=== PATIENT | female | born 1950 | race Caucasian/White ===

== ENCOUNTER 2016-11-09 20:41 | Emergency (ER) | payer BC, OTHER ==
[~2016-11-09] VITALS: Ht 172.7 cm; Wt 131.5 kg
[~2016-11-09 20:41] MED LIST: ASCO500T16 PO; CALCTAB13 PO; CITA20TA9 PO; ENOX120I SQ; FLNIN NAE; HYDC25 PO; IND/25 PO; MISCCAP80 PO; MULTTAB PO; SALI0.6510 NAE; WARF5TAB90 PO; [UNRECOGNIZED DRUG - OTHER] PO
[2016-11-09 20:43] VITALS: TEMP 36.8; Ht 172.7 cm; Wt 131.5 kg
[2016-11-09] MEDS ORDERED: ALLO100T PO (20:55)
[2016-11-09] MEDS ORDERED: FOLI1TAB7 PO (20:56)
[2016-11-09] MEDS ORDERED: CHOL1000 PO (20:56)
[2016-11-09] MEDS ORDERED: VTMB12 PO (20:56)
[2016-11-09] MEDS ORDERED: HYDROCODONE/ACETAMOPHEN 5/325MG TAB PO ONE (21:15)
--- NOTE | 2016-11-09 22:03 | DIAGNOSTIC IMAGING REPORT ---
LEFT RIBS UNILATERAL WITH PA CHEST CLINICAL HISTORY: Left rib pain status post trauma COMPARISON STUDY: Chest x-ray dated 02/26/2013 FINDINGS: The cardiac and mediastinal contours remain stable. There are minor left basilar atelectatic changes. There is no pneumothorax. No acute fractures are visualized. IMPRESSION: No evidence of pneumothorax. No acute left-sided rib fractures are visualized Electronically signed by: Emmanuel Samayoa M.D. 11/09/2016 10:02 PM Dictated Date/Time: 11/09/2016 10:00 PM
[2016-11-09] MEDS ORDERED: HYDR-5688 PO (22:28)
[2016-11-09] MEDS ORDERED: NORCO 5/325MG HOME PACK PO ONE (22:30)
[2016-11-09 23:01] VITALS: BP 138/88; PULSE 84; O2SAT 98
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
[2016-12-08] MEDS ORDERED: ENOX1INJ13 SQ ×2 (13:05→16:52)
[2016-12-08] MEDS ORDERED: CMD5 PO (16:52)
== END 2016-11-09 23:02 | disposition home or self-care (01) ==
LOC: C.EDB 20:42 → C.EDD 23:02
DX: S29.9XXA Unspecified injury of thorax, initial encounter (principal); V19.9XXA Pedal cyclist (driver) (passenger) injured in unspecified traffic accident, initial encounter; I10 Essential (primary) hypertension; Z79.899 Other long term (current) drug therapy

== ENCOUNTER 2016-12-07 17:45 | Inpatient (IN) | payer OTHER ==
[~2016-12-07] VITALS: Ht 172.7 cm; Wt 131.4 kg
[~2016-12-07 17:45] MED LIST changes: +ALLO100T PO; -ASCO500T16 PO; -CALCTAB13 PO; +CHOL1000 PO; -ENOX120I SQ; -FLNIN NAE; +FOLI1TAB7 PO; +HYDR-5688 PO; -IND/25 PO; -SALI0.6510 NAE; +VTMB12 PO; -WARF5TAB90 PO; -[UNRECOGNIZED DRUG - OTHER] PO
[2016-12-07 18:24] LABS: BASO % 0.3 %; BASO ABS # 0.02 K/uL (0-0.2); COMPLETE YES; HEMATOCRIT 40.1 % (37-47); IG% 0.1 %; LYMPH % 20.8 %; LYMPH ABS # 1.41 K/uL (1.2-3.4); MEAN CELL VOLUME 91.1 fL (80-100); MEAN CORPUSCULAR HEMOGLOBIN 29.8 pg (25-34); MEAN CORPUSCULAR HGB CONC 32.7 g/dl (32-36); MEAN PLATELET VOLUME 10.9 fL (7.4-10.4); MONO % 9.3 %; NEUT % 66.5 %; PLATELET COUNT 340 K/uL (130-400); WHITE BLOOD COUNT 6.77 K/uL (4.8-10.8)
[2016-12-07 18:27] LABS: ISTAT CREATININE 1.3 mg/dl (0.6-1.3); ISTAT HEMOGLOBIN 13.3 g/dl (12.0-16.0); ISTAT IONIZED CALCIUM 1.21 mmol/l (1.12-1.32)
--- NOTE | 2016-12-07 18:32 | DIAGNOSTIC IMAGING REPORT ---
CHEST ONE VIEW PORTABLE CLINICAL HISTORY: 66 years-old Female presenting with EVALUATE RESPIRATORY DISTRESS.DYSPNEA. TECHNIQUE: Portable upright AP view of the chest was obtained. COMPARISON: 02/26/2013. FINDINGS: Cardiomediastinal silhouette normal. Lungs and pleural spaces clear. Osseous structures normal. Upper abdomen normal. IMPRESSION: 1. No acute cardiopulmonary disease. Electronically signed by: Brian Saravia M.D. 12/07/2016 6:30 PM Dictated Date/Time: 12/07/2016 6:30 PM
[2016-12-07 18:33] LABS: PROTHROMBIN TIME (PATIENT) 10.2 SECONDS (9.0-12.0)
[2016-12-07 18:49] LABS: ALT/SGPT 26 U/L (12-78); BLOOD UREA NITROGEN 25 mg/dl (7-18); BUN/CREATININE RATIO 20.9 (10-20); CALCIUM 9.3 mg/dl (8.5-10.1); CARBON DIOXIDE 26 mmol/L (21-32); CHLORIDE 107 mmol/L (98-107); GLUCOSE 100 mg/dl (70-99); POTASSIUM 3.5 mmol/L (3.5-5.1); SODIUM 140 mmol/L (136-145)
[2016-12-07 18:54] LABS: ALB/GLOB RATIO 0.8 (0.9-2); ALKALINE PHOSPHATASE 113 U/L (45-117); AST/SGOT 24 U/L (15-37)
--- NOTE | 2016-12-07 19:05 | DIAGNOSTIC IMAGING REPORT ---
(CHEST FOR PE) ANGIO WITH CT DOSE: 718.58 mGy.cm HISTORY: 66 years-old Female presents with acute shortness of breath. TECHNIQUE: Multiple CTA images of the chest were obtained after the intravenous administration of 90 ml Optiray 320. Coronal and sagittal MIPS were obtained from the axial data set and were submitted for review. A dose lowering technique was utilized adhering to the principles of ALARA. COMPARISON: CTA chest 11/13/2012 FINDINGS: CTA: Heart is normal in size without pericardial effusion. Mitral annular calcifications are noted. Thoracic aorta is normal in course and caliber without dissection or aneurysm. There is mild mixed plaquing of the aorta. Several filling defects are noted within the pulmonary arterial tree, notably within segmental and subsegmental branches of the right upper and right lower lobes. No main pulmonary arterial emboli identified. No evidence of right heart strain. CT CHEST: No dominant thyroid nodule. Nonspecific lower right paratracheal lymph node is seen, 1.8 x 1.1 cm which appears unchanged from comparison, likely reactive. There is mild bibasilar atelectasis. There is a small triangular groundglass pleural-based opacity of the right upper lobe, 1.6 x 0.8 cm suggesting a small pulmonary infarction with adjacent subsegmental atelectasis. Central airways are patent. No pneumothorax or pleural effusion. Imaged upper abdominal structures are within normal limits. Soft tissues are unremarkable. Bones appear intact. IMPRESSION: Filling defects within segmental and subsegmental branches of the right upper and lower lobes are compatible with pulmonary thromboembolic disease. No evidence of right heart strain. There is a probable small subsegmental pulmonary infarction of the posterior segment right upper lobe. The above report was generated using voice recognition software. It may contain grammatical, syntax or spelling errors. Electronically signed by: Morgan Doyle M.D. 12/07/2016 7:03 PM Dictated Date/Time: 12/07/2016 6:55 PM
[2016-12-07 20:22] LABS: PARTIAL THROMBOPLASTIN RATIO 0.9
[2016-12-07] MEDS ORDERED: HEPARIN SOD 5000 UNIT/0.5 ML CARP ONE (20:34)
[2016-12-07] MEDS ORDERED: HEPARIN 25000 UNIT/500 ML D5W ONE (20:34)
[2016-12-07] MEDS ORDERED: LORAZEPAM 2 MG/ML 1 ML VIAL IV PRN (22:15)
[2016-12-07] MEDS ORDERED: ACETAMINOPHEN 325 MG TAB PO PRN (22:15)
[2016-12-07] MEDS ORDERED: ONDANSETRON INJ 2 MG/ML 2 ML VIAL IV PRN (22:15)
[2016-12-07] MEDS ORDERED: MoRPHine SULFATE 4 MG/ML 1 ML CARP\\VIAL IV PRN (22:15)
[2016-12-07] MEDS ORDERED: LACTATED RINGER'S 1000ML 1,000 ML IV ONE (22:15)
[2016-12-07] MEDS ORDERED: HYDROCODONE/ACETAMOPHEN 5/325MG TAB PO PRN (22:15)
[2016-12-07 22:31] VITALS: Ht 172.7 cm; Wt 131.4 kg
[2016-12-07] MEDS ORDERED: HEPARIN 25,000 UNIT/500ML D5W 500 ML IV PRN (22:45)
--- NOTE | 2016-12-07 23:03 | History and Physical ---
History & Physical Date & Time of Service: Dec 07, 2016 ~ 21:30 Chief Complaint: Shortness of Breath Primary Care Physician: Reyna Moon D.O. History of Present Illness 66 year old female who was referred to the ER by her PCP for evaluation of shortness of breath and elevated D. Dimer. Patient reports about one month ago she was climbing a large flight of stairs and became very short of breath. She notes increased shortness of breath since that time. She denies chest pain. No cough or sputum production. No calf pain or leg swelling. She denies lightheadedness, dizziness, diaphoresis, or syncope. No abdominal pain, nausea, vomiting, or diarrhea. She denies fever and chills. No urinary symptoms. In the ED, CTA chest is positive for PE. She was started on IV Heparin. She is hemodynamically stable. Past Medical/Surgical History Medical Problems: (1) Depression Status: Chronic (2) DVT (deep venous thrombosis) Status: Chronic (3) Gout Status: Chronic (4) HTN (hypertension) Status: Chronic (5) IBS (irritable bowel syndrome) Status: Chronic (6) MTHFR mutation Status: Chronic Surgical Problems: (1) H/O repair of right rotator cuff Status: Chronic (2) History of appendectomy Status: Chronic Family History Blood clots BROTHER Social History Smoking Status: Former Smoker Alcohol Use: occasionally Immunizations History of Influenza Vaccine: Yes Influenza Vaccine Date: Jan 27, 2016 History of Pneumococcal: Yes Pneumococcal Date: Dec 11, 2015 Multi-Drug Resistant Organisms History of MDRO: No Allergies Coded Allergies: Adhesives (Verified Allergy, Intermediate, RASH, 12/07/16) Latex (Unverified Allergy, Unknown, RASH, 12/07/16) Home Medications Scheduled Allopurinol (Zyloprim), 100 MG PO QAM Cholecalciferol (Vitamin D3), 1,000 INTER.UNIT PO DAILY Citalopram Hydrobromide (Celexa), 20 MG PO DAILY Cyanocobalamin (Vitamin B-12), 500 MCG PO QAM Folic Acid (Folvite), 1 MG PO DAILY Hydrochlorothiazide (Hctz *), 25-50 MG PO DAILY Multivitamins/Minerals (Mvi With Minerals), 1 TAB PO DAILY Probiotic Product (Probiotic), 1 CAP PO DAILY Scheduled PRN Hydrocodone/Acetaminophen 5MG/325MG ([place] 5MG/325MG), 1-2 TABLET PO Q6 PRN for Pain Review of Systems ROS per HPI, all other systems reviewed and negative Physical Exam Vital Signs Date Time Temp Pulse Resp B/P (MAP) Pulse Ox O2 Delivery O2 Flow Rate FiO2 12/07/16 22:41 67 18 147/79 96 Room Air 12/07/16 22:31 Room Air 12/07/16 20:39 62 18 167/83 98 Room Air 12/07/16 18:10 97 Room Air 12/07/16 18:06 71 12/07/16 17:47 36.9 72 18 190/84 95 Room Air General Appearance: no apparent distress Head: normocephalic, atraumatic Eyes: normal inspection, sclerae normal ENT: hearing grossly normal Neck: supple, no JVD Respiratory/Chest: lungs clear, normal breath sounds, no respiratory distress Cardiovascular: regular rate, rhythm, no edema, normal peripheral pulses Abdomen/GI: normal bowel sounds, non tender, soft Extremities/Musculoskelatal: normal inspection, no calf tenderness Neurologic/Psych: no motor/sensory deficits, alert, normal mood/affect, oriented x 3 Skin: normal color, warm/dry Diagnostics Laboratory Results Results Past 24 Hours Test 12/07/16 18:10 12/07/16 18:14 12/07/16 22:30 Range/Units White Blood Count 6.77 4.8-10.8 K/uL Red Blood Count 4.40 4.2-5.4 M/uL Hemoglobin 13.1 12.0-16.0 g/dL Hematocrit 40.1 37-47 % Mean Corpuscular Volume 91.1 80-100 fL Mean Corpuscular Hemoglobin 29.8 25-34 pg Mean Corpuscular Hemoglobin Concent 32.7 32-36 g/dl Platelet Count 340 130-400 K/uL Mean Platelet Volume 10.9 7.4-10.4 fL Neutrophils (%) (Auto) 66.5 % Lymphocytes (%) (Auto) 20.8 % Monocytes (%) (Auto) 9.3 % Eosinophils (%) (Auto) 3.0 % Basophils (%) (Auto) 0.3 % Neutrophils # (Auto) 4.50 1.4-6.5 K/uL Lymphocytes # (Auto) 1.41 1.2-3.4 K/uL Monocytes # (Auto) 0.63 0.11-0.59 K/uL Eosinophils # (Auto) 0.20 0-0.5 K/uL Basophils # (Auto) 0.02 0-0.2 K/uL RDW Standard Deviation 45.1 36.4-46.3 fL RDW Coefficient of Variation 13.6 11.5-14.5 % Immature Granulocyte % (Auto) 0.1 % Immature Granulocyte # (Auto) 0.01 0.00-0.02 K/uL Prothrombin Time 10.2 9.0-12.0 SECONDS Prothromb Time International Ratio 1.0 0.9-1.1 Activated Partial Thromboplast Time 22.8 21.0-31.0 SECONDS Partial Thromboplastin Ratio 0.9 Sodium Level 140 136-145 mmol/L Potassium Level 3.5 3.5-5.1 mmol/L Chloride Level 107 98-107 mmol/L Carbon Dioxide Level 26 21-32 mmol/L Anion Gap 7.0 17.0 16-25 mmol/L Blood Urea Nitrogen 25 7-18 mg/dl Creatinine 1.20 0.60-1.20 mg/dl Est Creatinine Clear Calc Drug Dose 64.7 ml/min Estimated GFR () 54.2 Estimated GFR (Non- 46.7 BUN/Creatinine Ratio 20.9 10-20 Random Glucose 100 70-99 mg/dl Calcium Level 9.3 8.5-10.1 mg/dl Magnesium Level 2.0 1.8-2.4 mg/dl Total Bilirubin 0.3 0.2-1 mg/dl Aspartate Amino Transf (AST/SGOT) 24 15-37 U/L Alanine Aminotransferase (ALT/SGPT) 26 12-78 U/L Alkaline Phosphatase 113 45-117 U/L Troponin I < 0.015 0-0.045 ng/ml Pro-B-Type Natriuretic Peptide 165 0-900 pg/ml Total Protein 8.3 6.4-8.2 gm/dl Albumin 3.7 3.4-5.0 gm/dl Globulin 4.6 2.5-4.0 gm/dl Albumin/Globulin Ratio 0.8 0.9-2 Bedside Hemoglobin 13.3 12.0-16.0 g/dl Bedside Hematocrit 39 37-47 % Bedside Sodium 142 135-144 mEq/L Bedside Potassium 3.5 3.3-5.0 mEq/L Bedside Chloride 104 101-112 mEq/L Bedside Total CO2 25 24-31 mEq/l Bedside Blood Urea Nitrogen 26 7-18 mg/dl Bedside Creatinine 1.3 0.6-1.3 mg/dl Bedside Glucose (other) 105 70-99 mg/dl Bedside Ionized Calcium ([place]) 1.21 1.12-1.32 mmol/l Diagnostic Radiology CTA CHEST IMPRESSION: Filling defects within segmental and subsegmental branches of the right upper and lower lobes are compatible with pulmonary thromboembolic disease. No evidence of right heart strain. There is a probable small subsegmental pulmonary infarction of the posterior segment right upper lobe. CXR IMPRESSION: 1. No acute cardiopulmonary disease. Impression Assessment and Plan PULMONARY EMBOLISM - admit to tele - patient presenting with increasing shortness of breath x 1 month; CTA chest in the ED positive for PE - saturating well on room air - hx of MTHFR mutation at DVT in 2014 - completed 6 months of Coumadin therapy - started on Heparin in the ED - will continue with eventual transition to Coumadin vs. NOAC - check echo GOUT - continue allopurinol DEPRESSION - continue citalopram DVT PROPHYLAXIS - on Heparin gtt DISPO - In my clinical judgment this beneficiary meets acute admission criteria, established by [facility], that includes being hospitalized through two midnights. Advanced Directives Existing Living Will: Yes Existing Power of Project Developer: Yes VTE Prophylaxis VTE Risk Assessment Done? Y/N: Yes Risk Level: High Assessment/Plan IM ATTENDING : Patient seen and examined. History obtained from patient and records. Preceding documentation by Ms. Daily Monten[place]ro reviewed. FINAL ASSESSMENT AND PLAN as follows: 1. Recurrent pulmonary embolism. Possible hypercoagulable state Hx heterozygous MTHFR mutation. Rule out lower extremity DVT a source of clot. 2. Hypertension, slightly elevated. 3. Clinical heart murmur (prominent appreciated on the left sternal border, 2nd ICS) PCU IV heparin Lower extremity Dopplers to rule out DVT. Defer further discussion regarding choice for oral agent for long-term anticoagulation between patient and provider in a.m. Monitor blood pressure. May need augment home Rx. TTE RE murmur DVT prophylaxis, Heparin. Full code.
[2016-12-07 23:20] VITALS: BP 190/82; PULSE 66; TEMP 36.6; O2SAT 96
[2016-12-08] VITALS (8 sets, daily range): BP systolic 131–172; BP diastolic 73–89; PULSE 62–69; TEMP 36.3–36.9; O2SAT 94–97
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
--- NOTE | 2016-12-08 01:21 | HISTORY & PHYSICAL EXAMINATION ---
DATE OF ADMISSION: 12/07/2016 IM ATTENDING : Patient seen and examined. History obtained from patient and records. Preceding documentation by Ms. Daily Montenegro reviewed. FINAL ASSESSMENT AND PLAN as follows: 1. Recurrent pulmonary embolism. Possible hypercoagulable state Hx heterozygous MTHFR mutation. Rule out lower extremity DVT a source of clot. 2. Hypertension, slightly elevated. 3. Clinical heart murmur (prominent appreciated on the left sternal border, 2nd ICS) PCU IV heparin Lower extremity Dopplers to rule out DVT. Defer further discussion regarding choice for oral agent for long-term anticoagulation between patient and provider in a.m. Monitor blood pressure. May need augment home Rx. TTE RE murmur DVT prophylaxis, Heparin. Full code. MTDD
[2016-12-08 03:10] LABS: BASO % 0.3 %; BASO ABS # 0.02 K/uL (0-0.2); COMPLETE YES; EOS % 3.9 %; HEMATOCRIT 35.6 % (37-47); IG% 0.2 %; LYMPH % 24.9 %; LYMPH ABS # 1.59 K/uL (1.2-3.4); MEAN CELL VOLUME 90.1 fL (80-100); MEAN CORPUSCULAR HEMOGLOBIN 29.9 pg (25-34); MEAN CORPUSCULAR HGB CONC 33.1 g/dl (32-36); MEAN PLATELET VOLUME 10.9 fL (7.4-10.4); MONO % 9.7 %; PLATELET COUNT 281 K/uL (130-400); RED BLOOD COUNT 3.95 M/uL (4.2-5.4); WHITE BLOOD COUNT 6.38 K/uL (4.8-10.8)
[2016-12-08 03:25] LABS: PARTIAL THROMBOPLASTIN RATIO 2.1
--- NOTE | 2016-12-08 07:32 | DIAGNOSTIC IMAGING REPORT ---
VENOUS DOPPLER LWR EXT BILA CLINICAL HISTORY: 66 years-old Female presenting with known pulmonary embolus, lump in the left lateral knee status post fall. TECHNIQUE: Real-time grayscale and color and spectral Doppler ultrasound imaging of the veins of the bilateral lower extremities was performed. Compression and augmentation were also utilized. COMPARISON: 11/13/2012. FINDINGS: Right: Common femoral vein: Patent. Femoral vein: Patent. Greater saphenous vein: Patent. Popliteal vein: Patent. Calf veins: Nonocclusive filling defect consistent with thrombus in one of the duplicated mid posterior tibial veins. Left: Common femoral vein: Patent. Femoral vein: Patent. Greater saphenous vein: Patent. Popliteal vein: Patent. Calf veins: Occlusive filling defect consistent with thrombus in one of the duplicated proximal to mid peroneal veins. Other: Small complex hypoechoic focus in the left lateral knee without demonstrable color Doppler flow and suggestion of a central hyperechogenic focus. This may represent a small lymph node versus a popliteal cyst. IMPRESSION: 1. Nonocclusive deep venous thrombosis in one of the duplicated posterior tibial veins of the right lower extremity. 2. Occlusive deep venous thrombosis in one of the duplicated left peroneal veins. 3. Remainder of the veins of the lower extremities are patent. Electronically signed by: Brian Saravia M.D. 12/08/2016 7:30 AM Dictated Date/Time: 12/08/2016 7:26 AM
[2016-12-08] MEDS ORDERED: CEROVITE ADV FORMULA TAB PO SCH (09:00)
[2016-12-08] MEDS ORDERED: CITALOPRAM 20 MG TAB PO SCH (09:00)
[2016-12-08] MEDS ORDERED: LACTOBACILLUS ACIDOPHILUS (FLORANEX) TAB PO SCH (09:00)
[2016-12-08] MEDS ORDERED: ALLOPURINOL 100 MG TAB PO SCH (09:00)
[2016-12-08] MEDS ORDERED: ENOX1INJ13 SQ ×2 (13:05→16:52)
[2016-12-08] MEDS ORDERED: LOVENOX TEACHING KIT ONE (13:15)
[2016-12-08] MEDS ORDERED: WARFARIN SOD 5 MG TAB PO ONE (13:15)
[2016-12-08] MEDS ORDERED: ENOXAPARIN 150 MG/1ML SYR SQ SCH (14:00)
--- NOTE | 2016-12-08 14:56 | ECHOCARDIOGRAM REPORT ---
*NOTICE TO RECEIVING REPUBLICAN AGENCY This information is strictly Confidential and protected under [place] law. [place] law prohibits you from making any further disclosure of this information unless further disclosure is expressly permitted by the written consent of the person to whom it pertains or is authorized by law. A general authorization for the release of medical or other information is not sufficient for this purpose. Hospital accepts no responsibility if the information is made available to any other person, INCLUDING THE PATIENT. Interpretation Summary * Name: PHIL CONROY Study Date: 12/08/2016 10:28 AM BP: 164/89 mmHg * Patient Location: [facility]\S\N283\S\1 HR: 61 * : 1950 (M/d/yyyy) Gender: Female Height: 68 in * Age: 66 yrs Ethnicity: CA Weight: 285 lb * Ordering Physician: Johan Glynn * Referring Physician: August Jonas * Performed By: Marta Carvalho RCS * * Reason For Study: MURMUR * BSA: 2.4 m2 * -- Conclusions -- * Aortic valve sclerosis mild, without significant aortic valvular stenosis. * The left ventricle is normal in size. * There is mild concentric left ventricular hypertrophy. * The left ventricular wall motion is normal. * Left ventricular systolic function is normal. * Ejection Fraction = 60-65%. * There is moderate mitral annular calcification. * The mitral valve leafl;ets are mildly thickened * There is no mitral valve stenosis. * There is trace mitral regurgitation. * Grade I diastolic dysfunction, (abnormal relaxation pattern). * The study was technically difficult. Procedure Details * A complete two-dimensional transthoracic echocardiogram was performed (2D, M-mode, Doppler and color flow Doppler). * The study was technically difficult. * The study was technically difficult, but visualization was adequate with the administration of Definity ultrasound contrast. * There were technical limitations due to patient'sbody habitus * A contrast injection of Definity was performed to improve assessment of LV function. * Contrast was injected into an intravenous site in the left arm. * One vial of Definity ultrasound contrast was diluted in normal saline to a total volume of 10 ml. A total of '3' ml of solution was administered during imaging. * Lot # [id number] of Definity utilized for procedure. * Expiration date JAN 24. * The attending nurse who injected the contrast agent was SALVATORE SAEED RN. Left Ventricle * The left ventricle is normal in size. * There is mild concentric left ventricular hypertrophy. * Left ventricular systolic function is normal. * Ejection Fraction = 60-65%. * The left ventricular wall motion is normal. Right Ventricle * The right ventricle is normal in size and function. Atria * Borderline left atrial enlargement. * Right atrial size is normal. * No ASD detected; PFO is not assessed. Mitral Valve * There is moderate mitral annular calcification. * The mitral valve leafl;ets are mildly thickened * There is no mitral valve stenosis. * There is trace mitral regurgitation. Tricuspid Valve * The tricuspid valve anatomy is normal. * There is no tricuspid stenosis. * There is trace tricuspid regurgitation. * Doppler findings do not suggest pulmonary hypertension. Aortic Valve * The aortic valve is trileaflet. * Aortic valve sclerosis mild, without significant aortic valvular stenosis. * No hemodynamically significant valvular aortic stenosis. * No aortic regurgitation is present. Pulmonic Valve * The pulmonic valve is not well visualized. Great Vessels * The aortic root is normal size. Pericardium/Pleural * There is no pericardial effusion. Great Vessels * Normal inferior vena cava diameter and respiratory variation suggests normal central venous pressure. Left Ventricular Diastolic Function * Grade I diastolic dysfunction, (abnormal relaxation pattern). MMode 2D Measurements and Calculations IVSd 1.4 cm IVSs 1.8 cm LVIDd 4.3 cm LVIDs 2.8 cm LVPWd 1.4 cm LVPWs 1.2 cm IVS/LVPW 1.0 FS 34.0 % EDV(Teich) 83.9 ml ESV(Teich) 30.8 ml EF(Teich) 63.3 % EDV(cubed) 80.6 ml ESV(cubed) 23.1 ml EF(cubed) 71.3 % % IVS thick 24.7 % % LVPW thick -15.80 % LV mass(C)d 237.1 grams LV mass(C)dI 99.8 grams/m\S\2 LV mass(C)s 144.7 grams LV mass(C)sI 60.9 grams/m\S\2 SV(Teich) 53.1 ml SI(Teich) 22.3 ml/m\S\2 SV(cubed) 57.4 ml SI(cubed) 24.2 ml/m\S\2 Ao root diam 2.7 cm Ao root area 5.9 cm\S\2 LA dimension 3.2 cm LA/Ao 1.2 LVOT diam 2.0 cm LVOT area 3.2 cm\S\2 LVAd ap4 34.5 cm\S\2 LVLd ap4 8.2 cm EDV(MOD-sp4) 119.1 ml EDV(sp4-el) 123.4 ml LVAs ap4 22.0 cm\S\2 LVLs ap4 7.2 cm ESV(MOD-sp4) 54.1 ml ESV(sp4-el) 57.2 ml EF(MOD-sp4) 54.5 % EF(sp4-el) 53.6 % LVAd ap2 31.3 cm\S\2 LVLd ap2 7.8 cm EDV(MOD-sp2) 99.7 ml EDV(sp2-el) 105.9 ml LVAs ap2 18.3 cm\S\2 LVLs ap2 7.2 cm ESV(MOD-sp2) 37.7 ml ESV(sp2-el) 39.3 ml EF(MOD-sp2) 62.2 % EF(sp2-el) 62.9 % LVLd %diff -4.47 % EDV(MOD-bp) 108.1 ml LVLs %diff 0.84 % ESV(MOD-bp) 44.7 ml EF(MOD-bp) 58.7 % SV(MOD-sp4) 65.0 ml SI(MOD-sp4) 27.4 ml/m\S\2 SV(MOD-sp2) 62.0 ml SI(MOD-sp2) 26.1 ml/m\S\2 SV(MOD-bp) 63.4 ml SI(MOD-bp) 26.7 ml/m\S\2 SV(sp4-el) 66.2 ml SI(sp4-el) 27.9 ml/m\S\2 SV(sp2-el) 66.6 ml SI(sp2-el) 28.0 ml/m\S\2 Doppler Measurements and Calculations MV E max mohini 89.5 cm/sec MV A max mohini 115.4 cm/sec MV E/A 0.78 MV P1/2t max mohini 105.9 cm/sec MV P1/2t 101.2 msec MVA(P1/2t) 2.2 cm\S\2 MV dec slope 306.5 cm/sec\S\2 MV dec time 0.47 sec Ao V2 max 149.5 cm/sec Ao max PG 8.9 mmHg Ao max PG (full) 2.9 mmHg ANGEL(V,A) 2.6 cm\S\2 ANGEL(V,D) 2.6 cm\S\2 LV V1 max PG 6.0 mmHg LV V1 max 122.8 cm/sec PA V2 max 135.4 cm/sec PA max PG 7.3 mmHg TR max mohini 272.5 cm/sec
--- NOTE | 2016-12-08 16:50 | Progress Note ---
Subjective Date of Service: Dec 08, 2016. Subjective Pt evaluation today including: conversation w/ patient, physical exam, lab review, review of studies, review of inpatient medication list Saw/examined the patient in room 283 Patient is doing well, no chest pain, no shortness of breath while seated Denies any other symptoms currently and is very eager to go home Currently being taught about Lovenox injections Problem List Medical Problems: (1) Pulmonary embolism Status: Acute (2) Soft tissue injury of left chest wall Status: Acute Review of Systems Constitutional: No fever, No chills Respiratory: No cough, No shortness of breath (resolved) Cardiac: No chest pain, No edema, No palpitations Abdomen: No pain, No nausea, No vomiting, No diarrhea Medications Current Inpatient Medications Medications (Trade) Dose Ordered Sig/Shelli Route Start Time Stop Time Status Last Admin Dose Admin Acetaminophen (Tylenol Tab) 650 mg Q4H PRN PO 12/07/16 22:15 01/06/17 22:14 Allopurinol (Zyloprim Tab) 100 mg QAM PO 12/08/16 09:00 01/07/17 08:59 12/08/16 07:47 100 MG Citalopram Hydrobromide (celeXA TAB) 20 mg DAILY PO 12/08/16 09:00 01/07/17 08:59 12/08/16 07:48 20 MG Folic Acid (Folvite Tab) 1 mg DAILY PO 12/08/16 09:00 01/07/17 08:59 12/08/16 07:48 1 MG Acetaminophen/ Hydrocodone Bitart ([place] 5/325 Tab) 1 tab Q4H PRN PO 12/07/16 22:15 12/21/16 22:14 Multivitamins/ Minerals (Multivitamin W/ Minerals Tab) 1 tab DAILY PO 12/08/16 09:00 01/07/17 08:59 12/08/16 07:48 1 TAB Lactobacillus Acidophilus (Floranex Tab) 1 tab DAILY PO 12/08/16 09:00 01/07/17 08:59 12/08/16 07:48 1 TAB Morphine Sulfate (MoRPHine SULFATE INJ) 4 mg Q3H PRN IV 12/07/16 22:15 12/21/16 22:14 Ondansetron HCl (Zofran Inj) 4 mg Q6H PRN IV 12/07/16 22:15 01/06/17 22:14 Lorazepam (Ativan Inj) 0.5 mg Q4H PRN IV 12/07/16 22:15 01/06/17 22:14 Enoxaparin Sodium (Lovenox Inj) 129 mg Q12H SQ 12/08/16 14:00 01/07/17 13:59 12/08/16 15:34 129 MG Objective Vital Signs Date Time Temp Pulse Resp B/P (MAP) Pulse Ox O2 Delivery O2 Flow Rate FiO2 12/08/16 14:57 36.9 64 18 172/83 (112) 95 12/08/16 12:00 94 Room Air 12/08/16 11:55 36.7 69 18 164/89 (114) 94 12/08/16 08:00 94 Room Air 12/08/16 07:47 36.3 64 164/89 (114) 94 Room Air 12/08/16 04:41 36.5 62 16 131/73 (92) 97 Room Air 12/08/16 04:00 Room Air 12/08/16 00:35 132/74 (93) 12/08/16 00:00 Room Air 12/07/16 23:20 36.6 66 16 190/82 (118) 96 Room Air 12/07/16 22:41 67 18 147/79 96 Room Air 12/07/16 22:31 Room Air 12/07/16 20:39 62 18 167/83 98 Room Air 12/07/16 18:10 97 Room Air 12/07/16 18:06 71 12/07/16 17:47 36.9 72 18 190/84 95 Room Air Physical Exam General Appearance: no apparent distress Respiratory/Chest: lungs clear, normal breath sounds, no respiratory distress, no accessory muscle use Cardiovascular: regular rate, rhythm, no edema, no murmur Abdomen: normal bowel sounds, non tender, soft Laboratory Results Last 24 Hours Test 12/07/16 18:10 12/07/16 18:14 12/07/16 18:21 12/08/16 02:43 White Blood Count 6.77 K/uL 6.38 K/uL Red Blood Count 4.40 M/uL 3.95 M/uL Hemoglobin 13.1 g/dL 11.8 g/dL Hematocrit 40.1 % 35.6 % Mean Corpuscular Volume 91.1 fL 90.1 fL Mean Corpuscular Hemoglobin 29.8 pg 29.9 pg Mean Corpuscular Hemoglobin Concent 32.7 g/dl 33.1 g/dl Platelet Count 340 K/uL 281 K/uL Mean Platelet Volume 10.9 fL 10.9 fL Neutrophils (%) (Auto) 66.5 % 61.0 % Lymphocytes (%) (Auto) 20.8 % 24.9 % Monocytes (%) (Auto) 9.3 % 9.7 % Eosinophils (%) (Auto) 3.0 % 3.9 % Basophils (%) (Auto) 0.3 % 0.3 % Neutrophils # (Auto) 4.50 K/uL 3.89 K/uL Lymphocytes # (Auto) 1.41 K/uL 1.59 K/uL Monocytes # (Auto) 0.63 K/uL 0.62 K/uL Eosinophils # (Auto) 0.20 K/uL 0.25 K/uL Basophils # (Auto) 0.02 K/uL 0.02 K/uL RDW Standard Deviation 45.1 fL 44.5 fL RDW Coefficient of Variation 13.6 % 13.4 % Immature Granulocyte % (Auto) 0.1 % 0.2 % Immature Granulocyte # (Auto) 0.01 K/uL 0.01 K/uL Prothrombin Time 10.2 SECONDS Prothromb Time International Ratio 1.0 Activated Partial Thromboplast Time 22.8 SECONDS 54.2 SECONDS Partial Thromboplastin Ratio 0.9 2.1 Sodium Level 140 mmol/L Potassium Level 3.5 mmol/L Chloride Level 107 mmol/L Carbon Dioxide Level 26 mmol/L Anion Gap 7.0 mmol/L 17.0 mmol/L Blood Urea Nitrogen 25 mg/dl Creatinine 1.20 mg/dl Est Creatinine Clear Calc Drug Dose 64.7 ml/min Estimated GFR () 54.2 Estimated GFR (Non- 46.7 BUN/Creatinine Ratio 20.9 Random Glucose 100 mg/dl Calcium Level 9.3 mg/dl Magnesium Level 2.0 mg/dl Total Bilirubin 0.3 mg/dl Aspartate Amino Transf (AST/SGOT) 24 U/L Alanine Aminotransferase (ALT/SGPT) 26 U/L Alkaline Phosphatase 113 U/L Troponin I < 0.015 ng/ml Pro-B-Type Natriuretic Peptide 165 pg/ml Total Protein 8.3 gm/dl Albumin 3.7 gm/dl Globulin 4.6 gm/dl Albumin/Globulin Ratio 0.8 Bedside Hemoglobin 13.3 g/dl Bedside Hematocrit 39 % Bedside Sodium 142 mEq/L Bedside Potassium 3.5 mEq/L Bedside Chloride 104 mEq/L Bedside Total CO2 25 mEq/l Bedside Blood Urea Nitrogen 26 mg/dl Bedside Creatinine 1.3 mg/dl Bedside Glucose (other) 105 mg/dl Bedside Ionized Calcium ([place]) 1.21 mmol/l Hepatitis C Antibody Screen NEG Assessment and Plan This is a 66 year old female with a PMH of HTN, depression/anxiety, previous history of DVT, heterozygous MTHFR mutation presents with SOB and subsequently found to have an acute PE Acute Pulmonary Embolism Acute DVT Hx. of Heterozygosity to MTHFR Mutation CTA shows an acute segmental/subsegmental PE echo does not indicate any R heart strain she is in no distress, no oxygen necessary, breathing fine no chest pain, breathing back to baseline was started on IV heparin we will d/c this, start Lovenox Lovenox teaching as per nursing start Coumadin (she does not qualify for a NOAC due to her BMI) will d/c home today with Lovenox/Coumadin follow-up with PCP and Coumadin clinic HTN BP stable; continue home medications Depression/Anxiety continue home medications DVT ppx IV heparin, then Lovenox FULL CODE
[2016-12-08] MEDS ORDERED: CMD5 PO (16:52)
--- NOTE | 2016-12-08 16:54 | Discharge Instructions ---
Discharge Instructions Date of Service Dec 08, 2016. Admission Reason for Admission: Pulmonary Embolism Discharge Discharge Diagnosis / Problem: Acute Pulmonary Embolism, Acute DVT Discharge Goals Goal(s): Decrease discomfort, Improve function, Diagnostic testing, Therapeutic intervention Activity Recommendations Activity Limitations: resume your previous activity . Instructions / Follow-Up Instructions / Follow-Up Please follow-up with Dr. Moon on December 14 at 9:35AM You must follow with the Coumadin clinic - you will get a phone call with a date and time You will be discharged with Lovenox, inject this twice daily You should take Coumadin 5mg daily Current Hospital Diet Patient's current hospital diet: AHA Diet (Heart Healthy) Discharge Diet Recommended Diet: Regular Diet Pending Studies Studies pending at discharge: no Medical Emergencies . Who to Call and When: Medical Emergencies: If at any time you feel your situation is an emergency, please call 911 immediately. . Non-Emergent Contact Non-Emergency issues call your: Primary Care Provider . . "Provider Documentation" section prepared by Jamal Morris. . VTE Core Measure Inpt VTE Proph given/why not?: Enoxaparin (Lovenox)SQ, Other Anticoagulation ( IV heparin)
--- NOTE | 2016-12-08 16:58 | Discharge Summary ---
Discharge Summary Date of Service Dec 08, 2016. Discharge Summary Admission Date: Dec 07, 2016 at 21:47 Discharge Date: Dec 08, 2016 Discharge Disposition: Home Principal Diagnosis: Acute Pulmonary Embolism Medication Reconciliation New Medications: Enoxaparin Sodium (Lovenox) 120 Mg/0.8 Ml Inj 120 MG SQ Q12 for 7 Days, #14 SYR Warfarin Sod (Coumadin) 5 Mg Tab 5 MG PO DAILY for 15 Days, #15 TABS Continued Medications: Allopurinol (Zyloprim) 100 Mg Tab 100 MG PO QAM, TAB Cholecalciferol (Vitamin D3) 1,000 Unit Tab 1000 INTER.UNIT PO DAILY for 90 Days, TAB 3 Refills Citalopram Hydrobromide (Celexa) 20 Mg Tab 20 MG PO DAILY, TAB Cyanocobalamin (Vitamin B-12) 500 Mcg Tab 500 MCG PO QAM Folic Acid (Folvite) 1 Mg Tab 1 MG PO DAILY, TAB Hydrochlorothiazide (Hctz *) 25 Mg Tab 25-50 MG PO DAILY, 0 Refills Hydrocodone/Acetaminophen 5MG/325MG ([place] 5MG/325MG) Tab 1-2 TABLET PO Q6 PRN for Pain, #15 TAB For Initial Treatment Multivitamins/Minerals (Mvi With Minerals) Tab 1 TAB PO DAILY, TAB Probiotic Product (Probiotic) 1 Cap Cap 1 CAP PO DAILY Admission Information HPI (per Admitting provider): 66 year old female who was referred to the ER by her PCP for evaluation of shortness of breath and elevated D. Dimer. Patient reports about one month ago she was climbing a large flight of stairs and became very short of breath. She notes increased shortness of breath since that time. She denies chest pain. No cough or sputum production. No calf pain or leg swelling. She denies lightheadedness, dizziness, diaphoresis, or syncope. No abdominal pain, nausea, vomiting, or diarrhea. She denies fever and chills. No urinary symptoms. In the ED, CTA chest is positive for PE. She was started on IV Heparin. She is hemodynamically stable. Physical Exam (per Admitting): General Appearance: no apparent distress Head: normocephalic, atraumatic Eyes: normal inspection, sclerae normal ENT: hearing grossly normal Neck: supple, no JVD Respiratory/Chest: lungs clear, normal breath sounds, no respiratory distress Cardiovascular: regular rate, rhythm, no edema, normal peripheral pulses Abdomen/GI: normal bowel sounds, non tender, soft Extremities/Musculoskelatal: normal inspection, no calf tenderness Neurologic/Psych: no motor/sensory deficits, alert, normal mood/affect, oriented x 3 Skin: normal color, warm/dry Hospital Course This is a 66 year old female with a PMH of HTN, depression/anxiety, previous history of DVT, heterozygous MTHFR mutation presents with SOB and subsequently found to have an acute PE Acute Pulmonary Embolism Acute DVT Hx. of Heterozygosity to MTHFR Mutation CTA shows an acute segmental/subsegmental PE echo does not indicate any R heart strain she is in no distress, no oxygen necessary, breathing fine no chest pain, breathing back to baseline was started on IV heparin we will d/c this, start Lovenox Lovenox teaching as per nursing start Coumadin (she does not qualify for a NOAC due to her BMI) will d/c home today with Lovenox/Coumadin follow-up with PCP and Coumadin clinic HTN BP stable; continue home medications Depression/Anxiety continue home medications DVT ppx IV heparin, then Lovenox FULL CODE Total time spent on discharge = 50 minutes This includes examination of the patient, discharge planning, medication reconciliation, and communication with other providers. Discharge Instructions Please follow-up with Dr. Moon on December 14 at 9:35AM You must follow with the Coumadin clinic - you will get a phone call with a date and time You will be discharged with Lovenox, inject this twice daily You should take Coumadin 5mg daily
[2016-12-08] MEDS ORDERED: NURSING VERBAL MED ORDER ONE (17:30)
[2016-12-09] MEDS ORDERED: ENOXAPARIN 120 MG/0.8 ML SYR SQ SCH (04:00)
== END 2016-12-08 17:59 | disposition home or self-care (01) | DRG 176 ==
LOC: C.EDB 17:46 → C.MED 21:47 → ENRESERV 22:09
PROVIDERS: ADMIT Family Medicine; ATTEND Family Medicine
DX: I26.99 Other pulmonary embolism without acute cor pulmonale (principal); E72.12 Methylenetetrahydrofolate reductase deficiency; F41.8 Other specified anxiety disorders; Z86.718 Personal history of other venous thrombosis and embolism; I10 Essential (primary) hypertension; K58.9 Irritable bowel syndrome, unspecified; Z91.040 Latex allergy status

== ENCOUNTER 2018-04-27 12:28 | Observation (INO) ==
[2018-04-27] MEDS ORDERED: ASPIRIN CHEW 324 MG PO STA (12:59)
[2018-04-27 13:08] LABS: Basophils # (auto) 0.02 K/uL (0-0.2); Basophils % (auto) 0.2 %; Eosinophils % (auto) 2.3 %; Hematocrit (blood only) 41.6 % (37-47); Hemoglobin 13.6 g/dL (12.0-16.0); Immature Granulocytes # (auto) 0.03 K/uL (0.00-0.02); Immature Granulocytes % (auto) 0.3 %; Lymphocytes # (auto) 1.68 K/uL (1.2-3.4); Lymphocytes % (auto) 19.5 %; Mean Corpuscular Hgb Conc 32.7 g/dL (32-36); Mean Platelet Volume 10.7 fL (7.4-10.4); Monocytes # (auto) 0.58 K/uL (0.11-0.59); Monocytes % (auto) 6.7 %; Neutrophils # (auto) 6.11 K/uL (1.4-6.5); Platelet Count 287 K/uL (130-400); RDW Coefficient of Variation 14.1 % (11.5-14.5); RDW Standard Deviation 47.3 fL (36.4-46.3); Red Blood Count 4.52 M/uL (4.2-5.4); White Blood Count 8.62 K/uL (4.8-10.8)
--- NOTE | 2018-04-27 13:20 | XRay Report ---
SINGLE VIEW CHEST CLINICAL HISTORY: Atypical chest pain. FINDINGS: An AP, portable, upright chest radiograph is compared to chest x-ray and chest CT dated 11/09. The examination is degraded by portable technique and patient rotation. The heart is enlarge d and there is atherosclerotic calcification of the thoracic aorta. The pulmonary vasculature is nonc ongested. Chronic interstitial thickening is similar to previous. No airspace consolidation or large pleural effusion is identified. Mild bibasilar scarring/atelectasis is observed. No pneumothorax is s een. The skeletal structures are osteopenic. The bony thorax is grossly intact. IMPRESSION: Cardiomegaly with no acute cardiopulmonary abnormality. Electronically signed by: Ky Guevara M.D. 04/27/2018 1:19 PM
[2018-04-27 13:25] LABS: Albumin Level 3.7 gm/dl (3.4-5.0); BUN Creatinine Ratio 16.3 (10-20); Calcium 9.2 mg/dl (8.5-10.1); Est GFR (African American) 48.4; Est GFR (Non-African American) 41.7; Potassium 3.1 mmol/L (3.5-5.1)
[2018-04-27 13:28] LABS: Albumin Globulin Ratio 0.8 (0.9-2); Bilirubin,Total 0.7 mg/dl (0.2-1); Globulin 4.5 gm/dl (2.5-4.0); Total Protein 8.2 gm/dl (6.4-8.2)
--- NOTE | 2018-04-27 15:20 | Emergency Department Note ---
Entered by Renuka Machado acting as a scribe for Eric Bearden MD History of Present Illness General Chief complaint: Chest Pain Stated complaint: CHEST PAIN,NAUSEA Source: patient History of Present Illness Onset (ago): hour(s) 1 Location: chest (center) Radiation: non-radiation Pain Consistency: + other (suddenly, lasted 10 minutes) Quality: + other (throbbing, pressure) Associated symptoms: + other (Positive nausea, diaphoresis. 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 She reports her chest pain came on suddenly and her episode lasted about 10 minutes. She describes her pain as a throbbing and pressure in the center of her chest without radiation. Pt had nausea and diaphoresis but denies any lightheadedness, SOB, family or personal history of heart problems. She has a history of high blood pressure. Home Medications Home Medications Medication Instructions Recorded Confirmed Type cholecalciferol (vitamin D3) 1,000 unit PO QAM 04/27/18 04/27/18 History [Vitamin D3] citalopram [Celexa] 20 mg PO QAM 04/27/18 04/27/18 History cyanocobalamin (vitamin B-12) 1,000 mcg PO QAM 04/27/18 04/27/18 History folic acid 1 mg PO QAM 04/27/18 04/27/18 History hydrochlorothiazide 25 mg PO QAM 04/27/18 04/27/18 History warfarin 5 mg PO QAM 04/27/18 04/27/18 History Allergies Allergy/AdvReac Type Severity Reaction Status Date / Time adhesive Allergy Intermediate RASH Verified 04/27/18 13:43 latex Allergy Unknown RASH Unverified 04/27/18 13:43 lactose AdvReac Intermediate GI SYMPTOMS Verified 04/27/18 13:43 Past Med/Surg History Medical History High blood pressure (Chronic) Family History Other Diabetes Social History current occupational status: retired Feels Safe at Home: Yes Smoking Status: Former smoker Review of Systems See HPI for pertinent positives & negatives. and A total of 10 systems reviewed and were otherwise negative Physical Exam Vital Signs Vital Signs - 24 hr 04/27/18 12:31 04/27/18 12:51 04/27/18 12:56 Temperature 36.6 C Temperature Source Oral Sepsis Recent Fever Within 48 Hours No Sepsis New/Unexplained Change in Mental Status No Sepsis Action Taken by Nursing No Action Required Pulse Rate 70 64 61 Pulse Rate [Left Finger] Pulse Rhythm Regular Respiratory Rate 22 16 15 Blood Pressure 165/81 H Blood Pressure [Left Arm] Blood Pressure Mean 109 Blood Pressure Mean [Left Arm] Pulse Oximetry 96 96 98 Oxygen Delivery Method Room Air Room Air Room Air 04/27/18 13:00 04/27/18 13:30 04/27/18 14:00 Temperature Temperature Source Sepsis Recent Fever Within 48 Hours Sepsis New/Unexplained Change in Mental Status Sepsis Action Taken by Nursing Pulse Rate 65 59 L 59 L Pulse Rate [Left Finger] Pulse Rhythm Respiratory Rate 25 H 14 14 Blood Pressure Blood Pressure [Left Arm] Blood Pressure Mean Blood Pressure Mean [Left Arm] Pulse Oximetry 98 96 95 Oxygen Delivery Method Room Air Room Air Room Air 04/27/18 14:12 04/27/18 15:10 Temperature Temperature Source Sepsis Recent Fever Within 48 Hours Sepsis New/Unexplained Change in Mental Status Sepsis Action Taken by Nursing Pulse Rate 62 Pulse Rate [Left Finger] 63 Pulse Rhythm Respiratory Rate 17 18 Blood Pressure 151/78 H Blood Pressure [Left Arm] 155/76 H Blood Pressure Mean 102 Blood Pressure Mean [Left Arm] 102 Pulse Oximetry 96 97 Oxygen Delivery Method Room Air Room Air Constitutional: Vital signs reviewed. Eyes: Pupils are equal round reactive to light. Conjunctiva are noninjected. ENT: Pharynx is clear without erythema or exudate. Mucous membranes are moist. Neck supple without meningeal signs. Respiratory: Clear to auscultation bilaterally. Breath sounds are equal bilaterally. Cardiovascular: Regular rate and rhythm. No rubs or gallops. GI: Soft, nondistended and nontender. Bowel sounds are present. Musculoskeletal: No peripheral edema. No lower extremity tenderness. Integumentary: No cyanosis. Neurological: The patient is awake and alert. No focal deficits. Psychiatric: Normal affect. Course 1249: Past medical records reviewed. The patient was evaluated in room B10, and a complete history and physical examination were performed. 1400: I checked on the patient at this time and discussed their findings. Her chest pain is resolved. No reoccurrences. Recommended hospitalization. 1409: I reviewed the patient's case with Tasha Crump Hospitalist. He will evaluate the patient for further management. Consultations Consultation #1: I reviewed the patient's case with [facility]. He will evaluate the patient for further management. Time: 14:09 Administered Medications Discontinued Medications Aspirin (Aspirin) 324 mg PO NOW STA Stop: 04/27/18 13:00 Last Admin: 04/27/18 13:05 Dose: 324 mg Medical Decision Making Differential Diagnosis Differential diagnosis: Etiologies such as unstable angina, UT, GERD, pleurisy, pneumonia, as well as others were entertained. Medical Records Attestation: I reviewed the patient's medical records. Home Medications Current Medication List: was personally reviewed by me Laboratory Data Attestation: I reviewed the patient's lab results. Result diagrams: 04/27/18 12:55 04/27/18 12:55 Lab Results 04/27/18 04/27/18 04/27/18 Range/Units 12:55 12:55 13:12 WBC 8.62 (4.8-10.8) K/uL RBC 4.52 (4.2-5.4) M/uL Hgb 13.6 (12.0-16.0) g/dL Hct 41.6 (37-47) % MCV 92.0 (80-100) fL MCH 30.1 (25-34) pg MCHC 32.7 (32-36) g/dL RDW Std Deviation 47.3 H (36.4-46.3) fL RDW Coeff of Fabián 14.1 (11.5-14.5) % Plt Count 287 (130-400) K/uL MPV 10.7 H (7.4-10.4) fL Immature Gran % (Auto) 0.3 % Neut % (Auto) 71.0 % Lymph % (Auto) 19.5 % [place] % (Auto) 6.7 % Eos % (Auto) 2.3 % Baso % (Auto) 0.2 % Immature Gran # (Auto) 0.03 H (0.00-0.02) K/uL Neut # (Auto) 6.11 (1.4-6.5) K/uL Lymph # (Auto) 1.68 (1.2-3.4) K/uL [place] # (Auto) 0.58 (0.11-0.59) K/uL Eos # (Auto) 0.20 (0-0.5) K/uL Baso # (Auto) 0.02 (0-0.2) K/uL Sodium 138 (136-145) mmol/L Potassium 3.1 L (3.5-5.1) mmol/L Chloride 104 (98-107) mmol/L Carbon Dioxide 27 (21-32) mmol/L Anion Gap 7.0 (3-11) BUN 21 H (7-18) mg/dl Creatinine 1.31 H (0.6-1.2) mg/dl Est Cr Clr Drug Dosing 59.0 ml/min Est GFR ( Amer) 48.4 Est GFR (Non-Af Amer) 41.7 BUN/Creatinine Ratio 16.3 (10-20) Glucose 104 H (70-99) mg/dl Calcium 9.2 (8.5-10.1) mg/dl Total Bilirubin 0.7 (0.2-1) mg/dl AST 15 (15-37) U/L ALT 22 (12-78) U/L Alkaline Phosphatase 78 (45-117) U/L POC Troponin I < 0.03 (0-0.045) ng/ml Total Protein 8.2 (6.4-8.2) gm/dl Albumin 3.7 (3.4-5.0) gm/dl Globulin 4.5 H (2.5-4.0) gm/dl Albumin/Globulin Ratio 0.8 L (0.9-2) Imaging Data Radiologist's Impression: Radiology results as stated below per my review and the radiologist's interpretation: SINGLE VIEW CHEST CLINICAL HISTORY: Atypical chest pain. FINDINGS: An AP, portable, upright chest radiograph is compared to chest x-ray and chest CT dated 12/07/2016. The examination is degraded by portable technique and patient rotation. The heart is enlarged and there is atherosclerotic calcification of the thoracic aorta. The pulmonary vasculature is noncongested. Chronic interstitial thickening is similar to previous. No airspace consolidation or large pleural effusion is identified. Mild bibasilar scarring/ atelectasis is observed. No pneumothorax is seen. The skeletal structures are osteopenic. The bony thorax is grossly intact. IMPRESSION: Cardiomegaly with no acute cardiopulmonary abnormality. Electronically signed by: Ky Guevara M.D. 04/27/2018 1:19 PM ECG Data Attestation: I personally reviewed and interpreted this ECG as follows: Indication: chest pain Rate (beats per minute): 72 Rhythm: sinus rhythm Findings: + other (nonspecific ST changes in the lateral and high lateral) and + T-wave inversion (V1 and AVL); no ST elevation Comparison ECG Date: from (12/08/16) Change: no significant change Blood Pressure Blood Pressure Findings: Elevated blood pressure Blood Pressure Disposition: further management by hospitalist MDM Narrative I did perform a limited focused review of portions of the patient's old chart on the electronic medical record. The patient has had no recent pertinent visits to this hospital. I did evaluate the patient as noted above. IV access was established. The patient was placed on a continuous hospital monitor. I did treat patient with aspirin. She is not having any chest pain at this time. I did order and personally review the patient's 12-lead EKG and chest x-ray as described above. Twelve-lead EKG demonstrates nonspecific ST depressions and T wave inversions. These appear old and are present on her previous EKG from 2017. Her chest x-ray is unremarkable. I did order and review the patient's blood work as noted in the electronic medical record. Her troponin is negative but she has only had chest pain for about an hour. The patient is asymptomatic currently. I did discuss the test results with her. She has a heart score of 5 and so she is at moderate risk for MACE. I did recommend hospitalization for repeat cardiac enzymes. I did discuss the case with the hospitalist and director case management. Impression & Plan Acute chest pain Discharge Plan Visit Data Chief Complaint: Chest Pain Stated Complaint: CHEST PAIN,NAUSEA ED Provider: Eric Bearden Discharge Problem: Acute chest pain Patient Disposition: Being Evaluated by Hospitalist Forms Stand Alone Forms: Call Back Authorization, My [facility] Prescriptions Prescriptions: No Action cyanocobalamin (vitamin B-12) 1,000 mcg Tablet 1,000 mcg PO QAM RF: 0 citalopram [Celexa] 20 mg Tablet 20 mg PO QAM RF: 0 warfarin 5 mg Tablet 5 mg PO QAM RF: 0 folic acid 1 mg Tablet 1 mg PO QAM RF: 0 hydrochlorothiazide 25 mg Tablet 25 mg PO QAM RF: 0 cholecalciferol (vitamin D3) [Vitamin D3] 1,000 unit Capsule 1,000 unit PO QAM RF: 0 Referrals Referrals: Beverly Combs [Primary Care Provider] - The scribe's documentation has been prepared under my direction and personally reviewed by me in its entirety. I confirm that the note above accurately reflects all work, treatment, procedures, and medical decision making performed by me.
--- NOTE | 2018-04-27 15:44 | History & Physical Report ---
Date of Service April 27, 2018 Assessment & Plan (1) Acute chest pain: Chest Pain: R/O ACS Risk factors: H/O HTN, Obesity, Former Tobacco use Initial troponin:Negative EKG shows:NSR, Non speficific ST changes CXR: Unremarkable Trend serial cardiac enzymes, repeat EKG in AM Check fasting lipid panel Start Aspirin Oxygen PRN ECHO to check for wall motion abnormality NPO after midnight Prolong QTC QTC:490 Avoid QTC prolonging meds as able EKG in AM (2) Pulmonary embolism: H/O DVT, PE, MFTHFR mutation INR therapeutic Continue coumadin Monitor INR Hypokalemia: Replace potassium Check Magnesium levels monitor electrolytes (3) Irritable bowel syndrome (IBS): Stable Lactose free diet (4) CKD (chronic kidney disease), stage III: Cr at baseline Avoid nephro toxic agents as able Monitor renal function (5) HTN (hypertension): Mildly elevated Likely situational and also on Prednsione taper Continue HCTZ monitor Recent Bronchitis: To complete Prednisone course tomorrow Completed Z-KWAKU monitor Anxiety/Depression: Stable Continue Celexa DVT Px: On Coumadin Code Status: Full Code Disposition: Expect to discharge home when stable History of Present Illness Chief Complaint: Chest Pain Primary Care Provider: Beverly Combs Patient is a 67 yr female with PMH of PE, DVT on coumadin, HTN, CKD III, IBS, Gout, Anxiety disorder, MFTHFR mutation, Former Smoker and other problems presents with history of sudden onset of chest pain today afternoon. Patient states developing sharp, throbbing, 5/10 intensity, retrosternal chest pain which lasted for 10 minutes today. Chest pain is non radiating, no aggravating, relieving factors. Chest pain is associated with diaphoresis, nausea but no vomiting, dyspnea. Currently chest pain resolved while in ED. Received Aspirin in ED. She is recovering from bronchitis and completed a course of Z-KWAKU and is on tapering course of prednisone currently. Denies any history of palpitations, dizziness, fever, chills, fall, trauma, headache, change in vision , vomiting, abdominal pain, dysuria, recent change in medications. Allergies Allergy/AdvReac Type Severity Reaction Status Date / Time adhesive Allergy Intermediate RASH Verified 04/27/18 13:43 latex Allergy Unknown RASH Unverified 04/27/18 13:43 lactose AdvReac Intermediate GI SYMPTOMS Verified 04/27/18 13:43 Home Medications Home Medications Medication Instructions Recorded Confirmed Type cholecalciferol (vitamin D3) 1,000 unit PO QAM 04/27/18 04/27/18 History [Vitamin D3] citalopram [Celexa] 20 mg PO QAM 04/27/18 04/27/18 History cyanocobalamin (vitamin B-12) 1,000 mcg PO QAM 04/27/18 04/27/18 History folic acid 1 mg PO QAM 04/27/18 04/27/18 History hydrochlorothiazide 25 mg PO QAM 04/27/18 04/27/18 History warfarin 5 mg PO QAM 04/27/18 04/27/18 History Past Med/Surg History Medical History High blood pressure (Chronic) Surgical History H/O shoulder surgery Family History Other Diabetes Social History Current Living Situation: Alone current occupational status: retired Other Information That Helps Us Care for You: No Feels Safe at Home: Yes Safety Concerns: Feels Safe At This Time Smoking Status: Former smoker Do You Dip or Chew Tobacco: No Second Hand Exposure: No Tobacco Cessation Education Requested by Patient: No Hx Alcohol Use: No Hx Substance Use: No Beliefs That Will Affect Care: None Preferred Language: Setswana Communication Ability: Effective Special Technical Operations Officer Required: No Review of Systems All systems reviewed & are unremarkable except as noted in HPI & below Physical Exam 2 Vital Signs (Past 24 Hours): Last Vital Signs Temp 36.6 C 04/27/18 12:31 Pulse 63 04/27/18 15:10 Resp 18 04/27/18 15:10 BP 155/76 H 04/27/18 15:10 Pulse Ox 97 04/27/18 15:10 Physical Exam: Physical Exam: Vitals signs as noted above General Appearance:Obese, no apparent distress Head: normocephalic, Atraumatic Eyes: normal inspection, EOMI Neck: supple, Trachea midline Respiratory/Chest: Normal breath sounds, CTA Cardiovascular: S1, S2, No murmur Chest: Non tender to palpate Abdomen/GI:Soft, Non tender, Bowel sounds present Extremities/Musculoskelatal:normal inspection, 1+ B/L pitting pedal edema Neurologic/Psych:AAOX3, grossly no focal neurological deficits Skin: normal color, warm Results & Data Laboratory Results Short CBC 04/27/18 Range/Units 12:55 WBC 8.62 (4.8-10.8) K/uL Hgb 13.6 (12.0-16.0) g/dL Hct 41.6 (37-47) % Plt Count 287 (130-400) K/uL BMP 04/27/18 12:55 Sodium 138 Potassium 3.1 L Chloride 104 Carbon Dioxide 27 BUN 21 H Creatinine 1.31 H Glucose 104 H Calcium 9.2 Liver Function 04/27/18 Range/Units 12:55 Total Bilirubin 0.7 (0.2-1) mg/dl AST 15 (15-37) U/L ALT 22 (12-78) U/L Alkaline Phosphatase 78 (45-117) U/L Albumin 3.7 (3.4-5.0) gm/dl Diagnostic Findings CXR: Cardiomegaly with no acute cardiopulmonary abnormality. ECG Additional Comments: EKG: NSR,Non specific ST changes
[2018-04-27] MEDS ORDERED: ACETAMINOPHEN 325 MG TAB PO PRN (16:26)
[2018-04-27] MEDS ORDERED: ONDANSETRON INJ 2 MG/ML 2 ML VIAL IV PRN (16:26)
[2018-04-27] MEDS ORDERED: NITROGLYCERIN SL 0.4 MG/TAB TAB SL PRN (16:26)
[2018-04-27] MEDS ORDERED: POTASSIUM CHLORIDE 20 MEQ TABCR PO STA (16:26)
[2018-04-27] MEDS ORDERED: WARFARIN SOD 5 MG TAB PO SCH ×2 (16:26→19:00)
[2018-04-27] MEDS ORDERED: PROMETHAZINE HCL 12.5 MG in SODIUM CHLORIDE 0.9% 50 ML IV PRN (16:29)
[2018-04-27] MEDS ORDERED: NSS + 20MEQ KCL 20 MEQ/1,000 ML BAG IV ONE (18:00)
[2018-04-27 18:24] LABS: INR 2.5 (0.9-1.1); Prothrombin Time 24.3 Seconds (9.0-12.0)
[2018-04-27 21:57] LABS: Troponin I < 0.015 ng/ml (0-0.045)
[2018-04-28 03:28] LABS: Hematocrit (blood only) 38.6 % (37-47); Hemoglobin 12.4 g/dL (12.0-16.0); Mean Corpuscular Hgb Conc 32.1 g/dL (32-36); Mean Corpuscular Volume 90.4 fL (80-100); Mean Platelet Volume 10.5 fL (7.4-10.4); Platelet Count 275 K/uL (130-400); RDW Standard Deviation 45.9 fL (36.4-46.3); Red Blood Count 4.27 M/uL (4.2-5.4); White Blood Count 9.81 K/uL (4.8-10.8)
[2018-04-28 03:51] LABS: INR 2.5 (0.9-1.1); Prothrombin Time 23.6 Seconds (9.0-12.0)
[2018-04-28 03:55] LABS: Blood Urea Nitrogen 23 mg/dl (7-18); Calcium 8.6 mg/dl (8.5-10.1); Carbon Dioxide 27 mmol/L (21-32); Chloride 108 mmol/L (98-107); Chol HDL Ratio 3; Cholesterol 167 mg/dl (0-200); Creatinine Clr Calc Pharmacy 70.9 ml/min; Est GFR (African American) 60.4; Est GFR (Non-African American) 52.1; Glucose 86 mg/dl (70-99); HDL Cholesterol 68 mg/dl; LDL Cholesterol Calculated 77 mg/dl; Magnesium 2.1 mg/dl (1.8-2.4); Potassium 3.9 mmol/L (3.5-5.1); Sodium 138 mmol/L (136-145); Triglycerides 110 mg/dl (0-150); Troponin I < 0.015 ng/ml (0-0.045); VLDL Cholesterol 22 mg/dl
[2018-04-28] MEDS ORDERED: predniSONE 10 MG TABLET PO ONE (08:00)
[2018-04-28] MEDS ORDERED: CHOLECALCIFEROL 1,000 UNITS TAB PO SCH (09:00)
[2018-04-28] MEDS ORDERED: ASPIRIN 81 MG ECTAB PO SCH (09:00)
[2018-04-28] MEDS ORDERED: FOLIC ACID 1 MG TAB PO SCH (09:00)
[2018-04-28] MEDS ORDERED: CITALOPRAM 20 MG TAB PO SCH (09:00)
[2018-04-28] MEDS ORDERED: CYANOCOBALAMIN 500 MCG TABLET (VITAMIN B-12) PO SCH (09:00)
[2018-04-28] MEDS ORDERED: hydroCHLOROthiazide 25 MG TAB PO SCH (09:00)
--- NOTE | 2018-04-28 13:04 | Hospitalist Progress Note ---
Date of Service April 28, 2018 Assessment & Plan (1) Acute chest pain: Chest Pain: R/O ACS Risk factors: H/O HTN, Obesity, Former Tobacco use CXR: Unremarkable cardiac enzymes: negative Received Aspirin Oxygen PRN ECHO: No wall motion abnormality Appreciate Cardiology Recommendations Planned for Stress test as outpatient Prolong QTC QTC:490 Avoid QTC prolonging meds as able (2) Pulmonary embolism: H/O DVT, PE, MFTHFR mutation INR therapeutic Continue coumadin Monitor INR:2.5 Hypokalemia: Resolved Monitor electrolytes (3) Irritable bowel syndrome (IBS): Stable Lactose free diet (4) CKD (chronic kidney disease), stage III: Cr at baseline Avoid nephro toxic agents as able Monitor renal function (5) HTN (hypertension): Elevated on presentation: Likely situational and also on Prednsione taper Continue HCTZ monitor BP stable Recent Bronchitis: completed Prednisone and Z-KWAKU course monitor Anxiety/Depression: Stable Continue Celexa DVT Px: On Coumadin Code Status: Full Code Disposition: Expect to discharge home today Subjective Patient is seen and examined at bedside Doing well today Denies any recurrence of chest pain Offers no complaints Also denies dyspnea, dizziness, nausea, abd pain Physical Exam 2 Vital Signs (Past 24 Hours): Last Vital Signs Temp 36.8 C 04/28/18 07:10 Pulse 65 04/28/18 07:10 Resp 17 04/28/18 07:10 BP 129/74 04/28/18 07:10 Pulse Ox 99 04/28/18 07:10 Physical Exam: Physical Exam: Vitals signs as noted above General Appearance:Obese, no apparent distress Head: normocephalic, Atraumatic Eyes: normal inspection, EOMI Neck: supple, Trachea midline Respiratory/Chest: Normal breath sounds, CTA Cardiovascular: S1, S2, No murmur Chest: Non tender to palpate Abdomen/GI:Soft, Non tender, Bowel sounds present Extremities/Musculoskelatal:normal inspection, 1+ B/L pitting pedal edema Neurologic/Psych:AAOX3, grossly no focal neurological deficits Skin: normal color, warm Results & Data Laboratory Results Short CBC 04/27/18 04/28/18 Range/Units 12:55 03:19 WBC 8.62 9.81 (4.8-10.8) K/uL Hgb 13.6 12.4 (12.0-16.0) g/dL Hct 41.6 38.6 (37-47) % Plt Count 287 275 (130-400) K/uL BMP 04/27/18 04/28/18 12:55 03:19 Sodium 138 138 Potassium 3.1 L 3.9 D Chloride 104 108 H Carbon Dioxide 27 27 BUN 21 H 23 H Creatinine 1.31 H 1.09 Glucose 104 H 86 Calcium 9.2 8.6 Cardiac Enzymes 04/27/18 04/28/18 Range/Units 21:20 03:19 Troponin I < 0.015 < 0.015 (0-0.045) ng/ml Liver Function 04/27/18 Range/Units 12:55 Total Bilirubin 0.7 (0.2-1) mg/dl AST 15 (15-37) U/L ALT 22 (12-78) U/L Alkaline Phosphatase 78 (45-117) U/L Albumin 3.7 (3.4-5.0) gm/dl
--- NOTE | 2018-04-28 13:08 | Discharge Summary ---
Date of Service April 28, 2018 Admission HPI Per Admitting Provider Patient is a 67 yr female with PMH of PE, DVT on coumadin, HTN, CKD III, IBS, Gout, Anxiety disorder, MFTHFR mutation, Former Smoker and other problems presents with history of sudden onset of chest pain today afternoon. Patient states developing sharp, throbbing, 5/10 intensity, retrosternal chest pain which lasted for 10 minutes today. Chest pain is non radiating, no aggravating, relieving factors. Chest pain is associated with diaphoresis, nausea but no vomiting, dyspnea. Currently chest pain resolved while in ED. Received Aspirin in ED. She is recovering from bronchitis and completed a course of Z-KWAKU and is on tapering course of prednisone currently. Denies any history of palpitations, dizziness, fever, chills, fall, trauma, headache, change in vision , vomiting, abdominal pain, dysuria, recent change in medications. Admission Exam Per Admitting Provider Physical Exam: Vitals signs as noted above General Appearance:Obese, no apparent distress Head: normocephalic, Atraumatic Eyes: normal inspection, EOMI Neck: supple, Trachea midline Respiratory/Chest: Normal breath sounds, CTA Cardiovascular: S1, S2, No murmur Chest: Non tender to palpate Abdomen/GI:Soft, Non tender, Bowel sounds present Extremities/Musculoskelatal:normal inspection, 1+ B/L pitting pedal edema Neurologic/Psych:AAOX3, grossly no focal neurological deficits Skin: normal color, warm Principal Diagnosis Discharge Information Discharge Diagnosis Chest Pain Discharge Goals Decrease discomfort,Improve disease control, Improve function Discharge Activity Limitations Resume your previous activity Discharge Data Allergies Allergy/AdvReac Type Severity Reaction Status Date / Time adhesive Allergy Intermediate RASH Verified 04/27/18 13:43 latex Allergy Unknown RASH Unverified 04/27/18 13:43 lactose AdvReac Intermediate GI SYMPTOMS Verified 04/27/18 13:43 Consultations 04/27/18 14:09 ED Decision to Admit Stat 04/28/18 11:32 Consult Cardiology Routine Procedures Performed CXR: Cardiomegaly with no acute cardiopulmonary abnormality. ECHO: No regional wall motion abnormalities mild LVH EF:60-65% Grade I diastolic dysfunction Hospital Course (1) Acute chest pain: Chest Pain: R/O ACS Risk factors: H/O HTN, Obesity, Former Tobacco use CXR: Unremarkable cardiac enzymes: negative Received Aspirin Oxygen PRN ECHO: No wall motion abnormality Appreciate Cardiology Recommendations Planned for Stress test as outpatient Prolong QTC QTC:490 Avoid QTC prolonging meds as able (2) Pulmonary embolism: H/O DVT, PE, MFTHFR mutation INR therapeutic Continue coumadin Monitor INR:2.5 Hypokalemia: Resolved Monitor electrolytes (3) Irritable bowel syndrome (IBS): Stable Lactose free diet (4) CKD (chronic kidney disease), stage III: Cr at baseline Avoid nephro toxic agents as able Monitor renal function (5) HTN (hypertension): Elevated on presentation: Likely situational and also on Prednsione taper Continue HCTZ monitor BP stable Recent Bronchitis: completed Prednisone and Z-KWAKU course monitor Anxiety/Depression: Stable Continue Celexa DVT Px: On Coumadin Code Status: Full Code Disposition: Expect to discharge home today Total Time Total Time Spent Total Time Spent (In Minutes): 35 minutes Discharge Plan Discharge Items Patient Disposition: Home - Self-Care Reason For Visit: CHEST PAIN Discharge Diagnosis: Chest Pain Discharge Goals: Decrease discomfort, Improve disease control and Improve function Activity: Resume your previous activity Lifting: Gradually increase as tolerated Exercise/Sports: Gradually increase as tolerated Non-emergency contact: Primary Care Provider and Chief Wellness Officer Call non-emergency contact if: you have any medication questions, your symptoms worsen, your pain is not controlled, your pain is worsening, your pain is unusual for you, your pain is concerning for you and you have a fever Diet: Heart Healthy and Lactose Intolerant Addtl Provider Instructions: Follow up with your PCP in 1 week as recommended Follow up with your Chief Wellness Officer for outpatient stress test as scheduled Seek immediate medical attention if your symptoms reoccur or worsen Prescriptions: Continue cyanocobalamin (vitamin B-12) 1,000 mcg Tablet 1,000 mcg PO QAM RF: 0 citalopram [Celexa] 20 mg Tablet 20 mg PO QAM RF: 0 warfarin 5 mg Tablet 5 mg PO QAM RF: 0 folic acid 1 mg Tablet 1 mg PO QAM RF: 0 hydrochlorothiazide 25 mg Tablet 25 mg PO QAM RF: 0 cholecalciferol (vitamin D3) [Vitamin D3] 1,000 unit Capsule 1,000 unit PO QAM RF: 0 Stand-Alone Forms: [facility], [facility] Discharge Orders: Discharge Order (Routine); Ordered 04/28/18 Ordered By: Dany Dumont Admission Data Admit Date/Time: 04/27/18 15:26 Attending Provider: Dany Dumont Admit Provider: Dany Dumont Primary Care Provider: Beverly Combs Other Providers: Darrian Edwards James J Service: Telemetry Other Interventions: Discharge Summary Assessment (RN) Last Done: 04/28/18 13:12 Pending Studies at Discharge: No DC Date/Time DO NOT enter until pt leaves facility: 04/28/18 14:06
--- NOTE | 2018-04-28 15:02 | Cardiology Consultation ---
Date of Consultation April 28, 2018 Assessment & Plan (1) Acute chest pain: 67-year-old female presented with chest discomfort, atypical for angina. She has a history of remote DVT, PE occurring approximately 3 years ago and was found to have an inherited hypercoagulable state with heterozygous MTHFR mutation and therefore she is treated with chronic Coumadin, with therapeutic INR noted today 2.5. Serial cardiac enzymes and EKGs have been negative for evidence suggestive of of an acute coronary syndrome. The patient is a home school coordinator. She does have knee osteoarthritis and has a appointment as an outpatient for injection therapy tomorrow. Recommend further evaluation with a dobutamine stress echocardiogram which can be performed as an outpatient at [facility]. Complete resting echocardiogram has already been performed as of today 04/28/18, and therefore focused a stress test images can be obtained. I am selecting a pharmacologic stress test as given her history of past arthritis I do not think she would be able to ambulate sufficiently on the treadmill. Patient is to follow-up with her PCP. I will review the results of her stress test, and arrange cardiology follow-up on an as-needed basis. The patient was implored regarding the importance of following up and completing a stress test given her occupation as a home school coordinator. History of Present Illness Attending Physician: Dany Dumont MD History of Present Illness Autumn Alex is a 67-year-old female seen in cardiology consultation per the request of Dr. Dumont of the [facility] service for the evaluation of chest discomfort. The patient states that she was in her normal state of health yesterday. She was getting ready to go out for a meal. She reached down to adjust her shoes, and shortly after that she experienced severe chest discomfort that persisted for 10-15 minutes. She asked her daughter to take her to the emergency room. By the time she arrived her symptoms had resolved. EKG performed 04/27/18 at 1236 revealed normal sinus rhythm with nonspecific intraventricular conduction delay. No acute repolarization changes. Follow-up EKG this morning revealed ongoing sinus rhythm with nonspecific intraventricular conduction delay with very mild nonspecific T wave changes limited to lead II which appear to be due to baseline artifact. During my assessment of the patient on the second floor telemetry unit she was absolutely asymptomatic with no recurrent symptoms. An echocardiogram performed today revealed mild concentric left ventricular hypertrophy with normal left ventricular wall motion and LVEF in the range of 60-65%. The right ventricular chamber size and systolic function were normal. Troponin was negative x3 with a [id number] troponin performed on 04/27/18 at 1312 that was normal, and 2 subsequent readings at 2120 and again at 3:19 AM were both normal. Allergies Allergy/AdvReac Type Severity Reaction Status Date / Time adhesive Allergy Intermediate RASH Verified 04/27/18 13:43 latex Allergy Unknown RASH Unverified 04/27/18 13:43 lactose AdvReac Intermediate GI SYMPTOMS Verified 04/27/18 13:43 Home Medications Home Medications Medication Instructions Recorded Confirmed Type cholecalciferol (vitamin D3) 1,000 unit PO QAM 04/27/18 04/27/18 History [Vitamin D3] citalopram [Celexa] 20 mg PO QAM 04/27/18 04/27/18 History cyanocobalamin (vitamin B-12) 1,000 mcg PO QAM 04/27/18 04/27/18 History folic acid 1 mg PO QAM 04/27/18 04/27/18 History hydrochlorothiazide 25 mg PO QAM 04/27/18 04/27/18 History warfarin 5 mg PO QAM 04/27/18 04/27/18 History Patient History Medical History High blood pressure (Chronic) Surgical History H/O shoulder surgery Family History Other Diabetes Social History Current Living Situation: Alone current occupational status: retired Other Information That Helps Us Care for You: No Feels Safe at Home: Yes Safety Concerns: Feels Safe At This Time Smoking Status: Former smoker Do You Dip or Chew Tobacco: No Second Hand Exposure: No Tobacco Cessation Education Requested by Patient: No Hx Alcohol Use: No Hx Substance Use: No Beliefs That Will Affect Care: None Preferred Language: Maltese Review of Systems 10 point review of systems is reviewed and is negative with the exception of that above Physical Exam 2 Vital Signs (Past 24 Hours): Last Vital Signs Temp 36.8 C 04/28/18 13:12 Pulse 65 04/28/18 13:12 Resp 17 04/28/18 13:12 BP 126/67 04/28/18 13:12 Pulse Ox 99 04/28/18 13:12 Results & Data Laboratory Results Cardiac Enzymes 04/27/18 04/28/18 Range/Units 21:20 03:19 Troponin I < 0.015 < 0.015 (0-0.045) ng/ml Coagulation 04/27/18 04/28/18 Range/Units 12:55 03:19 PT 24.3 H 23.6 H (9.0-12.0) Seconds Lipids 04/28/18 Range/Units 03:19 Triglycerides 110 (0-150) mg/dl Cholesterol 167 (0-200) mg/dl HDL Cholesterol 68 mg/dl Cholesterol/HDL Ratio 3 calculated LDL cholesterol was 77 mg/dL CBC 04/28/18 Range/Units 03:19 WBC 9.81 (4.8-10.8) K/uL RBC 4.27 (4.2-5.4) M/uL Hgb 12.4 (12.0-16.0) g/dL Hct 38.6 (37-47) % Plt Count 275 (130-400) K/uL Comprehensive Metabolic Panel 04/28/18 Range/Units 03:19 Sodium 138 (136-145) mmol/L Potassium 3.9 D (3.5-5.1) mmol/L Chloride 108 H (98-107) mmol/L Carbon Dioxide 27 (21-32) mmol/L BUN 23 H (7-18) mg/dl Creatinine 1.09 (0.6-1.2) mg/dl Glucose 86 (70-99) mg/dl Calcium 8.6 (8.5-10.1) mg/dl Intake and Output 04/27/18 04/28/18 04/28/18 22:59 06:59 14:59 Intake Total 250 / 250 1000 / 1000 Output Total 500 / 500 Balance 250 / 250 -500 / -500 1000 / 1000 Intake: IV 1000 / 1000 NORMAL SALINE w/20 MEQ KCL 20 1000 / 1000 meq In 1,000 ml @ 50 mls/hr IV .Q20H ONE Rx#:[id number] Oral 250 / 250 Output: Urine 500 / 500 Other: Other Intake Source NPO # Unmeasured Voids 1 Weight 131.5 kg 123.7 kg 123.7 kg Patient Weight 04/29/18 06:59 Weight 123.7 kg
== END 2018-04-28 14:06 | disposition home or self-care (01) ==
LOC: ED 12:28 → 2S 12:28

== ENCOUNTER 2019-12-19 08:00 | Observation (INO) ==
--- NOTE | 2019-11-17 11:46 | PAT Medication Instructions ---
Medication Instructions Date of Service November 17, 2019 Home Medications cholecalciferol [Vitamin D3] 1,000 unit PO QAM citalopram [Celexa] 20 mg PO QAM cyanocobalamin (vitamin B-12) 1,000 mcg PO QAM folic acid 1 mg PO QAM warfarin 5 mg PO QAM furosemide 20 mg PO QAM metoprolol succinate 25 mg PO QAM ASK your prescriber and surgeon warfarin 5 mg PO QAM DO NOT take the morning of surgery cholecalciferol [Vitamin D3] 1,000 unit PO QAM cyanocobalamin (vitamin B-12) 1,000 mcg PO QAM folic acid 1 mg PO QAM furosemide 20 mg PO QAM Take morning of surgery With a small sip of water, OTHERWISE NOTHING TO EAT OR DRINK AFTER MIDNIGHT: citalopram [Celexa] 20 mg PO QAM metoprolol succinate 25 mg PO QAM Other Notes If you have any questions please call us at [phone] or [phone] or [phone] or [phone]
--- NOTE | 2019-11-18 10:35 | Anesthesiology Consultation ---
Date of Service November 18, 2019 Assessment & Plan (1) Encounter for pre-operative examination: COVID Status: As of 11/17 assessment, patient denies travel to endemic area, known exposure/sick contacts, or symptoms of COVID19. Patient instructed that they and their household members must follow strict social distancing guidelines, wear a mask in public and avoid travel for 14 days prior to surgery. Preoperative COVID19 testing to be completed prior to surgery per surgeon's arra ngements. Patient made aware to self-isolate as much as possible between COVID testing and surgery. PT/INR AM DOS Chart Review Chart Review: Acceptable Risk for Surgery and Patient seen in Pre Admission Testing Teaching & Discussion Instructed NPO after midnight before surgery, except medications with 15 cc of water. Medication instructions provided according to the PAT guidelines. History Surgery Operation Date: 12/19/19 12:05 Proposed Procedures p Left Total Knee Arthroplasty - Kayode Manzano, Height/Weight Height: 5 ft 6 in Weight: 138.8 kg Allergies Allergy/AdvReac Type Severity Reaction Status Date / Time adhesive Allergy Mild RASH Verified 11/11/19 13:23 latex Allergy Mild RASH Unverified 11/11/19 13:23 lactose AdvReac Intermediate GI SYMPTOMS Verified 11/11/19 13:23 Medications Home Medications Medication Instructions Recorded Confirmed Last Taken cholecalciferol (vitamin D3) 1,000 unit PO QAM 04/27/18 11/11/19 12/21/18 [Vitamin D3] citalopram [Celexa] 20 mg PO QAM 04/27/18 11/11/19 12/21/18 cyanocobalamin (vitamin B-12) 1,000 mcg PO QAM 04/27/18 11/11/19 12/21/18 folic acid 1 mg PO QAM 04/27/18 11/11/19 12/21/18 warfarin 5 mg PO QAM 04/27/18 11/11/19 12/21/18 furosemide 20 mg PO QAM 12/21/18 11/11/19 12/21/18 metoprolol succinate 25 mg PO QAM 12/21/18 11/11/19 12/21/18 Past Medical History Medical History CKD (chronic kidney disease), stage III GFR baseline in 40s DVT (deep venous thrombosis) 2013 Factor 5 Leiden mutation, heterozygous On chronic coumadin History of skin cancer HTN (hypertension) Hx of gout Irritable bowel syndrome (IBS) Lactose intolerance Osteoarthritis Paroxysmal A-fib Pulmonary embolism 2013 Exercise / Class Metabolic Activity III < 4 Walking/Shop/Light housework (SOB with ambulation (pt does appear mildly winded from going to restroom and back), but denies any chest pain) Past Family History Family History Father Family history of diabetes mellitus Other Diabetes Past Surgical History Surgical History History of appendectomy History of colonoscopy History of orthopedic surgery LEFT HEEL BONE SPUR SURGERY History of repair of rotator cuff RT History of tooth extraction Past Anesthesia History No Hx of Anesthesia Complications and No Family Hx of Anesthesia Complications History of PONV No Hx of Motion Sickness and History of PONV (single episode several hours post- op after shoulder scope) Social History Smoking Status: Former smoker tobacco type: cigarettes Do You Dip or Chew Tobacco: No Smoking End Date: 1990 Hx Alcohol Use: No Hx Substance Use: No Review of Systems Pt denies any recent chest pain, shortness of breath above baseline, palpitations, cough, fever, URI, or uncontrolled acid reflux. Physical Exam Vital Signs BP: 159/88 P: 66bpm SPO2: 96% RA T: 98.5 F R: 18 Constitutional + morbidly obese ENMT Mouth: + dentures (partial lower) and + chipped teeth (upper L incisor); no loose teeth Thyromental Distance: > or= 3.5 Finger Breadths (4) Mallampati Class: I Neck + short neck and + thick neck; neck extension not limited Respiratory normal respiratory effort Auscultation: lungs clear to auscultation bilaterally Cardiovascular Rate/Rhythm: regular rate and regular rhythm Heart Sounds: no murmur Extremities: + edema (trace RLE) Testing Laboratory Results 11/18/19 11:01 PT 27.1 Seconds (9.0-12.0) H 11/18/19 11: INR 2.7 (0.9-1.1) H 11/18/19 11: APTT 38.0 Seconds (21.0-31.0) H 11/18/19 11: Blood Type A Negative 11/18/19 11:01 Antibody Screen NEGATIVE 11/18/19 11:01 11/05/19 SODIUM: 141 POTASSIUM: 4.2 CHLORIDE: 108 CO2: 23 BUN: 27 CREATININE: 1.3 GLUCOSE: 107 est GFR: 43 Electrocardiogram Date: 11/18/19 Findings: + NSR @ (64bpm) NSIVC block. Compared with EKG from 04/28/18, minimal criteria for anterior infarct are no longer present. Chest X-Ray Date: 11/18/19 Findings: + NAD Mild cardiomegaly is unchanged. Echocardiogram Date: 04/28/18 EF: 60-65% There is mild concentric LVH. No regional wall motion abnormalities noted. LV systolic function is normal. The right ventricle is normal in size and function. Grade 1 diastolic dysfunction. Mild aortic valve sclerosis without significant stenosis. Stress Test Date: 05/13/18 Patient underwent complete resting echocardiogram during recent hospitalization; complete resting echo not performed per instruction of ordering provider. The stress echo is negative for inducible ischemia. Atrial fibrillation occurred during testing. Hypertensive BP response to dobutamine infusion.
--- NOTE | 2019-11-18 11:46 | XRay Report ---
XR chest Pre-admission PA/Lat CLINICAL HISTORY: Preoperative evaluation. COMPARISON STUDY: Chest CT December 07, 2016. Chest radiograph April 27, 2018. FINDINGS: Lung volumes are normal. Lungs are clear. There is no pneumothorax or pleural effusion. Mil d cardiomegaly is unchanged. Mediastinal contours are normal. There is no evidence for pulmonary jen a. IMPRESSION: No acute cardiopulmonary findings. ACT 112: Negative or not required by law. Electronically signed by: Lemuel Barker M.D. 11/18/2019 11:45 AM
[2019-11-18 12:33] LABS: Basophils # (auto) 0.03 K/uL (0-0.2); Basophils % (auto) 0.5 %; Eosinophils # (auto) 0.24 K/uL (0-0.5); Hematocrit (blood only) 39.7 % (37-47); Lymphocytes # (auto) 1.22 K/uL (1.2-3.4); Lymphocytes % (auto) 20.2 %; Mean Corpuscular Hemoglobin 29.7 pg (25-34); Mean Corpuscular Hgb Conc 32.7 g/dL (32-36); Mean Corpuscular Volume 90.6 fL (80-100); Mean Platelet Volume 11.6 fL (7.4-10.4); Monocytes # (auto) 0.46 K/uL (0.11-0.59); Monocytes % (auto) 7.6 %; Neutrophils # (auto) 4.09 K/uL (1.4-6.5); Neutrophils % (auto) 67.7 %; Platelet Count 284 K/uL (130-400); RDW Coefficient of Variation 13.6 % (11.5-14.5); RDW Standard Deviation 45.4 fL (36.4-46.3); Red Blood Count 4.38 M/uL (4.2-5.4); White Blood Count 6.04 K/uL (4.8-10.8)
[2019-11-18 12:54] LABS: INR 2.7 (0.9-1.1); Partial Thromboplastin Ratio 1.4; Prothrombin Time 27.1 Seconds (9.0-12.0)
--- NOTE | 2019-11-19 23:58 | Electrocardiogram Report ---
Test Reason : Blood Pressure : / mmHG Vent. Rate : 064 BPM Atrial Rate : 064 BPM P-R Int : 178 ms QRS Dur : 136 ms QT Int : 458 ms P-R-T Axes : 086 -03 073 degrees QTc Int : 472 ms Normal sinus rhythm Non-specific intra-ventricular conduction block Abnormal ECG When compared with ECG of 28-APR-2018 06:31, Minimal criteria for Anterior infarct are no longer Present Confirmed by Mj Mckenzie ([id number]) on 11/19/2019 11:58:44 PM Referred By: Kayode Manzano Confirmed By:Mj Mckenzie
--- NOTE | 2019-12-18 06:50 | History & Physical Report ---
Date of Service December 18, 2019 Assessment & Plan (1) Osteoarthritis of left knee: We will proceed with a left total knee arthroplasty. Postoperatively she will be placed back on her Coumadin for DVT prophylaxis. She will be kept overnight in the hospital for postoperative medical management. She was hoping to go to [facility] upon discharge. Autumn is an increased risk for joint placement surgery due to her BMI of 49.4 as well as her history of DVTs and pulmonary embolism. Present on Admission?: Yes History of Present Illness . Chief Complaint: Primary osteoarthritis of the left knee Primary Care Provider: Beverly Combs DO Autumn is a pleasant 69-year-old female who is been having a several year history of increasing bilateral knee pain. Her left knee pain is worse than the right. She has had multiple cortisone injections and she has had PRP injections without any relief. After failing extensive conservative treatment, she has elected to proceed with a left total knee arthroplasty. 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 Allergies Allergy/AdvReac Type Severity Reaction Status Date / Time adhesive Allergy Mild RASH Verified 11/30/19 21:06 latex Allergy Mild RASH Unverified 11/30/19 21:06 lactose AdvReac Intermediate GI SYMPTOMS Verified 11/30/19 21:06 Home Medications Home Medications Medication Instructions Recorded Confirmed Type cholecalciferol (vitamin D3) 1,000 unit PO QAM 04/27/18 12/03/19 History [Vitamin D3] citalopram [Celexa] 20 mg PO QAM 04/27/18 12/03/19 History cyanocobalamin (vitamin B-12) 1,000 mcg PO QAM 04/27/18 12/03/19 History folic acid 1 mg PO QAM 04/27/18 12/03/19 History warfarin 5 mg PO QAM 04/27/18 12/03/19 History furosemide 20 mg PO QAM 12/21/18 12/03/19 History metoprolol succinate 25 mg PO QAM 12/21/18 12/03/19 History Past Med/Surg History Medical History CKD (chronic kidney disease), stage III GFR baseline in 40s DVT (deep venous thrombosis) 2013 Factor 5 Leiden mutation, heterozygous On chronic coumadin History of skin cancer HTN (hypertension) Hx of gout Irritable bowel syndrome (IBS) Lactose intolerance Osteoarthritis Paroxysmal A-fib Pulmonary embolism 2013 Surgical History History of appendectomy History of colonoscopy History of orthopedic surgery LEFT HEEL BONE SPUR SURGERY History of repair of rotator cuff RT History of tooth extraction Family History Father Family history of diabetes mellitus Other Diabetes Social History Smoking Status: Former smoker Second Hand Exposure: No; Hx Alcohol Use: No Hx Substance Use: No Preferred Language: Samoan Communication Ability: Effective Enterprise Account Manager Required: No Beliefs That Will Affect Care: None Current Living Situation: Family Current Living Situation Comment: LIVES WITH DAUGHTER current occupational status: retired Feels Safe at Home: Yes Review of Systems Review of Systems: All systems reviewed & are unremarkable except as noted in HPI & below Physical Exam Constitutional: WD/WN, vitals as above Eyes: PERRL, conjunctivae normal, anicteric sclerae ENMT: external ear and nose normal, oropharynx normal Neck: trachea midline, no thyromegaly Respiratory: normal respiratory effort Cardiovascular: RRR, no murmur, no edema Gastrointestinal (Abdomen): normal bowel sounds, soft, nontender, no hepatosplenomegaly Musculoskeletal: On physical examination of the left knee there is a trace effusion. There is near full range of motion and no evidence of instability. There is significant tenderness palpation along the medial and lateral joint lines and over the distal femoral condyles. Psychiatric: A+Ox3, euthymic affect Results & Data Results & Data ([facility]) Diagnostic Findings Radiographs of the left knee demonstrate advanced osteoarthritis with joint space narrowing osteophyte formation and [id number]-hn-pcmp articulation. PG Care Time/CCT Total # of Minutes Spent Total Time Spent with Patient: Total time spent is greater than 50% in coordination of care (as documented) at patient's floor/unit and/or counseling patient: Coding Level of Care Code 46716 OBS Care - Level 2 Diagnoses Osteoarthritis of left knee M17.12
[~2019-12-19 08:00] MED LIST changes: +ACETAMINOPHEN 500 MG TAB PO SCH; -ALLO100T PO; +BUPIVACAINE 0.5 % 5 MG/1 ML PF 10ML VIAL ONE; -CHOL1000 PO; -CITA20TA9 PO; +FAMOTIDINE 20 MG TAB PO SCH; -FOLI1TAB7 PO; +GABAPENTIN 300 MG CAP PO SCH; -HYDC25 PO; -HYDR-5688 PO; +LR 500ML BOLUS, THEN 15ML/HR IV SCH; +LR 60ML/HR IV SCH; +MIDAZOLAM HCL 1 MG/ML 2ML VIAL ONE; -MISCCAP80 PO; -MULTTAB PO; +ROPIVACAINE 0.5% 5 MG/ML 30 ML VIAL ONE; +ROPIVACAINE 0.5% HCL/PF 150 MG, BUPIVACAINE 0.5% MPF 30 ML, EPINEPHrine 30MG/30ML (OR U... INSTIL SCH; +TRANEXAMIC ACID 1,000 MG **IV Intra-op IV SCH; +TRANEXAMIC ACID 1,000 MG **IV Pre-op IV SCH; -VTMB12 PO; +dexAMETHasone 4 MG TAB PO SCH; +fentaNYL citrate 100 MCG/2 ML VIAL ONE
--- NOTE | 2019-12-19 08:24 | History & Physical Bridge Note ---
Date of Service December 19, 2019 History & Physical Bridge Note I have examined the patient, reviewed the History & Physical and in the interval since the performance of the History & Physical I have noted the following changes of clinical significance: no changes noted
[2019-12-19] MEDS ORDERED: Nursing to Pharmacy Communication SCH ×2 (08:45→17:30)
[2019-12-19 08:49] LABS: INR 1.1 (0.9-1.1); Partial Thromboplastin Ratio 0.9; Partial Thromboplastin Time 25.6 Seconds (21.0-31.0); Prothrombin Time 11.4 Seconds (9.0-12.0)
[2019-12-19] MEDS ORDERED: ORTHO JOINT ANESTHETIC ONE (08:52)
[2019-12-19] MEDS ORDERED: HYDROmorphone INJ 2 MG/ML SYR/VIAL IV PRN (10:06)
[2019-12-19] MEDS ORDERED: ATROPINE SULFATE 0.1 MG/ML 10ML SYR IV PRN (10:06)
[2019-12-19] MEDS ORDERED: METOCLOPRAMIDE HCL INJ 5 MG/ML 2 ML VIAL IV PRN ×2 (10:06→13:24)
[2019-12-19] MEDS ORDERED: ONDANSETRON INJ 2 MG/ML 2 ML VIAL IV PRN (10:06)
[2019-12-19] MEDS ORDERED: ePHEDrine sulfate 50 MG/ML AMP IV PRN (10:06)
[2019-12-19] MEDS ORDERED: PROMETHAZINE HCL 12.5 MG in SODIUM CHLORIDE 0.9% 50 ML IV PRN (10:06)
[2019-12-19] MEDS ORDERED: fentaNYL citrate 100 MCG/2 ML VIAL IV PRN (10:06)
[2019-12-19] MEDS ORDERED: PROPOFOL IV EMULSION 10 MG/ML 20 ML VIAL IV ONE (10:38)
[2019-12-19] MEDS ORDERED: ONDANSETRON INJ 2 MG/ML 2 ML VIAL ONE (10:38)
[2019-12-19] MEDS ORDERED: LIDOCAINE HCL 2% 2 ML VIAL/AMP(20MG/ML) INFIL ONE (10:38)
--- NOTE | 2019-12-19 11:20 | Operative Report ---
PG Post Operative Report Pre & Post Diagnosis Operation Date: 12/19/19 10:00 Pre-Op Diagnosis: Left Knee Osteoarthritis Post-Op Diagnosis: Left Knee Osteoarthritis I identified the patient and participated in the time-out.: Yes Procedure Operation Date: 12/19/19 10:00 Actual Procedures p Left Total Knee Arthroplasty with increased difficulty of procedure secondary to morbid obesity and a BMI of 48.6 (modifier 22) (Left) - Kayode Manzano DO Surgeon Kayode Manzano DO Pairer Substandard Kayode Hdz PAC Estimated Blood Loss 20 Findings Consistent with Post-Op Diagnosis Specimens Left femoral and tibial bone Complications none Disposition Disposition: Recovery Room Indications Autumn is a pleasant 69-year-old female who is been dealing with chronic increasing left knee pain. X-rays and clinical examination have been diagnostic for advanced osteoarthritis of the left knee. After failing conservative treatment, she has elected to proceed with a left total knee arthroplasty. Description of Procedure Modifier 22: This case took 50% longer than a standard knee replacement surgery secondary to her morbid obesity. This required extra dissection and a larger incision. The exposure was more difficult. Implants used: I used a Mariana Persona total knee arthroplasty system with a size 11 narrow femur, G tibia, 32 patella, and a size 12 medial congruent polyethylene bearing. All components were cemented in place with Palacos G cement. Autumn arrived [facility] for the above procedure. She was seen in the preoperative holding area and the operative extremity was identified and signed. She was given a preoperative antibiotic, a spinal anesthetic and an adductor nerve block. She was taken back to the operating room and laid on the table in supine position. She was given basic sedation. The operative knee was then prepped and draped in sterile fashion. A timeout was done, and the patient and the operative extremity was properly identified. A midline incision was made directly over the patella. Dissection was taken down to the extensor mechanism. A subvastus arthrotomy was used. The medial retinaculum was released and the fat pad was mostly excised. The knee was flexed and the ACL, PCL, and meniscus were removed. A drill was sent down the center of the femoral canal followed by an intramedullary torrey. Off that torrey a distal femoral cutting block was placed. 9 mm was resected off the distal femur at 5 of valgus. A posterior referencing AP sizing guide was then placed on the distal femur. The femur measured to be a size 11 narrow. 2 drill holes were placed in 3 of external rotation. A 4-in-1 cutting block was then impacted into place. Anterior, posterior, and chamfer cuts were then made. The proximal tibia was then exposed. An external tibial alignment guide was placed. A tibial cut guide was then anchored in place and the proximal tibia was then resected. The posterior aspect of the knee was then opened up and any additional meniscus fragments and osteophytes were removed. The tibia measured to be a size G. The tibial plate was then placed in the appropriate rotation and the tibia was drilled and punched. Trial components were then placed. I used a size 12 medial congruent polyethylene insert. The knee was brought through a full range of motion and felt to be stable. The peg holes for the femoral component were then drilled. The patella was then everted and 9 mm was resected off the posterior aspect of the patella. The patella measured to be a size 32. 3 peg holes were then drilled. A trial patella was placed. The knee was once again brought through a full range of motion and felt to be stable. Trial components were then removed. The surrounding soft tissues were injected with 100 cc of an orthopedic pain control cocktail. All components were then cemented into place with Palacos G cement. The final polyethylene insert was then snapped into place. Once cement was dry the tourniquet was deflated. Hemostasis was obtained. A dilute betadyne lavage was then done for 3 minutes. The joint was then irrigated with normal saline solution. The subvastus arthr otomy was then closed with #1 Vicryl suture. The skin was closed with 2-0 Vicryl, 3-0V lock suture, and deangelo. A Silverlon and a soft compressive dressing were placed. She was then transferred to a hospital bed and taken to the postanesthesia care unit in stable condition. She tolerated the procedure well. Kayode Hdz PA-C, was present for the entire procedure. He was critical for patient positioning, prepping, draping, retraction exposure, wound closure and application of sterile dressing. I attest to the content of the Intraoperative Record and any orders documented therein. Any exceptions are noted below.
--- NOTE | 2019-12-19 12:04 | XRay Report ---
XR knee LT 1 or 2V routine HISTORY: 69 years-old Female Surgical Post Op left knee total joint arthroplasty COMPARISON: Knee radiographs 10/21/2019 TECHNIQUE: 2 views of left knee FINDINGS: Left knee total joint arthroplasty and patella resurfacing. Anterior midline skin deangelo are noted a long with expected postsurgical soft tissue swelling and deep tissue air with surgical drainage óscar ter. No unexpected radiopaque foreign body or acute fracture. IMPRESSION: Left knee total joint arthroplasty with expected postoperative changes. ACT 112: Negative or not required by law. The above report was generated using voice recognition software. It may contain grammatical, syntax o r spelling errors. Electronically signed by: Morgan Doyle M.D. 12/19/2019 12:03 PM
[2019-12-19] MEDS ORDERED: bisacodyL 10 MG SUPP PR PRN (13:24)
[2019-12-19] MEDS ORDERED: MAGNESIUM HYDROXIDE SUSP 30 ML UDC PO PRN (13:24)
[2019-12-19] MEDS ORDERED: NALOXONE HCL 0.4 MG/1 ML VIAL/CARP IV PRN (13:24)
[2019-12-19] MEDS ORDERED: HYDROmorphone INJ 0.5 MG/0.5 ML SYR IV PRN (13:24)
[2019-12-19] MEDS ORDERED: SODIUM CHLORIDE 0.9% 1000ML 1,000 ML IV SCH (13:30)
[2019-12-19] MEDS: KETOROLAC TROMETHAMINE 15 MG/ML VIAL IV SCH ×2 (14:05→21:09)
[2019-12-19] MEDS: ACETAMINOPHEN 500 MG TAB PO SCH (15:48)
[2019-12-19] MEDS ORDERED: WARFARIN SOD 5 MG TAB PO SCH (16:00)
[2019-12-19] MEDS: WARFARIN SOD 10 MG TAB PO SCH (18:20)
[2019-12-19] MEDS: ceFAZolin 2000MG 2,000 MG/15 ML SYR IV SCH (18:33)
[2019-12-19] MEDS: oxyCODONE HCL IR 5 MG TAB (IMMEDIATE RELEASE) PO PRN (21:14)
[2019-12-19] MEDS: SENNA 8.6 MG TAB PO SCH (21:14)
[2019-12-19] MEDS: DOCUSATE SODIUM 100 MG CAP PO SCH (21:14)
[2019-12-20] MEDS: KETOROLAC TROMETHAMINE 15 MG/ML VIAL IV SCH ×6 (02:12→22:02)
[2019-12-20] MEDS: ceFAZolin 2000MG 2,000 MG/15 ML SYR IV SCH (02:13)
[2019-12-20] MEDS: ACETAMINOPHEN 500 MG TAB PO SCH ×3 (05:52→21:15)
[2019-12-20] MEDS: oxyCODONE HCL IR 5 MG TAB (IMMEDIATE RELEASE) PO PRN (06:28)
[2019-12-20 07:38] LABS: Hematocrit (blood only) 34.2 % (37-47); Mean Corpuscular Hemoglobin 29.6 pg (25-34); Mean Corpuscular Hgb Conc 32.2 g/dL (32-36); Mean Corpuscular Volume 91.9 fL (80-100); Mean Platelet Volume 10.8 fL (7.4-10.4); Platelet Count 295 K/uL (130-400); RDW Coefficient of Variation 13.9 % (11.5-14.5); RDW Standard Deviation 46.6 fL (36.4-46.3); Red Blood Count 3.72 M/uL (4.2-5.4)
[2019-12-20] MEDS: MULTIVITAMIN TAB PO SCH (07:43)
[2019-12-20] MEDS: FUROSEMIDE 20 MG TAB PO SCH (07:44)
[2019-12-20] MEDS: CITALOPRAM 20 MG TAB PO SCH (07:45)
[2019-12-20] MEDS: FOLIC ACID 1 MG TAB PO SCH (07:46)
[2019-12-20] MEDS: DOCUSATE SODIUM 100 MG CAP PO SCH ×2 (07:46→21:15)
[2019-12-20 07:48] LABS: INR 1.1 (0.9-1.1); Prothrombin Time 11.9 Seconds (9.0-12.0)
[2019-12-20] MEDS: METOPROLOL SUCC 25MG EXT REL TAB PO SCH (07:50)
--- NOTE | 2019-12-20 07:50 | Orthopedic Progress Note ---
Date of Service December 20, 2019 Assessment & Plan (1) Status post left knee replacement: Overall she is doing about as well as expected. She is having extra bleeding from her incision site because we were unable to give her TXA due to her factor V Leiden mutation and she is on chronic Coumadin therapy. I do recommend continued dressing changes as needed. She is currently on Coumadin for DVT prophylaxis. She will be seen by physical therapy today for ambulation and range of motion exercises. She does live alone. I am concerned about her being discharged to home due to her recent falls. She has a cast on her right arm from a fracture from a recent fall. I would like her to get as much therapy as possible at a rehab facility to ensure optimal function of her left knee. I do recommend discharged to an acute rehab facility. I think this is best for her safety and overall outcome. She will be seen by physical therapy today for ambulation and range of motion exercises. We will plan to discharge her on Sunday. Present on Admission?: Yes Admission and Anticipated Discharge Date Admission Date: December 19, 2019 Dorothy Leyva was seen and examined at bedside this morning. Overall she is doing fairly well. She is not having too much pain in the left knee. There was some issues overnight regarding drainage from her incision site. The dressing had been changed twice. The nurses say the incision looks fine. She has not been up and ambulating much on the knee yet. She has no other complaints. Physical Exam Musculoskeletal: On physical examination of the left knee, the dressing has been changed and it is now clean and dry. She is wearing ice on her left knee. She has active dorsiflexion and plantarflexion of her left ankle. Sensation is intact throughout. Results & Data ([facility]) Vital Signs (Past 12 Hours) Vital Signs Temp Pulse Resp BP Pulse Ox 12/20/19 03:20 36.7 C 60 18 133/70 97 12/19/19 23:02 36.7 C 67 16 151/77 H 95 Laboratory Results H & H 11/18/19 12/20/19 Range/Units 11:01 07:17 Hgb 13.0 11.0 L (12.0-16.0) g/dL Hct 39.7 34.2 L (37-47) % Coagulation 11/18/19 12/19/19 Range/Units 11:01 08:19 INR 2.7 H 1.1 (0.9-1.1) Diagnostic Findings Postoperative x-rays of the left knee show the prosthesis to be in anatomic alignment without any evidence of fracture, dislocation, or loosening. PG Care Time/CCT Total # of Minutes Spent Total Time Spent with Patient: Total time spent is greater than 50% in c oordination of care (as documented) at patient's floor/unit and/or counseling patient: Coding Level of Care Code None Diagnoses Status post left knee replacement Z96.652
[2019-12-20] MEDS ORDERED: dexAMETHasone 4 MG TAB PO SCH (08:00)
[2019-12-20 08:04] LABS: BUN Creatinine Ratio 17.3 (10-20); Est GFR (African American) 41.8; Est GFR (Non-African American) 36.1; Potassium 4.5 mmol/L (3.5-5.1)
--- NOTE | 2019-12-20 08:17 | Anesthesiology Progress Note ---
Date of Service December 20, 2019 Anesthesia Post Procedure Vital Signs Vital Signs: Temp Pulse Pulse Pulse Resp BP Pulse Ox 12/20/19 07:49 36.7 C 61 16 122/74 95 12/20/19 03:20 36.7 C 60 18 133/70 97 12/19/19 23:02 36.7 C 67 16 151/77 H 95 12/19/19 19:18 37.0 C 64 18 131/70 95 12/19/19 16:11 36.5 C 65 17 123/64 95 12/19/19 14:59 36.7 C 68 17 121/73 95 12/19/19 14:00 36.5 C 70 16 126/71 96 12/19/19 13:30 65 18 120/78 96 12/19/19 13:00 36.7 C 62 16 116/63 12/19/19 12:50 36.4 C L 60 14 119/59 L 96 12/19/19 12:45 60 14 126/64 95 12/19/19 12:35 62 12 123/59 L 97 12/19/19 12:25 75 18 119/57 L 97 12/19/19 12:15 64 14 119/56 L 12/19/19 12:05 63 15 111/61 97 12/19/19 11:55 66 14 119/61 95 12/19/19 11:47 36.8 C 72 16 124/61 95 12/19/19 09:15 70 20 158/88 H 97 12/19/19 08:33 36.8 C 97 H 20 138/81 95 Pain Intensity Left Knee: Pain Intensity: 0 Notes Mental Status: alert / awake / arousable and participated in evaluation Nausea / Vomiting: adequately controlled Pain: adequately controlled Airway Patency, RR, SpO2: stable & adequate BP & HR: stable & adequate Hydration State: stable & adequate Neuraxial Anesthesia: was administered and sensory block resolved Anesthetic Complications: no major complications apparent and Pt Satisfied with anesthetic care
[2019-12-20] MEDS: WARFARIN SOD 10 MG TAB PO SCH (15:38)
[2019-12-20] MEDS: SENNA 8.6 MG TAB PO SCH (21:14)
[2019-12-21] MEDS: oxyCODONE HCL IR 5 MG TAB (IMMEDIATE RELEASE) PO PRN ×3 (00:26→21:02)
[2019-12-21] MEDS: ACETAMINOPHEN 500 MG TAB PO SCH ×3 (05:10→21:03)
[2019-12-21 06:23] LABS: INR 1.6 (0.9-1.1); Prothrombin Time 16.1 Seconds (9.0-12.0)
--- NOTE | 2019-12-21 08:08 | Orthopedic Progress Note ---
Date of Service December 21, 2019 Assessment & Plan (1) Status post left knee replacement: Overall she is doing about as well as expected. She has been slow to progress. She was able to walk in the hallways a little bit with physical therapy yesterday. I am concerned about discharging her to home because of a potential fall risk. She has a cast on her right hand from a recent fall. She is able to participate with physical therapy, therefore, I do recommend discharge to an acute rehab facility. We will hopefully plan discharge for tomorrow. She is currently on Coumadin for DVT prophylaxis. Present on Admission?: Yes Admission and Anticipated Discharge Date Admission Date: December 19, 2019 Dorothy Leyva was seen and examined at bedside this morning. Overall she is doing fairly well. She was able to participate well with physical therapy yesterday going up and down the hallways. She still little bit nervous about discharged home. She has no new complaints. Physical Exam Musculoskeletal: On physical examination of the left knee, the dressing is currently clean and dry. It has been changed several times but is no longer leaking. She has active dorsiflexion plantarflexion of her left ankle. Sensation is intact throughout. Results & Data ([facility]) Vital Signs (Past 12 Hours) Vital Signs Temp Pulse Resp BP Pulse Ox 12/21/19 07:00 36.5 C 54 L 18 167/76 H 98 12/20/19 23:09 36.8 C 57 L 16 147/75 H 97 PG Care Time/CCT Total # of Minutes Spent Total Time Spent with Patient: Total time spent is greater than 50% in coordination of care (as documented) at patient's floor/unit and/or counseling patient: Coding Level of Care Code None Diagnoses Status post left knee replacement Z96.652
[2019-12-21] MEDS: FOLIC ACID 1 MG TAB PO SCH (09:50)
[2019-12-21] MEDS: MULTIVITAMIN TAB PO SCH (09:50)
[2019-12-21] MEDS: DOCUSATE SODIUM 100 MG CAP PO SCH ×2 (09:50→21:04)
[2019-12-21] MEDS: FUROSEMIDE 20 MG TAB PO SCH (09:51)
[2019-12-21] MEDS: CITALOPRAM 20 MG TAB PO SCH (09:51)
[2019-12-21] MEDS: KETOROLAC TROMETHAMINE 15 MG/ML VIAL IV SCH (09:55)
[2019-12-21] MEDS: METOPROLOL SUCC 25MG EXT REL TAB PO SCH (10:00)
[2019-12-21] MEDS ORDERED: WARFARIN SOD 2.5 MG TAB PO SCH (16:00)
[2019-12-21] MEDS: SENNA 8.6 MG TAB PO SCH (21:04)
[2019-12-21] MEDS: ONDANSETRON INJ 2 MG/ML 2 ML VIAL IV PRN (23:47)
[2019-12-22] MEDS: ACETAMINOPHEN 500 MG TAB PO SCH ×3 (05:01→21:23)
[2019-12-22 05:59] LABS: INR 1.8 (0.9-1.1); Prothrombin Time 18.1 Seconds (9.0-12.0)
[2019-12-22] MEDS: FUROSEMIDE 20 MG TAB PO SCH (07:35)
[2019-12-22] MEDS: METOPROLOL SUCC 25MG EXT REL TAB PO SCH (07:35)
[2019-12-22] MEDS: DOCUSATE SODIUM 100 MG CAP PO SCH ×2 (07:35→21:23)
[2019-12-22] MEDS: MULTIVITAMIN TAB PO SCH (07:35)
[2019-12-22] MEDS: CITALOPRAM 20 MG TAB PO SCH (07:35)
[2019-12-22] MEDS: FOLIC ACID 1 MG TAB PO SCH (07:36)
[2019-12-22] MEDS: oxyCODONE HCL IR 5 MG TAB (IMMEDIATE RELEASE) PO PRN (07:41)
[2019-12-22] MEDS: ONDANSETRON INJ 2 MG/ML 2 ML VIAL IV PRN (07:42)
--- NOTE | 2019-12-22 13:21 | Orthopedic Progress Note ---
Date of Service December 22, 2019 Assessment & Plan (1) Status post left knee replacement: Overall she continues to do fairly well. She is participating well with physical therapy. She is on Coumadin for DVT prophylaxis. We hope to discharge her either to rehab or to home later today. She will follow-up with orthopedics in 2 weeks. Present on Admission?: Yes Admission and Anticipated Discharge Date Admission Date: December 19, 2019 Dorothy Leyva was seen and examined at bedside this morning. Overall she is doing better. She is not having too much pain in the left knee today. She has been participating well with physical therapy. She has no new complaints. Physical Exam Musculoskeletal: On physical examination of the left knee, a Silverlon dressing is in place. There is a little bit of bloody drainage but not too bad. Her legs out in full extension. She has active dorsiflexion and plantarflexion of her left ankle. Results & Data ([facility]) Vital Signs (Past 12 Hours) Vital Signs Temp Pulse Resp BP Pulse Ox 12/22/19 06:35 36.9 C 70 18 143/74 H 95 PG Care Time/CCT Total # of Minutes Spent Total Time Spent with Patient: Total time spent is greater than 50% in coordination of care (as documented) at patient's floor/unit and/or counseling patient: Coding Level of Care Code None Diagnoses Status post left knee replacement Z96.652
--- NOTE | 2019-12-22 13:24 | Discharge Summary ---
Date of Service December 22, 2019 Admission HPI Per Admitting Provider Autumn is a pleasant 69-year-old female who is been having a several year history of increasing bilateral knee pain. Her left knee pain is worse than the right. She has had multiple cortisone injections and she has had PRP injections without any relief. After failing extensive conservative treatment, she has elected to proceed with a left total knee arthroplasty. 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 Principal Diagnosis Left knee replacement Discharge Data Allergies Allergy/AdvReac Type Severity Reaction Status Date / Time adhesive Allergy Mild RASH Verified 12/19/19 08:15 latex Allergy Mild RASH Unverified 12/19/19 08:15 lactose AdvReac Intermediate GI SYMPTOMS Verified 12/19/19 08:15 Consultations 12/19/19 13:24 Consult Case Management - Discharge Planning Routine Procedures Performed Operation Date: 12/19/19 10:00 Actual Procedures p Left Total Knee Arthroplasty(Left) - Kayode Manzano DO Ordered Studies 12/19/19 05:00 US - OR guided needle placemen Routine Hospital Course (1) Status post left knee replacement: On December 19, 2019 Autumn arrived at [facility] and underwent a left knee replacement without complication. She had a spinal anesthetic. Postoperatively she was started back on Coumadin for DVT prophylaxis and transferred to the general orthopedic floors. Her hospital course was generally uneventful. On postop day #1 her H&H was stable. We were dealing with some bleeding from the dressing but her dressing was changed and she was doing well. She participated fairly well with physical therapy. On postop day #2 she continued to do fairly well. She participated with physical therapy and her pain was well controlled. On postop day #3 she continued to do well. She was a little bit nauseous earlier but it had resolved. She continue to work well with physical therapy. She was then discharged. She will follow- up with orthopedics in 2 weeks. Total Time Total Time Spent Total Time Spent (In Minutes): 20 Discharge Plan Discharge Items Patient Disposition: Transfer Acute Care Hospital Reason For Visit: DJD Left Knee Discharge Diagnosis: Left knee replacement Activity: As commented below Non-emergency contact: Surgeon Call non-emergency contact if: your wound has increased redness and your wound has increased drainage Follow-up/Referrals: Newhouser,Beverly M., DO [Primary Care Provider] - Diet: Regular Addtl Attending Provider Instructions: Activity and Therapy Recommendations: * If you are using [facility] then therapy will be provided at your home until they feel you have accomplished all of your goals. * If you are using [facility] then Physical Therapy will be provided until they feel you are ready to start Outpatient Physical Therapy. * If you are not using home therapy then Outpatient Physical Therapy should start about 3-5 days from your day of surgery. Therapy will last about 6-10 weeks * It is important not to put a pillow under your knee when you are relaxing or sleeping. It is just as important to make sure you are getting your knee perfectly straight as it is to regain your knee bend. * You were shown a series of exercises in the hospital. Do these exercises three times each day including the exercises you were shown in physical therapy. * Get up and walk several times each day. For the first four weeks, try not to stand or walk for more than one hour at a time. If you do stand or walk for more than one hour, you will not hurt anything, but your leg will likely swell. * As you feel comfortable, you may change from the walker or crutches to a cane and then to independent walking. Medications: * Narcotic You will likely be sent home from the hospital with a prescription for the narcotic pain medication that worked best throughout your stay. * Aspirin Most patients will be required to take Aspirin 81mg twice a day for 6 weeks after surgery. This is obtained [id number] and a prescription is not necessary. * Other medications may be prescribed for specific circumstances. If you have any questions, please call the office at . * Resume previous home medications unless otherwise instructed TEDs/Elastic Stockings: The white elastic stockings help limit swelling and prevent blood clots from forming in your legs.~ The more you wear them, the more they work. Wear them for six weeks. Dressing Care: Leave the Silverlon dressing in place for 7 days. After 7 days you may remove the dressing. If the incision is not draining then you may leave the deangelo open to air. If there is a little bit of drainage or if the deangelo are getting stuck on your clothing then cover the incision with a dry dressing. The deangelo will be removed at your 2 week follow-up appointment. Showering: You may shower with the Silverlon dressing in place. Do not let the shower spray hit the dressing directly. Pat the Silverlon dressing dry. If the dressing becomes wet underneath, then simply remove the dressing. Keep the incision dry until you are 7 days out from the day of surgery. After 7 days you may remove the Silverlon dressing and shower with the deangelo exposed. Let soapy water run over the deangelo and pat them dry. Do not scrub or soak the incision. Things To Watch For: * Drainage from the incision site that occurs more than one week after your surgery. * Increased redness at the incision site. * Fever above 102 degrees Fahrenheit. * Unusual chest pain or shortness of breath. * Call [facility] at with any of the above problems Follow-Up Visit: Follow-up with Dr. Manzano's PA (Kayode Hdz) 2-3 weeks after your day of surgery. He will remove your deangelo and answer any questions. If you have any additional questions or concerns, Dr Manzano is usually in the office at the same time and will be available An appointment was probably scheduled when you signed-up for surgery in the office. If you have any questions call Office Instructions: More detailed instructions as well as Frequently Asked Questions were provided in a folder by our office when you signed-up for surgery. Please review these instructions when you get home. If you have any further questions or concerns, please feel free to call the office at [phone] Pending Studies at Discharge: No Stand-Alone Forms: My [facility] Skilled Items Patient informed of condition?: Yes DNR: No Discharge Level of Care: Acute rehab Communicable Disease: No Discharge Prognosis: Improving Lines: None Urinary Catheter: No Medications and DC Order Prescriptions: New oxycodone 5 mg Tablet 5 mg PO Q4H PRN (Reason: pain) Qty: 30 RF: 0 Continued cyanocobalamin (vitamin B-12) 1,000 mcg Tablet 1,000 mcg PO QAM RF: 0 citalopram [Celexa] 20 mg Tablet 20 mg PO QAM RF: 0 warfarin 5 mg Tablet 5 mg PO QAM RF: 0 folic acid 1 mg Tablet 1 mg PO QAM RF: 0 cholecalciferol (vitamin D3) [Vitamin D3] 1,000 unit Capsule 1,000 unit PO QAM RF: 0 furosemide 20 mg tablet 20 mg PO QAM RF: 0 metoprolol succinate 25 mg tablet extended release 24 hr 25 mg PO QAM RF: 0 Discharge Orders: Discharge Order (Routine); Ordered 12/22/19 Ordered By: Kayode Manzano Admission Data Admit Date/Time: 12/19/19 11:49 Attending Provider: Kayode Manzano Admit Provider: Kayode Manzano Primary Care Provider: Beverly Combs Other Providers: [facility] ; Yola Cunningham [facility] Coding Level of Care Code D/C Day Management <30 mins Diagnoses Status post left knee replacement Z96.652
[2019-12-22] MEDS: WARFARIN SOD 5 MG TAB PO SCH (16:52)
[2019-12-22] MEDS: SENNA 8.6 MG TAB PO SCH (21:23)
[2019-12-23] MEDS: ACETAMINOPHEN 500 MG TAB PO SCH ×3 (05:54→21:31)
--- NOTE | 2019-12-23 07:14 | Orthopedic Progress Note ---
Date of Service December 23, 2019 Assessment & Plan (1) Status post left knee replacement: Overall she is doing fairly well. She has some pain and she has been slow to work with physical therapy but she has been progressing. Given her multiple falls, and the fact she has a factor V Leiden deficiency is not and is on Coumadin, I am recommending placement in a rehab facility. I think she can do enough physical therapy a day to warrant discharge to [facility]. I talked to their physicians yesterday and she was denied for medical reasons. The family is going through an appeal process. Hopefully she can be discharged to [facility] later today, if not, she can be discharged to a alf facility such as [facility]. She will follow-up with orthopedics in 2 weeks. Present on Admission?: Yes Admission and Anticipated Discharge Date Admission Date: December 19, 2019 Dorothy Leyva was seen and examined at bedside this morning. Overall she is doing fairly well. She still working out well with physical therapy. She is having some pain in her knee but is controlled. She has no new complaints. Physical Exam Musculoskeletal: On physical examination of the left knee, the dressing has some bloody drainage but is not leaking. She is wearing her JAYCOB hose stocking. She is neurovascular intact. Results & Data ([facility]) Vital Signs (Past 12 Hours) Vital Signs Temp Pulse Resp BP Pulse Ox 12/22/19 23:28 36.8 C 69 16 131/69 96 PG Care Time/CCT Total # of Minutes Spent Total Time Spent with Patient: Total time spent is greater than 50% in coordination of care (as documented) at patient's floor/unit and/or counseling patient: Coding Level of Care Code None Diagnoses Status post left knee replacement Z96.652
[2019-12-23] MEDS: FUROSEMIDE 20 MG TAB PO SCH (08:03)
[2019-12-23] MEDS: CITALOPRAM 20 MG TAB PO SCH (08:04)
[2019-12-23] MEDS: DOCUSATE SODIUM 100 MG CAP PO SCH ×2 (08:04→21:08)
[2019-12-23] MEDS: METOPROLOL SUCC 25MG EXT REL TAB PO SCH (08:04)
[2019-12-23] MEDS: MULTIVITAMIN TAB PO SCH (08:04)
[2019-12-23] MEDS: FOLIC ACID 1 MG TAB PO SCH (08:04)
[2019-12-23] MEDS: oxyCODONE HCL IR 5 MG TAB (IMMEDIATE RELEASE) PO PRN (09:36)
[2019-12-23] MEDS: WARFARIN SOD 5 MG TAB PO SCH (15:49)
[2019-12-23] MEDS: SENNA 8.6 MG TAB PO SCH (21:08)
[2019-12-24] MEDS: ACETAMINOPHEN 500 MG TAB PO SCH (05:37)
[2019-12-24 06:39] LABS: INR 1.5 (0.9-1.1); Prothrombin Time 15.6 Seconds (9.0-12.0)
--- NOTE | 2019-12-24 06:45 | Orthopedic Progress Note ---
Date of Service December 24, 2019 Assessment & Plan (1) Status post left knee replacement: Overall she has been doing fairly well. She has been participating with physical therapy but she has been a little bit slow to ambulate. She does have a cast on her right hand from her recent fall. I am concerned about discharge to home due to frequent falls and her elevated BMI. She is participating with physical therapy and I think she would do best at an acute rehab facility. She is going to appeal for approval to [facility]. [facility]. She will follow-up with orthopedics in 2 weeks. Present on Admission?: Yes Admission and Anticipated Discharge Date Admission Date: December 19, 2019 Dorothy Leyva was seen and examined at bedside this morning. Overall she is doing fairly well. She complains of soreness and tightness of her left knee. She has been ambulating with therapy. She has no new complaints. Physical Exam Musculoskeletal: On physical examination of the left knee, the dressing has some bloody drainage but is no longer leaking. Her knee is out in full extension. She has active dorsiflexion and plantarflexion of her left ankle. Results & Data ([facility]) Vital Signs (Past 12 Hours) Vital Signs Temp Pulse Resp BP Pulse Ox 12/23/19 23:21 36.8 C 69 18 147/78 H 97 PG Care Time/CCT Total # of Minutes Spent Total Time Spent with Patient: Total time spent is greater than 50% in coordination of care (as documented) at patient's floor/unit and/or counseling patient: Coding Level of Care Code None Diagnoses Status post left knee replacement Z96.652
[2019-12-24] MEDS: FOLIC ACID 1 MG TAB PO SCH (08:43)
[2019-12-24] MEDS: METOPROLOL SUCC 25MG EXT REL TAB PO SCH (08:43)
[2019-12-24] MEDS: FUROSEMIDE 20 MG TAB PO SCH (08:43)
[2019-12-24] MEDS: DOCUSATE SODIUM 100 MG CAP PO SCH (08:43)
[2019-12-24] MEDS: MULTIVITAMIN TAB PO SCH (08:43)
[2019-12-24] MEDS: CITALOPRAM 20 MG TAB PO SCH (08:43)
== END 2019-12-24 13:49 ==
LOC: ASU 08:00 → 3E 08:00

== ENCOUNTER 2020-08-27 07:35 | Observation (INO) ==
--- NOTE | 2020-07-29 12:24 | PAT Medication Instructions ---
Medication Instructions Date of Service July 29, 2020 Home Medications Medication Instructions Recorded oxycodone 5 mg tablet 5 mg PO Q6 PRN #40 tab 02/04/20 citalopram [Celexa] 20 mg PO QAM warfarin 5 mg PO QAM furosemide 20 mg PO QAM metoprolol succinate 25 mg PO QAM oxycodone 5 mg tablet 5 mg PO Q6 PRN Lactobacillus acidophilus [Probiotic] 10,000 mmu cells PO QAM cholecalciferol (vitamin D3) [Vitamin D3] 25 mcg PO QAM cyanocobalamin (vitamin B-12) 2,500 mcg PO QAM folic acid 0.8 mg PO QAM ASK your prescriber and surgeon warfarin 5 mg PO QAM DO NOT take the morning of surgery furosemide 20 mg PO QAM Lactobacillus acidophilus [Probiotic] 10,000 mmu cells PO QAM cholecalciferol (vitamin D3) [Vitamin D3] 25 mcg PO QAM cyanocobalamin (vitamin B-12) 2,500 mcg PO QAM folic acid 0.8 mg PO QAM Take morning of surgery With a small sip of water, OTHERWISE NOTHING TO EAT OR DRINK AFTER MIDNIGHT: citalopram [Celexa] 20 mg PO QAM metoprolol succinate 25 mg PO QAM oxycodone 5 mg tablet 5 mg PO Q6 PRN (okay to take up to 4 hours prior to surgery if needed) Take evening before surgery oxycodone 5 mg tablet 5 mg PO Q6 PRN (if needed) Other Notes If you have any questions please call us at [phone] or [phone] or [phone] or [phone]
--- NOTE | 2020-08-03 12:06 | Anesthesiology Consultation ---
Date of Service August 03, 2020 Assessment & Plan (1) Encounter for pre-operative examination: Chart Review Chart Review: Acceptable Risk for Surgery (pending preop Covid testing results ) and Patient seen in Pre Admission Testing - Check coags AM DOS Per PAT appt on 08/03/20, patient denies any recent travel or large group activities. No known Covid positive contacts or Covid related symptoms. No known Covid infections in the past 90 days. Preop Covid testing scheduled 08/23/20= will await results. Educated on importance of self quarantining, social distancing and wearing mask in public both for the patient and household contacts. Pt has had both Covid vaccines. Left TKA 12/19/2019 = done under [facility] at L3-4 with 3 attempts. Last seen by cardiology 09/09/2019 = seen for routine cardiology follow-up. History of lower extremity edema, hypertension, history of paroxysmal A. fib. BMP orderedif renal function electrolytes are stablewe will consider transitioning from furosemide to torsemide plus spironolactone to maintain potassium. Follow-up in 1 year. (BMP was stable) Teaching & Discussion Pre-Anesthesia Teaching/Discussion Notes: Instructed NPO after midnight before surgery,except medications with 15 cc of water. Medication instructions provided according to the PAT guidelines. History Surgery Operation Date: 08/27/20 08:30 Proposed Procedures p Right Total Knee Arthroplasty - Kayode Manzano DO Height/Weight Height: 5 ft 6 in Weight: 139.7 kg Allergies Allergy/AdvReac Type Severity Reaction Status Date / Time adhesive Allergy Mild RASH Verified 07/28/20 08:24 latex Allergy Mild RASH Verified 07/28/20 08:24 lactose AdvReac Intermediate GI SYMPTOMS Verified 07/28/20 08:24 Medications Home Medications Medication Instructions Recorded Confirmed Last Taken citalopram [Celexa] 20 mg PO QAM 04/27/18 07/28/20 07/03/20 warfarin 5 mg PO QAM 04/27/18 07/28/20 07/03/20 furosemide 20 mg PO QAM 12/21/18 07/28/20 07/03/20 metoprolol succinate 25 mg PO QAM 12/21/18 07/28/20 07/03/20 oxycodone 5 mg tablet 5 mg PO Q6 PRN #40 tab 1007/28/20 07/03/20 Lactobacillus acidophilus 10,000 mmu cells PO QAM 07/28/20 07/28/20 Unknown [Probiotic] cholecalciferol (vitamin D3) 25 mcg PO QAM 07/28/20 07/28/20 Unknown [Vitamin D3] cyanocobalamin (vitamin B-12) 2,500 mcg PO QAM 07/28/20 07/28/20 Unknown folic acid 0.8 mg PO QAM 07/28/20 07/28/20 Unknown Past Medical History Medical History (Updated 08/03/20 @ 12:43 by Louise Watts PA-C) CKD (chronic kidney disease), stage III GFR baseline in 40s DVT (deep venous thrombosis) 2013 Factor 5 Leiden mutation, heterozygous On chronic coumadin History of skin cancer s/p removal HTN (hypertension) Hx of gout Irritable bowel syndrome (IBS) Lactose intolerance Lower extremity edema Osteoarthritis Paroxysmal A-fib Occurred during stress test several years ago Pulmonary embolism 2013 Exercise / Class Metabolic Activity III < 4 Walking/Shop/Light housework (one flight of stairs - no chest pain, mild SOB) Past Family History Family History Father Family history of diabetes mellitus Other Diabetes No family history of adverse response to anesthesia Past Surgical History Surgical History History of appendectomy History of colonoscopy History of orthopedic surgery LEFT HEEL BONE SPUR SURGERY History of repair of rotator cuff RT History of tooth extraction Status post left knee replacement (~12/2019) Past Anesthesia History No Hx of Anesthesia Complications and No Family Hx of Anesthesia Complications History of PONV No Hx of PONV and No Hx of Motion Sickness Social History Smoking Status: Former smoker tobacco type: cigarettes Do You Dip or Chew Tobacco: No Smoking End Date: 1990 (WAS A SOCIAL 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 No hx of seizures, stroke, [place]. No hx of blood transfusions Physical Exam Vital Signs VITALS BP 148/75 P 56 TEMP 97.8 SP02 98% RESP 16 Constitutional no acute distress ENMT Mouth: no TMJ clicking Thyromental Distance: < 3.5 Finger Breadths (3.0) Mallampati Class: II (smaller airway ) Partial lower denture Missing right upper molar Neck + short neck, + thick neck and + limited neck extension (significant ) Respiratory normal respiratory effort; no respiratory distress Auscultation: lungs clear to auscultation bilaterally; no wheezes Cardiovascular Rate/Rhythm: regular rate and regular rhythm Heart Sounds: no murmur Vessels: no carotid bruit Musculoskeletal Spine: no pain with cervical ROM Extremities: extremities normal to inspection Psychiatric Orientation: alert Testing Laboratory Results 08/03/20 12:28 08/03/20 12: PT 19.0 Seconds (9.0-12.0) H 08/03/20 12: INR 2.0 (0.9-1.1) H 08/03/20 12: APTT 32.6 Seconds (21.0-31.0) H 08/03/20 12:28 Blood Type A Negative 08/03/20 12:28 Antibody Screen NEGATIVE 08/03/20 12:28 Electrocardiogram Date: 08/03/20 Normal sinus rhythm with sinus arrhythmia at 60 bpm. Nonspecific intraventricular conduction block. When compared to EKG from November 18, 2019no significant change was found per cardio. (DSE done 05/13/18 secondary to intraventricular conduction delay on EKG- DSE showed no ischemia) Chest X-Ray Date: 11/18/19 Findings: + NAD Mild cardiomegaly is unchanged. Echocardiogram Date: 04/28/18 EF: 60-65% There is mild concentric LVH. No regional wall motion abnormalities noted. LV systolic function is normal. The right ventricle is normal in size and function. Grade 1 diastolic dysfunction. Mild aortic valve sclerosis without significant stenosis. Stress Test Date: 05/13/18 Type: DSE Patient underwent complete resting echocardiogram during recent hospitalization; complete resting echo not performed per instruction of ordering provider. The stress echo is negative for inducible ischemia. Atrial fibrillation occurred during testing. Hypertensive BP response to dobutamine infusion. EKG response showed no evidence of ischemia.
[2020-08-03 12:48] LABS: Basophils # (auto) 0.02 K/uL (0-0.2); Basophils % (auto) 0.4 %; Eosinophils # (auto) 0.21 K/uL (0-0.5); Eosinophils % (auto) 3.8 %; Hematocrit (blood only) 39.9 % (37-47); Hemoglobin 13.1 g/dL (12.0-16.0); Lymphocytes # (auto) 1.13 K/uL (1.2-3.4); Lymphocytes % (auto) 20.4 %; Mean Corpuscular Hemoglobin 29.5 pg (25-34); Mean Corpuscular Hgb Conc 32.8 g/dL (32-36); Mean Corpuscular Volume 89.9 fL (80-100); Mean Platelet Volume 11.2 fL (7.4-10.4); Monocytes # (auto) 0.55 K/uL (0.11-0.59); Monocytes % (auto) 9.9 %; Neutrophils # (auto) 3.62 K/uL (1.4-6.5); Neutrophils % (auto) 65.5 %; Platelet Count 267 K/uL (130-400); RDW Coefficient of Variation 14.1 % (11.5-14.5); RDW Standard Deviation 46.7 fL (36.4-46.3); Red Blood Count 4.44 M/uL (4.2-5.4); White Blood Count 5.53 K/uL (4.8-10.8)
[2020-08-03 13:03] LABS: Partial Thromboplastin Ratio 1.2; Partial Thromboplastin Time 32.6 Seconds (21.0-31.0)
--- NOTE | 2020-08-03 13:05 | Electrocardiogram Report ---
Test Reason : Blood Pressure : / mmHG Vent. Rate : 060 BPM Atrial Rate : 060 BPM P-R Int : 198 ms QRS Dur : 134 ms QT Int : 490 ms P-R-T Axes : 084 044 033 degrees QTc Int : 490 ms Normal sinus rhythm with sinus arrhythmia Non-specific intra-ventricular conduction block Abnormal ECG When compared with ECG of 18-NOV-2019 10:56, No significant change was found Confirmed by Grabiel Valencia ([id number]) on 08/03/2020 1:04:38 PM Referred By: Kayode Manzano Confirmed By:Grabiel Valencia
[2020-08-03 13:19] LABS: BUN Creatinine Ratio 18.5 (10-20); Calcium 9.5 mg/dl (8.5-10.1); Creatinine Clr Calc Pharmacy 64.8 ml/min; Est GFR (African American) 55.4; Est GFR (Non-African American) 47.8; Potassium 4.3 mmol/L (3.5-5.1)
--- NOTE | 2020-08-26 12:53 | History & Physical Report ---
Date of Service August 26, 2020 Assessment & Plan (1) Osteoarthritis of right knee: We will proceed with a right total knee arthroplasty. Postoperatively she will be started back on Coumadin for DVT prophylaxis. She plans to use [employer] upon discharge. History of Present Illness Chief Complaint: Osteoarthritis of the right knee. Primary Care Provider: Beverly Combs DO Autumn is a pleasant 70-year-old female who is been dealing with chronic increasing right knee pain. X-rays and clinical examination been diagnostic for advanced osteoarthritis of the right knee. After failing conservative treatment, she has elected to proceed with a right total knee arthroplasty. I did a left knee replacement on her in December 2019 and she has done very well with that.. Allergies Allergy/AdvReac Type Severity Reaction Status Date / Time adhesive Allergy Mild RASH Verified 07/28/20 08:24 latex Allergy Mild RASH Verified 07/28/20 08:24 lactose AdvReac Intermediate GI SYMPTOMS Verified 07/28/20 08:24 Home Medications Medication Instructions Recorded Confirmed Type citalopram [Celexa] 20 mg PO QAM 04/27/18 07/28/20 History warfarin 5 mg PO QAM 04/27/18 07/28/20 History furosemide 20 mg PO QAM 12/21/18 07/28/20 History metoprolol succinate 25 mg PO QAM 12/21/18 07/28/20 History oxycodone 5 mg tablet 5 mg PO Q6 PRN #40 tab 02/04/20 07/28/20 Rx Lactobacillus acidophilus 10,000 mmu cells PO QAM 07/28/20 07/28/20 History [Probiotic] cholecalciferol (vitamin D3) 25 mcg PO QAM 07/28/20 07/28/20 History [Vitamin D3] cyanocobalamin (vitamin B-12) 2,500 mcg PO QAM 07/28/20 07/28/20 History folic acid 0.8 mg PO QAM 07/28/20 07/28/20 History Past Med/Surg History Medical History CKD (chronic kidney disease), stage III GFR baseline in 40s DVT (deep venous thrombosis) 2013 Factor 5 Leiden mutation, heterozygous On chronic coumadin History of skin cancer s/p removal HTN (hypertension) Hx of gout Irritable bowel syndrome (IBS) Lactose intolerance Lower extremity edema Osteoarthritis Paroxysmal A-fib Occurred during stress test several years ago Pulmonary embolism 2013 Surgical History History of appendectomy History of colonoscopy History of orthopedic surgery LEFT HEEL BONE SPUR SURGERY History of repair of rotator cuff RT History of tooth extraction Status post left knee replacement (~12/2019) Family History Father Family history of diabetes mellitus Other Diabetes No family history of adverse response to anesthesia Social History Smoking Status: Former smoker Second Hand Exposure: No; Hx Alcohol Use: No Hx Substance Use: No Preferred Language: Upper Sorbian Communication Ability: Effective Sweeper Cleaner Industrial Required: No Beliefs That Will Affect Care: None Current Living Situation: Family Current Living Situation Comment: WITH DAUGHTER current occupational status: retired Feels Safe at Home: Yes Assistive Devices: Cane and Glasses Review of Systems All systems reviewed & are unremarkable except as noted in HPI & below. Physical Exam On physical examination of the left knee, she ambulates with a slightly antalgic gait. She has good range of motion of 0 to 120 degrees. She has no instability. She has pain of the distal medial femoral condyle and over the medial joint line.. Constitutional WD/WN, vitals as above Eyes PERRL, conjunctivae normal, anicteric sclerae ENMT external ear and nose normal, oropharynx normal Neck trachea midline, no thyromegaly Respiratory normal respiratory effort Cardiovascular RRR, no murmur, no edema Gastrointestinal (Abdomen) normal bowel sounds, soft, nontender, no hepatosplenomegaly Psychiatric A+Ox3, euthymic affect Results & Data Results & Data Laboratory Results . Diagnostic Findings X-rays of the right knee do show advanced osteoarthritis with joint space narrowing, osteophyte formation, and [id number] articulation. PG Care Time/CCT Total # of Minutes Spent Total Time Spent with Patient: Total time spent is greater than 50% in coordination of care (as documented) at patient's floor/unit and/or counseling patient: Coding Level of Care Code None Diagnoses Osteoarthritis of right knee M17.11
[~2020-08-27 07:35] MED LIST changes: +BUPIVACAINE 0.25% PF 30 ML VIAL ONE; -MIDAZOLAM HCL 1 MG/ML 2ML VIAL ONE; -ROPIVACAINE 0.5% 5 MG/ML 30 ML VIAL ONE; -ROPIVACAINE 0.5% HCL/PF 150 MG, BUPIVACAINE 0.5% MPF 30 ML, EPINEPHrine 30MG/30ML (OR U... INSTIL SCH; +ROPIVACAINE 0.5% HCL/PF 150 MG, BUPIVACAINE 0.75% MPF 20 ML, EPINEPHrine 30MG/30ML (OR ... INFIL SCH; -fentaNYL citrate 100 MCG/2 ML VIAL ONE
--- NOTE | 2020-08-27 08:11 | History & Physical Bridge Note ---
Date of Service August 27, 2020 History & Physical Bridge Note I have examined the patient, reviewed the History & Physical and in the interval since the performance of the History & Physical I have noted the following changes of clinical significance: no changes noted
[2020-08-27] MEDS ORDERED: fentaNYL citrate PF 100 MCG/2 ML VIAL ONE (08:31)
[2020-08-27] MEDS ORDERED: MIDAZOLAM HCL 1 MG/ML 2ML VIAL ONE ×2 (08:31)
[2020-08-27] MEDS ORDERED: Nursing to Pharmacy Communication ONE (08:45)
[2020-08-27 08:56] LABS: Partial Thromboplastin Ratio 0.9; Partial Thromboplastin Time 23.8 Seconds (21.0-31.0); Prothrombin Time 10.4 Seconds (9.0-12.0)
[2020-08-27] MEDS ORDERED: ORTHO JOINT ANESTHETIC ONE (08:56)
[2020-08-27] MEDS ORDERED: fentaNYL citrate PF 100 MCG/2 ML VIAL IV PRN (09:46)
[2020-08-27] MEDS ORDERED: ATROPINE SULFATE 0.1 MG/ML 10ML SYR IV PRN (09:46)
[2020-08-27] MEDS ORDERED: ePHEDrine sulfate 50 MG/ML AMP IV PRN (09:46)
[2020-08-27] MEDS ORDERED: ONDANSETRON INJ 2 MG/ML 2 ML VIAL IV PRN ×2 (09:46→13:32)
[2020-08-27] MEDS ORDERED: LIDOCAINE 2% 2 ML VIAL/AMP(20MG/ML) INFIL ONE (11:00)
[2020-08-27] MEDS ORDERED: PROPOFOL IV EMULSION 10 MG/ML 20 ML VIAL IV ONE (11:00)
--- NOTE | 2020-08-27 11:30 | Operative Report ---
PG Post Operative Report Pre & Post Diagnosis Operation Date: 08/27/20 10:00 Pre-Op Diagnosis: Right Knee Degenerative Joint Disease Post-Op Diagnosis: Right Knee Degenerative Joint Disease I identified the patient and participated in the time-out.: Yes Procedure Operation Date: 08/27/20 10:00 Actual Procedures p Right Total Knee Arthroplasty, Cemented(Right) - Kayode Manzano DO Surgeon Kayode Manzano DO Flight Coordinator Raheel Campos PAC Estimated Blood Loss 20 Findings Consistent with Post-Op Diagnosis Specimens Right femoral and tibial bone Complications none Disposition Disposition: Recovery Room Indications Autumn is a pleasant 70-year-old female who is been dealing chronic increasing right knee pain. X-rays and clinical examination were diagnostic for advanced osteoarthritis of the right knee. After failing conservative treatment, she diogo cted proceed with a right total knee arthroplasty. I did a left knee replacement on her in December 2019 and she did well with that. Description of Procedure Implants used: I used a Mariana Person[employer] total knee arthroplasty system with a size 11 narrow femur, G tibia with a 30 mm stem extension, 32 patella, and a size 12 medial congruent polyethylene bearing. All components were cemented in place with Simplex HV cement. Autumn arrived [facility] for the above procedure. She was seen in the preoperative holding area and the operative extremity was identified and signed. She was given a preoperative antibiotic, TXA, a spinal anesthetic and an adductor nerve block. She was taken back to the operating room and laid on the table in supine position. She was given basic sedation. The operative knee was then prepped and draped in sterile fashion. A timeout was done, and the patient and the operative extremity was properly identified. A midline incision was made directly over the patella. Dissection was taken down to the extensor mechanism. A subvastus arthrotomy was used. The medial retinaculum was released and the fat pad was mostly excised. The knee was flexed and the ACL, PCL, and meniscus were removed. A drill was sent down the center of the femoral canal followed by an intramedullary torrey. Off that torrey a distal femoral cutting block was placed. 9 mm was resected off the distal femur at 5 of valgus. A posterior referencing AP sizing guide was then placed on the distal femur. The femur measured to be a size 11 narrow. 2 drill holes were placed in 3 of external rotation. A 4-in-1 cutting block was then impacted into place. Anterior, posterior, and chamfer cuts were then made. The proximal tibia was then exposed. An external tibial alignment guide was placed. A tibial cut guide was then anchored in place and the proximal tibia was then resected. The posterior aspect of the knee was then opened up and any additional meniscus fragments and osteophytes were removed. The tibia measured to be a size G. The tibial plate was then placed in the appropriate rotation and the tibia was drilled and punched. Trial components were then placed. I used a size 12 medial congruent polyethylene insert. The knee was brought through a full range of motion and felt to be stable. The peg holes for the femoral component were then drilled. The patella was then everted and 9 mm was resected off the posterior aspect of the patella. The patella measured to be a size 32. 3 peg holes were then drilled. A trial patella was placed. The knee was once again brought through a full range of motion and felt to be stable. Trial components were then removed. The surrounding soft tissues were injected with 100 cc of an orthopedic pain control cocktail. All components were then cemented into place with Simplex HV cement. The final polyethylene insert was then snapped into place. Once cement was dry the tourniquet was deflated. Hemostasis was obtained. A dilute betadyne lavage was then done for 3 minutes. The joint was then irrigated with normal saline solution. The subvastus arthrotomy was then closed with #1 Vicryl suture. The skin was closed with 2-0 Vicryl, 3-0V lock suture, and deangelo. A Silverlon and a soft compressive dressing were placed. She was then transferred to a hospital bed and taken to the postanesthesia care unit in stable condition. She tolerated the procedure well. Raheel Campos PA-C, was present for the entire procedure. He was critical for patient positioning, prepping, draping, retraction exposure, wound closure and application of sterile dressing. I attest to the content of the Intraoperative Record and any orders documented therein. Any exceptions are noted below.
--- NOTE | 2020-08-27 12:13 | XRay Report ---
XR knee RT 1 or 2V routine HISTORY: 70 years-old Female Surgical Post Op right knee total joint arthroplasty COMPARISON: None TECHNIQUE: 2 views the right knee FINDINGS: Right knee total joint arthroplasty and patella resurfacing. Anterior midline skin deangelo are noted along with expected postsurgical soft tissue swelling and deep tissue air. No acute fracture, malalig nment or unexpected opaque foreign body. IMPRESSION: Right knee total joint arthroplasty with expected postoperative changes. ACT 112: Negative or not required by law. The above report was generated using voice recognition software. It may contain grammatical, syntax o r spelling errors. Electronically signed by: Harlan Doyle M.D. 08/27/2020 12:12 PM
--- NOTE | 2020-08-27 13:02 | Anesthesiology Progress Note ---
Date of Service August 27, 2020 Anesthesia Post Procedure Vital Signs Vital Signs: Temp Pulse Pulse Resp BP Pulse Ox 08/27/20 13:00 63 16 162/78 H 94 08/27/20 12:45 36.2 C L 58 L 16 152/81 H 94 08/27/20 12:35 60 14 166/88 H 94 08/27/20 12:25 68 16 169/83 H 94 08/27/20 12:15 71 15 165/88 H 95 08/27/20 12:05 69 14 163/84 H 96 08/27/20 11:55 72 20 152/85 H 95 08/27/20 11:45 81 20 159/82 H 95 08/27/20 11:36 36.4 C L 85 16 161/75 H 95 08/27/20 09:05 67 18 148/89 H 93 08/27/20 08:46 37 C 70 20 171/81 H 94 Pain Intensity Right Knee: Pain Intensity: 1 Transfer of Care Handoff Completed per policy Notes Mental Status: alert / awake / arousable and participated in evaluation Nausea / Vomiting: adequately controlled Pain: adequately controlled Airway Patency, RR, SpO2: stable & adequate BP & HR: stable & adequate Hydration State: stable & adequate Neuraxial Anesthesia: was administered and sensory block is resolving Anesthetic Complications: no major complications apparent and Pt Satisfied with anesthetic care
[2020-08-27] MEDS ORDERED: NALOXONE HCL 0.4 MG/1 ML VIAL/CARP IV PRN (13:32)
[2020-08-27] MEDS ORDERED: bisacodyL 10 MG SUPP PR PRN (13:32)
[2020-08-27] MEDS ORDERED: METOCLOPRAMIDE HCL INJ 5 MG/ML 2 ML VIAL IV PRN (13:32)
[2020-08-27] MEDS ORDERED: MAGNESIUM HYDROXIDE SUSP 30 ML UDC PO PRN (13:32)
[2020-08-27] MEDS ORDERED: oxyCODONE HCL IR 5 MG TAB (IMMEDIATE RELEASE) PO PRN (13:32)
[2020-08-27] MEDS ORDERED: HYDROmorphone INJ 0.5 MG/0.5 ML SYR IV PRN (13:32)
[2020-08-27] MEDS: KETOROLAC TROMETHAMINE 15 MG/ML VIAL IV SCH ×2 (14:38→20:20)
[2020-08-27] MEDS: SODIUM CHLORIDE 0.9% 1,000 ML IV SCH (14:38)
[2020-08-27] MEDS ORDERED: WARFARIN SOD 7.5 MG TAB PO SCH (16:00)
[2020-08-27] MEDS: ceFAZolin 2000MG 2,000 MG/15 ML SYR IV SCH (18:00)
[2020-08-27] MEDS: DOCUSATE SODIUM 100 MG CAP PO SCH (20:21)
[2020-08-27] MEDS ORDERED: SENNA 8.6 MG TAB PO SCH (21:00)
[2020-08-28] MEDS: SODIUM CHLORIDE 0.9% 1,000 ML IV SCH (00:30)
[2020-08-28] MEDS: ceFAZolin 2000MG 2,000 MG/15 ML SYR IV SCH (02:46)
[2020-08-28] MEDS: KETOROLAC TROMETHAMINE 15 MG/ML VIAL IV SCH ×2 (02:46→09:21)
[2020-08-28 06:18] LABS: INR 1.1 (0.9-1.1); Prothrombin Time 10.9 Seconds (9.0-12.0)
--- NOTE | 2020-08-28 07:21 | Orthopedic Progress Note ---
Date of Service August 28, 2020 Assessment & Plan (1) Status post right knee replacement: Overall she is doing very well. She is not any much pain in the right knee. She will be seen by physical therapy today for ambulation and range of motion exercises. She is on Coumadin for DVT prophylaxis. She can be discharged home later today. She will follow-up with orthopedics in 2 weeks. Dorothy Leyva was seen and examined at bedside this morning. Overall she is doing very well. She is not having much pain in the right knee. She has been up and ambulating around the room. She has no complaints.. Review of Systems All systems reviewed & are unremarkable except as noted in HPI & below. Physical Exam On physical examination of the right knee, the dressing is clean and dry. Her leg is out in full extension. She has active dorsiflexion and plantarflexion of her right ankle.. Results & Data Results & Data Laboratory Results . Diagnostic Findings Postoperative x-rays of the right knee show the prosthesis to be in anatomic alignment without any evidence of fracture, dislocation, or loosening. PG Care Time/CCT Total # of Minutes Spent Total Time Spent with Patient: Total time spent is greater than 50% in coordination of care (as documented) at patient's floor/unit and/or counseling patient: Coding Level of Care Code 13537 Post Operative Follow-Up Diagnoses Status post right knee replacement Z96.651
--- NOTE | 2020-08-28 07:22 | Discharge Summary ---
Date of Service August 28, 2020 Admission HPI (Per Admitting) Autumn is a pleasant 70-year-old female who is been dealing with chronic increasing right knee pain. X-rays and clinical examination been diagnostic for advanced osteoarthritis of the right knee. After failing conservative treatment, she has elected to proceed with a right total knee arthroplasty. I did a left knee replacement on her in December 2019 and she has done very well with that.. Admission Exam (Per Admitting) On physical examination of the left knee, she ambulates with a slightly antalgic gait. She has good range of motion of 0 to 120 degrees. She has no instability. She has pain of the distal medial femoral condyle and over the medial joint line.. Principal Diagnosis Same as "Discharge Diagnosis" noted below under Discharge Instructions. Discharge Exam On physical examination of the right knee, the dressing is clean and dry. Her leg is out in full extension. She has active dorsiflexion and plantarflexion of her right ankle.. Discharge Data Procedures Performed Operation Date: 08/27/20 10:00 Actual Procedures p Right Total Knee Arthroplasty, Cemented(Right) - Kayode Manzano DO Ordered Studies 08/27/20 05:00 US - OR guided needle placemen Routine Hospital Course (1) Status post right knee replacement: On August 27, 2020 Autumn arrived at [facility] and underwent a right total knee arthroplasty without complication. She had a spinal anesthetic. Postoperatively she was started on Coumadin for DVT prophylaxis and transferred to the general orthopedic floors. Her hospital course was uneventful. On postop day #1 her vital signs were stable and her pain was well controlled. She was able to participate well with physical therapy doing ambulation and range of motion exercises. She was then discharged home. She will follow-up with orthopedics in 2 weeks. PG Care Time/CCT Total # of Minutes Spent Total Time Spent with Patient: Total time spent is greater than 50% in coordination of care (as documented) at patient's floor/unit and/or counseling patient: Discharge Plan Discharge Items Patient Disposition: Home - Home Health Services Reason For Visit: Right Knee Degenerative Joint Disease Discharge Diagnosis: Right knee replacement Activity: As commented below Non-emergency contact: Surgeon Call non-emergency contact if: your wound has increased redness and your wound has increased drainage Follow-up/Referrals: Newhouser,Beverly M., DO [Primary Care Provider] - Diet: Regular Addtl Attending Provider Instructions: Activity and Therapy Recommendations: * If you are using [facility] then therapy will be provided at your home until they feel you have accomplished all of your goals. * If you are using [facility] then Physical Therapy will be provided until they feel you are ready to start Outpatient Physical Therapy. * If you are not using home therapy then Outpatient Physical Therapy should start about 3-5 days from your day of surgery. Therapy will last about 6-10 weeks * It is important not to put a pillow under your knee when you are relaxing or sleeping. It is just as important to make sure you are getting your knee perfectly straight as it is to regain your knee bend. * You were shown a series of exercises in the hospital. Do these exercises three times each day including the exercises you were shown in physical therapy. * Get up and walk several times each day. For the first four weeks, try not to stand or walk for more than one hour at a time. If you do stand or walk for more than one hour, you will not hurt anything, but your leg will likely swell. * As you feel comfortable, you may change from the walker or crutches to a cane and then to independent walking. Medications: * Narcotic You will likely be sent home from the hospital with a prescription for the narcotic pain medication that worked best throughout your stay. * Aspirin Most patients will be required to take Aspirin 81mg twice a day for 6 weeks after surgery. This is obtained [id number] and a prescription is not necessary. * Other medications may be prescribed for specific circumstances. If you have any questions, please call the office at . * Resume previous home medications unless otherwise instructed TEDs/Elastic Stockings: The white elastic stockings help limit swelling and prevent blood clots from forming in your legs.~ The more you wear them, the more they work. Wear them for six weeks. Dressing Care: You may remove the dressing after physical therapy on postop day #1. You may then do daily dry dressing changes. If the incision is not draining then you may leave the deangelo open to air. If there is a little bit of drainage or if the deangelo are getting stuck on your clothing then cover the incision with a dry dressing. The deangelo will be removed at your 2 week follow-up appointment. Showering: You may now shower 5 days from the day of surgery. You may shower with the deangelo exposed. Let soapy water run over the deangelo and pat them dry. Do not scrub or soak the incision. Things To Watch For: * Drainage from the incision site that occurs more than one week after your surgery. * Increased redness at the incision site. * Fever above 102 degrees Fahrenheit. * Unusual chest pain or shortness of breath. * Call [facility] at with any of the above problems Follow-Up Visit: Follow-up with Dr. Manzano's PA (Kayode Hdz) 2-3 weeks after your day of surgery. He will remove your deangelo and answer any questions. If you have any additional questions or concerns, Dr Manzano is usually in the office at the same time and will be available An appointment was probably scheduled when you signed-up for surgery in the office. If you have any questions call Office Instructions: More detailed instructions as well as Frequently Asked Questions were provided in a folder by our office when you signed-up for surgery. Please review these instructions when you get home. If you have any further questions or concerns, please feel free to call the office at [phone] Pending Studies at Discharge: No Stand-Alone Forms: My [facility], Smoking Cessation Medications and DC Order Prescriptions: Continued citalopram [Celexa] 20 mg Tablet 20 mg PO QAM RF: 0 furosemide 20 mg tablet 20 mg PO QAM RF: 0 metoprolol succinate 25 mg tablet extended release 24 hr 25 mg PO QAM RF: 0 folic acid 0.8 mg Capsule 0.8 mg PO QAM RF: 0 cholecalciferol (vitamin D3) [Vitamin D3] 25 mcg (1,000 unit) Tablet 25 mcg PO QAM RF: 0 Probiotic 10 billion cell Capsule 10,000 mmu cells PO QAM RF: 0 cyanocobalamin (vitamin B-12) 2,500 mcg Tablet 2,500 mcg PO QAM RF: 0 oxycodone 5 mg tablet 5 mg PO Q6 PRN (Reason: pain) Qty: 40 RF: 0 warfarin 5 mg Tablet 5 mg PO QAM Qty: 0 RF: 0 Discharge Orders: Discharge Order (Routine); Ordered 08/28/20 Ordered By: Kayode Manzano Admission Data Admit Date/Time: 08/27/20 11:34 Attending Provider: Kayode Manzano Admit Provider: Kayode Manzano Primary Care Provider: Beverly Combs
[2020-08-28] MEDS ORDERED: dexAMETHasone 4 MG TAB PO SCH (08:00)
[2020-08-28] MEDS ORDERED: METOPROLOL SUCC 25MG EXT REL TAB PO SCH (09:00)
[2020-08-28] MEDS ORDERED: MULTIVITAMIN TAB PO SCH (09:00)
[2020-08-28] MEDS ORDERED: CHOLECALCIFEROL 1,000 UNITS 25 MCG TAB PO SCH (09:00)
[2020-08-28] MEDS ORDERED: FOLIC ACID 400 MCG TAB PO SCH (09:00)
[2020-08-28] MEDS ORDERED: CYANOCOBALAMIN (B-12) 500 MCG TABLET PO SCH (09:00)
[2020-08-28] MEDS ORDERED: ADVANCED PROBIOTIC 1250 MG CAPSULE PO SCH (09:00)
[2020-08-28] MEDS ORDERED: FUROSEMIDE 20 MG TAB PO SCH (09:00)
[2020-08-28] MEDS ORDERED: CITALOPRAM 20 MG TAB PO SCH (09:00)
[2020-08-28] MEDS: DOCUSATE SODIUM 100 MG CAP PO SCH (09:28)
== END 2020-08-28 13:56 | disposition home health service (06) ==
LOC: 3E 07:35 → ASU 07:35

== ENCOUNTER 2023-05-05 15:22 | Inpatient (IN) ==
--- OUTSIDE RECORDS SUMMARY | 2023-05-05 15:28 | External Medical Summary | Summary of Care ---
Author Name Unknown Organization [facility] Address [address] [place] [address] Phone [phone] Care Team Providers Care Top Stop Attacher Name Role Phone SoniaKacie amin Ashley ZACARIAS Primary Care Provider [phone] Reason for Visit * Reason Comments Dosage Adjustment In Person (Anticoag Cl inic) Encounter Details Date Type Department Care Team (Latest Contact Info) Description 05/02/2023 10:00 AM EST Anticoagulation Pharmacy, [facility] [address] [facility] [place] [address] Pharmacist1, [facility] [address] [facility] [place] [address] Paroxysmal atrial fibrillation (HCC)*; Anticoagulation management encounter; shelter current use of anticoagulant therapy Allergies Active Allergy Reactions Criticality Noted Date Comments Lactose Diarrhea 07/26/2010 Abdominal gas, bloating; GI lactose intolerance Latex Rash 12/06/2016 Localized contact rash only; no respiratory symptoms Other Allergy (See Comments) 12/24/2018 Rash with band aids documented as of this encounter (statuses as of 05/02/2023) Medications Medication Sig Dispensed Refills Start Date End Date Status PROBIOTIC DAILY PO CAPS one a day 30 Cap 0 11/13/2012 Active B-12 1000 MCG PO TBCRIndications:Com pound heterozygous MTHFR mutation [id number] 1 TABLET DAILY 100 Tab 3 12/03/2012 Active Cholecalciferol (VITAMIN D3) 1000 UNITS CAPS Take by mouth. 0 Active Tylenol 325 MG Oral Capsule (Acetaminophen) Take by mouth . Two tablets 0 Active Fluorouracil 5 % External Cream (Efudex) Apply topically to affected area 2 times a day. apply to affected area nose for 2 weeks 40 g 0 11/17/2020 Active PreserVision AREDS Oral Capsule Take 1 Capsule by mouth in the morning and 1 Capsule before bedtime. 0 Active Ventolin HFA 108 (90 Base) MCG/ACT Inhalation Aerosol SolutionIndications :Bronchitis, complicated Inhale 2 Puffs by mouth every 4 hours as needed for Wheezing. 18 g 0 04/28/2021 Active Metoprolol Succinate ER 50 MG Oral Tablet Extended Release 24 Hour (Toprol XL)Indications:HTN, goal below 140/90,BLANCO (dyspnea on exertion) Take 1 Tablet by mouth in the morning and 1 Tablet before bedtime. 180 Tablet 3 09/13/2022 Active Furosemide 40 MG Oral Tablet (Lasix)Indications: HTN, goal below 140/90 Take one tablet daily plus an extra pill 2-3 days per week 120 Tablet 3 09/13/2022 Active Sertraline HCl 50 MG Oral Tablet (Zoloft) Take 1 Tablet by mouth in the morning. 90 Tablet 2 03/13/2023 Active Folic Acid 1 MG Oral TabletIndications:C ompound heterozygous MTHFR mutation C677T/X2772G Take 1 Tablet by mouth in the morning. 90 Tablet 3 03/14/2023 Active Warfarin Sodium 5 MG Oral TabletIndications:O ther pulmonary embolism without acute cor pulmonale, unspecified chronicity (HCC) Take 1/2 tablet on Sundays and one tablet daily all other days or as adjusted by coagulation pharmacist. 90 Tablet 1 03/14/2023 Active documented as of this encounter (statuses as of 05/02/2023) Active Problems Problem Noted Date Diagnosed Date Body mass index (BMI) of 45.0 to 49.9 in adult 0 11/20/2022 Overview: Per Obesity protocol Paroxysmal atrial fibrillation 03/21/2022 Recurrent major depressive disorder 10/18/2021 Methylenetetrahydrofolate reductase deficiency 0 10/18/2021 Chronic kidney disease, stage 3b 09/21/2020 Overview: Per CKD protocol Hypertensive kidney disease with stage 3b chronic kidney disease 08/17/2020 Overview: Per CKD protocol Major depressive disorder, single episode, unspe cified 04/13/2020 Status post total left knee replacement 01/07/20 Persistent atrial fibrillation 05/14/2018 History of pulmonary embolism 05/14/2018 Osteoarthritis of right knee 10/31/2016 Gouty arthropathy 09/23/2015 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 0 to 59.9 in adult 02/20/2022 11/23/2022 Overview: Per Obesity protocol - bmi= 42.27 10/29/11 Activated protein C resistance 10/18/2021 10/30/2022 Hypertensive kidney disease with stage 3a chronic kidney disease 02/16/2020 08/19/2020 Overview: Per CKD protocol - HTN + CKD III = conditions have assumed relationship per current coding guidelines. Hypertensive kidney disease with chronic kidney disease stage III 01/01/2020 02/19/2020 Overview: HTN + CKD III = conditions have assumed relationship per current coding guidelines. Other acute pulmonary emboli sm, unspecified whether acute cor pulmonale present 06/17/2019 05/0 10/2019 Encounter for examination fo r normal comparison and control in clinical research program 10/08/2017 11/10/2019 Overview: DO NOT DELETE [facility] Study: Project # [id number], Button Puncher: Buzz Mayes, PhD. SUMMARY: Goal: Establish test characteristics (sensitivity, specificity, PPV, NPV) of a circulating tumor DNA (ctDNA)-based test for cancer. Hypothesis: Circulating tumor DNA (ctDNA) and elevated protein biomarkers (together, the marker panel) can be detected in asymptomatic individuals with early cancer. Specific Aim 1: Determine the prevalence of a positive marker panel test in a prospective clinical cohort of 10,000 asymptomatic women ages 65 to 75 years. Specific Aim 2: Determine the sensitivity, specificity, positive predictive value (PPV) and negative predictive value (NPV) of a marker panel test to identify histologically proven cancers that develop within 5-years of the marker panel evaluation. CONTACTS: During normal business hours, contact study staff at ; after hours Button Puncher via the [facility] straddle bug operator . Please contact study team before resolving/deleting from patients problem list. Study phone number: [phone]. Diagnosis changed due to Research Module. Go to Snapshot for study details. Encounter for examination fo r normal comparison and control in clinical research program 10/08/2017 12/08/2021 Overview: DO NOT DELETE - [facility] Study: Project # [id number], Button Puncher: Kervin Gutierrez, MS, MPH. SUMMARY: Goal: Establish test characteristics (sensitivity, specificity, PPV, NPV) of a circulating tumor DNA (ctDNA)-based test for cancer. - Hypothesis: Circulating tumor DNA (ctDNA) and elevated protein biomarkers (together, the marker panel) can be detected in asymptomatic individuals with early cancer. - Specific Aim 1: Determine the prevalence of a positive marker panel test in a prospective clinical cohort of 10,000 asymptomatic women ages 65 to 75 years. - Specific Aim 2: Determine the sensitivity, specificity, positive predictive value (PPV) and negative predictive value (NPV) of a marker panel test to identify histologically proven cancers that develop within 5-years of the marker panel evaluation. - CONTACTS: During normal business hours, contact study staff at ; after hours Button Puncher via the [facility] straddle bug operator . - Please contact study team before resolving/deleting from patients problem list. Study phone number: [phone]. Diagnosis changed due to Research Module. Go to Snapshot for study details. Kidney disease, chronic, sta ge III (GFR 30-59 ml/min) 07/17/2017 01/22/2020 Overview: Per CKD protocol #1 History of nonmelanoma skin cancer 05/22/2017 01/01/2020 Overview: Historical. Pulmonary embolus 12/12/2016 03/19/2018 Acute bronchitis, complicated 10/23/2015 02/03/2018 Acute left ankle pain 09/18/20152017 Stasis dermatitis, acute 09/18/201508/2018 History of phlebitis 09/18/2015 020 Overview: Historical. Sinus congestion 02/28/2015 02/03/2018 Phlebitis and thrombophlebit is of superficial vessels of lower extremities 10/02/2014 09/18/2015 Venous thrombosis 11/14/2012 09/18/2015 Anticoagulation management encounter 11/14/2012 09/18/2015 shelter current use of ant icoagulant therapy 11/14/2012 09/18/2015 Obesity, morbid (more than 1 00 lbs over ideal weight or BMI > 40) 10/29/2011 02/23/2022 Overview: bmi= 42.27 10/29/11 Cough 10/29/2011 09/18/2015 Obesity, morbid (more than 1 00 lbs over ideal weight or BMI > 40) 09/21/2009 06/07/2013 Overview: Per Obesity Protocol, #19 ICD-10 update of inactive term ADVANCE DIRECTIVE INFORMATION 07/11/2008 09/18/2015 Overview: No, Advance Directive brochure given to patient. Gout 05/06/2008 09/18/2015 ADJ DISORDER W/DEPRES MOOD 07/19/2005 0 09/18/2015 documented as of this encounter (statuses as of 05/02/2023) Immunizations Name Administration Dates Next Due COVID-19 mRNA, LNP-s, No Pre serve, 2-Dose Series ([employer]) 07/07/2020,06/16/2020 Covid-19, Mrna, Lnp-s, Pf, B ivalent, 30 Mcg, IM, 12 yrs and above ([employer]) 10/30/2021 PPD 05/02/2010 Pneumococcal Conjugate Vacc, 13 Valent (Prevnar) 12/11/2015 Pneumococcal Polysaccharide PPV23 (Pneumovax) 12/14/2016 Seasonal Influenza, PF, 6 M & above, IM , (FluLaval or Fluzone) 01/07/2020,01/11/2018,01/13/2017 Seasonal Influenza, Quadriva lent Hd (Fluzone Hd) 01/18/2023,01/26/2022,02/28/2021 Seasonal Influenza, Split, I IV3, With Preserve, Inj 01/27/2016,01/30/2013,05/15/2011,01/21,03/11/2008 Seasonal Influenza, Trivalen t, Adjuvanted, 65+ yrs 12/24/2018 TDAP (age 10 and older)(Boostrix) 01/26/2017 Varicella Zoster Vaccine (Adult) 01/12/2016 Zoster Vaccine Recombinant (Shingrix) 07/12/2018 ,04/06/2018 documented as of this encounter Social History Tobacco Use Types Packs/Day Years Used Date Smoking Tobacco: Former Cigarettes 0.1 1 Q uit: 04/09/1990 Smokeless Tobacco: Never Alcohol Use Standard Drinks/Week Comments No 0 (1 standard drink = 0.6 oz pur e alcohol) PHQ-2 Answer Date Recorded PHQ Adult Total Score 3 03/08/2023 Hunger Vital Sign Answer Date Recorded Within the past 12 months, y ou worried that your food would run out before you got the money to buy more. Never true 03/07/20 22 Within the past 12 months, t he food you bought just didn't last and you didn't have money to get more. Never true 03/07/2022 Sex and Gender Information Value Date Recorded Sex Assigned at Female 03/07/2022 9:19 AM EST Gender Identity Female 03/07/2022 9:19 AM EST Sexual Orientation Straight 08/14/2019 10 :17 AM EDT Job Start Date Occupation Industry Not on file Not on file Not on file documented as of this encounter Progress Notes * Betito Perrin, [facility] - 05/02/2023 10:07 AM EST Images from the original note were not included. Medication Therapy Disease Management - Anticoagulation Autumn Onofre 1950 Description Takes in AM Patient Findings Positives: Change in diet/appetite (ate less greens while on vacation) Negatives: Signs/symptoms of thrombosis, Signs/symptoms of bleeding, Change in health, Change in alcohol use, Change in activity, Upcoming invasive procedure, Missed doses, Extra doses, Change in medications, Bruising INR Result As of 05/02/2023 INR goal: 2.0-3.0 INR used for dosin.8 (05/02/2023) Warfarin Plan As of 05/02/2023 Full warfarin instructions: 05/02: 5 mg; Otherwise 2.5 mg every Mon, Wed, Fri; 5 mg all other days Next INR check: 06/13/2023 Repeat PT/INR in 6 week(s) Weekly dose: not changed Betito Dotson RPh, CACP, CDE Clinical Pharmacist Medication Therapy Management [facility] 05/02/2023 10:13 AM documented in this encounter Plan of Treatment Upcoming Encounters Date Type Department Care Team (Late st Contact Info) Description 06/13/2023 8:30 AM EST Anticoagulation Pharmacy, [facility] [address] [place] [address] Pharmacist1, [facility] [address] [place] [address] 11/01/2023 9:00 AM EDT Office Visit Family Practice [facility] [address] [place] [address] [address] Kacie Duenas PA-C [address] [place] [address] 11/22/2023 10:45 AM EDT Office Visit Dermatology [facility] [address] [place] [address] [id number] Rosa Horn MD [address] [place] [address] [address] 11/23/2023 10:15 AM EDT Imaging Radiology [address], [place] [address] [facility] [place] [address] 03/11/2024 9:00 AM EST Nurse Only Ancillary [place] [address] [facility] [place] [address] Im, Nurse Annual Wellness [facility] [address] [facility] [place] [address] Health Maintenance Due Date Last Done Comments Hepatitis C Screening 1968 Fecal Occult Blood Test 08/21/2002 08/21/2001 Sigmoidoscopy 08/05/2006 08/05/2001, 07/25/2001 Colonoscopy 04/20/2018 04/20/2008 COVID-19 Vaccine ( season) 2022 10/30/2021, 07/07/2020, 06/16/2020 GFR 04/06/2023 10/05/2022, 09/2022, 12/26/2021, Additional history exists Albumin/Creatinine Ratio 10/06/2023 023, 10/18/2021, 10/07/2021, Additional history exists CKD HGB USE SMARTSET 61217 10/06/202310/05, 12/26/2021, 10/07/2021, Additional history exists CKD PHOS USE SMARTSET 88767 10/06/202309/08, 03/02/2021, 01/11/2018 Mammogram 11/22/2023 11/21/2022, 11/07, 11/17/2020, Additional history exists DXA Scan 02/06/2024 02/05/2017, 0606/2007, 09/10/2007, Additional history exists Depression Screening 03/08/2024 03/08/2023 Cologuard 06/11/2024 06/11/2021, 05/11, 06/02/2021, Additional history exists Colorectal Cancer Screening 06/11/2024 DTaP,Tdap,and Td Vaccines (2 - Td or Tdap) 01/26/2027 01/26/2017 Lipid Panel 10/06/2027 10/05/2022, 11/07, 03/02/2021, Additional history exists Pneumococcal Vaccine: 65+ Years Completed 12/14/2016, 12/11/2015, 04/09/2015 Zoster Vaccines Completed 07/12/2018, 03/10, 01/12/2016 Influenza Vaccine (FLU shot) Completed 03/2023, 01/26/2022, 02/28/2021, Additional history exists GARDASIL-HPV IMMUNIZATION SERIES Aged Out No longer eligible based on patient's age to complete this topic Hepatitis B Aged Out No longer eligi ble based on patient's age to complete this topic MENINGOCOCCAL (MENACTRA/MENVEO) Aged Out No longer eligible based on patient's age to complete this topic documented as of this encounter Medical Devices Implanted Type Area Large Animal Veterinarian Device Identifier Shelf Expiration Date Model / Serial / Lot Implant System, Biocomposite Achilles Speedbridge With Jumpstart Implanted:Qty: 1 on 04/24/2017 by Yoni Delgado MD at [facility] Left: Ankle [employer] 09/06/2018 [id number] / / [id number] documented as of this encounter Procedures Procedure Name Priority Date/Time Associated Diagnosis Comments INR FINGERSTICK, POINT OF CARE STAT 05/02/2023 10:10 AM EST Paroxysmal atrial fibrillation (HCC) Anticoagulation management encounter transmission superintendent current use of anticoagulant therapy documented in this encounter Results * INR FINGERSTICK, POINT OF CARE (05/02/2023 10:10 AM EST) Fingerstick INR 1.8 INR 10:11 AM EST LABORATORY [facility] [place] 56-02 Blood 05/02/2023 10:1 0 AM EST 05/02/2023 10:11 AM EST Narrative LABORATORY [place] 56-02 - 05/02/2023 10:11 AM EST Therapeutic ranges for non-operative patients: Prophylaxsis/treatment of DVT: (Range:2.0-3.0) Treatment of pulmonary embolism:(Range:2.0-3.0) Prevention of systemic embolism from: -tissue heart valves -acute myocardial infarction -valvular heart disease -atrial fibrillation (Range: 2.0-3.0) Mechanical prosthetic valves: (Range: 2.5-3.5) Betito Dotson V [facility] LAB POINT OF CARE TE ST DOCKED DEVICE UNSOLICITED RESULTS [facility] 56-02 [address] [facility] [place] [address] documented in this encounter Visit Diagnoses Diagnosis Paroxysmal atrial fibrillation (HCC)- Primary Atrial fibrillation Anticoagulation management encounter Encounter for therapeutic drug monitoring transmission superintendent current use of anticoagulant therapy documented in this encounter Care Teams Top Stop Attacher Relationship Specialty Start Date End Date Henrique July RELL Ramirez [address] [facility] [place] [address] PCP - General Physician Academic Affairs Vice President 01/26/22 documented as of this encounter
--- OUTSIDE RECORDS SUMMARY | 2023-05-05 15:28 | External Medical Summary | Summary of Care ---
Author Name Unknown Organization [facility] Address [address] [place] [address] Phone [phone] Care Team Providers Care Liquid [facility] Assembler Name Role Phone Kacie Duenas Ashley ZACARIAS Primary Care Provider [phone] Reason for Visit * Reason Onset Date Comments Order Request 02/01/2023 Advice 02/01/2023 Encounter Details Date Type Department Care Team (Late st Contact Info) Description 02/01/2023 Telephone Access Center, [place] [facility] [address] [facility] *DO NOT REMOVE THIS DEPARTMENT* [place] [address] Services, Scheduling [address] [place] [address] Order Request; Advice Allergies Active Allergy Reactions Criticality Noted Date Comments Lactose Diarrhea 07/26/2010 Abdominal gas, bloating; GI lactose intolerance Latex Rash 12/06/2016 Localized contact rash only; no respiratory symptoms Other Allergy (See Comments) 12/24/2018 Rash with band aids documented as of this encounter (statuses as of 02/06/2023) Medications Medication Sig Dispensed Refills Start Date End Date Status PROBIOTIC DAILY PO CAPS one a day 30 Cap 0 11/13/2012 Active B-12 1000 MCG PO TBCRIndications:Com pound heterozygous MTHFR mutation C677T/[id number] 1 TABLET DAILY 100 Tab 3 12/03/2012 [...] for Wheezing. 18 g 0 04/28/2021 Active Folic Acid 1 MG Oral TabletIndications:C ompound heterozygous MTHFR mutation C677T/W8931C Take 1 Tablet by mouth in the morning. 90 Tablet 3 05/08/2022 Active Metoprolol Succinate ER 50 MG Oral [...] per week 120 Tablet 3 09/13/2022 Active Warfarin Sodium 5 MG Oral TabletIndications:O ther pulmonary embolism without acute cor pulmonale, unspecified chronicity (HCC) Take 1/2 tablet on Sundays and one tablet daily all other days or as adjusted by coagulation pharmacist. 90 Tablet 1 10/31/2022 Active Sertraline HCl 50 MG Oral Tablet (Zoloft) Take 1 Tablet by mouth in the morning. 30 Tablet 11 01/18/2023 Active documented as of this encounter (statuses as of 02/06/2023) Active Problems Problem Noted Date Diagnosed Date [...] Status post total left knee replacement 01/07/20 20 Persistent atrial fibrillation 05/14/2018 History of pulmonary embolism 05/14/2018 Osteoarthritis of right knee 10/31/2016 Gouty arthropathy 09/23/2015 Compound heterozygous MTHFR mutation C677T/A1298 C 12/03/2012 Chronic rhinitis 10/29/2011 HTN, goal below 140/90 07/19/2005 Irritable bowel syndrome 07/25/2001 documented as of this encounter (statuses as of 02/06/2023) Resolved Problems Problem Noted Date Diagnosed Date [...] program 10/08/2017 11/10/2019 Overview: DO NOT DELETE [facility] DETECT Study: Project # [id number], Medical Insurance Collector: Buzz Mayes, PhD. SUMMARY: Goal: Establish test [...] contact study staff at ; after hours Medical Insurance Collector via the [facility] log stacker operator . Please contact study team before resolving/deleting from patients problem list. Study phone number: [phone]. Diagnosis changed due to Research Module. Go to Snapshot for study details. Encounter for examination fo r normal comparison and control in clinical research program 10/08/2017 12/08/2021 Overview: DO NOT DELETE [facility] Study: Project # [id number], Medical Insurance Collector: Kervin Gutierrez, MS, MPH. SUMMARY: Goal: Establish [...] contact study staff at ; after hours Medical Insurance Collector via the [facility] log stacker operator . - Please contact study team before resolving/deleting from patients problem list. Study phone number: [phone]. Diagnosis changed due to Research Module. Go to Snapshot for study details. Kidney disease, chronic, sta ge III (GFR 30-59 ml/min) 07/17/2017 01/22/2020 Overview: Per CKD protocol #1 History of nonmelanoma skin cancer 05/22/2017 01/01/2020 Overview: Historical. Pulmonary embolus 12/12/2016 03/19/2018 Acute bronchitis, complicated 10/23/2015 02/03/2018 Acute left ankle pain 09/18/20152017 Stasis dermatitis, acute 09/18/201508/2018 History of phlebitis 09/18/201512/31/ 020 Overview: Historical. Sinus congestion 02/28/2015 02/03/2018 Phlebitis and thrombophlebit is of superficial vessels of lower extremities 10/02/2014 09/18/2015 Venous thrombosis 11/14/2012 09/18/2015 Anticoagulation management encounter 11/14/2012 09/18/2015 correction current use of ant icoagulant therapy 11/14/2012 [...] as of this encounter (statuses as of 02/06/2023) Immunizations Name Administration Dates Next Due COVID-19 mRNA, LNP-s, No Pre serve, 2-Dose Series ([employer] 07/07/2020,06/16/2020 Covid-19, Mrna, Lnp-s, Pf, B ivalent, 30 Mcg, IM, 12 yrs and above ([employer] 10/30/2021 PPD 05/02/2010 Pneumococcal Conjugate Vacc, 13 Valent (Prevnar) 12/11/2015 Pneumococcal Polysaccharide PPV23 (Pneumovax) 12/14/2016 SEASONAL INFLUENZA, PF, 6 M & Above, IM , (FLULAVAL or FLUZONE) 01/07/2020,01/11/2018,01/13/2017 Seasonal Influenza, Quadriva lent Hd (Fluzone [...] Answer Date Recorded PHQ Adult Total Score 0 03/07/2022 Hunger Vital Sign Answer Date Recorded Within [...] on file documented as of this encounter Miscellaneous Notes * Telephone Encounter - Melinda Galvez LPN - 02/06/2023 10:32 AM EDT My g message sent to the pt. * Telephone Encounter - Darrian Marcano PA-C - 02/04/2023 1:02 PM EDT Please let the patient know I have placed an order, but she may not be able to get another CPAP without repeating a sleep study. Please find out why she gave the other CPAP back (I know she was not in compliance at her last OV and was wanting to give up on it) and find out why she wants to get it back. Please explain compliance rules (70% compliance or insurance doesn't pay for it). Thanks. * Telephone Encounter - Mily Vasquez - 02/01/2023 12:08 PM EDT Patient call in requesting a new CPAP order she gave her old CPAP to her dme and she would like a new one. She ask what would be the consequences if she does not use her CPAP ? Please she would appreciate if somebody call her back Please advice Thank you scheduling service documented in this encounter Plan of Treatment Upcoming Encounters Date Type Department Care Team (Late st Contact Info) Description 03/08/2023 9:00 AM EST Nurse Only Ancillary [facility] [place] [address] [place] [id number] Im, Nurse Annual Wellness [facility] [address] [place] [address] [id number] 03/08/2023 10:20 AM EST Anticoagulation Pharmacy, [facility] [address] [place] [address] Pharmacist1, [facility] [address] [place] [address] [address] 11/01/2023 9:00 AM EDT Office Visit Family Practice [facility] [place] [address] [place] [address] Kacie Duenas PA-C [address] [place] [id number] 11/22/2023 10:45 AM EDT Office Visit Dermatology [facility] [address] [place], [place] [address] Rosa Horn MD [address] [facility] [place] [address] 11/23/2023 10:15 AM EDT Imaging Radiology [address] [place] [address] Health Maintenance Due Date Last Done Comments Hepatitis C Screening 1968 Fecal Occult Blood Test 08/21/2002 08/21/2001 Sigmoidoscopy 08/05/2006 08/05/2001, 07/25/2001 Colonoscopy 04/20/2018 04/20/2008 COVID-19 Vaccine ( season) 2022 10/30/2021, 07/07/2020, 06/16/2020 Depression Screening 03/07/2023 03/07/2022 GFR 04/06/2023 10/05/2022, 09/2022, 12/26/2021, Additional history exists Albumin/Creatinine Ratio 10/06/2023 023, 10/18/2021, 10/07/2021, Additional history exists CKD HGB USE SMARTSET 99033 10/06/202310/05, 12/26/2021, 10/07/2021, Additional history exists CKD PHOS USE SMARTSET 13243 10/06/202309/08, 03/02/2021, 01/11/2018 Mammogram 11/22/2023 11/21/2022, 11/07, 11/17/2020, Additional history exists DXA Scan 02/06/2024 02/05/2017, 06/2007, 09/10/2007, Additional history exists Cologuard 06/11/2024 06/11/2021, 05/11, 06/02/2021, Additional history exists Colorectal Cancer Screening 06/11/2024 DTaP,Tdap,and Td Vaccines (2 - Td or Tdap) 01/26/2027 01/26/2017 Lipid Panel 10/06/2027 10/05/2022, 11/07, 03/02/2021, Additional history exists Pneumococcal Vaccine: 65+ Years Completed 12/14/2016, 12/11/2015 Zoster Vaccines Completed 07/12/2018, 03/10, 01/12/2016 Influenza [...] this encounter Medical Devices Implanted Type Area Iron Pourer Device Identifier Shelf Expiration Date Model / Serial / Lot Implant System, Biocomposite Achilles Speedbridge With Jumpstart Implanted:Qty: 1 on 04/24/2017 by Yoni Delgado MD at OR [facility] Left: Ankle [employer] 09/06/2018 [id number] / / [id number] documented as of this encounter Visit Diagnoses Diagnosis CHATA (obstructive sleep apnea)- Primary Obstructive sleep apnea (adult) (pediatric) documented in this encounter Care Teams Liquid Center Assembler Relationship Specialty Start Date End Date Henrique Kacie RELL Ramirez [address] [place] [address] PCP - General Physician Assistant Foreman 01/26/22 documented as of this encounter
--- OUTSIDE RECORDS SUMMARY | 2023-05-05 15:28 | External Medical Summary | Summary of Care ---
Author Name Unknown Organization [facility] Address [address] [place] [address] Phone [phone] Care Team Providers Care Utilization Review Rn Name Role Phone SoniaKacie amin Ashley ZACARIAS Primary Care Provider [phone] Reason for Visit * Reason Comments Adult Annual Wellness Visit, Subsequent Visit Encounter Details Date Type Department Care Team (Late st Contact Info) Description 03/08/2023 9:00 AM EST Nurse Only [facility] [address] [place] [address] Im, Nurse Annual Wellness [facility] [address] [place] [address] Adult Annual Wellness Visit, Subsequent Visit Allergies Active Allergy Reactions Criticality Noted Date Comments Lactose Diarrhea 07/26/2010 Abdominal gas, bloating; GI lactose intolerance Latex Rash 12/06/2016 Localized contact rash only; no respiratory symptoms Other Allergy (See Comments) 12/24/2018 Rash with band aids documented as of this encounter (statuses as of 03/08/2023) Medications Medication Sig Dispensed Refills Start Date End Date Status PROBIOTIC DAILY PO CAPS one a day 30 Cap 0 11/13/2012 Active B-12 1000 MCG PO TBCRIndications:Com pound heterozygous MTHFR mutation [id number] 1 TABLET DAILY 100 Tab 3 12/03/2012 [...] MG Oral TabletIndications:C ompound heterozygous MTHFR mutation [id number] Take 1 Tablet by mouth in the [...] as of this encounter (statuses as of 03/08/2023) Active Problems Problem Noted Date Diagnosed Date [...] as of this encounter (statuses as of 03/08/2023) Resolved Problems Problem Noted Date Diagnosed Date [...] 10/08/2017 11/10/2019 Overview: DO NOT DELETE [facility] DETECT Study: Project # [id number], [employer]: Buzz Mayes, PhD. SUMMARY: Goal: Establish test [...] contact study staff at ; after hours [employer] via the [facility] hospital grapple skidder operator . Please contact study team before resolving/deleting from patients problem list. Study phone number: [phone]. Diagnosis changed due to Research Module. Go to Snapshot for study details. Encounter for examination fo r normal comparison and control in clinical research program 10/08/2017 12/08/2021 Overview: DO NOT DELETE - [facility] Study: Project # [id number], [employer] Molder: Kervin Gutierrez, MS, MPH. SUMMARY: Goal: Establish [...] contact study staff at ; after hours [employer] via the [facility] grapple skidder operator . - Please contact study team before resolving/deleting from patients problem list. Study phone number: [phone]. Diagnosis changed due to Research Module. Go [...] 11/14/2012 09/18/2015 Anticoagulation management encounter 11/14/2012 09/18/2015 senior care current use of ant icoagulant therapy 11/14/2012 [...] as of this encounter (statuses as of 03/08/2023) Immunizations Name Administration Dates Next Due COVID-19 mRNA, LNP-s, No Pre serve, 2-Dose Series (FL3XX) 07/07/2020,06/16/2020 Covid-19, Mrna, Lnp-s, Pf, B ivalent, 30 Mcg, IM, 12 yrs and above (FL3XX) 10/30/2021 PPD 05/02/2010 Pneumococcal Conjugate Vacc, 13 [...] 1 Q uit: 04/09/1990 Smokeless Tobacco: Never Tobacco Cessation:Counseling Given: Not Answered Alcohol Use Standard Drinks/Week Comments No 0 [...] on file documented as of this encounter Last Filed Vital Signs Vital Sign Reading Time Taken Comments Blood Pressure 134/74 03/08/2023 1:20 PM EST Pulse 53 03/08/2023 1:20 PM EST Temperature 35.6 C (96.1 F) 03/08/2023 1:20 PM ES T Respiratory Rate - - Oxygen Saturation 95% 03/08/2023 1:20 PM EST Inhaled Oxygen Concentration - - Weight 145.5 kg (320 lb 12.8 oz) 03/08/2023 1:20 PM EST Height 170.2 cm (5' 7") 03/08/2023 1:20 PM EST Body Mass Index 50.24 03/08/2023 1:20 PM EST documented in this encounter Patient Instructions * Patient Instructions* Ronda Thomas RN - 03/08/2023 9:19 AM EST Patient Instructions - Fall Prevention (This education is for all patients over 65 regardless of symptoms) Remember to take your current medications as prescribed. In order to prevent falls, you are encouraged to: Exercise Utilize assistive/adaptive devices Avoid multifocal lenses when walking Avoid hazards in home Maintain a regular toileting schedule Any questions please contact our office. Preventing Falls in the Home (This education is for all patients over 65 regardless of symptoms) As you get older, falls are more likely. Thats because your reaction time slows. Your muscles and joints may also get stiffer, making them less flexible. Illness, medications, and vision changes can also affect your balance. A fall could leave you unable to live on your own. To make your home safer, follow these tips: Floors Put nonskid pads under area rugs Remove throw rugs Replace worn floor coverings Tack carpets firmly to each step on carpeted stairs. Put nonskid strips on the edges of uncarpeted stairs Keep floors and stairs free of clutter and cords Arrange furniture so there are clear pathways Clean up any spills right away Bathrooms Install grab bars in the tub or shower Apply nonskid strips or put a nonskid rubber mat in the tub or shower Sit on a bath chair to bathe Use bathmats with nonskid backing Lighting Keep a flashlight in each room Put a nightlight along the pathway between the bedroom and the bathroom Rama Patient Education Copyright 2008 - 2010 Rama except where otherwise noted Preventing Falls: Exercises to Improve Balance, Flexibility, Strength, and Staying Power (This education is for all patients over 65 regardless of symptoms) Certain types of exercises may help make you less likely to fall. Try the ones below. Or do other exercises that your healthcare provider suggests. Depending on your health, you may need to start slowly. Dont let that stop you. Even small amounts of exercise can help you. Be sure to talk to yourhealthcare provider before starting any exercise program. Improve Balance Many types of exercise can help improve balance. Ronald chi and yoga are good examples. Heres another one to try. You can do it anytime and almost anywhere. Stand next to a counter or solid support. Push yourself up onto your tiptoes. Hold for 5 seconds. If you start to lose your balance, hold on to the counter. Rest and repeat 5 times. Work up to holding for 20 to 30 seconds, if you can. Increase Flexibility Being more flexible makes it easier for you to move around safely. Try exercises like the seated hamstring stretch. Sit in a chair and put one foot on a stool. Straighten your leg and reach with both hands down either side of your leg. Reach as far down your leg as you can. Hold for about 20 seconds. Go back to the starting position. Then repeat 5 times. Switch legs. Build Strength Resistance exercises help build strength. You can do them without equipment. Or you can use weights, elastic bands, or special machines. One such exercise is called the biceps curl. You can hold a 1 pound weight or even a can of soup. Do this exercise at least 3 times a week. Strive for everyday. Sit up straight in a chair. Keep your elbow close to your body and your wrist straight. Bend your arm, moving your hand up to your shoulder. Then slowly lower your arm. Repeat 5 times. Switch to the other arm. Build Your Staying Power Aerobic exercises make your heart and lungs stronger so you can keep moving longer. Walking and swimming are two of the best types of exercises you can do. Using a stationary bike is great, too. Find an aerobic exercise that you enjoy. Start slowly and build up. Even 5 minutes is helpful. Aimfor a goal of 30 minutes, at least 3 times a week. You dont have to do 30 minutes in one session. Break it up and walk a little throughout the day. More Helpful Tips Start easy. Slowly work up to doing more. Talk with your healthcare provider about the best exercises for you. Call senior centers or health clubs about exercise programs. If needed, have a family member watch you walk every so often to check your stability. Exercise with a friend. Choose an activity you both enjoy. Try exercises that you can do anytime, anywhere. Here are two examples. Have someone with you when you first try these: Practice walking by placing one foot right in front of the other. Stand up and sit down 10 times. Repeat this throughout the day. Shoobs Patient Education Copyright 2008 Shoobs except where otherwise noted. Preventing Falls: Moving Safely Using a Cane or Walker (This education is for all patients over 65 regardless of symptoms) Keep the cane away from your feet so you dont trip. A walking aid, such as a cane or walker, can help you stay more independent and avoid falls. Remember to keep your walking aid within easy reach when youre in a chair or in bed. And learn how to use it safely so you dont injure yourself. Using a Cane If you have a stronger side, hold the cane on that side. Get your balance. Move the cane and your weaker leg forward. Support your weight on both the cane and your weaker side. Step with your stronger leg. Start again from step 1. If youre using a folding walker, be sure you know how to lock it open. Check that its locked open before each use. Using a Walker Roll the walker (or lift it, if youre using one without wheels) forward about 12 inches. Step forward with your weaker leg first. Use the walker to help keep your balance. Bring your other foot forward to the center of the walker. Start again from step 1. Helpful Tips Check with your healthcare provider about the right walking aid to use. Ask about a walker with a seat attached. Check the tips of your cane or walker to make sure they have nonskid covers. Move slowly from room to room. Dont marti. Sit down to get dressed. Use a yasemin pack or backpack to keep your hands free. Get help for jobs that mean climbing, even on a stepstool. Shoobs Patient Education Copyright 2008 - 2010 Shoobs except where otherwise noted. Urinary Incontinence Plan of Care Documentation: (This education is for all patients over 65 regardless of symptoms) Current medications reconciled. Patient encouraged to: Practice kegal exercises Provide education materials Use the restroom every 2 hours throughout the day Limit caffeine, alcohol, spicy foods and acidic foods Keep a bladder diary Limit fluid intake 3-4 hours before bed Lose weight Prevent constipation Take fluid pills at a time when you can get to the bathroom quickly Control sugar better if diabetic Limit fluid intake to 60 oz. per day Wear support stockings (TEDs)if you have edema Ronda Garrett RN 03/08/2023 Kegel Exercises Kegel exercises dont require special clothing or equipment. Theyre easy to learn and simple to do. And if you do them right, no one can tell youre doing them, so they can be done almost anywhere. Your doctor, nurse, or physical therapist can answer any questions you have and help you get started. A Weak Pelvic Floor The pelvic floor muscles may weaken due to aging, and vaginal childbirth, injury, surgery, chronic cough, or lack of exercise. If the pelvic floor is weak, your bladder and other pelvic organs may sag out of place. The urethra may also open too easily and allow urine to leak out. Kegel exercises can help you strengthen your pelvic floor muscles so they can better support the pelvic organs and control urine flow. How Kegel Exercises Are Done Try each of the Kegel exercises described below. When youre doing them, try not to move your leg, buttock, or stomach muscles. While youre urinating, try to stop the flow of urine. Start and stop it as often as you can. Contract as if you were stopping your urine stream, but do it when youre not urinating. Tighten your rectum as if trying not to pass gas. Contract your anus, but dont move your buttocks. Helpful Hints Do your Kegels as often as you can. The more you do them, the faster youll feel the results. Pick an activity you do often as a reminder. For instance, do your Kegels every time you sit down. Tighten your pelvic floor before you sneeze, get up from a chair, cough, laugh, or lift. This protects your pelvic floor from injury and can help prevent urine leakage. Try to hold each Kegel for a slow count to five. You probably wont be able to hold them for thatlong at first, but keep practicing. It will get easier as your pelvic floor gets stronger. Eventually, special weights that you place in your vagina may be recommended to help make your Kegels even more effective. Rama Patient Education Copyright 2009 - 2010 Rama except where otherwise noted. Here are some helpful tips for your urinary incontinence: (This education is for all patients over 65 regardless of symptoms) Practice Kegel exercises Use the restroom every 2 hours throughout the day Limit caffeine, alcohol, spicy foods, and acidic foods Keep a bladder diary Limit fluid intake 3-4 hours before bed Lose weight Prevent constipation Take fluid pills at a time when can get to the bathroom quickly Control sugar better if diabetic Limit fluid intake to 60 oz. per day Any questions, please feel free to contact our office. Hi Vicente Kingston, As your primary care physician, I know that regular visits with my patients who have several chronic conditions can go a long way in helping you stay healthy. Many times, the clinic team and I are in touch with you and/or other care team members between office visits to adjust medications, discuss any changes in your health, and review our care plan to make sure it is still meeting your needs. I am dedicated to helping you take a more active role in your overall care. It is important that there are resources available to you, so I created a personalized plan of care with a Health Calendar for you, which is included on the next page of this letter. Below is a list that summarizes your electronic health record: Health Maintenance Due: Health Maintenance Due Topic Date Due Hepatitis C Screening Never done COVID-19 Vaccine ( season) 2022 Depression Screening 03/07/2023 Current Medication List: (as of Visit date not found (in office), Visit date not found (telemedicine) ) Current Outpatient Medications Medication Sig Dispense Refill B-12 1000 MCG PO TBCR 1 TABLET DAILY 100 Tab 3 Cholecalciferol (VITAMIN D3) 1000 UNITS CAPS Take by mouth. Tylenol 325 MG Oral Capsule (Acetaminophen) Take by mouth . Two tablets PreserVision AREDS Oral Capsule Take 1 Capsule by mouth in the morning and 1 Capsule before bedtime. Ventolin HFA 108 (90 Base) MCG/ACT Inhalation Aerosol Solution Inhale 2 Puffs by mouth every 4 hours as needed for Wheezing. 18 g 0 Folic Acid 1 MG Oral Tablet Take 1 Tablet by mouth in the morning. 90 Tablet 3 Metoprolol Succinate ER 50 MG Oral Tablet Extended Release 24 Hour (Toprol XL) Take 1 Tablet bymouth in the morning and 1 Tablet before bedtime. 180 Tablet 3 Furosemide 40 MG Oral Tablet (Lasix) Take one tablet daily plus an extra pill 2-3 days per [id number] Tablet 3 Warfarin Sodium 5 MG Oral Tablet Take 1/2 tablet on Sundays and one tablet daily all other daysor as adjusted by coagulation pharmacist. 90 Tablet 1 Sertraline HCl 50 MG Oral Tablet (Zoloft) Take 1 Tablet by mouth in the morning. 30 Tablet 11 PROBIOTIC DAILY PO CAPS one a day (Patient not taking: Reported on 01/18/2023) 30 Cap 0 Fluorouracil 5 % External Cream (Efudex) Apply topically to affected area 2 times a day. apply to affected area nose for 2 weeks 40 g 0 No current facility-administered medications for this visit. Current List of Allergies: (as of Visit date not found (in office), Visit date not found (telemedicine) ) Review of patient's allergies indicates: Allergen Reactions Lactose Diarrhea Abdominal gas, bloating; GI lactose intolerance Latex Rash Localized contact rash only; no respiratory symptoms Other Allergy (See Comments) Rash with band aids Most Recent Lab Results: Results for orders placed or performed in visit on 01/31/23 INR FINGERSTICK, POINT OF CARE Result Value Ref Range Fingerstick INR 4.8 INR *Note: Due to a large number of results and/or encounters for the requested time period, some results have not been displayed. A complete set of results can be found in Results Review. Sincerely, Kacie Duenas PA-C 03/08/2023 [facility] Calendar (as of Visit date not found (in office), Visit date not found (telemedicine) ) Care needs Care needs Last completed Due next Hepatitis C screening --- Never done COVID-19 Vaccine ( season) 2021 12/08/2022 Kidney Function Test 10/05/2022 04/06/2023 Urine albumin/creatinine test 10/05/2022 10/06/2023 Mammogram 11/21/2022 11/22/2023 Bone Density 02/05/2017 02/06/2024 Colorectal cancer screening (colonoscopy 10 years, sigmoidoscopy 5 years, Cologuard 3 years, stool sample 1 year) 06/11/2021 06/11/2024 Diphtheria, tetanus & pertussis vaccines (2 - Td or Tdap) 01/26/2017 01/26/2027 Lipid (cholesterol) disorder screening 10/05/2022 10/06/2027 As you look over the recommended services, be sure to check with your insurance company to determine what's covered. [employer] is a great tool that helps you review your medical record online, including test results, doctor notes and your health summary. You can also schedule appointments with me and other members of your care team, request prescription refills and ask for advice related to your medical conditions at [employer]. documented in this encounter Progress Notes * Ronda Thomas RN - 03/08/2023 9:19 AM EST Fall Risk Plan of Care Documentation: - Current medications reconciled Patient encouraged to: - Exercise - Provide education materials for Core strengthening - Utilize assistive/adaptive devices - Provide education materials - Avoid multifocal lenses when walking - Avoid hazards in home - Provide education materials - Maintain a regular toileting schedule Ronda Garrett RN 03/08/2023 Urinary Incontinence Plan of Care Documentation: (This education is for all patients over 65 regardless of symptoms) Current medications reconciled. Patient encouraged to: Practice kegal exercises Provide education materials Use the restroom every 2 hours throughout the day Limit caffeine, alcohol, spicy foods and acidic foods Keep a bladder diary Limit fluid intake 3-4 hours before bed Lose weight Prevent constipation Take fluid pills at a time when you can get to the bathroom quickly Control sugar better if diabetic Limit fluid intake to 60 oz. per day Wear support stockings (TEDs)if you have edema Ronda Garrett RN 03/08/2023 AD8 Dementia Screening Interview Person answering questions: patient Remember, "Yes, a change" indicates that there has been a change in the last several years caused by cognitive (thinking and memory) problems 1. Problems with judgement (eg: problems making decisions, bad financial decisions, problems with thinking). No (0) 2. Less interest in hobbies/activities. No (0) 3. Repeats the same things over and over (questions, stories, or statements). No (0) 4. Trouble learning how to use a tool, appliance, or gadget (eg: VCR, computer, microwave, remote control). No (0) 5. Forgets correct month or year. No (0) 6. Trouble handling complicated financial affairs (eg: balancing checkbook, income taxes, paying bills). No (0) 7. Trouble remembering appointments. No (0) 8. Daily problems with thinking and/or memory. No (0) TOTAL AD8: 0 - AD8 Dementia Screening Score The final score is a sum of the number items marked "Yes, A Change". 0 - 1: Normal cognition; 2 or greater: Cognitive impairments is likely to be present - further testing required Adult Annual Wellness Visit: Autumn Onofre is a 72 year old female who presents for an Adult Annual Wellness Visit. Depression Screening: Did the patient complete the screening questionnaire for Depression? Yes, score of 3 Is the patient's total score for Depression 15 or greater? No, no further intervention needed, unless requested by patient. Did the patient answer positively to the suicide question? No, no further intervention needed, unless requested by patient. In general, compared to other people your age, what would you say that your health is? Good Ht Readings from Last 1 Encounters: 10/30/22 1.686 m (5' 6.38") Wt Readings from Last 1 Encounters: 01/18/23 (!) 139.7 kg (308 lb) Body Mass Index: 50.1 There is no height or weight on file to calculate BMI. 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 12/03/2012 Deep vein thrombosis (DVT) ([facility]) 2012 Depressive disorder, not elsewhere classified Gouty arthropathy 09/23/2015 History of phlebitis 09/18/2015 Hypertension 1991 Irritable bowel syndrome Obesity, morbid (more than 100 lbs over ideal weight or BMI > 40) (HCC) 10/29/2011 bmi= 42.27 10/29/11 Osteoarthritis of right knee 10/31/2016 Other malignant neoplasm of skin, site unspecified Basal Cell CA - shoulder, chest, back Persistent atrial fibrillation (HCC) 05/14/2018 Pneumonia, organism unspecified(486) walking pneumonia Postmenopausal bleeding 11/08 endo bx neg, u/s stripe 3.4 mm Pulmonary embolus (HCC) 12/12/2016 Recurrent major depressive disorder (HCC) 10/18/2021 Stasis dermatitis, acute 09/18/2015 Varicose vein of leg Past Surgical History: Procedure Laterality Date ARTHROPLASTY KNEE TOTAL Left 12/19/2019 [facility] [address]. Manzano ARTHROPLASTY KNEE TOTAL Right 08/27/2020 COLONOSCOPY, DIAGNOSTIC (RECTUM) 04/20/2008 wnl- repeat 7-10 yrs COLORECTAL CANCER SCREEN;W/FLE 08/05/2001 wnl 60 cms DENTAL SURGERY PROCEDURE NEC Dental Surgery Procedure INCISION OF HEEL BONE Left 04/24/2017 OSTEOTOMY CALCANEUS performed by Yoni Delgado Jr., MD at OR [facility] INFORMATION 08/19/2013 08/19/2013 excision of mass right calf; dx sucutaneous tissue, right calft posterior superior, excision, fat necrosis with fibrosis with fibrosis and lymphohistiocytic inflammatory reaction - [place] - Dr. Vasu Mcghee INFORMATION Right 2014 rotator cuff surgery LOWER LEG/ANKLE SUBQ TUMOR REMOVE,3CMORMORE 08/19/2013 EXCISION LOWER LEG/ANKLE SUBQ TUMOR, 3CM OR MORE performed by Vasu Mcghee MD at OR [facility] MAMMOGRAM - BILATERAL 06/14/2005 Birad code 2/benign findings MAMMOGRAM DIAGNOSTIC UNILATERAL 06/04/2013 left calcification noted, biopsy could not localize, repeat 6 months MAMMOGRAM SCREENING-BILATERAL 12/23/2007 birad 2, benign, yearly reccm. REMOVAL OF APPENDIX 1971 Appendectomy REPAIR RUPTURED ACHILLES TENDON Left 04/24/2017 REPAIR ACHILLES TENDON performed by Yoni Delgado Jr., MD at OR [facility] Family History Problem Relation Age of Onset Breast Cancer Mother 50 Other (Other) Mother no hx of skin cancer Cancer Father prostate cancer at age 82/basal cell skin cancer Stroke Father mini strokes Diabetes Father bordeline diabetes Heart Disorder Father chf Other (cyst on spine) Brother Other (Other) Brother Cancer Brother basal cell skin cancer Blood Disorder Brother clots/PE Cancer Grandfather (Paternal) colon Obesity Daughter No Past Hx Daughter Has patient ever had cancer? History of cancer, type: basal cell carcinoma back and chest and shoulder 2016 Social History Tobacco Use Smoking status: Former Packs/day: 0.10 Years: 1.00 Additional pack years: 0.00 Total pack years: 0.10 Types: Cigarettes Quit date: 04/09/1990 Years since quittin.9 Smokeless tobacco: Never Substance Use Topics Alcohol use: No Vaping/E-Cigarette Use Vaping/E-Cigarette Use Never User Vaping/E-Cigarette Substances Nicotine No Other No Flavoring No THC No Cannabidiol (CBD) No Vaping/E-Cigarette Devices Disposable No Pre-filled or Refillable Cartridge No Refillable Tank No Pre-filled Pod No Tobacco/Alcohol screening completed today? Yes Hospital Care: Admissions (within the last year): Not Applicable ER within 30 days: No Does the patient have an Advance Directives/Living Will? Yes Last Physical Exam: Last physical exam: 10/30/2022 Does patient see primary provider regularly? Yes Does patient see other providers? Yes, Specialist Patient Care Team updated? No Review of patient's allergies indicates: Allergen Reactions Lactose Diarrhea Abdominal gas, bloating; GI lactose intolerance Latex Rash Localized contact rash only; no respiratory symptoms Other Allergy (See Comments) Rash with band aids Immunization History Administered Date(s) Administered COVID-19 mRNA, LNP-s, No Preserve, 2-Dose Series (FL3XX) 06/16/2020, 07/07/2020 Covid-19, Mrna, Lnp-s, Pf, Bivalent, 30 Mcg, IM, 12 yrs and above (Pfizer) 10/30/2021 PPD 05/02/2010 Pneumococcal Conjugate Vacc, 13 Valent (Prevnar) 12/11/2015 Pneumococcal Polysaccharide PPV23 (Pneumovax) 12/14/2016 SEASONAL INFLUENZA, PF, 6 M & Above, IM , (FLULAVAL or FLUZONE) 01/13/2017, 01/11/2018, 01/07/2020 Seasonal Influenza, Quadrivalent Hd (Fluzone Hd) 02/28/2021, 01/26/2022, 01/18/2023 Seasonal Influenza, Split, IIV3, With Preserve, Inj 03/11/2008, 01/21/2010, 05/15/2011, 01/30/2013,01/27/2016 Seasonal Influenza, Trivalent, Adjuvanted, 65+ yrs 12/24/2018 TDAP (age 10 and older)(Boostrix) 01/26/2017 Varicella Zoster Vaccine (Adult) 01/12/2016 Zoster Vaccine Recombinant (Shingrix) 04/06/2018, 07/12/2018 Current Outpatient Medications Medication Sig Dispense Refill B-12 1000 MCG PO TBCR 1 TABLET DAILY 100 Tab 3 Cholecalciferol (VITAMIN D3) 1000 UNITS CAPS Take by mouth. Tylenol 325 MG Oral Capsule (Acetaminophen) Take by mouth . Two tablets PreserVision AREDS Oral Capsule Take 1 Capsule by mouth in the morning and 1 Capsule before bedtime. Ventolin HFA 108 (90 Base) MCG/ACT Inhalation Aerosol Solution Inhale 2 Puffs by mouth every 4 hours as needed for Wheezing. 18 g 0 Folic Acid 1 MG Oral Tablet Take 1 Tablet by mouth in the morning. 90 Tablet 3 Metoprolol Succinate ER 50 MG Oral Tablet Extended Release 24 Hour (Toprol XL) Take 1 Tablet by mouth in the morning and 1 Tablet before bedtime. 180 Tablet 3 Furosemide 40 MG Oral Tablet (Lasix) Take one tablet daily plus an extra pill 2- 3 days per week 120Tablet 3 Warfarin Sodium 5 MG Oral Tablet Take 1/2 tablet on Sundays and one tablet daily all other days or as adjusted by coagulation pharmacist. 90 Tablet 1 Sertraline HCl 50 MG Oral Tablet (Zoloft) Take 1 Tablet by mouth in the morning. 30 Tablet 11 PROBIOTIC DAILY PO CAPS one a day (Patient not taking: Reported on 01/18/2023) 30 Cap 0 Fluorouracil 5 % External Cream (Efudex) Apply topically to affected area 2 times a day. apply to affected area nose for 2 weeks 40 g 0 No current facility-administered medications for this visit. Patient Active Problem List Diagnosis Code Irritable bowel syndrome K58.9 HTN, goal below 140/90 I10 Chronic rhinitis J31.0 Compound heterozygous MTHFR mutation [id number] Z15.89 Gouty arthropathy M10.9 Osteoarthritis of right knee M17.11 Persistent atrial fibrillation (HCC) I48.19 History of pulmonary embolism Z86.711 Status post total left knee replacement Z96.652 Major depressive disorder, single episode, unspecified F32.9 Hypertensive kidney disease with stage 3b chronic kidney disease (HCC) I12.9, N18.32 Chronic kidney disease, stage 3b (HCC) N18.32 Recurrent major depressive disorder (HCC) F33.9 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 Yes Patient takes medications as prescribed? Yes Patient manages own medications: Yes Patient uses a pill box? Yes, refill(s) completed by self Dental Exam: Yes: Every Year Eye Screening: Yes: Every year Are you having trouble with hearing? No Do you use an assistive device to help your hearing? No Exercise Screening: does not exercise regularly. Walks around the house. Plans to join a gym when she returns from [place] in May. Nutrition Assessment: Diet high in and/or sugar, fat, cholesterol, salt and Eats three meals a day.Has been trying to cut back. Drinks approximately 64 oz daily Pain Screening: Are you having any pain? No Sleep Screening Tool 'STOP': Diagnosed with sleep apnea no longer using C-PAP, turned equipment back in. She is interested in trying again and I will contact sleep medicine. Patient and Caregiver Support System: Patient lives with children Means of Transportation: Drives. Not a concern. Patient lives in [place] - with basement stairs: 13 steps down, with hand rail Community Resources: Not Applicable Functional Status and ADL Skills: Has patient ever had an amputation? No Functional Assessment: 79- Normal activity with effort: some symptoms of disease Ambulation: Patient ambulates without assistive device. Independent Dressing: Gets clothes and dresses without any assistance: Independent Able to move freely in chair or bed including turning over: Independent Repositioning (bed or chair): Not applicable Transfers: Independent Toileting: Goes to bathroom, uses toilet, arranges clothes and returns without any assistance: Independent Toileting: continent of bladder and continent of bowel Feeding: Self Bathing: Self; tub shower combo, has grab bar, floor has texture, has bath mat to step out onto Requires none assistance with ADLs. Instrumental ADL's: Shopping: Independent Housekeeping: Independent Handling Finances: Independent DME Vendor Name: Not Applicable Fall Risk Assessment: Can the patient demonstrate that she can stand from a sitting position? Yes Has the patient had a fall within the last 6 months? Yes Does the patient have a problem with her gait or balance? No Does the patient take 4 or more prescription medicines? Yes Does the patient use sedatives or narcotics? No Fall Risk Factors Present: History of falls within the past 6 months Yes Cause of fall: Patient fell down stairs. Uses more than 4 medications Older than age 70 Sfq-Ow-oso-Go Test: Time began at 0905. Patient stood from sitting position and walked approximately 10 feet, returned and sat down. Total time for iob-xx-pgf-go test was 10 seconds. Mmc-Sm-ldh-Go Test completed? Yes Gender Specific Preventative Plan: Health Maintenance Topic Date Due Hepatitis C Screening Never done COVID-19 Vaccine (2022-24 season) 2022 Depression Screening 03/07/2023 GFR 04/06/2023 Albumin/Creatinine Ratio 10/06/2023 CKD HGB USE SMARTSET 26351 10/06/2023 CKD PHOS USE SMARTSET 51641 10/06/2023 Mammogram 11/22/2023 DXA Scan 02/06/2024 Colorectal Cancer Screening 06/11/2024 DTaP,Tdap,and Td Vaccines (2 - Td or Tdap) 01/26/2027 Lipid Panel 10/06/2027 Influenza Vaccine (FLU shot) Completed Zoster Vaccines Completed Pneumococcal Vaccine: 65+ Years Completed Hepatitis B Aged Out MENINGOCOCCAL (MENACTRA/MENVEO) Aged Out GARDASIL-HPV IMMUNIZATION SERIES Aged Out Follow Up/ Referrals/Handouts: Depression screening - Completed. Score of 3. No concern Functional assessment - Completed. Pt has some difficulty rising from chair and is SOB with the exertion of walking down the león to the exam room Falls Risk screening - Completed. History of recent fall without injury. Fall Risks include; greater than age 70, takes more than 4 prescription mediations, recent history of fall Exercise screening - Completed. Patient has no exercise routine but walks about her home. Plans on joining gym when she returns from [place] in May. Provided handout, "Exercises to Prevent Falls."And "Exercises for a Healthy Heart" Nutrition assessment -. Completed. Education Provided. Diet high in and/or sugar, fat, cholesterol,salt and eats three meals a day. Has been trying to cut back. Drinks approximately 64 oz daily. Wants to loose weight and has begun to cut back. Offered nutrition and weight management referral patient declined as it was, "all the way in [employer]." Shared handout, "Understanding Carbohydrates, Fats, and Proteins" Pain screening - Completed. No concerns. Incontinence screening - Completed. Patient does describe some urge incontinence. Risk and functional assessment (Primary) Routine general medical examination at a health care facility Body mass index (BMI) of 45.0 to 49.9 in adult ([facility]) -offered dietary consult-patient declined -encouraged cutting back calories and increasing physical activity Chronic rhinitis - Med reconciliation completed and compliance discussed. - pt to continue present medications. -Continues to follow with PCP HTN, goal below 140/90 - Med reconciliation completed and compliance discussed. - pt to continue present medications. -Continues to follow with PCP BP Readings from Last 4 Encounters: 03/08/23 134/74 01/18/23 136/74 10/30/22 132/80 09/13/22 146/82 Major depressive disorder, single episode, unspecified - Med reconciliation completed and compliance discussed. - pt to continue present medications. -Continues to follow with PCP Paroxysmal atrial fibrillation ([facility]) - Med reconciliation completed and compliance discussed. - pt to continue present medications. -Continues to follow with PCP Patient has been verbally educated on the need or importance of Breast Cancer Screening, Cholesterol, Colon Cancer Screening, Creatinine, and Immunizations: Covid, Shingles, RSV, Flu, Tetanus. Pt has completed the covid vaccines: Yes, patient has had both vaccines and 1 booster. Had Flu vaccine, declined RSV vaccine. Interested in attempting C-PAP again. Will contact sleep medicine to see if this can be arranged. Would patient like to schedule next AWV visit? Yes Ronda Garrett RN documented in this encounter Miscellaneous Notes * Pt Handout (on AVS) - Ronda Thomas, JEFF - 03/08/2023 9:48 AM EST Images from the original note were not included. 85368 Exercise for a Healthier Heart You may wonder how you can improve the health of your heart. If you?re thinking about exercise, you?re on the right track. You don?t need to become an athlete. But you do need a certain amount of brisk exercise to help strengthen your heart. If you have been diagnosed with a heart condition, your healthcare provider may advise exercise to help your condition. To help make exercise a habit, choosesafe, fun activities. Exercise with a friend. When activity is fun, you're more likely to stick with it. Before you start Check with your healthcare provider before starting an exercise program. This is especially important if you haven't been active for a while. It's also important if you have a long-term (chronic) health problem such as heart disease, diabetes, or obesity. Also check with your provider if you're at high risk for having these problems. Why exercise? Exercising regularly offers many healthy rewards. It can help you do all of these: Improve your blood cholesterol level to help prevent further heart trouble. Lower your blood pressure to help prevent a stroke or heart attack. Control diabetes or reduce your risk of getting this disease. Improve your heart and lung function. Reach and stay at a healthy weight. Make your muscles stronger so you can stay active. Prevent falls and fractures by slowing the loss of bone mass (osteoporosis). Manage stress better. Improve your sense of self and your body image. Exercise tips Ease into your routine. Set small goals. Then build on them. Talk with your healthcare provider first before starting an exercise routine if you're not sure what your activity level should be. Exercise on most days. Aim for a total of at least 150 minutes (2 hours and 30 minutes) or more of moderate-intensity aerobic activity each week. You could also do 75 minutes (1 hour and 15 minutes) or more of vigorous-intensity aerobic activity each week. Or try for a combination of both. Moderate activity means that you breathe heavier and your heart rate increases, but you can still talk. Think about doing at least 30 minutes of moderate exercise, 5 times a week. It's OK to work up to [id number] period over time. Examples of moderate-intensity activity are brisk walking, gardening, and water aerobics. Step up your daily activity level. Along with your exercise program, try being more active the whole day. Walk instead of drive. Or park further away so that you take more steps each day. Do more household tasks or yard work. You may not be able to meet the advised amount of physical activity. But doing some moderate- or vigorous-intensity aerobic activity can help reduce your risk for heart disease. Your healthcare provider can help you figure out what is best for you. Choose 1 or more activities you enjoy. Walking is one of the easiest things you can do. You can also try swimming, riding a bike, dancing, or taking an exercise class. Call 911 Call 911 right away if any of these occur: Chest pain that doesn't go away quickly with rest New burning, tightness, pressure, or heaviness in your chest, neck, shoulders, back, or arms Abnormal or severe shortness of breath A very fast or irregular heartbeat (palpitations) Fainting When to call your healthcare provider Call your healthcare provider if you have any of these: Dizziness or lightheadedness Mild shortness of breath or chest pain Increased or new joint or muscle pain Last Reviewed Date: 10/07/202119991753-4848 [employer]. All rights reserved. This information is not intended as a substitute for professional medical care. Always follow your healthcare professional's instructions. * Pt Handout (on AVS) - Ronda Thomas RN - 03/08/2023 9:48 AM EST 68013 Diabetes: Understanding Carbohydrates, Fats, and Protein Food is a source of fuel and nourishment for your body. It?s also a source of pleasure. Having diabetes doesn?t mean you have to eat special foods or give up desserts. Instead, your dietitian can show you how to plan meals to suit your body. To start, learn how different foods affect blood sugar. Carbohydrates Carbohydrates (carbs) are the main source of fuel for the body. They raise blood sugar. Many peoplethink carbohydrates are only in pasta or bread. But carbohydrates are in many kinds of foods. Carbsinclude: Sugars. These are naturally found in foods such as fruit, milk, honey, and molasses. Sugars can also be added to many foods. They may be added to cereals, yogurt, candy, and desserts. Sugars raiseblood sugar. Starches. These are in bread, cereals, pasta, and dried beans. They?re also in corn, peas, potatoes, yam, acorn squash, and butternut squash. Starches raise blood sugar, but more slowly than simple sugars. Fiber. This is in foods such as vegetables, fruits, beans, and whole grains. Unlike other carbs,fiber isn?t digested or absorbed. So it doesn?t raise blood sugar. In fact, fiber can help keep blood sugar from rising too fast. It helps keep blood cholesterol at a healthy level. Did you know? Even though carbohydrates raise blood sugar, it?s best to have some in every meal. They're an important part of a healthy diet. Fat Fat is an energy source that can be stored until needed. Fat doesn't raise blood sugar. But it can raise blood cholesterol. This increases the risk of heart disease. Fat is high in calories. Eating too many calories can cause weight gain. Not all types of fat are the same. More healthy: Monounsaturated fats. These are mostly found in vegetable oils such as olive, canola, and peanutoils. They're found in avocados and some nuts. Monounsaturated fats are healthy for your heart. That?s because they lower LDL ("bad") cholesterol. Polyunsaturated fats. These are mostly found in vegetable oils such as corn, safflower, and soybean oils. They're found in some seeds, nuts, and fish. Polyunsaturated fats lower LDL ("bad") cholesterol. So, choosing them instead of saturated fats is healthy for your heart. Some unsaturated fats can help lower triglycerides. Less healthy: Saturated fats. These are found in animal products, such as meat, poultry, whole milk, lard, andbutter. Saturated fats raise LDL ("bad") cholesterol. They are not healthy for your heart. Trans fats. These are formed when vegetable oils are processed into solid fats. They are found in many processed foods. Trans fats raise LDL ("bad") cholesterol and lower HDL ("good") cholesterol.They are not healthy for your heart. Protein Protein helps the body build and repair muscle and other tissue. Protein has little or no effect onblood sugar. But many foods that have protein also have saturated fat. By choosing low-fat protein sources, you can get the benefits of protein without the extra fat: Plant protein. This is found in dry beans and peas, nuts, and soy products such as tofu and soymilk. These foods tend to have no cholesterol. Most are low in saturated fat. Animal protein. This is found in fish, poultry, meat, cheese, milk, and eggs. These foods have cholesterol. They can be high in saturated fat. Aim for lean, lower-fat choices. Don't eat fried foods. Last Reviewed Date: 03/09/202119990743-0678 [employer]. All rights reserved. This information is not intended as a substitute for professional medical care. Always follow your healthcare professional's instructions. * Pt Handout (on AVS) - Ronda Thomas RN - 03/08/2023 9:47 AM EST Images from the original note were not included. 60482 Exercises to Prevent Falls Certain types of exercises may help make you less likely to fall. Try the ones below or do other exercises that your healthcare provider suggests. Depending on your health, you may need to start slowly. Don't let that stop you. Even small amountsof exercise can help you. Talk with your healthcare provider before starting any exercise program. Improve balance Many types of exercise can help improve balance. Ronald chi and yoga are good examples. Here's anotherone to try. You can do it anytime and almost anywhere. Stand next to a counter or solid support. Push yourself up onto your tiptoes. Hold for 5 seconds. If you start to lose your balance, hold on to the counter. Rest and repeat 5 times. Work up to holding for 20 to 30 seconds, if you can. Increase flexibility Being more flexible makes it easier for you to move around safely. Try exercises like the seatedhamstring stretch. o Sit in a chair and put one foot on a stool. o Straighten your leg and reach with both hands down either side of your leg. Reach as far down your leg as you can. o Hold for about 20 seconds. o Go back to the starting position. Then repeat 5 times. Switch legs. o o Build strength o Resistance exercises help build strength. You can do them without equipment. Or you can use weights, elastic bands, or special machines. One such exercise is called the biceps curl. You can hold a 1-pound weight or even a can of soup. Do this exercise at least 3 times a week. Strive for every day. Sit up straight in a chair. Keep your elbow close to your body and your wrist straight. Bend your arm, moving your hand up to your shoulder. Then slowly lower your arm. Repeat 5 times. Switch to the other arm. Build your staying power Aerobic exercises make your heart and lungs stronger so you can keep moving longer. Walking and swimming are 2 of the best types of exercises you can do. Using a stationary bike is great, too. Find an aerobic exercise that you enjoy. Start slowly and build up. Even 5 minutes is helpful. Aim for a goal of 30 minutes, at least 3 times a week. You don't have to do 30 minutes in 1 session. Break it up and walk a little throughout the day. Starting out safely and slowly Start easy. Slowly work up to doing more. Talk with your healthcare provider about the best exercises for you. Call senior centers or health clubs about exercise programs. If needed, have a family member watch you walk every so often to check your stability. Exercise with a friend. Choose an activity you both enjoy. Be sure to gently warm up and cool down. Drink fluids, such as water, to stay hydrated. If your provider recommended that you limit fluids, ask them how much is OK to drink while exercising. Consider ronald chi or yoga to strengthen your balance. Try exercises that you can do anytime, anywhere. Here are 2 examples. Have someone with you whenyou first try these: o Practice walking by placing one foot right in front of the other. o Stand up and sit down 10 times. Repeat this throughout the day. Last Reviewed Date: 02/07/202219995734-8673 [employer]. All rights reserved. This information is not intended as a substitute for professional medical care. Always follow your healthcare professional's instructions. documented in this encounter Plan of Treatment Upcoming Encounters Date Type Department Care Team (Late st Contact Info) Description 05/02/2023 10:00 AM EST Anticoagulation Pharmacy, State Zoe Rodriguez [address] [place] [address] Pharmacist1, [facility] [address] [place] [address] 11/01/2023 9:00 AM EDT Office Visit Family Practice [facility] [place] [address] [place] [address] Kacie Cordova PA-C [address] [facility] [place] [address] 11/22/2023 10:45 AM EDT Office Visit Dermatology [facility] [address] [place] [address] Rosa Horn MD [address] [place] [address] 11/23/2023 10:15 AM EDT Imaging Radiology [address] [facility] [place] [address] 03/11/2024 9:00 AM EST Nurse Only Ancillary [facility] [address] [place] [address] Im, Nurse Annual Wellness [facility] [address] [facility] [place] [address] Health Maintenance Due Date Last Done Comments Hepatitis C Screening 1968 Fecal Occult Blood Test 08/21/2002 08/21/2001 Sigmoidoscopy 08/05/2006 08/05/2001, 07/25/2001 Colonoscopy 04/20/2018 04/20/2008 COVID-19 Vaccine ( season) 2022 10/30/2021, 07/07/2020, 06/16/2020 Depression Screening 03/07/2023 03/08/2023 GFR 04/06/2023 10/05/2022, 02/0 09/2022, 12/26/2021, Additional history exists Albumin/Creatinine Ratio 10/06/2023 023, 10/18/2021, 10/07/2021, Additional history exists CKD HGB USE SMARTSET 91239 10/06/202310/05, 12/26/2021, 10/07/2021, Additional history exists CKD PHOS USE SMARTSET 38719 10/06/202309/08, 03/02/2021, 01/11/2018 Mammogram 11/22/2023 11/21/2022, 11/07, [...] this encounter Medical Devices Implanted Type Area Corrective Therapy Aide Device Identifier Shelf Expiration Date Model / Serial / Lot Implant System, Biocomposite Achilles Speedbridge With Jumpstart Implanted:Qty: 1 on 04/24/2017 by Yoni Delgado MD at OR [facility] Left: Ankle [employer] 09/06/2018 [id number] / / [id number] documented as of this encounter Visit Diagnoses Diagnosis Risk and functional assessment- Primary Screening for unspecified condition Routine general medical examination at a health care facility Body mass index (BMI) of 45.0 to 49.9 in adult (HCC) Chronic kidney disease, stage 3b (HCC) Chronic rhinitis HTN, goal below 140/90 Unspecified essential hypertension Major depressive disorder, single episode, unspecified Paroxysmal atrial fibrillation (HCC) Atrial fibrillation documented in this encounter Care Teams Utilization Review Rn Relationship Specialty Start Date End Date Kacie Duenas PA-C [address] [place] [address] PCP - General Physician Health Promotion Manager 01/26/22 documented as of this encounter
--- OUTSIDE RECORDS SUMMARY | 2023-05-05 15:28 | External Medical Summary | Summary of Care ---
Author Name Unknown Organization [facility] Address [address] [place] [address] Phone [phone] Care Team Providers Care Clip Coater Name Role Phone Soniaeloisa Kacie Ramirez PA-C Primary Care Provider [phone] Reason for Visit * Reason Comments Dosage Adjustment In Person (Anticoag Cl inic) Encounter Details Date Type Department Care Team (Latest Contact Info) Description 03/08/2023 10:20 AM EST Anticoagulation Pharmacy, [facility] [address] [place] [address] Pharmacist1, [facility] [address] [facility] [address] Paroxysmal atrial fibrillation (HCC)*; Anticoagulation management encounter; [facility] current use of anticoagulant therapy Allergies Active [...] MCG PO TBCRIndications:Com 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 SUMMARY: Goal: Establish test [...] contact study staff at ; after hours Striker Out via the [facility] hospital knitting machine operator automatic . Please contact study team before resolving/deleting from patients problem list. Study phone number: [phone]. Diagnosis changed due to Research Module. Go to Snapshot for study details. Encounter for examination fo r normal comparison and control in clinical research program 10/08/2017 12/08/2021 Overview: DO NOT DELETE - [facility] Study: Project # [id number], Striker Out: Kervin Gutierrez, MS, MPH. SUMMARY: Goal: Establish [...] contact study staff at ; after hours Striker Out via the [facility] knitting machine operator automatic . - Please contact study team before resolving/deleting from patients problem list. Study phone number: [phone]. Diagnosis changed due to Research Module. Go [...] 11/14/2012 09/18/2015 Anticoagulation management encounter 11/14/2012 09/18/2015 [facility] current use of ant icoagulant therapy 11/14/2012 [...] mRNA, LNP-s, No Pre serve, 2-Dose Series ([employer]) 07/07/2020,06/16/2020 Covid-19, Mrna, Lnp-s, Pf, B ivalent, 30 Mcg, IM, 12 yrs and above ([employer]) 10/30/2021 PPD 05/02/2010 Pneumococcal Conjugate Vacc, 13 [...] of this encounter Progress Notes * Betito Perrin RPh - 03/08/2023 10:18 AM EST Images from the original note were not included. Medication Therapy Disease Management - Anticoagulation Autumn Onofre 1950 Description Takes in AM Patient Findings Positives: Missed doses (SHe missed her dose 1 week ago.) Negatives: Signs/symptoms of thrombosis, Signs/symptoms of bleeding, Change in health, Change in alcohol use, Change in activity, Upcoming invasive procedure, Extra doses, Change in medications, Change in diet/appetite, Bruising INR Result As of 03/08/2023 INR goal: 2.0-3.0 INR used for dosin.1 (03/08/2023) Warfarin Plan As of 03/08/2023 Full warfarin instructions: 2.5 mg every Mon, Wed, Fri; 5 mg all other days Next INR check: 05/02/2023 Repeat PT/INR in 6 week(s) Weekly dose: not changed Betito Dotson RPh, CACP, CDE Clinical Pharmacist Medication Therapy Management [facility] 03/08/2023 10:25 AM documented in this encounter Plan of Treatment Upcoming Encounters Date Type Department Care Team (Late st Contact Info) Description 05/02/2023 10:00 AM EST Anticoagulation Pharmacy, [facility] [address] [place] [place] [address] Pharmacist1, [facility] [address] [place] [address] 11/01/2023 9:00 AM EDT Office Visit Family Practice [facility] [place] [address] [place] [address] Kacie Duenas PAJefry [address] [place] [address] 11/22/2023 10:45 AM EDT Office Visit Dermatology [facility] [address] [place] [address] Rosa Horn MD [address] [place] [address] [address] 11/23/2023 10:15 AM EDT Imaging Radiology [address], [place] [address] [facility] [place] [address] 03/11/2024 9:00 AM EST Nurse Only Ancillary [facility] [address] [facility] [place] [address] Im, Nurse Annual Wellness [facility] [address] [place] [address] Health Maintenance Due Date Last Done Comments Hepatitis C Screening 1968 Fecal Occult Blood Test 08/21/2002 08/21/2001 Sigmoidoscopy 08/05/2006 08/05/2001, 07/25/2001 Colonoscopy 04/20/2018 04/20/2008 COVID-19 Vaccine ( season) 2022 10/30/2021, 07/07/2020, 06/16/2020 Depression Screening 03/07/2023 03/08/2023 GFR 04/06/2023 10/05/2022, 09/2022, 12/26/2021, Additional history exists Albumin/Creatinine Ratio 10/06/2023 023, 10/18/2021, 10/07/2021, Additional history exists CKD HGB USE SMARTSET 50518 10/06/202310/05, 12/26/2021, 10/07/2021, Additional history exists CKD PHOS USE SMARTSET 19924 10/06/202309/08, 03/02/2021, 01/11/2018 Mammogram 11/22/2023 11/21/2022, 11/07, [...] this encounter Medical Devices Implanted Type Area Hospice Clinical Supervisor Device Identifier Shelf Expiration Date Model / Serial / Lot Implant System, Biocomposite Achilles Speedbridge With Jumpstart Implanted:Qty: 1 on 04/24/2017 by Yoni Delgado MD at OR [facility] Left: Ankle [employer] 09/06/2018 [id number] / / [id number] documented as of this encounter Procedures Procedure Name Priority Date/Time Associated Diagnosis Comments INR FINGERSTICK, POINT OF CARE STAT 03/08/2023 10:22 AM EST Paroxysmal atrial fibrillation (HCC) Anticoagulation management encounter [facility] current use of anticoagulant therapy documented in this encounter Results * INR FINGERSTICK, POINT OF CARE (03/08/2023 10:22 AM EST) Fingerstick INR 3.1 INR 10:23 AM EST [employer] [facility] [employer] 56-02 Blood 03/08/2023 10:2 2 AM EST 03/08/2023 10:23 AM EST Narrative [employer] [facility] 56-02 - 03/08/2023 10:23 AM EST Therapeutic ranges for non-operative patients: Prophylaxsis/treatment of DVT: (Range:2.0-3.0) Treatment of pulmonary embolism:(Range:2.0-3.0) Prevention of systemic embolism from: -tissue heart valves -acute myocardial infarction -valvular heart disease -atrial fibrillation (Range: 2.0-3.0) Mechanical prosthetic valves: (Range: 2.5-3.5) Betito Dotson V [facility]ly [facility] LAB POINT OF CARE TE ST DOCKED DEVICE UNSOLICITED RESULTS [facility] 56-02 200 [facility] [place] [address] documented in this encounter Visit Diagnoses Diagnosis Paroxysmal atrial fibrillation (HCC)- Primary Atrial fibrillation Anticoagulation management encounter Encounter for therapeutic drug monitoring exterminator termite current use of anticoagulant therapy documented in this encounter Care Teams Clip Coater Relationship Specialty Start Date End Date HenriqueJuly RELL Ramirez 200 [facility] [place] [address] PCP - General Physician Associate Professor Of Music 01/26/22 documented as of this encounter
--- OUTSIDE RECORDS SUMMARY | 2023-05-05 15:28 | External Medical Summary ---
Author Name Unknown Address Unknown Organization K09:[facility] [address] Laboratory Report Ordering Provider Test Date Status SOHAILTANI V 01/31/2023 10:16:37 Final Therapeutic ranges for non-o perative patients:
Prophylaxsis/treatment of DVT: (Range:2.0-3.0)
Treatment of pulmonary embolism:(Range:2.0-3.0)
Prevention of systemic embolism from:
-tissue heart valves
-acute myocardial infarction
-valvular heart disease
-atrial fibrillation
(Range: 2.0-3.0)
Mechanical prosthetic valves: (Range: 2.5-3.5) Observation Date Value Abnormality Reference (Units ) Status INR in Capillary blood by Coagulation assay 01/31/2023 10:16:37 4.8 (INR) Final Performing Location [facility] [address]
--- OUTSIDE RECORDS SUMMARY | 2023-05-05 15:28 | External Medical Summary ---
Author Name Unknown Address Unknown Organization K09:[facility] [address] Laboratory Report Ordering Provider Test Date Status SOHAILTANI V 03/08/2023 10:22:33 Final Therapeutic ranges for non-o perative patients:
Prophylaxsis/treatment of DVT: (Range:2.0-3.0)
Treatment of pulmonary embolism:(Range:2.0-3.0)
Prevention of systemic embolism from:
-tissue heart valves
-acute myocardial infarction
-valvular heart disease
-atrial fibrillation
(Range: 2.0-3.0)
Mechanical prosthetic valves: (Range: 2.5-3.5) Observation Date Value Abnormality Reference (Units ) Status INR in Capillary blood by Coagulation assay 03/08/2023 10:22:33 3.1 (INR) Final Performing Location [facility] [address]
--- OUTSIDE RECORDS SUMMARY | 2023-05-05 15:28 | External Medical Summary | Summary of Care ---
Author Name Unknown Organization [facility] Address [address] [place] [address] Phone [phone] Care Team Providers Care Retail Commission Sales Associate Name Role Phone SoniaKacie amin Ashley ZACARIAS Primary Care Provider [phone] Reason for Visit * Reason Onset Date Comments Follow Up 03/12/2023 Encounter Details Date Type Department Care Team (Late st Contact Info) Description 03/12/[address] [facility] [address] [place] [address] Ronda Thomas, JEFF Follow Up Allergies Active Allergy Reactions Criticality Noted Date Comments Lactose Diarrhea 07/26/2010 Abdominal gas, bloating; GI lactose intolerance Latex Rash 12/06/2016 Localized contact rash only; no respiratory symptoms Other Allergy (See Comments) 12/24/2018 Rash with band aids documented as of this encounter (statuses as of 03/12/2023) Medications Medication Sig Dispensed Refills Start Date End Date Status PROBIOTIC DAILY PO CAPS one a day 30 Cap 0 11/13/2012 Active B-12 1000 MCG PO TBCRIndications:Com pound heterozygous MTHFR mutation C677T/V8142H 1 TABLET DAILY 100 Tab 3 12/03/2012 [...] MG Oral TabletIndications:C ompound heterozygous MTHFR mutation C677T/Y4537I Take 1 Tablet by mouth in the [...] as of this encounter (statuses as of 03/12/2023) Active Problems Problem Noted Date Diagnosed Date [...] as of this encounter (statuses as of 03/12/2023) Resolved Problems Problem Noted Date Diagnosed Date [...] unspecified whether acute cor pulmonale present 06/17/2019 0510/2019 Encounter for examination fo r normal comparison and control in clinical research program 10/08/2017 11/10/2019 Overview: DO NOT DELETE [facility] DETECT Study: Project # [id number], [employer] Cartoonist: Buzz Mayes, PhD. SUMMARY: Goal: Establish test [...] contact study staff at ; after hours [employer] Cartoonist via the [facility] hardening machine operator . Please contact study team before resolving/deleting from patients problem list. Study phone number: [phone]. Diagnosis changed due to Research Module. Go to Snapshot for study details. Encounter for examination fo r normal comparison and control in clinical research program 10/08/2017 12/08/2021 Overview: DO NOT DELETE - [facility] SILVINA Study: Project # [id number], [employer] Cartoonist: Kervin Gutierrez, MS, MPH. SUMMARY: Goal: Establish [...] contact study staff at ; after hours [employer] Cartoonist via the [facility] hardening machine operator . - Please contact study team before resolving/deleting from patients problem list. Study phone number: [phone]. Diagnosis changed due to Research Module. Go to [employer] for study details. Kidney disease, chronic, sta [...] 11/14/2012 09/18/2015 Anticoagulation management encounter 11/14/2012 09/18/2015 retirement current use of ant icoagulant therapy 11/14/2012 [...] as of this encounter (statuses as of 03/12/2023) Immunizations Name Administration Dates Next Due COVID-19 mRNA, LNP-s, No Pre serve, 2-Dose Series (edupristine) 07/07/2020,06/16/2020 Covid-19, Mrna, Lnp-s, Pf, B ivalent, [...] encounter Miscellaneous Notes * Telephone Encounter - Ronda Thomas RN - 03/12/2023 3:44 PM EST Provider to address: nothing Reason for Call: Follow Up Contact: My Tasha Contact Type: Follow-up Outcome: Sent follow up information to patient from [facility] Face to face time spent with Patient (minutes): 0 Total Time including non face to face (minutes): 10 documented in this encounter Plan of Treatment Upcoming Encounters Date Type Department Care Team (Late st Contact Info) Description 05/02/2023 10:00 AM EST Anticoagulation Pharmacy, [facility] [address] [place] [address] Pharmacist1, [facility] [address] [place] [address] [address] 11/01/2023 9:00 AM EDT Office Visit Family Practice [facility] [address] [place] [address] Kacie Duenas PA-C [address] [facility] [place] [address] 11/22/2023 10:45 AM EDT Office Visit Dermatology [facility] [address] [place] [address] [address] Rosa Horn MD 200 [facility] [place] [address] 11/23/2023 10:15 AM EDT Imaging Radiology [facility] [address] [facility] [address] [facility] [place] [address] 03/11/2024 9:00 AM EST Nurse Only Ancillary [facility] [address] [place] [address] Im, Nurse Annual Wellness [facility] [address] [place] [address] [address] Health Maintenance Due Date Last Done Comments Hepatitis C Screening 1968 Fecal Occult Blood Test 08/21/2002 08/21/2001 Sigmoidoscopy 08/05/2006 08/05/2001, 07/25/2001 Colonoscopy 04/20/2018 04/20/2008 COVID-19 Vaccine ( season) 2022 10/30/2021, 07/07/2020, 06/16/2020 GFR 04/06/2023 10/05/2022, 02/0 09/2022, 12/26/2021, Additional history exists Albumin/Creatinine Ratio 10/06/2023 023, 10/18/2021, 10/07/2021, Additional history exists CKD HGB USE SMARTSET 29806 10/06/202310/05, 12/26/2021, 10/07/2021, Additional history exists CKD PHOS USE SMARTSET 56604 10/06/202309/08, 03/02/2021, 01/11/2018 Mammogram 11/22/2023 11/21/2022, 11/07, 11/17/2020, Additional history exists DXA Scan 02/06/2024 02/05/2017, 06/2007, 09/10/2007, Additional history exists Depression Screening 03/08/2024 [...] this encounter Medical Devices Implanted Type Area Director [employer] Marketing Device Identifier Shelf Expiration Date Model / Serial / Lot Implant System, Biocomposite Achilles Speedbridge With Jumpstart Implanted:Qty: 1 on 04/24/2017 by Yoni Delgado MD at OR [facility] Left: Ankle [employer] 09/06/2018 [id number] -[id number] / / [id number] documented as of this encounter Care Teams Retail Commission Sales Associate Relationship Specialty Start Date End Date Henrique July Ashley, PAMeghanC 200 [facility] [place] [address] PCP - General Physician Retail Loan Originator 01/26/22 documented as of this encounter
--- OUTSIDE RECORDS SUMMARY | 2023-05-05 15:28 | External Medical Summary | Summary of Care ---
Author Name Unknown Organization [facility] Address [address] [place] [address] Phone [phone] Care Team Providers Care Search Director Name Role Phone Henrique Kacie Ramirez PA-C Primary Care Provider [phone] Encounter Details Date Type Department Care Team (Late st Contact Info) Description 03/08/2023 Telephone Ancillary [facility] [place] [address] [place] [address] Ronda Thomas, RN Allergies Active Allergy Reactions Criticality Noted Date [...] MCG PO TBCRIndications:Com pound heterozygous MTHFR mutation C677T/S3833L 1 TABLET DAILY 100 Tab 3 12/03/2012 [...] MG Oral TabletIndications:C ompound heterozygous MTHFR mutation C677T/R6513H Take 1 Tablet by mouth in the [...] The Chronically Ill DETECT Study: Project # [id number], Rubber Tile Floor Layer: Buzz Mayes, PhD. SUMMARY: Goal: Establish test [...] contact study staff at ; after hours Rubber Tile Floor Layer via the [facility] signal tower operator . Please contact study team before resolving/deleting from patients problem list. Study phone number: [phone]. Diagnosis changed due to Research Module. Go to Snapshot for study details. Encounter for examination fo r normal comparison and control in clinical research program 10/08/2017 12/08/2021 Overview: DO NOT DELETE - [facility] Study: Project # [id number], Rubber Tile Floor Layer: Kervin Gutierrez, MS, MPH. SUMMARY: Goal: Establish [...] contact study staff at ; after hours Rubber Tile Floor Layer via the [facility] signal tower operator . - Please contact study team before resolving/deleting from patients problem list. Study phone number: [phone]. Diagnosis changed due to Research Module. Go to [address] for study details. Kidney disease, chronic, sta [...] 11/14/2012 09/18/2015 Anticoagulation management encounter 11/14/2012 09/18/2015 prison current use of ant icoagulant therapy 11/14/2012 [...] mRNA, LNP-s, No Pre serve, 2-Dose Series ([employer]) 07/07/2020,06/16/2020 Covid-19, Mrna, Lnp-s, Pf, B ivalent, 30 Mcg, IM, 12 yrs and above ([employer]) 10/30/2021 PPD 05/02/2010 Pneumococcal Conjugate Vacc, 13 [...] encounter Miscellaneous Notes * Telephone Encounter - Darrian Marcano PA-C - 03/08/2023 5:28 PM EST Please have her call the sleep clinic at [phone] to schedule an appointment. Thank you! * Telephone Encounter - Ronda Thomas RN - 03/08/2023 1:40 PM EST Kassy came to see me for an AWV today and after discussing her sleep apnea, she wants to attempt to try the C-PAP again. States she returned all equipment. Whom shall I direct her to contact? Thank you. documented in this encounter Plan of Treatment Upcoming Encounters Date Type Department Care Team (Late st Contact Info) Description 05/02/2023 10:00 AM EST Anticoagulation Pharmacy, [facility] [place] [address] [place] [address] [address] Pharmacist1, [facility] [address] [place] [address] 11/01/2023 9:00 AM EDT Office Visit Family Practice [facility] [place] [address] [place] [address] Kacie Duenas PA-C [address] [place] [address] 11/22/2023 10:45 AM EDT Office Visit Dermatology [facility] [place] [address] [place] [address] [address] Rosa Horn MD [address] [place] [address] 11/23/2023 10:15 AM EDT Imaging Radiology [address], [place] 132 [facility] [place] [address] 03/11/2024 9:00 AM EST Nurse Only Ancillary [facility] [place] [address] [place] [address] Im, Nurse Annual Wellness [facility] [address] [place] [address] [address] Health Maintenance Due Date Last Done Comments Hepatitis C Screening 1968 Fecal Occult Blood Test 08/21/2002 08/21/2001 Sigmoidoscopy 08/05/2006 08/05/2001, 07/25/2001 Colonoscopy 04/20/2018 04/20/2008 COVID-19 Vaccine ( season) 2022 10/30/2021, 07/07/2020, 06/16/2020 Depression Screening 03/07/2023 03/08/2023 GFR 04/06/2023 10/05/2022, 0209/2022, 12/26/2021, Additional history exists Albumin/Creatinine Ratio 10/06/2023 023, 10/18/2021, 10/07/2021, Additional history exists CKD HGB USE SMARTSET 87395 10/06/202310/05, 12/26/2021, 10/07/2021, Additional history exists CKD PHOS USE SMARTSET 30309 10/06/202309/08, 03/02/2021, 01/11/2018 Mammogram 11/22/2023 11/21/2022, 11/07, [...] this encounter Medical Devices Implanted Type Area Customer Development Representative Device Identifier Shelf Expiration Date Model / Serial / Lot Implant System, Biocomposite Achilles Speedbridge With Jumpstart Implanted:Qty: 1 on 04/24/2017 by Yoni Delgado MD at OR [facility] Left: Ankle [employer] 09/06/2018 [id number] -[id number] / / [id number] documented as of this encounter Care Teams Search Director Relationship Specialty Start Date End Date Henrique July Ashley, PA-C 200 [facility] [place] [address] PCP - General Physician Taffy Puller 01/26/22 documented as of this encounter
--- OUTSIDE RECORDS SUMMARY | 2023-05-05 15:28 | External Medical Summary | Summary of Care ---
Author Name Unknown Organization [facility] Address [address] [place] [address] Phone [phone] Care Team Providers Care Operating Room Aide Name Role Phone Kacie Duenas Ashley ZACARIAS Primary Care Provider [phone] Reason for Visit * Reason Onset Date Comments Order Request 02/01/2023 Advice 02/01/2023 Encounter Details Date Type Department Care Team (Late st Contact Info) Description 02/01/2023 Telephone Access Center, [place] [facility] [address] [facility] *DO NOT REMOVE THIS DEPARTMENT* [place] [address] Services, Scheduling [address] [place] [address] Order Request; Advice Allergies Active Allergy Reactions Criticality Noted Date Comments Lactose Diarrhea 07/26/2010 Abdominal gas, bloating; GI lactose intolerance Latex Rash 12/06/2016 Localized contact rash only; no respiratory symptoms Other Allergy (See Comments) 12/24/2018 Rash with band aids documented as of this encounter (statuses as of 02/04/2023) Medications Medication Sig Dispensed Refills Start Date End Date Status PROBIOTIC DAILY PO CAPS one a day 30 Cap 0 11/13/2012 Active B-12 1000 MCG PO TBCRIndications:Com pound heterozygous MTHFR mutation C677T/T4731B 1 TABLET DAILY 100 Tab 3 12/03/2012 [...] MG Oral TabletIndications:C ompound heterozygous MTHFR mutation C677T/D3103W Take 1 Tablet by mouth in the [...] as of this encounter (statuses as of 02/04/2023) Active Problems Problem Noted Date Diagnosed Date [...] as of this encounter (statuses as of 02/04/2023) Resolved Problems Problem Noted Date Diagnosed Date [...] program 10/08/2017 11/10/2019 Overview: DO NOT DELETE [facility] DETECT Study: Project # [id number], Survey Research Teacher: Buzz Mayes, PhD. SUMMARY: Goal: Establish test [...] contact study staff at ; after hours Survey Research Teacher via the [facility] float operator . Please contact study team before resolving/deleting from patients problem list. Study phone number: [phone]. Diagnosis changed due to Research Module. Go to Snapshot for study details. Encounter for examination fo r normal comparison and control in clinical research program 10/08/2017 12/08/2021 Overview: DO NOT DELETE [facility] Study: Project # [id number], Survey Research Teacher: Kervin Gutierrez, MS, MPH. SUMMARY: Goal: Establish [...] contact study staff at ; after hours Survey Research Teacher via the [facility] float operator . - Please contact study team before resolving/deleting from patients problem list. Study phone number: [phone]. Diagnosis changed due to Research Module. Go [...] as of this encounter (statuses as of 02/04/2023) Immunizations Name Administration Dates Next Due COVID-19 mRNA, LNP-s, No Pre serve, 2-Dose Series ([employer]) 07/07/2020,06/16/2020 Covid-19, Mrna, Lnp-s, Pf, B ivalent, 30 Mcg, IM, 12 yrs and above ([employer]) 10/30/2021 PPD 05/02/2010 Pneumococcal Conjugate Vacc, 13 [...] 03/08/2023 9:00 AM EST Nurse Only Ancillary [facility] [place] [address] [place] [address] [address] Im, Nurse Annual Wellness [facility] [address] [place] [address] [address] 03/08/2023 10:20 AM EST Anticoagulation Pharmacy, [facility] [place] [address] [place] [address] Pharmacist1, [facility] [address] [place] [address] [address] 11/01/2023 9:00 AM EDT Office Visit Family Practice [facility] [place] [address] [place] [address] Kacie Duenas PA-C [address] [place] [address] 11/22/2023 10:45 AM EDT [facility] [address] [place] [address] [address] Rosa Horn MD [address] [place] [address] [address] 11/23/2023 10:15 AM EDT Imaging Radiology [address], [address] [place] [address] Health Maintenance Due Date Last Done Comments Hepatitis C Screening 1968 Fecal Occult Blood Test 08/21/2002 08/21/2001 Sigmoidoscopy 08/05/2006 08/05/2001, 07/25/2001 Colonoscopy 04/20/2018 04/20/2008 COVID-19 Vaccine ( season) 2022 10/30/2021, 07/07/2020, 06/16/2020 Depression Screening 03/07/2023 03/07/2022 GFR 04/06/2023 10/05/2022, 09/2022, 12/26/2021, Additional history exists Albumin/Creatinine Ratio 10/06/2023 023, 10/18/2021, 10/07/2021, Additional history exists CKD HGB USE SMARTSET 35608 10/06/202310/05, 12/26/2021, 10/07/2021, Additional history exists CKD PHOS USE SMARTSET 48453 10/06/202309/08, 03/02/2021, 01/11/2018 Mammogram 11/22/2023 11/21/2022, 11/07, [...] this encounter Medical Devices Implanted Type Area Service Station Attendant Device Identifier Shelf Expiration Date Model / Serial / Lot Implant System, Biocomposite Achilles Speedbridge With Jumpstart Implanted:Qty: 1 on 04/24/2017 by Yoni Delgado MD at OR [facility] Left: Ankle [employer] 09/06/2018 [id number] / / [id number] documented as of this encounter Visit Diagnoses Diagnosis CHATA (obstructive sleep apnea)- Primary Obstructive sleep apnea (adult) (pediatric) documented in this encounter Care Teams Operating Room Aide Relationship Specialty Start Date End Date Kacie Duenas, RELL [address] [place] [address] PCP - General Physician Scientist/Engineer 01/26/22 documented as of this encounter
--- OUTSIDE RECORDS SUMMARY | 2023-05-05 15:28 | External Medical Summary | Summary of Care ---
Author Name Unknown Organization [facility] Address [address] [place] [address] Phone [phone] Care Team Providers Care Organizational Psychologist Name Role Phone SoniaKacie amin Ashley ZACARIAS Primary Care Provider [phone] Reason for Visit * Reason Comments Dosage Adjustment In Person (Anticoag Cl inic) Encounter Details Date Type Department Care Team (Latest Contact Info) Description 01/31/2023 9:50 AM EDT Anticoagulation Pharmacy, [facility] [address] [facility] [place] [address] Pharmacist1, [facility] 200 [facility] [place] [address] Paroxysmal atrial fibrillation (HCC)*; Anticoagulation management encounter; oysterman current use of anticoagulant therapy Allergies Active Allergy Reactions Criticality Noted Date Comments Lactose Diarrhea 07/26/2010 Abdominal gas, bloating; GI lactose intolerance Latex Rash 12/06/2016 Localized contact rash only; no respiratory symptoms Other Allergy (See Comments) 12/24/2018 Rash with band aids documented as of this encounter (statuses as of 01/31/2023) Medications Medication Sig Dispensed Refills Start Date End Date Status PROBIOTIC DAILY PO CAPS one a day 30 Cap 0 11/13/2012 Active B-12 1000 MCG PO TBCRIndications:Com pound heterozygous MTHFR mutation C677T/L1893S 1 TABLET DAILY 100 Tab 3 12/03/2012 [...] MG Oral TabletIndications:C ompound heterozygous MTHFR mutation C677T/U2106K Take 1 Tablet by mouth in the [...] the morning. 30 Tablet 11 01/18/2023 Active predniSONE 20 MG Oral Tablet (Deltasone) Take 2 Tablets by mouth in the morning for 5 days. 10 Tablet 0 01/26/2023 01/31/2023 Active documented as of this encounter (statuses as of 01/31/2023) Active Problems Problem Noted Date Diagnosed Date [...] as of this encounter (statuses as of 01/31/2023) Resolved Problems Problem Noted Date Diagnosed Date [...] program 10/08/2017 11/10/2019 Overview: DO NOT DELETE [facility] DETECT Study: Project # [id number], Product Developer: Buzz Mayes, PhD. SUMMARY: Goal: Establish test [...] contact study staff at ; after hours Product Developer via the [facility] hospital flatbed owner operator . Please contact study team before resolving/deleting from patients problem list. Study phone number: [phone]. Diagnosis changed due to Research Module. Go to [email or web address] for study details. Encounter for examination fo r normal comparison and control in clinical research program 10/08/2017 12/08/2021 Overview: DO NOT DELETE - [facility] Study: Project # [id number], Product Developer: Kervin Gutierrez, MS, MPH. SUMMARY: Goal: Establish [...] contact study staff at ; after hours Product Developer via the [facility] hospital flatbed owner operator . - Please contact study team before resolving/deleting from patients problem list. Study phone number: [phone]. Diagnosis changed due to Research Module. Go to [email or web address] for study details. Kidney disease, chronic, sta [...] 11/14/2012 09/18/2015 Anticoagulation management encounter 11/14/2012 09/18/2015 custodial current use of ant icoagulant therapy 11/14/2012 [...] as of this encounter (statuses as of 01/31/2023) Immunizations Name Administration Dates Next Due COVID-19 mRNA, LNP-s, No Pre serve, 2-Dose Series ([employer]) 07/07/2020,06/16/2020 Covid-19, Mrna, Lnp-s, Pf, B ivalent, [...] of this encounter Progress Notes * Betito Dotson V, [facility] - 01/31/2023 10:13 AM EDT Images from the original note were not included. Medication Therapy Disease Management - Anticoagulation Autumn Onofre 1950 Description Takes in AM Patient Findings Positives: Change in medications (Prednisone started and finshed) Negatives: Signs/symptoms of thrombosis, Signs/symptoms of bleeding, Change in health, Change in alcohol use, Change in activity, Upcoming invasive procedure, Missed doses, Extra doses, Change in diet/appetite, Bruising INR Result As of 01/31/2023 INR goal: 2.0-3.0 INR used for dosin.8 (01/31/2023) Warfarin Plan As of 01/31/2023 Full warfarin instructions: 02/01: Hold; 02/02: Hold; Otherwise 2.5 mg every Mon, Fri; 5 mg all other days Next INR check: 03/08/2023 Repeat PT/INR in 4 week(s) Weekly dose: decreased Betito Dotson RPh, CACP, CDE Clinical Pharmacist Medication Therapy Management [facility] 01/31/2023 10:21 AM documented in this encounter Plan of Treatment Upcoming Encounters Date Type Department Care Team (Late st Contact Info) Description 03/08/2023 9:00 AM EST Nurse Only Ancillary [facility] [place] [address] [facility] [place] [address] Im, Nurse Annual Wellness [facility] [address] [place] [address] 03/08/2023 10:20 AM EST Anticoagulation Pharmacy, [facility] [place]te [place] [address] [place] [address] Pharmacist1, [facility] [address] [place] [address] 11/01/2023 9:00 AM EDT Office Visit Family Practice [facility] [place] [address] [place] [address] Kacie Duenas PA-C [address] [place] [address] 11/22/2023 10:45 AM EDT Office Visit Dermatology [facility] [address] [place] [address] Rosa Horn MD [address] [place] [address] 11/23/2023 10:15 AM EDT Imaging Radiology [address] [place] [address] Health Maintenance Due Date Last Done Comments Hepatitis C Screening 1968 Fecal Occult Blood Test 08/21/2002 08/21/2001 Sigmoidoscopy 08/05/2006 08/05/2001, 07/25/2001 Colonoscopy 04/20/2018 04/20/2008 COVID-19 Vaccine ( season) 2022 10/30/2021, 07/07/2020, 06/16/2020 Depression Screening 03/07/2023 03/07/2022 GFR 04/06/2023 10/05/2022, 09/2022, 12/26/2021, Additional history exists Albumin/Creatinine Ratio 10/06/2023 023, 10/18/2021, 10/07/2021, Additional history exists CKD HGB USE SMARTSET 42697 10/06/202310/05, 12/26/2021, 10/07/2021, Additional history exists CKD PHOS USE SMARTSET 76364 10/06/202309/08, 03/02/2021, 01/11/2018 Mammogram 11/22/2023 11/21/2022, 11/07, [...] this encounter Medical Devices Implanted Type Area Echocardiograph Technician Device Identifier Shelf Expiration Date Model / Serial / Lot Implant System, Biocomposite Achilles Speedbridge With Jumpstart Implanted:Qty: 1 on 04/24/2017 by Yoni Delagdo MD at OR [facility] Left: Ankle [employer] 09/06/2018 [id number] -[id number] / / [id number] documented as of this encounter Procedures Procedure Name Priority Date/Time Associated Diagnosis Comments INR FINGERSTICK, POINT OF CARE STAT 01/31/2023 10:16 AM EDT Paroxysmal atrial fibrillation (HCC) Anticoagulation management encounter oysterman current use of anticoagulant therapy documented in this encounter Results * INR FINGERSTICK, POINT OF CARE (01/31/2023 10:16 AM EDT) Fingerstick INR 4.8 INR 11:35 AM EDT [facility] Blood 01/31/2023 10:1 6 AM EDT 01/31/2023 11:35 AM EDT Narrative [facility] - 01/31/2023 11:35 AM EDT Therapeutic ranges for non-operative patients: Prophylaxsis/treatment of DVT: (Range:2.0-3.0) Treatment of pulmonary embolism:(Range:2.0-3.0) Prevention of systemic embolism from: -tissue heart valves -acute myocardial infarction -valvular heart disease -atrial fibrillation (Range: 2.0-3.0) Mechanical prosthetic valves: (Range: 2.5-3.5) Betito Dotson V, RP LAB POINT OF CARE TE ST DOCKED DEVICE UNSOLICITED RESULTS [facility] [address] [facility] [place] [address] documented in this encounter Visit Diagnoses Diagnosis Paroxysmal atrial fibrillation (HCC)- Primary Atrial fibrillation Anticoagulation management encounter Encounter for therapeutic drug monitoring custodial current use of anticoagulant therapy documented in this encounter Care Teams Organizational Psychologist Relationship Specialty Start Date End Date Henrique July RELL Ramirez 200 [facility] [place] [address] PCP - General Physician Light Technician 01/26/22 documented as of this encounter
--- OUTSIDE RECORDS SUMMARY | 2023-05-05 15:28 | External Medical Summary | Summary of Care ---
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; Other pulmonary embolism without acute cor pulmonale, unspecified chronicity (HCC) Allergies Active Allergy Reactions Criticality Noted Date Comments Lactose Diarrhea 07/26/2010 Abdominal gas, bloating; GI lactose intolerance Latex Rash 12/06/2016 Localized contact rash only; no respiratory symptoms Other Allergy (See Comments) 12/24/2018 Rash with band aids documented as of this encounter (statuses as of 03/14/2023) Medications Medication Sig Dispensed Refills Start Date End Date Status PROBIOTIC DAILY PO CAPS one a day 30 Cap 0 11/13/2012 Active B-12 1000 MCG PO TBCRIndications:Co mpound heterozygous MTHFR mutation C677T/N5251V 1 TABLET DAILY 100 Tab 3 12/03/2012 [...] HFA 108 (90 Base) MCG/ACT Inhalation Aerosol SolutionIndication s:Bronchitis, complicated Inhale 2 Puffs by mouth every 4 hours as needed for Wheezing. 18 g 0 04/28/2021 Active Metoprolol Succinate ER 50 MG Oral Tablet Extended Release 24 Hour (Toprol XL)Indications:HTN , goal below 140/90,BLANCO (dyspnea on exertion) Take 1 Tablet by mouth in the morning and 1 Tablet before bedtime. 180 Tablet 3 09/13/2022 Active Furosemide 40 MG Oral Tablet (Lasix)Indications :HTN, goal below 140/90 Take one tablet daily plus an extra pill 2-3 days per week 120 Tablet 3 09/13/2022 Active Folic Acid 1 MG Oral TabletIndications: Compound heterozygous MTHFR mutation C677T/U4915D Take 1 Tablet by mouth in the morning. 90 Tablet 3 03/14/2023 Active Warfarin Sodium 5 MG Oral TabletIndications: Other pulmonary embolism without acute cor pulmonale, unspecified chronicity (HCC) Take 1/2 tablet on Sundays and one tablet daily all other days or as adjusted by coagulation pharmacist. 90 Tablet 1 03/14/2023 Active Folic Acid 1 MG Oral TabletIndications: Compound heterozygous MTHFR mutation C677T/J0527A Take 1 Tablet by mouth in the morning. 90 Tablet 3 05/08/2022 3 Discontinue d(Refill) Warfarin Sodium 5 MG Oral TabletIndications: Other pulmonary embolism without acute cor pulmonale, unspecified chronicity (HCC) Take 1/2 tablet on Sundays and one tablet daily all other days or as adjusted by coagulation pharmacist. 90 Tablet 1 10/31/2022 3 Discontinue d(Refill) documented as of this encounter (statuses as of 03/14/2023) Active Problems Problem Noted Date Diagnosed Date [...] as of this encounter (statuses as of 03/14/2023) Resolved Problems Problem Noted Date Diagnosed Date [...] program 10/08/2017 11/10/2019 Overview: DO NOT DELETE [facility] DETECT Study: Project # [id number], Milk Treater: Buzz Mayes, PhD. SUMMARY: Goal: Establish test [...] contact study staff at ; after hours Milk Treater via the [facility] hospital drilling field operator . Please contact study team before resolving/deleting from patients problem list. Study phone number: [phone]. Diagnosis changed due to Research Module. Go to Snapshot for study details. Encounter for examination fo r normal comparison and control in clinical research program 10/08/2017 12/08/2021 Overview: DO NOT DELETE - [facility] DETECT Study: Project # [id number], Milk Treater: Kervin Gutierrez, MS, MPH. SUMMARY: Goal: Establish [...] contact study staff at ; after hours Milk Treater via the [facility] hospital drilling field operator . - Please contact study team before resolving/deleting from patients problem list. Study phone number: [phone]. Diagnosis changed due to Research Module. Go [...] 11/14/2012 09/18/2015 Anticoagulation management encounter 11/14/2012 09/18/2015 care home current use of ant icoagulant therapy 11/14/2012 [...] as of this encounter (statuses as of 03/14/2023) Immunizations Name Administration Dates Next Due COVID-19 mRNA, LNP-s, No Pre serve, 2-Dose Series (Pfizer) 07/07/2020,06/16/2020 Covid-19, Mrna, Lnp-s, Pf, B ivalent, [...] encounter Miscellaneous Notes * Telephone Encounter - Saurav Hoang [facility] - 03/14/2023 10:18 AM EST Signed Prescriptions: Disp Refills Folic Acid 1 MG Oral Tablet 90 Tab*3 Sig: Take 1 Tablet by mouth in the morning. Authorizing Provider: KACIE CAO Ordering User: SAURAV HOANG Warfarin Sodium 5 MG Oral Tablet 90 Tab*1 Sig: Take 1/2 tablet on Sundays and one tablet daily all other days or as adjusted by coagulation phalauren schafer. Authorizing Provider: KACIE CAO Ordering User: SAURAV HOANG * Telephone Encounter - Hannah Prasad [facility] - 03/13/2023 1:02 PM EST Did you pend patient's preferred pharmacy and medication before forwarding?yes [facility] Pending Prescriptions: Disp Refills Folic Acid 1 MG Oral Tablet 90 Tab*3 Sig: Take 1 Tablet by mouth in the morning. Warfarin Sodium 5 MG Oral Tablet 90 Tab*1 Sig: Take 1/2 tablet on Sundays and one tablet daily all other days or as adjusted by coagulation pharmacist. Last Visit: 10/30/2022 (in office), Visit date not found (telemedicine) Next Visit: 11/01/2023 If no future appointments scheduled, and last appointment is greater than a year ago, please schedule patient for a follow-up appointment Last date the medication was ordered: 05/08/22 Is this request for a controlled substance?No Urine Drug Screen:No results found. However, due to the size of the patient record, not all encounters were searched. Please check Results Review for a complete set of results. Patient Phone Numbers Labs: Lab Results Component Value Date/Time CREAT 1.3 (H) 10/05/2022 02:37 PM CREAT 1.2 (H) 12/26/2019 05:45 AM POTASSIUM 4.4 10/05/2022 02:37 PM POTASSIUM 4.8 12/26/2019 05:45 AM TSH 2.74 12/26/2021 10:41 AM TSH 2.18 12/07/2016 09:34 AM LDLCALC 80 11/16/2021 12:00 AM LDLCALC 91 08/03/2018 09:14 AM LDLDIRECT 106 10/05/2022 02:37 PM LDLDIRECT NOT APPLICABLE 08/03/2018 09:14 AM ALT 26 10/05/2022 02:37 PM ALT 18 08/03/2018 09:14 AM documented in this encounter Plan of Treatment Upcoming Encounters Date Type Department Care Team (Late st Contact Info) Description 05/02/2023 10:00 AM EST Anticoagulation Pharmacy, [facility] [address] [place] [address] [address] Pharmacist1, [facility] [address] [place] [address] 11/01/2023 9:00 AM EDT Office Visit Family Practice [facility] [address] [place] [address] Kacie Cao PA-C [address] [address] 11/22/2023 10:45 AM EDT Office Visit Dermatology [facility] [place] [address] [place] [address] Rosa Horn MD [address] [place] [address] [address] 11/23/2023 10:15 AM EDT Imaging Radiology [address], [place] [address] [facility] [place] [address] 03/11/2024 9:00 AM EST Nurse Only Ancillary [facility] [place] [address] [facility] [place] [address] Im, Nurse Annual Wellness [facility] [address] [place] [address] Health Maintenance Due Date Last Done Comments Hepatitis C Screening 1968 Fecal Occult Blood Test 08/21/2002 08/21/2001 Sigmoidoscopy 08/05/2006 08/05/2001, 07/25/2001 Colonoscopy 04/20/2018 04/20/2008 COVID-19 Vaccine ( season) 2022 10/30/2021, 07/07/2020, 06/16/2020 GFR 04/06/2023 10/05/2022, 09/2022, 12/26/2021, Additional history exists Albumin/Creatinine Ratio 10/06/2023 023, 10/18/2021, 10/07/2021, Additional history exists CKD HGB USE SMARTSET 58645 10/06/202310/05, 12/26/2021, 10/07/2021, Additional history exists CKD PHOS USE SMARTSET 99613 10/06/202309/08, 03/02/2021, 01/11/2018 Mammogram 11/22/2023 11/21/2022, 11/07, [...] this encounter Medical Devices Implanted Type Area Electro Plater Device Identifier Shelf Expiration Date Model / Serial / Lot Implant System, Biocomposite Achilles Speedbridge With Jumpstart Implanted:Qty: 1 on 04/24/2017 by Yoni Delgado MD at OR [facility] Left: Ankle [employer] 09/06/2018 [id number] -[id number] / / [id number] documented as of this encounter Visit Diagnoses Diagnosis Compound heterozygous MTHFR mutation C677T/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
--- OUTSIDE RECORDS SUMMARY | 2023-05-05 15:28 | External Medical Summary | Summary of Care ---
Author Name Unknown Organization [facility] Address [address] [place] [address] Phone [phone] Care Team Providers Care Homemaking Rehabilitation Consultant Name Role Phone Kacie Duenas PA-C Primary Care Provider [phone] Reason for Visit * Reason Onset Date Comments Medication Refill 03/13/2023 Encounter Details Date Type Department Care Team (Late st Contact Info) Description 03/13/2023 Refill Family Practice [facility] [address] [facility] [place] [address] Kacie Duenas PA-C [address] [facility] [place] [address] Allergies Active Allergy Reactions Criticality Noted Date Comments Lactose Diarrhea 07/26/2010 Abdominal gas, bloating; GI lactose intolerance Latex Rash 12/06/2016 Localized contact rash only; no respiratory symptoms Other Allergy (See Comments) 12/24/2018 Rash with band aids documented as of this encounter (statuses as of 03/13/2023) Medications Medication Sig Dispensed Refills Start Date End Date Status PROBIOTIC DAILY PO CAPS one a day 30 Cap 0 11/13/2012 Active B-12 1000 MCG PO TBCRIndications:Co mpound heterozygous MTHFR mutation [id number] 1 TABLET DAILY 100 Tab 3 12/03/2012 [...] 04/28/2021 Active Folic Acid 1 MG Oral TabletIndications: Compound heterozygous MTHFR mutation C677T/[id number] Take 1 Tablet by mouth in the [...] 09/13/2022 Active Warfarin Sodium 5 MG Oral TabletIndications: Other pulmonary embolism without acute cor pulmonale, unspecified chronicity (HCC) Take 1/2 tablet on Sundays and one tablet daily all other days or as adjusted by coagulation pharmacist. 90 Tablet 1 10/31/2022 Active Sertraline HCl 50 MG Oral Tablet (Zoloft) Take 1 Tablet by mouth in the morning. 90 Tablet 2 03/13/2023 Active Sertraline HCl 50 MG Oral Tablet (Zoloft) Take 1 Tablet by mouth in the morning. 30 Tablet 11 01/18/2023 3 Discontinue d(Refill) documented as of this encounter (statuses as of 03/13/2023) Active Problems Problem Noted Date Diagnosed Date [...] as of this encounter (statuses as of 03/13/2023) Resolved Problems Problem Noted Date Diagnosed Date [...] [facility] DETECT Study: Project # [id number], Betting Agency Manager: Buzz Mayes, PhD. SUMMARY: Goal: Establish test [...] contact study staff at ; after hours Betting Agency Manager via the [facility] oliving machine operator . Please contact study team before resolving/deleting from patients problem list. Study phone number: [phone]. Diagnosis changed due to Research Module. Go to [employer] for study details. Encounter for examination fo r normal comparison and control in clinical research program 10/08/2017 12/08/2021 Overview: DO NOT DELETE - [facility] Study: Project # [id number], Betting Agency Manager: Kervin Gutierrez, MS, MPH. SUMMARY: Goal: Establish [...] contact study staff at ; after hours Betting Agency Manager via the [facility] oliving machine operator . - Please contact study team before resolving/deleting from patients problem list. Study phone number: [phone]. Diagnosis changed due to Research Module. Go to [employer] for study details. Kidney disease, chronic, sta [...] 11/14/2012 09/18/2015 Anticoagulation management encounter 11/14/2012 09/18/2015 assisted current use of ant icoagulant therapy 11/14/2012 [...] as of this encounter (statuses as of 03/13/2023) Immunizations Name Administration Dates Next Due COVID-19 mRNA, LNP-s, No Pre serve, 2-Dose Series ([employer]) 07/07/2020,06/16/2020 Covid-19, Mrna, Lnp-s, Pf, B ivalent, [...] encounter Miscellaneous Notes * Telephone Encounter - Harlan Alcantara [facility] - 03/13/2023 9:29 PM ESTSigned Prescriptions: Disp Refills Sertraline HCl 50 MG Oral Tablet (Zoloft) 90 Tab*2 Sig: Take 1 Tablet by mouth in the morning. Authorizing Provider: KACIE DUENAS Ordering User: HARLAN ALCANTARA * Telephone Encounter - Hannah Prasad CPhT - 03/13/2023 1:01 PM EST Patient is requesting a 90-day supply, pre-edited RXs as such. Please review and approve if appropriate. Pending Prescriptions: Disp Refills Sertraline HCl 50 MG Oral Tablet (Zoloft) 90 Tab*1 Sig: Take 1 Tablet by mouth in the morning. Last Visit: 10/30/2022 (in office), Visit date not found (telemedicine) 11/01/2023 If no future appointments scheduled, and last appointment is greater than a year ago, please schedule patient for an appointment Last date the medication was ordered: 01/18/23 Patient Phone Numbers Labs: Lab Results Component [...] Description 05/02/2023 10:00 AM EST Anticoagulation Pharmacy, [facility] [place] [address] [place] [address] Pharmacist1, [facility] [address] [place] [address] 11/01/2023 9:00 AM EDT Office Visit Family Practice [facility] [place] [address] [place] [address] Kacie Duenas PA-C [address] [place] [address] 11/22/2023 10:45 AM EDT Office Visit Dermatology [facility] [place] [address] [facility] [place] [address] Rosa Horn MD [address] [facility] [place] [address] 11/23/2023 10:15 AM EDT Imaging Radiology [facility], [place] [address] [facility] [place] [address] 03/11/2024 9:00 AM EST Nurse Only Ancillary [facility] [place] [address] [place] [address] Im, Nurse Annual Wellness [facility] [address] [place] [address] Health Maintenance Due Date Last Done Comments Hepatitis C Screening 1968 Fecal Occult Blood Test 08/21/2002 08/21/2001 Sigmoidoscopy 08/05/2006 08/05/2001, 07/25/2001 Colonoscopy 04/20/2018 04/20/2008 COVID-19 Vaccine ( season) 2022 10/30/2021, 07/07/2020, 06/16/2020 GFR 04/06/2023 10/05/2022, 02/0 09/2022, 12/26/2021, Additional history exists Albumin/Creatinine Ratio 10/06/2023 023, 10/18/2021, 10/07/2021, Additional history exists CKD HGB USE SMARTSET 48002 10/06/202310/05, 12/26/2021, 10/07/2021, Additional history exists CKD PHOS USE SMARTSET 47737 10/06/202309/08, 03/02/2021, 01/11/2018 Mammogram 11/22/2023 11/21/2022, 11/07, 11/17/2020, Additional history exists DXA Scan 02/06/2024 02/05/2017, 06/0 06/2007, 09/10/2007, Additional history exists Depression Screening [...] this encounter Medical Devices Implanted Type Area Chemical Radiation Technician Device Identifier Shelf Expiration Date Model / Serial / Lot Implant System, Biocomposite Achilles Speedbridge With Jumpstart Implanted:Qty: 1 on 04/24/2017 by Yoni Delgado MD at OR [facility] Left: Ankle [employer] 09/06/2018 [id number] - / / [id number] documented as of this encounter Care Teams Homemaking Rehabilitation Consultant Relationship Specialty Start Date End Date Henrique July Ashley, RELL [facility] [place] [address] PCP - General Physician Senior Security Engineer 01/26/22 documented as of this encounter
--- OUTSIDE RECORDS SUMMARY | 2023-05-05 15:28 | External Medical Summary ---
Author Name Unknown Address Unknown Organization K09:[facility] [place] [id number] Laboratory Report Ordering Provider Test Date Status SOHAILTANI V 05/02/2023 10:10:16 Final Therapeutic ranges for non-o perative patients:
Prophylaxsis/treatment of DVT: (Range:2.0-3.0)
Treatment of pulmonary embolism:(Range:2.0-3.0)
Prevention of systemic embolism from:
-tissue heart valves
-acute myocardial infarction
-valvular heart disease
-atrial fibrillation
(Range: 2.0-3.0)
Mechanical prosthetic valves: (Range: 2.5-3.5) Observation Date Value Abnormality Reference (Units ) Status INR in Capillary blood by Coagulation assay 05/02/2023 10:10:16 1.8 (INR) Final Performing Location [facility] [place] [id number]
--- OUTSIDE RECORDS SUMMARY | 2023-05-05 15:29 | External Medical Summary | Summary of Care ---
Author Name Unknown Organization [facility] Address [address] [place] [address] Phone [phone] Care Team Providers Care Forgeman Helper Name Role Phone Kacie Duenas PA-C Primary Care Provider [phone] Reason for Visit * Reason Onset Date Comments Advice 01/05/2023 Encounter Details Date Type Department Care Team Description 01/05/2023 Telephone Family Practice [place] [address] [facility] [place] [address] Kacie Duenas PA-C [address] [facility] [place] [address] Advice Allergies Active Allergy Reactions Severity Noted Date Comments Lactose Diarrhea 07/26/2010 Abdominal gas, bloating; GI lactose intolerance Latex Rash 12/06/2016 Localized contact rash only; no respiratory symptoms Other Allergy (See Comments) 12/24/2018 Rash with band aids documented as of this encounter (statuses as of 01/05/2023) Medications Medication Sig Dispensed Refills Start Date End Date Status PROBIOTIC DAILY PO CAPS one a day 30 Cap 0 11/13/2012 Active B-12 1000 MCG PO TBCRIndications:Com pound heterozygous MTHFR mutation C677T/Z1330B 1 TABLET DAILY 100 Tab 3 12/03/2012 [...] for Wheezing. 18 g 0 04/28/2021 Active Citalopram Hydrobromide 20 MG Oral Tablet (CeleXA) TAKE ONE TABLET BY MOUTH EVERY DAY 90 Tablet 3 06/03/2021 Active Folic Acid 1 MG Oral TabletIndications:C ompound heterozygous MTHFR mutation C677T/Z1996J Take 1 Tablet by mouth in the [...] coagulation pharmacist. 90 Tablet 1 10/31/2022 Active predniSONE 10 MG Oral Tablet (Deltasone) Take 4 Tablets by mouth daily for 3 days, THEN 3 Tablets daily for 3 days, THEN 2 Tablets daily for 3 days, THEN 1 Tablet daily for 3 days. As directed. 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 Chronic kidney disease, stage 3b 021 Overview: Per CKD protocol Hypertensive kidney disease with stage 3 b chronic kidney disease 08/17/2020 Overview: Per CKD protocol Major depressive disorder, single episod e, unspecified 04/13/2020 Status post total left knee replacement 01/07/2020 Persistent atrial fibrillation 9 History of pulmonary embolism 05/14/2018 Osteoarthritis of right knee 10/31/2016 Gouty arthropathy 09/23/2015 Compound heterozygous MTHFR mutation C67 7T/G5592S 12/03/2012 Chronic rhinitis 10/29/2011 HTN, goal below 140/90 07/19/2005 Irritable bowel syndrome 07/25/2001 documented as of this encounter (statuses as of 01/05/2023) Resolved Problems Problem Noted Date Resolved Date Morbid obesity with BMI of 50.0-59.9, adult 10/0811/23/2022 Overview: Per Obesity protocol Body mass index (BMI) of 50.0 to 59.9 in adult 1 04/22/2021 11/23/2022 Overview: Per Obesity protocol - bmi= 42.27 10/29/11 Activated protein C resistance 10/18/2021 0 10/30/2022 Hypertensive kidney disease with stage 3a [...] unspecified whether acute cor pulmonale present 06/17/2019 08/14/2019 Encounter for examination fo r normal comparison and control in clinical research program 10/08/2017 11/10/2019 Overview: DO NOT DELETE [facility] DETECT Study: Project # [id number], Pre Sales Technical Engineer: Buzz Mayes, PhD. SUMMARY: Goal: Establish test [...] contact study staff at ; after hours Pre Sales Technical Engineer via the [facility] classifying machine operator . Please contact study team before resolving/deleting from patients problem list. Study phone number: [phone]. Diagnosis changed due to Research Module. Go to [employer] for study details. Encounter for examination fo r normal comparison and control in clinical research program 10/08/2017 12/08/2021 Overview: DO NOT DELETE - [facility] Study: Project # [id number], Pre Sales Technical Engineer: Kervin Gutierrez, MS, MPH. SUMMARY: Goal: Establish [...] contact study staff at ; after hours Pre Sales Technical Engineer via the [facility] classifying machine operator . - Please contact study team before resolving/deleting from patients problem list. Study phone number: [phone]. Diagnosis changed due to Research Module. Go to Snapshot for study details. Kidney disease, chronic, stage III (GFR 30-59 ml /min) 07/17/2017 01/22/2020 Overview: Per CKD protocol #1 History of nonmelanoma skin cancer 05/22/2017 01/01/2020 Overview: Historical. Pulmonary embolus 12/12/2016 03/19/2018 Acute bronchitis, complicated 10/23/2015 Acute left ankle pain 09/18/2015 02/03/2018 Stasis dermatitis, acute 09/18/2015 019 History of phlebitis 09/18/2015 01/01/2020 Overview: Historical. Sinus congestion 02/28/2015 02/03/2018 Phlebitis and thrombophlebit is of superficial vessels of lower extremities 10/02/2014 09/18/2015 Venous thrombosis 11/14/2012 09/18/2015 Anticoagulation management encounter 11/14/2012 09/18/2015 intermediate current use of anticoagulant therapy 0 11/14/2012 09/18/2015 Obesity, morbid (more than 1 00 lbs over ideal weight or BMI > 40) 10/29/2011 02/23/2022 Overview: bmi= 42.27 10/29/11 Cough 10/29/2011 09/18/2015 Obesity, morbid (more than 1 00 lbs over ideal weight or BMI > 40) 09/21/2009 06/07/2013 Overview: Per Obesity Protocol, #19 ICD-10 update of inactive term ADVANCE DIRECTIVE INFORMATION 07/11/2008 Overview: No, Advance Directive brochure given to patient. Gout 05/06/2008 09/18/2015 ADJ DISORDER W/DEPRES MOOD 07/19/200509/17 documented as of this encounter (statuses as of 01/05/2023) Immunizations Name Administration Dates Next Due COVID-19 mRNA, LNP-s, No Pre serve, 2-Dose Series ([employer]) 07/07/2020,06/16/2020 Covid-19, Mrna, Lnp-s, Pf, B ivalent, 30 Mcg, IM, 12 yrs and above (Pfizer) 10/30/2021 PPD 05/02/2010 Pneumococcal Conjugate Vacc, 13 Valent (Prevnar) 12/11/2015 Pneumococcal Polysaccharide PPV23 (Pneumovax) 12/14/2016 SEASONAL INFLUENZA, PF, 6 M & Above, IM , (FLULAVAL or FLUZONE) 01/07/2020,01/11/2018,01/13/2017 Seasonal Influenza, Quadriva lent Hd (Fluzone Hd) 01/26/2022,02/28/2021 Seasonal Influenza, Split, I IV3, With Preserve, [...] drink = 0.6 oz pur e alcohol) Food Insecurity Answer Date Recorded Within the past 12 months, y ou worried that your food would run out before you got money to buy more. Never true 03/07/2022 Within the past 12 months, t he food you bought just didn't last and you didn't have money to get more. Never true 03/07/2022 Sex Assigned at Date Recorded Female 03/07/2022 9:[address] Job Start Date Occupation Industry Not on file Not on file Not on file documented as of this encounter Miscellaneous Notes * Telephone Encounter - Ibis Ojeda PA-C - 01/05/2023 11:11 AM EDT We can try prednisone taper. If she is concerned for any infection I would recommend she go to urgent care. I'll send pred in- should help if it is a gout attack. Sent to [facility]. * Telephone Encounter - Hannah Vazquez LPN - 01/05/2023 10:23 AM EDT Provider to address: Patient calling in with complaints of painful, swollen right foot. She stated that the symptoms started a few days ago but is worse today. She stated that she has a history of gout but it feels different than the gout episodes and is on the outside of her foot. No redness or increased warmth to the foot. She takes Furoseminde 40mg daily She has tried OTC Tylenol with no relief, she stated that she is on coumadin so she cannot take Ibuprofen or motrin. No appointments today at [facility]. Offered [facility] appointment, she wanted message sent to provider. Please advise Reason for Call: Advice Contact: Telephone Call Contact Type: Information Total Time including non face to face (minutes): 5 documented in this encounter Plan of Treatment Upcoming Encounters Date Type Specialty Care Team Description 01/18/2023 Office Visit Cardiology Vasu Machado PA-C [address] [place] [address] 01/31/2023 Anticoagulation Pharmacy Pharmacist1, [facility] [address] [facility] [place] [address] 03/08/2023 Nurse Only Ancillary Im, Nurse Annual Wellness [facility] [address] [place] [address] 11/01/2023 Office Visit Family Medicine Kacie Duenas PA-C [address] [facility] [place] [address] 11/22/2023 Office Visit Dermatology Rosa Horn MD [address] [facility] [place] [address] 11/23/2023 Imaging Radiology Health Maintenance Due Date Last Done Comments Hepatitis C Screening 1968 Fecal Occult Blood Test 08/21/2002 08/21/2001 Sigmoidoscopy 08/05/2006 08/05/2001, 07/25/2001 Colonoscopy 04/20/2018 04/20/2008 Influenza Vaccine (FLU shot) (#1) 2022 01/26/2022, 02/28/2021, 01/07/2020, Additional history exists Depression Screening 03/07/2023 03/07/2022 GFR 04/06/2023 10/05/2022, 020 09/2022, 12/26/2021, Additional history exists Albumin/Creatinine Ratio 10/06/2023 023, 10/18/2021, 10/07/2021, Additional history exists CKD HGB USE SMARTSET 37866 10/06/202310/05, 12/26/2021, 10/07/2021, Additional history exists CKD PHOS USE SMARTSET 39125 10/06/202309/08, 03/02/2021, 01/11/2018 Mammogram 11/22/2023 11/21/2022, 11/07, 11/17/2020, Additional history exists DXA Scan 02/06/2024 02/05/2017, 0606/2007, 09/10/2007, Additional history exists Cologuard 06/11/2024 06/11/2021, 05/11, 06/02/2021, Additional history exists Colorectal Cancer Screening 06/11/2024 DTaP,Tdap,and Td Vaccines (2 - Td or Tdap) 01/26/2027 01/26/2017 Lipid Panel 10/06/2027 10/05/2022, 11/07, 03/02/2021, Additional history exists Pneumococcal Vaccine: 65+ Years Completed 12/14/2016, 12/11/2015 Zoster Vaccines Completed 07/12/2018, 03/10, 01/12/2016 COVID-19 Vaccine Completed 10/30/2021, , 06/16/2020 GARDASIL-HPV IMMUNIZATION SERIES Aged Out No longer eligible based on patient's age to complete this topic Hepatitis B Aged Out No longer eligi ble based on patient's age to complete this topic MENINGOCOCCAL (MENACTRA/MENVEO) Aged Out No longer eligible based on patient's age to complete this topic documented as of this encounter Medical Devices Implanted Type Area Dance Professor Device Identifier Shelf Expiration Date Model / Serial / Lot Implant System, Biocomposite Achilles Speedbridge With Jumpstart Implanted:Qty: 1 on 04/24/2017 by Yoni Delgado MD at [facility] Left: Ankle [employer] 09/06/2018 [id number] / / [id number] documented as of this encounter Care Teams Forgeman Helper Relationship Specialty Start Date End Date Kacie Duenas PA-C [address] [facility] [place] [address] PCP - General Physician Quality Control Specialist 01/26/22 documented as of this encounter
--- OUTSIDE RECORDS SUMMARY | 2023-05-05 15:29 | External Medical Summary | Summary of Care ---
Author Name Unknown Organization [facility] Address [address] [place] [address] Phone [phone] Care Team Providers Care 2Nd Pressman Name Role Phone Kacie Duenas Ashley ZACARIAS Primary Care Provider Encounter Details Date Type Department Care Team Description 11/29/2022 Orders Only Outcomes Research Department [address] [place] [address] Nissa Kapoor CHRA O-RID Research Other*[id number] Allergies Active Allergy Reactions Severity Noted Date Comments Lactose Diarrhea 07/26/2010 Abdominal gas, bloating; GI lactose intolerance Latex Rash 12/06/2016 Localized contact rash only; no respiratory symptoms Other Allergy (See Comments) 12/24/2018 Rash with band aids documented as of this encounter (statuses as of 11/29/2022) Medications Medication Sig Dispensed Refills Start Date End Date Status PROBIOTIC DAILY PO CAPS one a day 30 Cap 0 11/13/2012 Active B-12 1000 MCG PO TBCRIndications:Com pound heterozygous MTHFR mutation C677T/W1283I 1 TABLET DAILY 100 Tab 3 12/03/2012 [...] MG Oral TabletIndications:C ompound heterozygous MTHFR mutation C677T/Q7754T Take 1 Tablet by mouth in the [...] coagulation pharmacist. 90 Tablet 1 10/31/2022 Active documented as of this encounter (statuses as of 11/29/2022) Active Problems Problem Noted Date Body mass [...] left knee replacement 01/07/2020 Persistent atrial fibrillation 02/05/201 9 History of pulmonary embolism 05/14/2018 Osteoarthritis of right knee 10/31/2016 Gouty arthropathy 09/23/2015 Compound heterozygous MTHFR mutation C67 7T/P7151Z 12/03/2012 Chronic rhinitis 10/29/2011 HTN, goal below 140/90 07/19/2005 Irritable bowel syndrome 07/25/2001 documented as of this encounter (statuses as of 11/29/2022) Resolved Problems Problem Noted Date Resolved Date [...] program 10/08/2017 11/10/2019 Overview: DO NOT DELETE [facility] DETECT Study: Project # [id number], Patent Agent: uBzz Mayes, PhD. SUMMARY: Goal: Establish test characteristics [...] contact study staff at ; after hours Patent Agent via the [facility] paver operator . Please contact study team before resolving/deleting from patients problem list. Study phone number: [phone]. Diagnosis changed due to Research Module. Go to Snapshot for study details. Encounter for examination fo r normal comparison and control in clinical research program 10/08/2017 12/08/2021 Overview: DO NOT DELETE - [facility] Study: Project # [id number], Patent Agent: Kervin Gutierrez, MS, MPH. SUMMARY: Goal: Establish [...] contact study staff at ; after hours Patent Agent via the [facility] paver operator . - Please contact study team before resolving/deleting from patients problem list. Study phone number: [phone]. Diagnosis changed due to Research Module. Go to Segetis for study details. Kidney disease, chronic, stage [...] encounter 11/14/2012 09/18/2015 [facility] current use of anticoagulant therapy 0 11/14/2012 [...] as of this encounter (statuses as of 11/29/2022) Immunizations Name Administration Dates Next Due COVID-19 mRNA, LNP-s, No Pre serve, 2-Dose Series (Excellence4u) 07/07/2020,06/16/2020 Covid-19, Mrna, Lnp-s, Pf, B ivalent, 30 Mcg, IM, 12 yrs and above (Excellence4u) 10/30/2021 PPD 05/02/2010 Pneumococcal Conjugate Vacc, 13 Valent (Prevnar) 12/11/2015 Pneumococcal Polysaccharide PPV23 (Pneumovax) 12/14/2016 Seasonal Influenza, PF, 6 mo ns & Above, IM , (Flulaval) 01/07/2020,01/11/2018,01/13/2017 Seasonal Influenza, Quadriva lent Hd (Fluzone [...] on file documented as of this encounter Plan of Treatment Upcoming Encounters Date Type Specialty Care Team Description 12/01/2022 Office Visit Dermatology Rosa Horn MD [address] [facility] [place] [address] 01/03/2023 Anticoagulation Pharmacy Pharmacist1, [facility] [address] [place] [address] 01/18/2023 Office Visit Cardiology Vasu Machado PA-C [address] [place] [address] 03/08/2023 Nurse Only Ancillary Im, Nurse [facility] [address] [place] [address] 11/01/2023 Office Visit Family Medicine Kacie Duenas, RELL [address] [facility] [place], [place] [address] 11/23/2023 Imaging Radiology Scheduled Orders Name Type Priority Associated Diagnoses Orde r Schedule MYCODE SUBSEQUENT ADULT Lab Routine MyCode Research Other*[id number] Every 6 Months for 2 Occurrences starting 11/29/2022 until 12/19/2023 Health Maintenance Due Date Last Done Comments Hepatitis C Screening 1968 Fecal Occult Blood Test 08/21/2002 08/21/2001 Sigmoidoscopy 08/05/2006 08/05/2001, 07/25/2001 Colonoscopy 04/20/2018 04/20/2008 Influenza Vaccine (FLU shot) (#1) 2022 01/26/2022, 02/28/2021, 01/07/2020, Additional history exists Depression Screening, Annual for Pts 12 and Over 03/07/2023 03/07/2022 GFR 04/06/2023 10/05/2022, 09/2022, 12/26/2021, Additional history exists Albumin/Creatinine Ratio 10/06/2023 023, 10/18/2021, 10/07/2021, Additional history exists CKD HGB USE SMARTSET 67983 10/06/202310/05, 12/26/2021, 10/07/2021, Additional history exists CKD PHOS USE SMARTSET 25694 10/06/202309/08, 03/02/2021, 01/11/2018 Mammogram 11/22/2023 11/21/2022, 11/07, [...] this encounter Medical Devices Implanted Type Area Conservation Of Resources Commissioner Device Identifier Shelf Expiration Date Model / Serial / Lot Implant System, Biocomposite Achilles Speedbridge With Jumpstart Implanted:Qty: 1 on 04/24/2017 by Sandy Gonzáles, Yoni Azul MD at OR [facility] Left: Ankle [employer] 09/06/2018 [id number] / / [id number] documented as of this encounter Visit Diagnoses Diagnosis MyCode Research Other*[id number] documented in this encounter Care Teams 2Nd Pressman Relationship Specialty Start Date End Date Kacie Duenas PA-C [address] [facility] [place] [address] PCP - General Physician Rosin Barrel Filler 01/26/22 documented as of this encounter
--- OUTSIDE RECORDS SUMMARY | 2023-05-05 15:29 | External Medical Summary | Summary of Care ---
Author Name Unknown Organization [facility] Address [address] [place] [address] Phone [phone] Care Team Providers Care Bartender Helper Name Role Phone SoniaKacie amin Ashley ZACARIAS Primary Care Provider [phone] Reason for Visit * Reason Onset Date Comments Appointment 12/04/2022 Encounter Details Date Type Department Care Team Description 12/04/2022 Telephone Dermatology [facility] Bridgette Pickrell [address] [place] [address] Rosa Horn MD [address] [facility] [place] [address] Appointment Allergies Active Allergy Reactions Severity Noted Date Comments Lactose Diarrhea 07/26/2010 Abdominal gas, bloating; GI lactose intolerance Latex Rash 12/06/2016 Localized contact rash only; no respiratory symptoms Other Allergy (See Comments) 12/24/2018 Rash with band aids documented as of this encounter (statuses as of 12/04/2022) Medications Medication Sig Dispensed Refills Start Date End Date Status PROBIOTIC DAILY PO CAPS one a day 30 Cap 0 11/13/2012 Active B-12 1000 MCG PO TBCRIndications:Com pound heterozygous MTHFR mutation C677T/O9650Z 1 TABLET DAILY 100 Tab 3 12/03/2012 [...] MG Oral TabletIndications:C ompound heterozygous MTHFR mutation C677T/Z4773N Take 1 Tablet by mouth in the [...] as of this encounter (statuses as of 12/04/2022) Active Problems Problem Noted Date Body mass [...] arthropathy 09/23/2015 Compound heterozygous MTHFR mutation C67 7T/G2078X 12/03/2012 Chronic rhinitis 10/29/2011 HTN, goal below 140/90 07/19/2005 Irritable bowel syndrome 07/25/2001 documented as of this encounter (statuses as of 12/04/2022) Resolved Problems Problem Noted Date Resolved Date [...] Overview: DO NOT DELETE [facility] DETECT Study: Project # [id number], Office Machines Wirer: Buzz Mayes, PhD. SUMMARY: Goal: Establish test [...] contact study staff at ; after hours Office Machines Wirer via the [facility] hospital suppository molding machine operator . Please contact study team before resolving/deleting from patients problem list. Study phone number: [phone]. Diagnosis changed due to Research Module. Go to Snapshot for study details. Encounter for examination fo r normal comparison and control in clinical research program 10/08/2017 12/08/2021 Overview: DO NOT DELETE - [facility] SILVINA Study: Project # [id number], Office Machines Wirer: Kervin Gutierrez, MS, MPH. SUMMARY: Goal: Establish [...] contact study staff at ; after hours Office Machines Wirer via the [facility] hospital suppository molding machine operator . - Please contact study team before resolving/deleting from patients problem list. Study phone number: [phone]. Diagnosis changed due to Research Module. Go [...] 11/14/2012 09/18/2015 Anticoagulation management encounter 11/14/2012 09/18/2015 manager terminal current use of anticoagulant therapy 0 11/14/2012 [...] as of this encounter (statuses as of 12/04/2022) Immunizations Name Administration Dates Next Due COVID-19 mRNA, LNP-s, No Pre serve, 2-Dose Series ([employer]o) 07/07/2020,06/16/2020 Covid-19, Mrna, Lnp-s, Pf, B ivalent, 30 Mcg, IM, 12 yrs and above ([employer]adeo) 10/30/2021 PPD 05/02/2010 Pneumococcal Conjugate Vacc, 13 [...] encounter Miscellaneous Notes * Telephone Encounter - CHATA Stallworth - 12/04/2022 11:13 AM EDT Transferred to Derm. * Telephone Encounter - CHATA Sierra - 12/04/2022 10:20 AM EDT Called patient, left message to return call. * Telephone Encounter - CHATA Sierra - 12/04/2022 10:20 AM EDT ----- Message from Rosa oHrn MD sent at 12/01/2022 7:17 PM EDT ----- Please schedule for 1 year follow up - October 2023. Thanks, Rosa documented in this encounter Plan of Treatment Upcoming Encounters Date Type Specialty Care Team Description 01/03/2023 Anticoagulation Pharmacy Pharmacist1, [facility] [address] [place] [address] 01/18/2023 Office Visit Cardiology Vasu Machado PA-C [address] [place] [address] 03/08/2023 Nurse Only Ancillary Im, Nurse [facility] [place] [address] [facility] [place] [address] 11/01/2023 Office Visit Family Medicine Kacie Duenas PA-C [address] [place] [address] 11/22/2023 Office Visit Dermatology Rosa Horn MD [address] [place] [address] 11/23/2023 Imaging Radiology Health Maintenance Due Date Last Done Comments Hepatitis C Screening 1968 Fecal Occult Blood Test 08/21/2002 08/21/2001 Sigmoidoscopy 08/05/2006 08/05/2001, 07/25/2001 Colonoscopy 04/20/2018 04/20/2008 Influenza Vaccine (FLU shot) (#1) 2022 01/26/2022, 02/28/2021, 01/07/2020, Additional history exists Depression Screening, Annual for Pts 12 and Over 03/07/2023 03/07/2022 GFR 04/06/2023 10/05/2022, 02/0 09/2022, 12/26/2021, Additional history exists Albumin/Creatinine Ratio 10/06/2023 023, 10/18/2021, 10/07/2021, Additional history exists CKD HGB USE SMARTSET 30216 10/06/202310/05, 12/26/2021, 10/07/2021, Additional history exists CKD PHOS USE SMARTSET 29058 10/06/202309/08, 03/02/2021, 01/11/2018 Mammogram 11/22/2023 11/21/2022, 11/07, [...] this encounter Medical Devices Implanted Type Area Coal Grader Device Identifier Shelf Expiration Date Model / Serial / Lot Implant System, Biocomposite Achilles Speedbridge With Jumpstart Implanted:Qty: 1 on 04/24/2017 by Sandy Gonzáles, Yoni Azul MD at [facility] Left: Ankle [employer] 09/06/2018 [id number] -[id number] / / [id number] documented as of this encounter Care Teams Bartender Helper Relationship Specialty Start Date End Date Kacie Duenas, JEFFREYC [address] [place] [address] PCP - General Physician Mannequin Coloring Artist 01/26/22 documented as of this encounter
--- OUTSIDE RECORDS SUMMARY | 2023-05-05 15:29 | External Medical Summary ---
Author Name Unknown Address Unknown Organization K09:[facility] [place] [address] Laboratory Report Ordering Provider Test Date Status TANI SAUCEDA V 01/03/2023 10:06:30 Final Therapeutic ranges for non-o perative patients:
Prophylaxsis/treatment of DVT: (Range:2.0-3.0)
Treatment of pulmonary embolism:(Range:2.0-3.0)
Prevention of systemic embolism from:
-tissue heart valves
-acute myocardial infarction
-valvular heart disease
-atrial fibrillation
(Range: 2.0-3.0)
Mechanical prosthetic valves: (Range: 2.5-3.5) Observation Date Value Abnormality Reference (Units ) Status INR in Capillary blood by Coagulation assay 01/03/2023 10:06:30 3.8 (INR) Final Performing Location [facility] [place] [id number]
--- OUTSIDE RECORDS SUMMARY | 2023-05-05 15:29 | External Medical Summary | Summary of Care ---
Author Name Unknown Organization [facility] Address [address] [place] [address] Phone [phone] Care Team Providers Care Carton Forming Machine Tender Name Role Phone SoniaKacie amin Ashley ZACARIAS Primary Care Provider [phone] Reason for Visit * Reason Comments Dosage Adjustment In Person (Anticoag Cl inic) Encounter Details Date Type Department Care Team Description 01/03/2023 Anticoagulation Pharmacy, Candace Bridgette [place] [address] [facility] [place] [address] Pharmacist1, [facility] [address] [facility] [place] [phone] Paroxysmal atrial fibrillation (HCC)*; Anticoagulation management encounter; 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 therapy Allergies Active Allergy Reactions Severity Noted Date Comments Lactose Diarrhea 07/26/2010 Abdominal gas, bloating; GI lactose intolerance Latex Rash 12/06/2016 Localized contact rash only; no respiratory symptoms Other Allergy (See Comments) 12/24/2018 Rash with band aids documented as of this encounter (statuses as of 01/03/2023) Medications Medication Sig Dispensed Refills Start Date End Date Status PROBIOTIC DAILY PO CAPS one a day 30 Cap 0 11/13/2012 Active B-12 1000 MCG PO TBCRIndications:Com pound heterozygous MTHFR mutation C677T/N1311A 1 TABLET DAILY 100 Tab 3 12/03/2012 [...] MG Oral TabletIndications:C ompound heterozygous MTHFR mutation C677T/L8369I Take 1 Tablet by mouth in the [...] as of this encounter (statuses as of 01/03/2023) Active Problems Problem Noted Date Body mass [...] arthropathy 09/23/2015 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 SUMMARY: Goal: Establish test [...] contact study staff at ; after hours Care Transitions Nurse via the [facility] hospital lock operator . Please contact study team before resolving/deleting from patients problem list. Study phone number: [phone]. Diagnosis changed due to Research Module. Go to Snapshot for study details. Encounter for examination fo r normal comparison and control in clinical research program 10/08/2017 12/08/2021 Overview: DO NOT DELETE - [facility] Study: Project # [id number], Care Transitions Nurse: Kervin Gutierrez MS, MPH. SUMMARY: Goal: Establish test characteristics [...] contact study staff at ; after hours Care Transitions Nurse via the [facility] lock operator . - Please contact study team before resolving/deleting from patients problem list. Study phone number: [phone]. Diagnosis changed due to Research Module. Go [...] 11/14/2012 09/18/2015 Anticoagulation management encounter 11/14/2012 09/18/2015 residential current use of anticoagulant therapy 0 11/14/2012 [...] as of this encounter (statuses as of 01/03/2023) Immunizations Name Administration Dates Next Due COVID-19 mRNA, LNP-s, No Pre serve, 2-Dose Series ([employer]) 07/07/2020,06/16/2020 Covid-19, Mrna, Lnp-s, Pf, B ivalent, 30 Mcg, IM, 12 yrs and above ([employer]) 10/30/2021 PPD 05/02/2010 Pneumococcal Conjugate Vacc, 13 [...] Date Recorded Female 03/07/2022 9:19 AM E Job Start Date Occupation Industry Not on file Not on file Not on file documented as of this encounter Progress Notes * Betito Dotson V, [facility] - 01/03/2023 10:03 AM EDT Images from the original note were not included. 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 It stopped quickly.) Negatives: Signs/symptoms of thrombosis, Change in health, Change in alcohol use, Change in activity, Upcoming invasive procedure, Missed doses, Extra doses, Change in medications, Change in diet/appetite, Bruising INR Result As of 01/03/2023 INR goal: 2.0-3.0 INR used for dosin.8 (01/03/2023) Warfarin Plan As of 01/03/2023 Full warfarin instructions: 01/03: Hold; Otherwise 5 mg every day Next INR check: 01/31/2023 Repeat PT/INR in 4 week(s) Weekly dose: not changed Betito Dotson RPh, CACP, CDE Clinical Pharmacist Medication Therapy Management [facility] 01/03/2023 10:11 AM documented in this encounter Plan of Treatment Upcoming Encounters Date Type Specialty Care Team Description 01/18/2023 Office Visit Cardiology Vasu Machado PA-C [address] [place] [address] 01/31/2023 Anticoagulation Pharmacy Pharmacist1, [facility] [address] [facility] [place] [address] 03/08/2023 Nurse Only Ancillary Im, Nurse Annual [facility] [address] [facility] [place] [address] 11/01/2023 Office Visit Family Medicine Kacie Duenas PA-C [address] [facility] [place] [address] 11/22/2023 Office Visit Dermatology Rosa Horn MD [address] [facility] [place] [address] 11/23/2023 Imaging Radiology Health Maintenance Due Date [...] Additional history exists CKD HGB USE SMARTSET 13441 10/06/202310/05, 12/26/2021, 10/07/2021, Additional history exists CKD PHOS USE SMARTSET 40020 10/06/202309/08, 03/02/2021, 01/11/2018 Mammogram 11/22/2023 11/21/2022, 11/07, [...] encounter Medical Devices Implanted Type Area Chemical Sales Representative Device Identifier Shelf Expiration Date Model / Serial / Lot Implant System, Biocomposite Achilles Speedbridge With Jumpstart Implanted:Qty: 1 on 04/24/2017 by Yoni Delgado MD at OR [facility] Left: Ankle [employer] 09/06/2018 [id number] / / [id number] documented as of this encounter Procedures Procedure Name Priority Date/Time Associated Diagnosis Comments INR FINGERSTICK, POINT OF CARE STAT 01/03/2023 10:06 AM EDT Paroxysmal atrial fibrillation (HCC) Anticoagulation management encounter 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 therapy documented in this encounter Results * INR FINGERSTICK, POINT OF CARE (01/03/2023 10:06 AM EDT) Fingerstick INR 3.8 INR 10:18 AM EDT [facility] 56-02 Blood 01/03/2023 10:0 6 AM EDT 01/03/2023 10:18 AM EDT Narrative [facility] 56-02 - 01/03/2023 10:18 AM EDT Therapeutic ranges for non-operative patients: Prophylaxsis/treatment of DVT: (Range:2.0-3.0) Treatment of pulmonary embolism:(Range:2.0-3.0) Prevention of systemic embolism from: -tissue heart valves -acute myocardial infarction -valvular heart disease -atrial fibrillation (Range: 2.0-3.0) Mechanical prosthetic valves: (Range: 2.5-3.5) Betito Nila V, [facility] LAB POINT OF CARE TE ST DOCKED DEVICE UNSOLICITED RESULTS [facility] 56- [address] [facility] [place] [address] documented in this encounter Visit Diagnoses Diagnosis Paroxysmal atrial fibrillation (HCC)- Primary Atrial fibrillation Anticoagulation management encounter Encounter for therapeutic drug monitoring residential current use of anticoagulant therapy documented in this encounter Care Teams Carton Forming Machine Tender Relationship Specialty Start Date End Date Henrique July RELL Ramirez [address] [facility] [place] [address] PCP - General Physician Tradeshow Worker 01/26/22 documented as of this encounter
--- OUTSIDE RECORDS SUMMARY | 2023-05-05 15:29 | External Medical Summary | Summary of Care ---
Author Name Unknown Organization [facility] Address [address] [place] [address] Phone [phone] Care Team Providers Care Crystal Finisher Name Role Phone SoniaKacie amin Ashley ZACARIAS Primary Care Provider [phone] Reason for Visit * Reason Comments Dosage Adjustment In Person (Anticoag Cl inic) Encounter Details Date Type Department Care Team Description 11/22/2022 Anticoagulation Pharmacy, [place] [address] [facility] [place] [address] Pharmacist1, [facility] [address] [facility] [place] [address] Paroxysmal atrial fibrillation (HCC)*; Anticoagulation management encounter; half-way current use of anticoagulant therapy Allergies Active Allergy Reactions Severity Noted Date Comments Lactose Diarrhea 07/26/2010 Abdominal gas, bloating; GI lactose intolerance Latex Rash 12/06/2016 Localized contact rash only; no respiratory symptoms Other Allergy (See Comments) 12/24/2018 Rash with band aids documented as of this encounter (statuses as of 11/22/2022) Medications Medication Sig Dispensed Refills Start Date End Date Status PROBIOTIC DAILY PO CAPS one a day 30 Cap 0 11/13/2012 Active B-12 1000 MCG PO TBCRIndications:Com pound heterozygous MTHFR mutation [id number] 1 TABLET DAILY 100 Tab 3 12/03/2012 [...] MG Oral TabletIndications:C ompound heterozygous MTHFR mutation C677T/[id number] Take 1 Tablet by mouth in the [...] as of this encounter (statuses as of 11/22/2022) Active Problems Problem Noted Date Morbid obesity with BMI of 50.0-59.9, ad ult 10/30/2022 Paroxysmal atrial fibrillation Body mass index (BMI) of 50.0 to 59.9 in adult 02/20/2022 Overview: Per Obesity protocol - bmi= 42.27 10/29/11 Recurrent major depressive disorder 10/07 Methylenetetrahydrofolate reductase [...] arthropathy 09/23/2015 Compound heterozygous MTHFR mutation C67 [id number]/[id number] 12/03/2012 Chronic rhinitis 10/29/2011 HTN, goal below 140/90 07/19/2005 Irritable bowel syndrome 07/25/2001 documented as of this encounter (statuses as of 11/22/2022) Resolved Problems Problem Noted Date Resolved Date Activated protein C resistance 10/18/2021 0 10/30/2022 [...] [facility] DETECT Study: Project # [id number], Clerk General Office: Buzz Mayes, PhD. SUMMARY: Goal: Establish test [...] contact study staff at ; after hours Clerk General Office via the [facility] ride operator . Please contact study team before resolving/deleting from patients problem list. Study phone number: [phone]. Diagnosis changed due to Research Module. Go to Snapshot for study details. Encounter for examination fo r normal comparison and control in clinical research program 10/08/2017 12/08/2021 Overview: DO NOT DELETE - [facility] Study: Project # [id number], Clerk General Office: Kervin Gutierrze, MS, MPH. SUMMARY: Goal: Establish test characteristics [...] contact study staff at ; after hours Clerk General Office via the [facility] ride operator . - Please contact study team before resolving/deleting from patients problem list. Study phone number: [phone]. Diagnosis changed due to Research Module. Go [...] 09/18/2015 Anticoagulation management encounter 11/14/2012 09/18/2015 intermediate school teacher current use of anticoagulant therapy 0 11/14/2012 [...] as of this encounter (statuses as of 11/22/2022) Immunizations Name Administration Dates Next Due COVID-19 mRNA, LNP-s, No Pre serve, 2-Dose Series (Rapidlea) 07/07/2020,06/16/2020 Covid-19, Mrna, Lnp-s, Pf, B ivalent, 30 Mcg, IM, 12 yrs and above (Pfizer) 10/30/2021 PPD 05/02/2010 Pneumococcal Conjugate Vacc, 13 Valent (Prevnar) 12/11/2015 Pneumococcal Polysaccharide PPV23 (Pneumovax) 12/14/2016 Seasonal Influenza, Quadriva lent Hd (Fluzone Hd) 01/26/2022,02/28/2021 Seasonal Influenza, Quadriva lent, No Preserve, 6 Mons & Above, IM 01/07/2020,01/11/2018,01/13/2017 Seasonal Influenza, Split, I IV3, With Preserve, [...] of this encounter Progress Notes * Betito Leger RPh - 11/22/2022 10:06 AM EDT Images from the original note were not included. Medication Therapy Disease Management - Anticoagulation Autumn Onofre 1950 Description Takes in AM Patient Findings Negatives: Signs/symptoms of thrombosis, Signs/symptoms of bleeding, Change in health, Change in alcohol use, Change in activity, Upcoming invasive procedure, Missed doses, Extra doses, Change in medications, Change in diet/appetite, Bruising INR Result As of 11/22/2022 INR goal: 2.0-3.0 INR used for dosin.2 (11/22/2022) Warfarin Plan As of 11/22/2022 Full warfarin instructions: 11/22: 2.5 mg; Otherwise 5 mg every day Next INR check: 01/03/2023 Repeat PT/INR in 6 week(s) Weekly dose: not changed Betito Dotson RPh, CACP, CDE Clinical Pharmacist Medication Therapy Management [facility] 11/22/2022 10:11 AM documented in this encounter Plan of Treatment Upcoming Encounters Date Type Specialty Care Team Description 12/01/2022 Office Visit Dermatology Rosa Horn MD [address] [place] [address] 01/03/2023 Anticoagulation Pharmacy Pharmacist1, [facility] [address] [place] [address] 01/18/2023 Office Visit Cardiology Vasu Machado PA-C [address] [place] [address] 03/08/2023 Nurse Only Ancillary Im, Nurse Annual Wellness [facility] [address] [facility] [place] [address] 11/01/2023 Office Visit Family Medicine Kacie Duenas PA-C [address] [facility] [place] [address] 11/23/2023 Imaging Radiology Health Maintenance Due Date [...] Additional history exists CKD HGB USE SMARTSET 48397 10/06/202310/05, 12/26/2021, 10/07/2021, Additional history exists CKD PHOS USE SMARTSET 86875 10/06/202309/08, 03/02/2021, 01/11/2018 Mammogram 11/22/2023 11/21/2022, 11/07, [...] this encounter Medical Devices Implanted Type Area Rail Layer Device Identifier Shelf Expiration Date Model / Serial / Lot Implant System, Biocomposite Achilles Speedbridge With Jumpstart Implanted:Qty: 1 on 04/24/2017 by Sandy Gonzáles, Yoni Azul MD at OR [facility] Left: Ankle [employer] 09/06/2018 [id number] / / [id number] documented as of this encounter Procedures Procedure Name Priority Date/Time Associated Diagnosis Comments INR FINGERSTICK, POINT OF CARE STAT 11/22/2022 10:08 AM EDT Paroxysmal atrial fibrillation (HCC) Anticoagulation management encounter intermediate school teacher current use of anticoagulant therapy documented in this encounter Results * INR FINGERSTICK, POINT OF CARE (11/22/2022 10:08 AM EDT) Fingerstick INR 3.2 INR 10:09 AM EDT [facility] 56- Blood 11/22/2022 10:0 8 AM EDT 11/22/2022 10:09 AM EDT Narrative [facility] 56- - 11/22/2022 10:09 AM EDT Therapeutic ranges for non-operative patients: Prophylaxsis/treatment of DVT: (Range:2.0-3.0) Treatment of pulmonary embolism:(Range:2.0-3.0) Prevention of systemic embolism from: -tissue heart valves -acute myocardial infarction -valvular heart disease -atrial fibrillation (Range: 2.0-3.0) Mechanical prosthetic valves: (Range: 2.5-3.5) Betito Nila V, RPh LAB POINT OF CARE TE ST DOCKED DEVICE UNSOLICITED RESULTS [facility] [address] [facility] [place] [address] documented in this encounter Visit Diagnoses Diagnosis Paroxysmal atrial fibrillation (HCC)- Primary Atrial fibrillation Anticoagulation management encounter Encounter for therapeutic drug monitoring half-way current use of anticoagulant therapy documented in this encounter Care Teams Crystal Finisher Relationship Specialty Start Date End Date HenriqueJuly Ashley, RELL [address] [facility] [place] [address] PCP - General Physician Farmworker [employer] 01/26/22 documented as of this encounter
--- OUTSIDE RECORDS SUMMARY | 2023-05-05 15:29 | External Medical Summary | Summary of Care ---
Author Name Unknown Organization [facility] Address [address] [place] [address] Phone [phone] Care Team Providers Care Technician Semiconductor Development Name Role Phone Henrique Kacie Ramirez PA-C Primary Care Provider [phone] Reason for Visit * Reason Onset Date Comments Follow Up Medication Administration 01/18/2023 Flu an d/or Pneumo Inj Encounter Details Date Type Department Care Team Description 01/18/2023 Office Visit Cardiology, [facility] [address] [place] [address] Vasu Machado PA-C [address] [facility] [place] [address] PAF (paroxysmal atrial fibrillation) ([facility])*; Need for prophylactic vaccination and inoculation against influenza; HTN, goal below 140/90; Pulmonary hypertension (HCC); Dyslipidemia, goal LDL below 100; Chronic kidney disease, stage 3b ([facility]); History of pulmonary embolism Allergies Active Allergy Reactions Severity Noted Date Comments Lactose Diarrhea 07/26/2010 Abdominal gas, bloating; GI lactose intolerance Latex Rash 12/06/2016 Localized contact rash only; no respiratory symptoms Other Allergy (See Comments) 12/24/2018 Rash with band aids documented as of this encounter (statuses as of 01/19/2023) Medications Medication Sig Dispensed Refills Start Date End Date Status PROBIOTIC DAILY PO CAPS one a day 30 Cap 0 11/13/2012 Active B-12 1000 MCG PO TBCRIndications:Co mpound heterozygous MTHFR mutation [id number] 1 TABLET DAILY 100 Tab 3 12/03/2012 [...] MG Oral TabletIndications: Compound heterozygous MTHFR mutation C677T/[id number] Take 1 Tablet by mouth in the [...] coagulation pharmacist. 90 Tablet 1 10/31/2022 Active Citalopram Hydrobromide 20 MG Oral Tablet (CeleXA) TAKE ONE TABLET BY MOUTH EVERY DAY 90 Tablet 3 06/03/2021 3 Discontinue d(Patient preference/ discontinua tion) documented as of this encounter (statuses as of 01/19/2023) Active Problems Problem Noted Date Body mass index (BMI) of 45.0 to 49.9 in adult 11/20/2022 Overview: Per Obesity protocol Paroxysmal atrial fibrillation 2 Recurrent major depressive disorder 10/07 Methylenetetrahydrofolate reductase [...] arthropathy 09/23/2015 Compound heterozygous MTHFR mutation [id number] 12/03/2012 Chronic rhinitis 10/29/2011 HTN, goal below 140/90 07/19/2005 Irritable bowel syndrome 07/25/2001 documented as of this encounter (statuses as of 01/19/2023) Resolved Problems Problem Noted Date Resolved Date [...] program 10/08/2017 11/10/2019 Overview: DO NOT DELETE [employer] DETECT Study: Project # [id number], Concrete Hopper Operator: Buzz Mayes, PhD. SUMMARY: Goal: Establish test [...] contact study staff at ; after hours Concrete Hopper Operator via the [facility] call center operator . Please contact study team before resolving/deleting from patients problem list. Study phone number: [phone]. Diagnosis changed due to Research Module. Go to Snapshot for study details. Encounter for examination fo r normal comparison and control in clinical research program 10/08/2017 12/08/2021 Overview: DO NOT DELETE - [employer] SILVINA Study: Project # [id number], Concrete Hopper Operator: Kervin Gutierrez, MS, MPH. SUMMARY: Goal: Establish [...] contact study staff at ; after hours Concrete Hopper Operator via the [facility] call center operator . - Please contact study team before resolving/deleting from patients problem list. Study phone number: [phone]. Diagnosis changed due to Research Module. Go [...] 11/14/2012 09/18/2015 Anticoagulation management encounter 11/14/2012 09/18/2015 equipment operator intermodal yard current use of anticoagulant therapy 0 11/14/2012 [...] as of this encounter (statuses as of 01/19/2023) Immunizations Name Administration Dates Next Due COVID-19 mRNA, LNP-s, No Pre serve, 2-Dose Series (Spotlime) 07/07/2020,06/16/2020 Covid-19, Mrna, Lnp-s, Pf, B ivalent, [...] Sign Reading Time Taken Comments Blood Pressure 136/74 01/18/2023 10:36 AM EDT Pulse 88 01/18/2023 10:36 AM EDT irre gular Temperature - - Respiratory Rate 18 01/18/2023 10:36 AM EDT Oxygen Saturation - - Inhaled Oxygen Concentration - - Weight 139.7 kg (308 lb) 01/18/2023 10:36 AM EDT Height - - Body Mass Index 49.15 10/30/2022 9:04 AM EDT documented in this encounter Progress Notes * Vasu Machado PA-C - 01/18/2023 10:52 AM EDT History of Present Illness: Autumn Onofre is a [address] Metz and Christen Lambert. Had to turn in the CPAP. Kept coming off in bed. Cancerous spot on the top Feeling good. No chest pain since last year or the year before, "an anxiety thing." Hasn't fallen "since I got this life alert." "I have a smart watch that ties in to my phone and it says I have a fib. I don't feel anything." No palpitations No unusual shortness of breath. Leg swelling and pain recently, aided by Prednisone. No lightheadedness, dizziness, near syncope, or syncope. Occasional self controlled left sided epistaxis. No hemoptysis. No melena, hematochezia, hematuria,or vaginal bleeding. Off Citalopram for about the last year. "I thought I could handle it. I can cry at the drop of a hat." Problem List: Paroxysmal atrial fibrillation, [id number] score of 3 (age, female, HTN), on coumadin Hypertension Hypertensive BP response on DSE 2018 Chronic bilateral lower extremity edema Moderate pulmonary HTN Moderate MR and TR Heterozygous MTHFR mutation with history of pulmonary embolism, aprox [id number] Severe obstructive sleep apnea Patient Active Problem List Diagnosis Code Irritable bowel syndrome K58.9 HTN, goal below 140/90 I10 Chronic rhinitis J31.0 Compound heterozygous MTHFR mutation C677T/M7513G Z15.89 Gouty arthropathy M10.9 Osteoarthritis of right [...] 45.0 to 49.9 in adult (HCC) Z68.42 Past Medical History: Diagnosis Date Chronic rhinitis 10/29/2011 Compound heterozygous MTHFR mutation C677T/Q7567H 12/03/2012 Deep vein thrombosis (DVT) (HCC) 2012 Depressive disorder, not elsewhere classified Gouty [...] Laterality Date ARTHROPLASTY KNEE TOTAL Left 12/19/[address] [facility] [address] Manzano ARTHROPLASTY KNEE TOTAL Right 08/27/2020 COLONOSCOPY, DIAGNOSTIC (RECTUM) 04/20/2008 wnl- repeat 7-10 yrs COLORECTAL CANCER SCREEN;W/FLE 08/05/2001 wnl 60 cms DENTAL SURGERY PROCEDURE NEC Dental Surgery Procedure INCISION OF HEEL BONE Left 04/24/2017 OSTEOTOMY CALCANEUS performed by Yoni Delgado Jr., MD at OR [facility] INFORMATION 08/19/2013 08/19/2013 excision of mass right calf; dx sucutaneous tissue, right calft posterior superior, excision, fat necrosis with fibrosis with fibrosis and lymphohistiocytic inflammatory reaction - [facility]ck[facility] OR - Dr. Vasu Mcghee INFORMATION Right 2014 rotator cuff surgery LOWER LEG/ANKLE SUBQ TUMOR REMOVE,3CMORMORE 08/19/2013 EXCISION LOWER LEG/ANKLE SUBQ TUMOR, 3CM OR MORE performed by Vasu Mcghee MD at OR [facility] MAMMOGRAM - BILATERAL 06/14/2005 Birad code 2/benign findings MAMMOGRAM DIAGNOSTIC UNILATERAL 06/04/2013 left calcification noted, biopsy could not localize, repeat 6 months MAMMOGRAM SCREENING-BILATERAL 12/23/2007 birad 2, benign, yearly reccm. REMOVAL OF APPENDIX 1971 Appendectomy REPAIR RUPTURED ACHILLES TENDON Left 04/24/2017 REPAIR ACHILLES TENDON performed by Yoni Delgado Jr., MD at OR [facility] Family History Problem Relation Age of Onset [...] colon Obesity Daughter No Past Hx Daughter Social History Socioeconomic History Marital status: Spouse name: Not on file Number of children: 2 Years of education: 13 Highest education level: Not on file Occupational History Comment: Social Reality Dealership Employer: [employer] Occupation: Research Chemical Engineer Employer: [employer] Tobacco Use Smoking status: Former Packs/day: 0.10 Years: 1.00 Pack years: 0.10 Types: Cigarettes Quit date: 04/09/1990 Years since quittin.8 Smokeless tobacco: Never Vaping Use Vaping Use: Never used Substance and Sexual Activity Alcohol use: No Drug use: No Sexual activity: Not Currently Other Topics Concern Service No Blood Transfusions No Caffeine Concern No Occupational Exposure Yes Comment: exhausst flumes Hobby Hazards No Sleep Concern No Stress Concern No Weight Concern No Special Diet Yes Comment: has ca supplement Back Care No Exercise No Bike Helmet Not Asked Seat Belt Yes Self-Exams Yes Comment: breast Social History Narrative Not on file Social Determinants of Health Financial Resource Strain: Not on file Food Insecurity: No Food Insecurity Worried About Running Out of Food in the Last Year: Never true Ran Out of Food in the Last Year: Never true Transportation Needs: Not on file Physical Activity: Not on file Stress: Not on file Social Connections: Not on file Intimate Partner Violence: Not on file Housing Stability: Not on file Complete Review of Systems is as stated above, negative, or noncontributory. Review of patient's allergies indicates: Allergen Reactions Lactose Diarrhea Abdominal gas, bloating; GI lactose intolerance Latex Rash Localized contact rash only; no respiratory symptoms Other Allergy (See Comments) Rash with band aids Current Outpatient Medications Medication Sig Dispense Refill B-12 1000 MCG PO TBCR 1 TABLET DAILY 100 Tab 3 Cholecalciferol (VITAMIN D3) 1000 UNITS CAPS Take by mouth. Tylenol 325 MG Oral Capsule (Acetaminophen) Take by mouth . Two tablets Fluorouracil 5 % External Cream (Efudex) Apply topically to affected area 2 times a day. apply to affected area nose for 2 weeks 40 g 0 PreserVision AREDS Oral Capsule Take 1 Capsule [...] adjusted by coagulation pharmacist. 90 Tablet 1 PROBIOTIC DAILY PO CAPS one a day (Patient not taking: Reported on 01/18/2023) 30 Cap 0 Citalopram Hydrobromide 20 MG Oral Tablet (CeleXA) TAKE ONE TABLET BY MOUTH EVERY DAY (Patient not taking: Reported on 01/18/2023) 90 Tablet 3 No current facility-administered medications for this visit. PHYSICAL EXAMINATION: BP 136/74 (BP Cuff Size: Large) | Pulse 88 Comment: irregular | Resp 18 | Wt (!) 139.7 kg (308 lb) | BMI 49.15 kg/m | BSA 2.56 m Examined in a chair General: alert, no distress, comfortable and cooperative Skin: Healing burn to the right quad Eyes: PER. Conjunctiva pink, sclera clear. HENT: Normocephalic. Atraumatic. Neck: No carotid bruits. No JVD. No HJR. Heart: Irregularly irregular at 90 bpm. No murmur. Lungs: Diminished. Decreased. No wheeze. Abdomen: +BS. Soft. Nontender. No masses. No organomegaly. Extremities: Mild edema. Stasis changes. No clubbing. No cyanosis Pulses: radial=2/4, posterior tibial=1/4. Limited neurological examination: No focal deficit. Data Reviewed: December 30, 2021 TTE Interpretation Summary (as per Dr. Almanza): The left ventricular cavity size is normal. The LV wall thickness is mildly increased (concentric). The left ventricular wall motion is normal. The qualitative LV ejection fraction is 60-64% (normal). The left ventricular diastolic function is abnormal by 2-D findings. The left atrium is moderately enlarged. Mild aortic valve sclerosis is present. Moderate mitral regurgitation is present. Moderate tricuspid regurgitation is present. Moderate pulmonary hypertension is present. The estimated pulmonary artery systolic pressure is 45-50 mm Hg May 2022 Zio Monitor (while on metoprolol 50 AM, 25 PM): Patient had a min HR of 33 bpm, max HR of 170 bpm, and avg HR of 78 bpm. Predominant underlying rhythm was Sinus Rhythm. First Degree AV Block was present. Bundle Branch Block/IVCD was present. QRS morphology changes were present throughout recording. 1 run of Ventricular Tachycardia occurred lasting 13 beats with a max rate of 162 bpm(avg 125 bpm). Episode of Ventricular Tachycardia may be Supraventricular Tachycardia with possibleaberrancy. 47 Supraventricular Tachycardia runs occurred, the run with the fastest interval lasting4 beats with a max rate of 150 bpm, the longest lasting 8 beats with an avg rate of 101 bpm. AtrialFibrillation occurred (46% burden), ranging from 45-170 bpm (avg of 94 bpm), the longest lasting 2 days 22 hours with an avg rate of 94 bpm. Atrial Fibrillation was present at activation and de-activation of device. Isolated SVEs were occasional (1.3%, 9696), SVE Couplets were rare (<1.0%, 1306), and SVE Triplets were rare (<1.0%, 71). Isolated VEs were rare (<1.0%), VE Couplets were rare (<1.0%), and no VE Triplets were present. Ventricular Bigeminy was present. No symptoms reported. June 13, 2022 Lexiscan Interpretation Summary (as per Dr. Maldonado): Myocardial perfusion imaging isnormal. Overall left ventricular systolic function was normal without regional wall motion abnormalities. The left ventricular ejection fraction was 72%. There are no prior studies available for comparison. ASSESSMENT AND RECOMMENDATIONS/PLAN: Paroxysmal atrial fibrillation. Asymptomatic. Continue metoprolol succinate 50 mg twice per day. Continue Coumadin anticoagulation. Diastolic congestive heart failure. Compensated. CHF tools discussed. Continue furosemide 40 mg/day. Hypertension. Controlled. Severe obstructive sleep apnea with associated nocturnal hypoxemia. Pulmonary hypertension. Intolerant to CPAP Moderate MR and TR. See above. Compound heterozygous MTHFR mutation History of pulmonary embolism Chronic kidney disease, stage 3b Gouty arthropathy Depression. Recommend follow-up with PCP. Off Citalopram for about the last year. Cardiology follow-up in 6 months or as needed. ER with emergencies. Vasu Machado PA-C Department of Cardiology * Thom Robb RN - 01/18/2023 10:45 AM EDT PRE - ADMINISTRATION DOCUMENTATION Are you experiencing any cold symptoms or fever? No Have you had Guillain-[place] Syndrome (an illness that causes paralysis) within the last 6 weeks? No Have you had the flu shot in the past? YES Have you ever had a reaction to the flu shot? No Thom Robb RN, 01/18/2023 10:45 AM Immunization Administration Documentation Time Out Procedure Performed: Yes Patient Identified (Ask Name/Date of ): Yes Does the patient have a fever greater than 101 degrees today? No Patient allergic to latex? No VFC Stock: No Immunization(s) verified: Yes, Immunization Name: Flu, VIS Sheet(s) given: No Verified Side and Site: Yes Verified Shot(s) with Parent(s)/Patient: Yes documented in this encounter Nursing Notes * Thom Robb RN - 01/18/2023 10:34 AM EDT Examination Room: room 2 Name: Autumn Onofre Date of : (1950). Reason for Visit: for follow up Interim Hospitalization(s): denies Problems/Concerns: denies Chest Pain/SOB: denies C.P. but gets BLANCO at times [facility] Discussed: Yes [facility] is a way you can talk to your provider online through e-mail. Would you like to sign up? I can activate it for you? ALREADY ACTIVE Patient was instructed to not get up on the exam table until directed and assisted by their provider; patient is to remain seated in the chair/ wheelchair/ exam table for fall prevention and safety reasons. Patient is aware to have assistance to step down off exam table with personnel. Patient voiced full comprehension of instructions. documented in this encounter Plan of Treatment Upcoming Encounters Date Type Specialty Care Team Description 01/31/2023 Anticoagulation Pharmacy Pharmacist1, [facility] [address] [facility] [place] [address] 03/08/2023 Nurse Only Ancillary Im, Nurse Annual Wellness [facility] [address] [facility] [place] [address] 11/01/2023 Office Visit Family Medicine Kacie Duenas PA-C [address] [facility] [place] [address] 11/22/2023 Office Visit Dermatology Rosa Horn MD [address] [place] [address] 11/23/2023 Imaging Radiology Health Maintenance Due Date Last Done Comments Hepatitis C Screening 1968 Fecal Occult Blood Test 08/21/2002 08/21/2001 Sigmoidoscopy 08/05/2006 08/05/2001, 07/25/2001 Colonoscopy 04/20/2018 04/20/2008 COVID-19 Vaccine ( season) 2022 10/30/2021, 07/07/2020, 06/16/2020 Depression Screening 03/07/2023 03/07/2022 GFR 04/06/2023 10/05/2022, 02/0 09/2022, 12/26/2021, Additional history exists Albumin/Creatinine Ratio 10/06/2023 023, 10/18/2021, 10/07/2021, Additional history exists CKD HGB USE SMARTSET 82185 10/06/202310/05, 12/26/2021, 10/07/2021, Additional history exists CKD PHOS USE SMARTSET 61443 10/06/202309/08, 03/02/2021, 01/11/2018 Mammogram 11/22/2023 11/21/2022, 11/07, [...] this encounter Medical Devices Implanted Type Area Digital Photographer Device Identifier Shelf Expiration Date Model / Serial / Lot Implant System, Biocomposite Achilles Speedbridge With Jumpstart Implanted:Qty: 1 on 04/24/2017 by Yoni Delgado MD at OR [facility] Left: Ankle [employer] 09/06/2018 [id number] / / [id number] documented as of this encounter Visit Diagnoses Diagnosis PAF (paroxysmal atrial fibrillation) (HCC)- Primary Atrial fibrillation Need for prophylactic vaccination and inoculation against influenza HTN, goal below 140/90 Unspecified essential hypertension Pulmonary hypertension (HCC) Other chronic pulmonary heart diseases Dyslipidemia, goal LDL below 100 Other and unspecified hyperlipidemia Chronic kidney disease, stage 3b (HCC) History of pulmonary embolism Personal history of pulmonary embolism documented in this encounter Care Teams Technician Semiconductor Development Relationship Specialty Start Date End Date Soniajuly RELL Ramirez [address] [place] [address] PCP - General Physician Roofing Applicator 01/26/22 documented as of this encounter
--- OUTSIDE RECORDS SUMMARY | 2023-05-05 15:29 | External Medical Summary | Summary of Care ---
Author Name Unknown Organization [facility] Address [address] [place] [address] Phone [phone] Care Team Providers Care Program Scheduler Name Role Phone Kacie Duenas PA-C Primary Care Provider [phone] Reason for Visit * Reason Onset Date Comments Appointment 01/26/2023 Encounter Details Date Type Department Care Team (Late st Contact Info) Description 01/26/2023 Telephone Family Practice [facility] [address] [facility] [place] [address] Kacie Duenas PA-C [address] [facility] [place] [address] Appointment Allergies Active Allergy Reactions Criticality Noted Date Comments Lactose Diarrhea 07/26/2010 Abdominal gas, bloating; GI lactose intolerance Latex Rash 12/06/2016 Localized contact rash only; no respiratory symptoms Other Allergy (See Comments) 12/24/2018 Rash with band aids documented as of this encounter (statuses as of 01/29/2023) Medications Medication Sig Dispensed Refills Start Date End Date Status PROBIOTIC DAILY PO CAPS one a day 30 Cap 0 11/13/2012 Active B-12 1000 MCG PO TBCRIndications:Com pound heterozygous MTHFR mutation C677T/K7661X 1 TABLET DAILY 100 Tab 3 12/03/2012 [...] MG Oral TabletIndications:C ompound heterozygous MTHFR mutation C677T/H4525T Take 1 Tablet by mouth in the [...] as of this encounter (statuses as of 01/29/2023) Active Problems Problem Noted Date Diagnosed Date [...] as of this encounter (statuses as of 01/29/2023) Resolved Problems Problem Noted Date Diagnosed Date [...] 11/10/2019 Overview: DO NOT DELETE [facility] DETECT Study: Project # [id number], Waistband Setter Lockstitch: Buzz Mayes, PhD. SUMMARY: Goal: Establish test [...] contact study staff at ; after hours Waistband Setter Lockstitch via the [facility] broke beater operator . Please contact study team before resolving/deleting from patients problem list. Study phone number: [phone]. Diagnosis changed due to Research Module. Go to Snapshot for study details. Encounter for examination fo r normal comparison and control in clinical research program 10/08/2017 12/08/2021 Overview: DO NOT DELETE - [facility] Study: Project # [id number], Waistband Setter Lockstitch: Kervin Gutierrez, MS, MPH. SUMMARY: Goal: Establish [...] contact study staff at ; after hours Waistband Setter Lockstitch via the [facility] broke beater operator . - Please contact study team before resolving/deleting from patients problem list. Study phone number: [phone]. Diagnosis changed due to Research Module. Go to [employer] for study details. 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 icoagulant therapy 11/14/2012 [...] as of this encounter (statuses as of 01/29/2023) Immunizations Name Administration Dates Next Due COVID-19 mRNA, LNP-s, No Pre serve, 2-Dose Series ([employer]) 07/07/2020,06/16/2020 Covid-19, Mrna, Lnp-s, Pf, B ivalent, 30 Mcg, IM, 12 yrs and above ([employer]) 10/30/2021 PPD 05/02/2010 Pneumococcal Conjugate Vacc, 13 [...] encounter Miscellaneous Notes * Telephone Encounter - Vangie Downing LPN - 01/29/2023 8:38 AM EDT Patient aware and verbalized understanding * Telephone Encounter - Sterling Combs DO - 01/26/2023 4:46 PM EDT I sent for another short course since she cannot get in today * Telephone Encounter - Vangie Downing LPN - 01/26/2023 1:42 PM EDT Called and spoke with pt. Pt states that she has pain on the outside of her right foot - unsure if it is out gout. States that it hurts when she walks and when she tries to curl her little toes. Denies injury to foot. Had same pain last month - see TE from 01/05/23. States she was given prednisone & it helped. * Telephone Encounter - CHATA Orozco - 01/26/2023 1:06 PM EDT No Appointments Available Patient declined appointments?: No What Visit Type is needed? Return If Acute Visit Type is needed, were surrounding clinics offered to patient (Yes/No)? Yes Was patient offered appointments with other available providers (Yes/No)? Yes See Call Details? (Yes or No): Yes, patient req an appt today with pcp, please schedl appt for her.She is also ok with pcp calling in a medication, she is out of the prednisone and foot is throbbingand swollen again. Please call her to advise what route will be taken. documented in this encounter Plan of Treatment Upcoming Encounters Date Type Department Care Team (Late st Contact Info) Description 01/31/2023 9:50 AM EDT Anticoagulation Pharmacy, State Zoe Rodriguez [address] [place] [address] Pharmacist1, [facility] [address] [facility] [place] [address] 03/08/2023 9:00 AM EST Nurse Only Ancillary [facility] [address] [facility] [place], [place] [address] Im, Nurse Annual Wellness [facility] [address] [place] [address] 11/01/2023 9:00 AM EDT Office Visit Family Practice [facility] [address] [place] [address] Kacie Duenas PA-C [address] [facility] [place] [address] 11/22/2023 10:45 AM EDT Office Visit Dermatology [facility] [address] [place] [address] Rosa Horn MD [address] [facility] [place] [address] 11/23/2023 10:15 AM EDT Imaging Radiology [address] [facility] [place] [address] Health Maintenance Due Date Last Done Comments Hepatitis C Screening 1968 Fecal Occult Blood Test 08/21/2002 08/21/2001 Sigmoidoscopy 08/05/2006 08/05/2001, 07/25/2001 Colonoscopy 04/20/2018 04/20/2008 COVID-19 Vaccine ( season) 2022 10/30/2021, 07/07/2020, 06/16/2020 Depression Screening 03/07/2023 03/07/2022 GFR 04/06/2023 10/05/2022, 02/0 09/2022, 12/26/2021, Additional history exists Albumin/Creatinine Ratio 10/06/2023 023, 10/18/2021, 10/07/2021, Additional history exists CKD HGB USE SMARTSET 28478 10/06/202310/05, 12/26/2021, 10/07/2021, Additional history exists CKD PHOS USE SMARTSET 41162 10/06/202309/08, 03/02/2021, 01/11/2018 Mammogram 11/22/2023 11/21/2022, 11/07, [...] this encounter Medical Devices Implanted Type Area Procurement Cost Coordinator Device Identifier Shelf Expiration Date Model / Serial / Lot Implant System, Biocomposite Achilles Speedbridge With Jumpstart Implanted:Qty: 1 on 04/24/2017 by Yoni Delgado MD at OR [facility] Left: Ankle [employer] 09/06/2018 [id number] / / [id number] documented as of this encounter Care Teams Program Scheduler Relationship Specialty Start Date End Date Henrique Kacie RELL Ramirez [address] [place] [address] PCP - General Physician Wood Dowel Machine Operator 01/26/22 documented as of this encounter
--- OUTSIDE RECORDS SUMMARY | 2023-05-05 15:29 | External Medical Summary | Summary of Care ---
Author Name Unknown Organization [facility] Address [address] [place] [address] Phone [phone] Care Team Providers Care Last Model Department Supervisor Name Role Phone SoniaKacie aimn Ashley ZACARIAS Primary Care Provider [phone] Reason for Visit * Reason Comments Mohs Surgery * Evaluate & Treat - Unlimited Visits (Within 30 days (routine)) - Authorized Specialty Diagnoses / Procedures Referred By Jose dempsey Referred To Contact Dermatology Diagnoses Squamous cell carcinoma in situ (SCCIS) of scalp Rosa Horn MD [address] [facility] [place] [address] Referral ID Status Reason Start Date Expiration Date Visits Requested Visits Authorized [id number] Authorized Specialty Services Required 10/18/[phone] Encounter Details Date Type Department Care Team Description 12/01/2022 Office Visit MOHS Surgery [facility] [place] [address] [place] [address] Rosa Horn MD [address] [facility] [place] [address] Squamous cell carcinoma in situ (SCCIS) of scalp* Allergies Active Allergy Reactions Severity Noted Date Comments Lactose Diarrhea 07/26/2010 Abdominal gas, bloating; GI lactose intolerance Latex Rash 12/06/2016 Localized contact rash only; no respiratory symptoms Other Allergy (See Comments) 12/24/2018 Rash with band aids documented as of this encounter (statuses as of 12/05/2022) Medications Medication Sig Dispensed Refills Start Date End Date Status PROBIOTIC DAILY PO CAPS one a day 30 Cap 0 11/13/2012 Active B-12 1000 MCG PO TBCRIndications:Com pound heterozygous MTHFR mutation C677T/P6944D 1 TABLET DAILY 100 Tab 3 12/03/2012 [...] MG Oral TabletIndications:C ompound heterozygous MTHFR mutation C677T/X2557Y Take 1 Tablet by mouth in the [...] as of this encounter (statuses as of 12/05/2022) Active Problems Problem Noted Date Body mass [...] arthropathy 09/23/2015 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 SUMMARY: Goal: Establish [...] contact study staff at ; after hours Lipstick Molder via the [facility] cut in station operator . Please contact study team before resolving/deleting from patients problem list. Study phone number: [phone]. Diagnosis changed due to Research Module. Go to Snapshot for study details. Encounter for examination fo r normal comparison and control in clinical research program 10/08/2017 12/08/2021 Overview: DO NOT DELETE - [facility] DETECT Study: Project # [id number], Lipstick Molder: Kervin Gutierrez, MS, MPH. SUMMARY: Goal: [...] contact study staff at ; after hours Lipstick Molder via the [facility] cut in station operator . - Please contact study team before resolving/deleting from patients problem list. Study phone number: [phone]. Diagnosis changed due to Research Module. 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/2015 termite exterminator current use of anticoagulant therapy 0 11/14/2012 [...] as of this encounter (statuses as of 12/05/2022) Immunizations Name Administration Dates Next Due COVID-19 mRNA, LNP-s, No Pre serve, 2-Dose Series ([employer]) 07/07/2020,06/16/2020 Covid-19, Mrna, Lnp-s, Pf, B ivalent, [...] Sign Reading Time Taken Comments Blood Pressure - - Pulse - - Temperature 36.2 C (97.2 F) 12/01/2022 10:22 AM E DT Respiratory Rate - - Oxygen Saturation - - Inhaled Oxygen Concentration - - Weight 138.3 kg (305 lb) 12/01/2022 10:22 AM EDT Height - - Body Mass Index 48.67 10/30/2022 9:04 AM EDT documented in this encounter Progress Notes * Rosa Horn MD - 12/02/2022 10:43 AM EDT History: Autumn Onofre is a 72 year old patient seen for evaluation and management of the following lesion: A. 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 Explained what Mohs surgery would entail. Patient ultimately opted for curettage today. Patient has a root canal scheduled for later today. Curettage of the lesion . The procedure, risks, benefits, alternatives and expected outcomes were discussed with the patient and consent was obtained. Patient identified, procedure verified, site identified and verified. Confirmed immediately prior to procedure. Area prepped with alcohol and anesthetized using 0.5% lidocaine with epinephrine at 1:200,000 concentration. Curettage performed for cure. 20% AlCl and bandaging applied. Patient instructed in routine post-op care. Size of lesion: 1 cm Size of wound after curettage: 1.5 cm Rosa Horn MD Associate, Mohs Micrographic Surgery & Dermatologic Surgery documented in this encounter Nursing Notes * Samia Marie LPN - 12/01/2022 10:25 AM EDT Chief Complaint Patient presents with Mohs Surgery Referral Doctor: Kory Hypertension History: Yes, refer to medication information for treatment. Diabetes History: No Thyroid History: No Bleeding Tendency: Yes, refer to medication information for treatment. Artificial Valve or Joint: Yes, No SBE Prophylaxis Required Pacemaker: no Defibrillator: no Hepatitis/HIV Exposure: No Smoking: no Consent signed yes * Samia Marie LPN - 12/01/2022 10:23 AM EDT Chief Complaint Patient presents with Mohs Surgery documented in this encounter Plan of Treatment Upcoming Encounters Date Type Specialty Care Team Description 01/03/2023 Anticoagulation Pharmacy Pharmacist1, [facility] [address] [facility] [place] [address] 01/18/2023 Office Visit Cardiology Vasu Machado PA-C [address] [place] [address] 03/08/2023 Nurse Only Ancillary Im, Nurse Annual Wellness [facility] [address] [facility] [place] [address] 11/01/2023 Office Visit Family Medicine Kacie Duenas PA-C [address] [place] [address] 11/22/2023 Office Visit Dermatology Rosa Horn MD [address] [facility] [place] [address] 11/23/2023 Imaging Radiology Health Maintenance Due Date [...] Additional history exists CKD HGB USE SMARTSET 18714 10/06/202310/05, 12/26/2021, 10/07/2021, Additional history exists CKD PHOS USE SMARTSET 52929 10/06/202309/08, 03/02/2021, 01/11/2018 Mammogram 11/22/2023 11/21/2022, 11/07, [...] this encounter Medical Devices Implanted Type Area Oncology Pharmacist Device Identifier Shelf Expiration Date Model / Serial / Lot Implant System, Biocomposite Achilles Speedbridge With Jumpstart Implanted:Qty: 1 on 04/24/2017 by Sandy Gonzáles, Yoni Azul MD at OR [facility] Left: Ankle [employer] 09/06/2018 [id number] / / [id number] documented as of this encounter Procedures Procedure Name Priority Date/Time Associated Diagnosis Comments DERM IMAGE (SITE) Routine 12/02/2022 Squamous cell carcinoma in situ (SCCIS) of scalp documented in this encounter Results * DERM IMAGE (SITE) (12/02/2022) 12/02/2022 Rosa Horn MD DIGITAL PHOTOGR APHY documented in this encounter Visit Diagnoses Diagnosis Squamous cell carcinoma in situ (SCCIS) of scalp- Primary documented in this encounter Care Teams Last Model Department Supervisor Relationship Specialty Start Date End Date Henrique July [place] Ramirez-C [address] [facility] [place] [address] PCP - General Physician Wax Coating Machine Tender 01/26/22 documented as of this encounter
--- OUTSIDE RECORDS SUMMARY | 2023-05-05 15:29 | External Medical Summary | Summary of Care ---
Author Name Unknown Organization [facility] Address [address] [place] [address] Phone [phone] Care Team Providers Care Housing Liaison Name Role Phone Kacie Duenas PA-C Primary Care Provider Reason for Visit * Reason Onset Date Comments Advice 01/18/2023 Encounter Details Date Type Department Care Team Description 01/18/2023 Telephone Family Practice [facility] [place] [address] [facility] [place] [address] Kacie Duenas PA-C [address] [place] [address] Advice Allergies Active Allergy Reactions Severity Noted [...] MCG PO TBCRIndications:Co mpound heterozygous MTHFR mutation C677T/T0061U 1 TABLET DAILY 100 Tab 3 12/03/2012 [...] MG Oral TabletIndications: Compound heterozygous MTHFR mutation C677T/V4575Z Take 1 Tablet by mouth in the [...] the morning. 30 Tablet 11 01/18/2023 Active Citalopram Hydrobromide 20 MG Oral Tablet [...] arthropathy 09/23/2015 Compound heterozygous MTHFR mutation C67 7T/Y9619Q 12/03/2012 Chronic rhinitis 10/29/2011 HTN, goal below [...] [facility] DETECT Study: Project # [id number], Vacuum Drier Tender: Buzz Mayes, PhD. SUMMARY: Goal: Establish test [...] contact study staff at ; after hours Vacuum Drier Tender via the [facility] grout machine operator . Please contact study team before resolving/deleting from patients problem list. Study phone number: [phone]. Diagnosis changed due to Research Module. Go to Snapshot for study details. Encounter for examination fo r normal comparison and control in clinical research program 10/08/2017 12/08/2021 Overview: DO NOT DELETE - [facility] Study: Project # [id number], Vacuum Drier Tender: Kervin Gutierrez, MS, MPH. SUMMARY: Goal: Establish [...] contact study staff at ; after hours Vacuum Drier Tender via the [facility] grout machine operator . - Please contact study team before resolving/deleting from patients problem list. Study phone number: [phone]. Diagnosis changed due to Research Module. Go to [employer] for study details. 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 * Telephone Encounter - Kacie Duenas PA-C - 01/18/2023 12:57 PM EDT Will start her on some Zoloft 50 mg. Please call patient inform. Have her break them in half for the 1st 6 days then go up to a full tablet. We should touch base after she is been on it 3 weeks or aguirre see if we need to increase the dose. * Telephone Encounter - Hannah Vazquez LPN - 01/18/2023 11:58 AM EDT Patient calling in with concerns of depression. She stated that she believes she is jose manuel state of depression as she seems to cry the drop of a hat. She stated that she was on Citalopram previously and did not feel like it worked for her so she hasbeen off of it for over a year. She is asking if Kacie Duenas PA-C would prescribe her something and to make sure that it does notconflict with her Coumadin. Please advise. Pharmacy selected. documented in this encounter Plan of Treatment Upcoming Encounters Date Type Specialty Care Team Description 01/31/2023 Anticoagulation Pharmacy Pharmacist1, [facility] [address] [facility] [place] [address] 03/08/2023 Nurse Only Ancillary Im, Nurse Annual Wellness [facility] [address] [facility] [place] [address] 11/01/2023 Office Visit Family Medicine Kacie Duenas PA-C [address] [facility] [place] [address] 11/22/2023 Office Visit Dermatology Rosa Horn MD [address] [facility] [place] [address] 11/23/2023 Imaging Radiology Health Maintenance Due Date Last Done Comments Hepatitis C Screening 1968 Fecal Occult Blood Test 08/21/2002 08/21/2001 Sigmoidoscopy 08/05/2006 08/05/2001, 07/25/2001 Colonoscopy 04/20/2018 04/20/2008 COVID-19 Vaccine ( season) 2022 10/30/2021, 07/07/2020, 06/16/2020 Depression Screening 03/07/2023 03/07/2022 GFR 04/06/2023 10/05/2022, 09/2022, 12/26/2021, Additional history exists Albumin/Creatinine Ratio 10/06/2023 023, 10/18/2021, 10/07/2021, Additional history exists CKD HGB USE SMARTSET 69846 10/06/202310/05, 12/26/2021, 10/07/2021, Additional history exists CKD PHOS USE SMARTSET 53035 10/06/202309/08, 03/02/2021, 01/11/2018 Mammogram 11/22/2023 11/21/2022, 11/07, [...] this encounter Medical Devices Implanted Type Area Parimutuel Ticket Checker Device Identifier Shelf Expiration Date Model / Serial / Lot Implant System, Biocomposite Achilles Speedbridge With Jumpstart Implanted:Qty: 1 on 04/24/2017 by Yoni Delgado MD at OR [facility] Left: Ankle [employer] 09/06/2018 [id number] / / [id number] documented as of this encounter Visit Diagnoses Diagnosis Current mild episode of major depressive disorder, unspecified whether recurrent (HCC)- Primary documented in this encounter Care Teams Housing Liaison Relationship Specialty Start Date End Date Henrique July [place] Ramirez-C [address] [facility] [place] [address] PCP - General Physician Internet Manager 01/26/22 documented as of this encounter
--- OUTSIDE RECORDS SUMMARY | 2023-05-05 15:29 | External Medical Summary | Summary of Care ---
Author Name Unknown Organization [facility] Address [address] [place] [address] Phone [phone] Care Team Providers Care Immunopathologist Name Role Phone SoniaKacie amin Ashley ZACARIAS Primary Care Provider [phone] Reason for Visit * Reason Onset Date Comments Appointment 12/04/2022 Encounter Details Date Type Department Care Team Description 12/04/2022 Telephone Dermatology [facility] [place] [address] [place] [address] Rosa Horn MD [address] [facility] [place] [address] Appointment Allergies Active Allergy Reactions Severity Noted [...] MCG PO TBCRIndications:Com pound heterozygous MTHFR mutation C677T/X4224H 1 TABLET DAILY 100 Tab 3 12/03/2012 [...] MG Oral TabletIndications:C ompound heterozygous MTHFR mutation C677T/W8721J Take 1 Tablet by mouth in the [...] arthropathy 09/23/2015 Compound heterozygous MTHFR mutation C67 7T/M3022P 12/03/2012 Chronic rhinitis 10/29/2011 HTN, goal below [...] program 10/08/2017 11/10/2019 Overview: DO NOT DELETE [facility] DETECT Study: Project # [id number], Water Service Supervisor: Buzz Mayes, PhD. SUMMARY: Goal: Establish test [...] contact study staff at ; after hours Water Service Supervisor via the [facility] earth boring machine operator . Please contact study team before resolving/deleting from patients problem list. Study phone number: [phone]. Diagnosis changed due to Research Module. Go to Snapshot for study details. Encounter for examination fo r normal comparison and control in clinical research program 10/08/2017 12/08/2021 Overview: DO NOT DELETE - [facility]IL[facility]INA Study: Project # [id number], Water Service Supervisor: Kervin Gutierrez, MS, MPH. SUMMARY: Goal: Establish [...] contact study staff at ; after hours Water Service Supervisor via the [facility] earth boring machine operator . - Please contact study team before resolving/deleting from patients problem list. Study phone number: [phone]. Diagnosis changed due to Research Module. 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 * Telephone Encounter - CHATA Stallworth - 12/04/2022 11:13 AM EDT Transferred to Derm. * Telephone Encounter - CHATA Sierra - 12/04/2022 10:20 AM EDT Called patient, left message to return call. * Telephone Encounter - CHATA Sierra - 12/04/2022 10:20 AM EDT ----- Message from Rosa Horn MD sent at 12/01/2022 7:17 PM EDT ----- Please schedule for 1 year follow up - October 2023. Thanks, Rosa documented in this encounter Plan of Treatment Upcoming Encounters Date Type Specialty Care Team Description 01/03/2023 Anticoagulation Pharmacy Pharmacist1, [facility] [address] [facility] [place] [address] 01/18/2023 Office Visit Cardiology Vasu Machado PA-C [address] [place] [address] 03/08/2023 Nurse Only Ancillary Im, Nurse [facility] [address] [place] [address] 11/01/2023 Office Visit Family Medicine Kacie Duenas PA-C 200 [facility] [place] [address] 11/22/2023 Office Visit Dermatology Rosa Horn MD 200 [facility] [place] [address] 11/23/2023 Imaging Radiology Health Maintenance Due Date [...] Additional history exists CKD HGB USE SMARTSET 47712 10/06/202310/05, 12/26/2021, 10/07/2021, Additional history exists CKD PHOS USE SMARTSET 56912 10/06/202309/08, 03/02/2021, 01/11/2018 Mammogram 11/22/2023 11/21/2022, 11/07, [...] this encounter Medical Devices Implanted Type Area Platen Press Feeder Device Identifier Shelf Expiration Date Model / Serial / Lot Implant System, Biocomposite Achilles Speedbridge With Jumpstart Implanted:Qty: 1 on 04/24/2017 by Sandy Gonzáles, Yoni Azul MD at OR [facility] Left: Ankle [employer] 09/06/2018 [id number] / / [id number] documented as of this encounter Care Teams Immunopathologist Relationship Specialty Start Date End Date Kacie Duenas, MELANIE-C 200 [facility] [place] [address] PCP - General Physician Biological Engineer 01/26/22 documented as of this encounter
--- OUTSIDE RECORDS SUMMARY | 2023-05-05 15:29 | External Medical Summary ---
Author Name Unknown Address Unknown Organization K09:[facility] [place] [address] Laboratory Report Ordering Provider Test Date Status SOHAILTANI V 11/22/2022 10:08:33 Final Therapeutic ranges for non-o perative patients:
Prophylaxsis/treatment of DVT: (Range:2.0-3.0)
Treatment of pulmonary embolism:(Range:2.0-3.0)
Prevention of systemic embolism from:
-tissue heart valves
-acute myocardial infarction
-valvular heart disease
-atrial fibrillation
(Range: 2.0-3.0)
Mechanical prosthetic valves: (Range: 2.5-3.5) Observation Date Value Abnormality Reference (Units ) Status INR in Capillary blood by Coagulation assay 11/22/2022 10:08:33 3.2 (INR) Final Performing Location [facility] [place] [id number]
--- OUTSIDE RECORDS SUMMARY | 2023-05-05 15:29 | External Medical Summary | Summary of Care ---
Author Name Unknown Organization [facility] Address [address] [place] [address] Phone [phone] Care Team Providers Care Airplane And Engine Inspector Name Role Phone Kacie Duenas PA-C Primary Care Provider [phone] Reason for Visit * Reason Onset Date Comments Advice 01/05/2023 Encounter Details Date Type Department Care Team Description 01/05/2023 Telephone Family Practice [place] [address] [facility] [place] [address] Kacie Duenas PA-C [address] [place] [address] Advice Allergies Active Allergy Reactions Severity Noted [...] MCG PO TBCRIndications:Com pound heterozygous MTHFR mutation C677T/T0352A 1 TABLET DAILY 100 Tab 3 12/03/2012 [...] MG Oral TabletIndications:C ompound heterozygous MTHFR mutation C677T/F6113A Take 1 Tablet by mouth in the [...] arthropathy 09/23/2015 Compound heterozygous MTHFR mutation C67 7T/M4042A 12/03/2012 Chronic rhinitis 10/29/2011 HTN, goal below [...] program 10/08/2017 11/10/2019 Overview: DO NOT DELETE [facility] DETECT Study: Project # [id number], Manager Commercial: Buzz Mayes, PhD. SUMMARY: Goal: Establish test [...] contact study staff at ; after hours Manager Commercial via the [facility] mud tank operator . Please contact study team before resolving/deleting from patients problem list. Study phone number: [phone]. Diagnosis changed due to Research Module. Go to Peerflix for study details. Encounter for examination fo r normal comparison and control in clinical research program 10/08/2017 12/08/2021 Overview: DO NOT DELETE - [facility] Study: Project # [id number], Manager Commercial: Kervin Gutierrez, MS, MPH. SUMMARY: Goal: Establish [...] contact study staff at ; after hours Manager Commercial via the [facility] mud tank operator . - Please contact study team before resolving/deleting from patients problem list. Study phone number: [phone]. Diagnosis changed due to Research Module. Go [...] 11/14/2012 09/18/2015 Anticoagulation management encounter 11/14/2012 09/18/2015 half-way current use of anticoagulant therapy 0 11/14/2012 [...] mRNA, LNP-s, No Pre serve, 2-Dose Series ([employer]) 07/07/2020,06/16/2020 Covid-19, Mrna, Lnp-s, Pf, B ivalent, [...] Telephone Encounter - Eulalia Armas LPN - 01/05/2023 11:51 AM EDT I made patient aware. She said she doesn't think it is infected. She is going go go bead picker the prednisone but if anything changes she said she will go to urgent care. * Telephone Encounter - Ibis Ojeda PA-C [...] Ibuprofen or motrin. No appointments today at [facility]. Offered [facility] appointment, she wanted message sent to provider. Please advise Reason for Call: Advice Contact: Telephone Call Contact Type: Information Total Time including non face to face (minutes): 5 documented in this encounter Plan of Treatment Upcoming Encounters Date Type Specialty Care Team Description 01/18/2023 Office Visit Cardiology Vasu Machado PA-C [address] [place] [address] 01/31/2023 Anticoagulation Pharmacy Pharmacist1, [facility] [address] [facility] [place] [address] 03/08/2023 Nurse Only Ancillary Im, Nurse [facility] [address] [facility] [place] [address] 11/01/2023 Office Visit Family Medicine Kacie Duenas PA-C [address] [facility] [place], [place] [address] 11/22/2023 Office Visit Dermatology Rosa Horn MD [address] [place] [address] 11/23/2023 Imaging Radiology Health Maintenance Due Date [...] Additional history exists CKD HGB USE SMARTSET 50998 10/06/202310/05, 12/26/2021, 10/07/2021, Additional history exists CKD PHOS USE SMARTSET 10565 10/06/202309/08, 03/02/2021, 01/11/2018 Mammogram 11/22/2023 11/21/2022, 11/07, [...] this encounter Medical Devices Implanted Type Area Technical Writer Device Identifier Shelf Expiration Date Model / Serial / Lot Implant System, Biocomposite Achilles Speedbridge With Jumpstart Implanted:Qty: 1 on 04/24/2017 by Yoni Delgado MD at OR [facility] Left: Ankle [employer] 09/06/2018 [id number] / / [id number] documented as of this encounter Care Teams Airplane And Engine Inspector Relationship Specialty Start Date End Date Kacie Duenas PA-C [address] [facility] [place] [address] PCP - General Physician Experimental Preflight Mechanic 01/26/22 documented as of this encounter
[2023-05-05] MEDS ORDERED: SODIUM CHLORIDE 0.9% 500 ML IV STA (15:42)
--- NOTE | 2023-05-05 15:53 | Emergency Department Note ---
History of Present Illness General Chief complaint: Cardiac Assessment Stated complaint: BACK PAIN, REFER [facility] FOR POSS HEART ATTACK Time Seen by Provider: 05/05/23 15:34 Source: patient, family (Daughter was at the bedside), RN notes reviewed and old records reviewed (I have reviewed notes from outpatient office visit from today ) Mode of arrival: ambulatory Limitations: no limitations History of Present Illness Maximum Pain Intensity: 4 This patient is a 72-year-old female who comes in after having pain between her shoulder blades starting around 630 this morning. She feels a lot better now. she has chronic shortness of breath. its gotten worse. She is chronic lower extremity edema which has not changed . no chest pain .no fever .she has chronic A-fib. 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 She does have history of PE/DVT. Slight cough. No abdominal pain. No trauma. Home Medications Medication Instructions Recorded Confirmed Type cholecalciferol (vitamin D3) 25 25 mcg PO QAM 07/28/20 05/05/23 History mcg (1,000 unit) tablet (Vitamin D3) cyanocobalamin (vitamin B-12) 500 500 mcg PO DAILY 05/05/23 05/05/23 History mcg tablet (Vitamin B-12) folic acid 1 mg tablet 1 mg PO DAILY 05/05/23 05/05/23 History furosemide 40 mg tablet 40 mg PO DAILY 05/05/23 05/05/23 History latanoprost 0.005 % eye drops 1 drp OPB HS 05/05/23 05/05/23 History metoprolol succinate 50 mg 50 mg PO BID 05/05/23 05/05/23 History tablet,extended release 24 hr sertraline 50 mg tablet 50 mg PO DAILY 05/05/23 05/05/23 History warfarin 5 mg tablet 2.5 mg PO MOWEFR@1600 05/05/23 05/05/23 History warfarin 5 mg tablet 5 mg PO SUTUTHSA@1600 05/05/23 05/05/23 History Allergies Allergy/AdvReac Type Severity Reaction Status Date / Time adhesive Allergy Mild RASH Verified 05/05/23 15:41 latex Allergy Mild RASH Verified 05/05/23 15:41 lactose AdvReac Intermediate GI SYMPTOMS Verified 05/05/23 15:41 Past Med/Surg History Medical History Lower extremity edema Paroxysmal A-fib Occurred during stress test several years ago Hx of gout Osteoarthritis Lactose intolerance History of skin cancer s/p removal Factor 5 Leiden mutation, heterozygous On chronic coumadin HTN (hypertension) CKD (chronic kidney disease), stage III GFR baseline in 40s Irritable bowel syndrome (IBS) DVT (deep venous thrombosis) 2013 Pulmonary embolism 2013 Surgical History Status post left knee replacement (~12/2019) History of orthopedic surgery LEFT HEEL BONE SPUR SURGERY History of repair of rotator cuff RT History of colonoscopy History of appendectomy History of tooth extraction Family History Father Family history of diabetes mellitus Other Diabetes No family history of adverse response to anesthesia Social History Smoking Status: Former smoker Second Hand Exposure: No; Do You Dip or Chew Tobacco: No; Hx Alcohol Use: No Hx Substance Use: No Preferred Language: Maori Communication Ability: Effective Tile Sprayer Required: No Beliefs That Will Affect Care: None Current Living Situation: Family Current Living Situation Comment: WITH DAUGHTER current occupational status: retired Feels Safe at Home: Yes Assistive Devices: Walker Review of Systems A total of 10 systems reviewed and were otherwise negative Physical Exam Vital Signs Vital Signs - 24 hr 05/05/23 15:26 05/05/23 15:26 05/05/23 16:02 Temperature 36.7 C Temperature Source Temporal Artery Scan Pulse Rate 132 H 115 H Pulse Rate [Left Finger] Pulse Rhythm Irregular Pulse Rhythm [Left Finger] Pulse Strength [Left Finger] Respiratory Rate 28 H 32 H Respiratory Effort / Characteristics Spontaneous Short of Breath Spontaneous SOB on Exertion Respiratory Depth Normal Respiratory Pattern Regular Blood Pressure 159/85 H Blood Pressure [Right Arm] Blood Pressure Mean 109 Blood Pressure Mean [Right Arm] Blood Pressure Position [Right Arm] Pulse Oximetry 93 93 Oxygen Delivery Method Room Air Room Air Sepsis Recent Fever Within 48 Hours No Sepsis New/Unexplained Change in Mental Status No Sepsis Action Taken by Nursing No Action Required 05/05/23 16:58 05/05/23 16:59 Temperature Temperature Source Pulse Rate 135 H Pulse Rate [Left Finger] 145 H Pulse Rhythm Pulse Rhythm [Left Finger] Regular Pulse Strength [Left Finger] Normal Respiratory Rate 17 Respiratory Effort / Characteristics Non-Labored Spontaneous Respiratory Depth Normal Respiratory Pattern Regular Blood Pressure 145/101 H Blood Pressure [Right Arm] 126/100 Blood Pressure Mean Blood Pressure Mean [Right Arm] 108 Blood Pressure Position [Right Arm] Sitting Pulse Oximetry 96 Oxygen Delivery Method Room Air Sepsis Recent Fever Within 48 Hours Sepsis New/Unexplained Change in Mental Status Sepsis Action Taken by Nursing General: Well developed well nourished [id number] obese older female who appears in no acute distress, breathing comfortably on room air. Normal speech HEENT: Normal cephalic atraumatic. Pupils are equal round and reactive to light. Extraocular movements are intact. Oropharynx is pink with moist mucous membranes. No swelling of the mouth lips or tongue. Neck: Supple with a midline trachea. No meningeal signs or stiffness, no JVD or bruits. No Stridor. Chest: Clear to auscultation bilaterally. No wheezes or rhonchi. No increased work of breathing. Heart: Tachycardic and irregular rate and rhythm consistent with rapid A-fib on the monitor rate of about 120 without murmurs or gallops. Abdomen: Soft nontender, nondistended without rebound guarding or rigidity. Extremities: No cyanosis clubbing or edema. She has chronic left lower extremity swelling which she says is unchanged. Call Spine/Back. Non tender to palpation. No CVA tenderness Skin: Good turgor without rashes. Neurologic exam: Cranial nerves two through 12 are intact. Motor and sensation are intact and symmetrical throughout. Course Administered Medications Heparin Sodium/Dextrose (Heparin Sodium/Dextrose) 25,000 units in 500 mls @ 34 mls/hr IV .[id number] [facility]; Protocol Stop: 06/04/23 17:44 Last Admin: 05/05/23 17:59 Dose: 1,700 units/hr, 34 mls/hr Documented By: SANDY Co-signed By: [facility] Discontinued Medications Heparin Sodium/Dextrose (Heparin 47808 Unit/500 Ml D5w) Confirm Administered Dose 25,000 units IV .STK-MED ONE Stop: 05/05/23 17:46 Last Admin: 05/05/23 17:59 Dose: Not Given Documented By: SANDY Sodium Chloride (Nss) 500 mls @ 999 mls/hr IV .Q31M STA Stop: 05/05/23 16:12 Last Infusion: 05/05/23 16:13 Dose: Infused Documented By: Admin: 05/05/23 15:42 Dose: 999 mls/hr Documented By: SANDY Magnesium Sulfate/Dextrose (Magnesium Sulfate / D5w) 1 gm in 100 mls @ 50 mls/hr IV ONE ONE Stop: 05/05/23 20:30 Last Admin: 05/05/23 19:48 Dose: 50 mls/hr Documented By: TAL Ioversol (Optiray 320 125ml) 116 ml IV ONCE ONE Stop: 05/05/23 16:14 Last Admin: 05/05/23 16:14 Dose: 116 ml Documented By: NAVI Metoprolol Succinate (Metoprolol Succ 50mg Ext Rel Tab) 50 mg PO NOW STA Stop: 05/05/23 17:37 Last Admin: 05/05/23 18:02 Dose: 50 mg Documented By: SANDY Metoprolol Tartrate (Metoprolol Tartrate 1 Mg/Ml Vial) 5 mg IV NOW STA Stop: 05/05/23 16:49 Last Admin: 05/05/23 16:58 Dose: 5 mg Documented By: SANDY Potassium Chloride (Potassium Chloride Crtab 20 Meq Tabcr) 40 meq PO NOW STA Stop: 05/05/23 17:10 Last Admin: 05/05/23 17:48 Dose: 40 meq Documented By: SANDY Critical Care Time Critical Care Time: Yes Total Critical Care Time: 32 Due to the patient's rapid A-fib and cardiac complaints, need for multiple test, concern for pulmonary embolism, medications and consultation,I have personally spent greater than 30 minutes of critical care time in the direct management of this patient. This includes bedside care, interpretation of diagnostic studies, and testing, discussion with consultants, patient, and family members, and other required patient management activities. This 32 minutes is in excess of all separately billable procedures. Medical Decision Making Differential Diagnosis A-fib, acute coronary syndrome, arrhythmia, PE, pneumothorax, pneumonia, COVID, electrolyte or metabolic abnormality Medical Records Attestation: I reviewed the patient's medical records. Home Medications Current Medication List: was personally reviewed by nm Laboratory Data Attestation: I reviewed the patient's lab results. 05/05/23 15:52 05/05/23 15:52 Lab Results 05/05/23 05/05/23 Range/Units 15:52 16:00 WBC 9.34 (4.8-10.8) K/ul RBC 4.24 (4.20-5.40) M/uL Hgb 12.6 (12.0-16.0) g/dl POC Hgb 13.9 (12.0-16.0) g/dl Hct 40.2 (37.0-47.0) % POC Hct 41 (37-47) % MCV 94.8 (80.0-100.0) fL MCH 29.7 (25.0-34.0) pg MCHC 31.3 L (32.0-36.0) g/dL RDW Std Deviation 47.0 H (36.4-46.3) fL RDW Coeff of Fabián 13.5 (11.5-14.5) % Plt Count 263 (130-400) K/uL MPV 11.5 (9.4-12.4) fL Immature Gran % (Auto) 0.3 % Neut % (Auto) 83.3 % Lymph % (Auto) 7.1 % [place] % (Auto) 7.4 % Eos % (Auto) 1.5 % Baso % (Auto) 0.4 % Neut # (Auto) 7.78 H (1.40-6.50) K/uL Lymph # (Auto) 0.66 L (1.20-3.40) K/uL [place] # (Auto) 0.69 H (0.11-0.59) K/uL Eos # (Auto) 0.14 (0.00-0.50) K/uL Baso # (Auto) 0.04 (0.00-0.20) K/uL Immature Gran # (Auto) 0.03 (0.01-0.20) K/uL PT 12.4 H (9.0-12.0) Seconds INR 1.1 (0.9-1.1) APTT 27 (21-31) Seconds PTT Ratio 1.0 D-Dimer 740 H* (0-500) ug/L FEU POC Sodium 142 (135-144) mmol/L Sodium 140 (136-145) mmol/L POC Potassium 3.6 (3.3-5.0) mmol/L Potassium 3.6 (3.5-5.1) mmol/L POC Chloride 106 (101-112) mmol/L Chloride 107 (98-107) mmol/L Carbon Dioxide 24 (21-32) mmol/L POC Total CO2 23 L (24-31) mmol/L Anion Gap 9 (3-11) POC Anion Gap 18.0 (16-25) mmol/L POC BUN 12 (7-18) mg/dl BUN 13 (6-23) mg/dl Creatinine 1.09 (0.6-1.2) mg/dl POC Creatinine 1.2 (0.6-1.3) mg/dl Est Cr Clr Drug Dosing 68.3 ml/min Est GFR ( Amer) 58.3 ml/min Est GFR (Non-Af Amer) 50.3 ml/min BUN/Creatinine Ratio 11.9 (10-20) Glucose 150 H (70-99(Fasting)) mg/dl POC Glucose (other) 152 H (70-99) mg/dl Calcium 9.5 (8.6-10.3) mg/dl POC Ioniz Calcium [place] 1.19 (1.12-1.32) mmol/l Total Bilirubin 1.3 H (0.2-1.0) mg/dl AST 29 (13-39) U/L ALT 22 (7-52) U/L Alkaline Phosphatase 88 (34-104) U/L Troponin I High Sens 25.7 H (0-14) pg/ml B-Natriuretic Peptide 235 H (0-100) pg/ml Total Protein 8.3 (6.0-8.3) gm/dl Albumin 4.3 (3.4-5.0) gm/dl Globulin 4.0 (2.5-4.0) gm/dl Albumin/Globulin Ratio 1.1 (0.9-2) Lipase 39 (11-82) U/L Procalcitonin < 0.05 (0-0.5) ng/ml Imaging Data Attestation: I personally reviewed and interpreted this imaging study as follows: My Impression: Chest x-raycardiomegaly. There may be a mild congestive heart failure component but no focal infiltrate or pneumothorax seen CT angiographyno central PE seen or pneumothorax. Radiologist's Impression: Chest X-Ray 05/05/23 15:42 XR chest 1V portable HISTORY: Chest pain, nonspecific COMPARISON: Chest 11/18/2019. FINDINGS: No pneumothorax. No pleural effusions. The heart remains mildly enlarged. Small left basilar linear densities favor subsegmental atelectasis or scarring. Otherwise, lungs are clear. No evidence for pulmonary edema. No acute fractures identified. IMPRESSION: Mild cardiomegaly. Otherwise, no acute process within the chest. ACT 112: Negative or not required by law. Electronically signed by: Fox Ramos M.D. 05/05/2023 4:11 PM Chest CTA 05/05/23 15:44 CHEST CTA for PULMONARY ARTERIES CT DOSE: 958.64 mGy.cm HISTORY: Atypical chest pain. Shortness of breath. TECHNIQUE: Multiaxial CT images of the chest were performed following the intravenous administration of contrast to evaluate the pulmonary arteries. 3D/Maximal intensity projection images were also obtained. Sagittal and coronal reformations were also reviewed. A dose lowering technique was utilized adhering to the principles of ALARA. COMPARISON STUDY: Chest CTA 12/07/2016. FINDINGS: Normal caliber thoracic aorta with no evidence for a dissection. The heart is mildly enlarged. There are mitral annulus calcifications noted. The main pulmonary artery is dilated up to 3.8 cm consistent with pulmonary arterial hypertension. No filling defects within the pulmonary arteries to suggest a pulmonary embolus. No pleural or pericardial effusions. There is a small hiatus hernia. Otherwise, normal caliber esophagus. A few mildly enlarged mediastinal lymph nodes. A dominant precarinal lymph node on image 156 measures 24 x 17 mm. Limited views the upper abdomen demonstrate normal liver, spleen, and adrenal glands. No acute fractures. No pneumothorax. The central airways are patent. A few small bibasilar linear densities favor subsegmental atelectasis or scarring. Mosaic attenuation within the lungs suggest mild air trapping. There are few scattered subcentimeter nodular densities within the lungs which are new compared to the prior study. Some of these demonstrate a tree-in-bud nodular pattern. The majority of these nodules demonstrate a groundglass halo. Dominant nodules within the base of the left lower lobe on images 84 and 81 measure up to 6 mm. Therefore, this favors a mild inflammatory/infectious process. IMPRESSION: 1. No evidence for a pulmonary embolus. 2. Pulmonary arterial hypertension. 3. There are few scattered subcentimeter nodular densities within the lungs which are new compared to the prior study. Some of these demonstrate a tree-in-bud nodular pattern. Therefore, this favors a mild inflammatory/infectious process. 4. Mild mediastinal lymphadenopathy which has progressed. This could be reactive. However, [address] follow-up recommended to ensure stability/resolution of the additional lymph nodes and scattered nodules. 5. Mild air trapping. ACT 112: Negative or not required by law. Electronically signed by: Fox Ramos M.D. 05/05/2023 4:37 PM ECG Data Attestation: I personally reviewed and interpreted this ECG as follows: Indication: + SOB/dyspnea Rate (beats per minute): 132 Rhythm: + atrial fibrillation ECG Intervals/blocks: + Normal QRS and + Normal QT ECG [place]: + Normal ECG ST segments: + Nonspecific ST abnormalities ECG Findings: no PACs or no PVCs Comparison ECG Date: from (08/03/20) Change: the following changes noted (A-fib has replaced normal sinus.) MDM Narrative This patient is a 69-year-old female comes with shortness of breath and back pain. She has A-fib which is chronic she is some mild rapid ventricular response. Her blood pressure looks good and is on the hypertensive side. I am Concerned about PE as being the most likely diagnosis based on her history of having a clotting disorder. She is on anticoagulation. She was placed on a hall monitor room B7. chest x-ray was ordered as well as multiple blood testing also ordered a CT angiography. Her EKG shows rapid A-fib but no definite ischemic changes. Her initial troponin is only mildly elevated in the 20 range. A follow-up troponin was also in the same range. BNP is mildly elevated I think she could have a mild congestive heart failure component. Chest x-ray shows no pneumothorax there is cardiomegaly with some mild interstitial fullness. CT angiography shows no definite PE there is some interstitial process. She is not acting like it is infectious. COVID was negative. I did give her Lopressor 5 mg IV, she did not take her meds this morning I wanted to slow her rate down a little bit it is possible this could be related her A-fib and a rapid ventricular response. I do think she needs to be admitted/observed for further treatment and evaluation. I have consulted the [facility] hospitalist team and talked him at length and they saw her in the ER for these measures Continuous cardiac monitoring: Orders placed in EMR for continuous cardiac monitoring. Upon my evaluation patient noted to be in rapid A-fib with a rate in the 120s. 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
[2023-05-05 16:09] LABS: Basophils # (auto) 0.04 K/uL (0.00-0.20); Basophils % (auto) 0.4 %; Eosinophils # (auto) 0.14 K/uL (0.00-0.50); Eosinophils % (auto) 1.5 %; Hematocrit (blood only) 40.2 % (37.0-47.0); Hemoglobin 12.6 g/dl (12.0-16.0); Immature Granulocytes # (auto) 0.03 K/uL (0.01-0.20); Immature Granulocytes % (auto) 0.3 %; Lymphocytes # (auto) 0.66 K/uL (1.20-3.40); Lymphocytes % (auto) 7.1 %; Mean Corpuscular Hemoglobin 29.7 pg (25.0-34.0); Mean Corpuscular Hgb Conc 31.3 g/dL (32.0-36.0); Mean Corpuscular Volume 94.8 fL (80.0-100.0); Mean Platelet Volume 11.5 fL (9.4-12.4); Monocytes # (auto) 0.69 K/uL (0.11-0.59); Monocytes % (auto) 7.4 %; Neutrophils # (auto) 7.78 K/uL (1.40-6.50); Neutrophils % (auto) 83.3 %; Platelet Count 263 K/uL (130-400); RDW Coefficient of Variation 13.5 % (11.5-14.5); Red Blood Count 4.24 M/uL (4.20-5.40); White Blood Count 9.34 K/ul (4.8-10.8)
[2023-05-05 16:13] LABS: iSTAT Creatinine 1.2 mg/dl (0.6-1.3); iSTAT Hemoglobin 13.9 g/dl (12.0-16.0); iSTAT Ionized Calcium 1.19 mmol/l (1.12-1.32); iSTAT Potassium 3.6 mmol/L (3.3-5.0)
[2023-05-05] MEDS ORDERED: OPTIRAY 320 125ml IV ONE (16:13)
--- NOTE | 2023-05-05 16:13 | XRay Report ---
XR chest 1V portable HISTORY: Chest pain, nonspecific COMPARISON: Chest 11/18/2019. FINDINGS: No pneumothorax. No pleural effusions. The heart remains mildly enlarged. Small left basila r linear densities favor subsegmental atelectasis or scarring. Otherwise, lungs are clear. No evidenc e for pulmonary edema. No acute fractures identified. IMPRESSION: Mild cardiomegaly. Otherwise, no acute process within the chest. ACT 112: Negative or not required by law. Electronically signed by: Fox Ramos M.D. 05/05/2023 4:11 PM
[2023-05-05 16:22] LABS: Albumin Globulin Ratio 1.1 (0.9-2); Albumin Level 4.3 gm/dl (3.4-5.0); BUN Creatinine Ratio 11.9 (10-20); Bilirubin,Total 1.3 mg/dl (0.2-1.0); Calcium 9.5 mg/dl (8.6-10.3); Creatinine Clr Calc Pharmacy 68.3 ml/min; Est GFR (African American) 58.3 ml/min; Est GFR (Non-African American) 50.3 ml/min; Potassium 3.6 mmol/L (3.5-5.1); Total Protein 8.3 gm/dl (6.0-8.3)
[2023-05-05 16:29] LABS: Troponin I High Sensitivity 25.7 pg/ml (0-14)
[2023-05-05 16:36] LABS: INR 1.1 (0.9-1.1); Partial Thromboplastin Time 27 Seconds (21-31); Prothrombin Time 12.4 Seconds (9.0-12.0)
--- NOTE | 2023-05-05 16:39 | CT Scan Report ---
CHEST CTA for PULMONARY ARTERIES CT DOSE: 958.64 mGy.cm HISTORY: Atypical chest pain. Shortness of breath. TECHNIQUE: Multiaxial CT images of the chest were performed following the intravenous administration of contrast to evaluate the pulmonary arteries. 3D/Maximal intensity projection images were also obta ined. Sagittal and coronal reformations were also reviewed. A dose lowering technique was utilized a dhering to the principles of ALARA. COMPARISON STUDY: Chest CTA 12/07/2016. FINDINGS: Normal caliber thoracic aorta with no evidence for a dissection. The heart is mildly enlarg ed. There are mitral annulus calcifications noted. The main pulmonary artery is dilated up to 3.8 cm consistent with pulmonary arterial hypertension. No filling defects within the pulmonary arteries to suggest a pulmonary embolus. No pleural or pericardial effusions. There is a small hiatus hernia. Oth erwise, normal caliber esophagus. A few mildly enlarged mediastinal lymph nodes. A dominant precarina l lymph node on image 156 measures 24 x 17 mm. Limited views the upper abdomen demonstrate normal janeth er, spleen, and adrenal glands. No acute fractures. No pneumothorax. The central airways are patent. A few small bibasilar linear densities favor subsegmental atelectasis or scarring. Mosaic attenuation within the lungs suggest mild air trapping. There are few scattered subcentimeter nodular densities within the lungs which are new compared to the prior study. Some of these demonstrate a tree-in-bud n odular pattern. The majority of these nodules demonstrate a groundglass halo. Dominant nodules within the base of the left lower lobe on images 84 and 81 measure up to 6 mm. Therefore, this favors a mil d inflammatory/infectious process. IMPRESSION: 1. No evidence for a pulmonary embolus. 2. Pulmonary arterial hypertension. 3. There are few scattered subcentimeter nodular densities within the lungs which are new compared to the prior study. Some of these demonstrate a tree-in-bud nodular pattern. Therefore, this favors a m ild inflammatory/infectious process. 4. Mild mediastinal lymphadenopathy which has progressed. This could be reactive. However, [address] follow-up recommended to ensure stability/resolution of the additional lymph nodes and scatter ed nodules. 5. Mild air trapping. ACT 112: Negative or not required by law. Electronically signed by: Fox Ramos M.D. 05/05/2023 4:37 PM
[2023-05-05 16:41] LABS: D Dimer 740 ug/L FEU (0-500)
[2023-05-05] MEDS ORDERED: METOPROLOL TARTRATE 1 MG/ML VIAL IV STA (16:48)
--- NOTE | 2023-05-05 17:05 | History & Physical Report ---
Date of Service May 05, 2023 Assessment & Plan (1) Atrial fibrillation with RVR: (2) Back pain: (3) Subtherapeutic anticoagulation: (4) Viral illness: (5) Noncompliance with medications: (6) CKD (chronic kidney disease), stage III: (7) Hx pulmonary embolism: (8) Heterozygous for MTHFR gene mutation: (9) Morbid obesity with BMI of 45.0-49.9, adult: Plan This is a 72-year-old female who has a significant past medical history of PAF anticoagulated on warfarin, HTN, history of PE, heterozygote MTHFR mutation, factor V Leiden deficiency, methylenetetrahydrofolate reductase deficiency, severe CHATA, Pulmonary HTN, CKD stage III, gouty arthropathy and depression who presents to ED secondary to pain between shoulder blades and sick started this morning. Atrial fibrillation with RVR Subtherapeutic INR Medication noncompliance due to recent travel Hx of PAF Back pain admit to PCU I believe pts current afib and rate is likely as a result of missing medications for 4 days after recent travel, states last took Sunday. on top of viral i llness resume metoprolol succinate 50mg bid resume warfarin will heparinize until INR > 2 replete K and mag to keep greater than 4.0 and 2.0 respectively will update echocardiogram - last done 1 year ago consult Cardiology obtain mag, tsh CBC, CMP, Mag, INR in a.m. repeat ecg in a.m Viral Illness pt with documented fever at 100.4 at urgent care, congestion, cough likely covid,rsv or flu - will swab via viral panel supportive care for now Back Pain likely 2/2 afib vs viral illness vs MSK laya do ACS w/u cycle trops, obtain echo Abnormal CT Chest --IMPRESSION: 1. No evidence for a pulmonary embolus.2. Pulmonary arterial hypertension.3. There are few scattered subcentimeter nodular densities within the lungs which are new compared to the prior study. Some of these demonstrate a tree-in-bud nodular pattern. Therefore, this favors a mild inflammatory/infectious process.4. Mild mediastinal lymphadenopathy which has progressed. This could be reactive. However, [address] follow-up recommended to ensure stability/resolution of the additional lymph nodes and scattered nodules.5. Mild air trapping. recommend f/u in 6 months likely related to viral illness, procal negative Hx of PE/DVT MTHFR mutation continue warfarin IV Heparin until INR 2.0 Severe CHATA Cpap at HS CKD-3 baseline cr 1.1 chronic, stable avoid nephrotoxic agents Morbid obesity, BMI 49.3 encourage diet/lifestyle modifications DVT ppx: IV Heparin PCP: Kacie Duenas PA-C FULL CODE Dispo: PCU for rate/rhythm control, ACS r/o, likely d/c in 1-2 days Pt was seen and examined in collaboration with Dr. Garrett, please see addendum A total of 95 minutes was spent coordinating, documenting, and providing care for this patient excluding time spent in the performance of separately billed services. This included personally viewing all current laboratories and imaging studies, medication reconciliation, outpatient chart review, and discussion with specialists. History of Present Illness Chief Complaint: Pain between her shoulder blades that started @ 0630. Primary Care Provider: Beverly Combs DO This is a 72-year-old female who has a significant past medical history of PAF anticoagulated on warfarin, HTN, history of PE, heterozygote MTHFR mutation, factor V Leiden deficiency, methylenetetrahydrofolate reductase deficiency, severe CHATA, Pulmonary HTN, CKD stage III, gouty arthropathy and depression who p resents to ED secondary to pain between shoulder blades and sick started this morning. She states she recently was in [place] for 1.5 months and just returned on Sunday, 4 days ago. This morning she woke up with pain between her shoulder blades and describes this as sharp. It would wax and wane in intensity but remained constant. It was made worse with deep breathing. Pain was not made worse with movement, lying or siting. She also complained of shortness with exertion, but this is chronic for her and she does not feel it is unchanged. She currently denies shortness of breath at rest, hemoptysis. She does complain of fever, rhinorrhea, cough, chills and significant fatigue. She has chronic lower ext swelling which she feels is at baseline. She denies any loss of taste/smell, lightheadedness, dizziness, hemoptysis, nausea, vomiting or abdominal pain. She has experienced diarrhea. She denies any known sick contacts, but recently traveled. Her appetite has been decreased today. She also states she has not taken her meds since she returned from [place] on Sunday. Her last medications would have been on Sunday prior to leaving. She was seen and evaluated in urgent care [facility] today and referred to ED for work up of heart attack. At convenient care her records were reviewed and she did have a temp of 100.4. Her outpatient epic records were reviewed. She does follow with [facility] cardiology. In May 2022 she underwent Zio patch monitoring which revealed multiple episodes of SVT. Who metoprolol was then increased. She also has known diastolic CHF. Her last echocardiogram was in June 2022 which is to be nuclear stress test. This revealed a preserved EF. It was negative for inducible ischemia. Allergies Allergy/AdvReac Type Severity Reaction Status Date / Time adhesive Allergy Mild RASH Verified 05/05/23 15:41 latex Allergy Mild RASH Verified 05/05/23 15:41 lactose AdvReac Intermediate GI SYMPTOMS Verified 05/05/23 15:41 Home Medications Medication Instructions Recorded Confirmed Type cholecalciferol (vitamin D3) 25 25 mcg PO QAM 07/28/20 05/05/23 History mcg (1,000 unit) tablet (Vitamin D3) cyanocobalamin (vitamin B-12) 500 500 mcg PO DAILY 05/05/23 05/05/23 History mcg tablet (Vitamin B-12) folic acid 1 mg tablet 1 mg PO DAILY 05/05/23 05/05/23 History furosemide 40 mg tablet 40 mg PO DAILY 05/05/23 05/05/23 History latanoprost 0.005 % eye drops 1 drp OPB HS 05/05/23 05/05/23 History metoprolol succinate 50 mg 50 mg PO BID 05/05/23 05/05/23 History tablet,extended release 24 hr sertraline 50 mg tablet 50 mg PO DAILY 05/05/23 05/05/23 History warfarin 5 mg tablet 2.5 mg PO MOWEFR@1600 05/05/23 05/05/23 History warfarin 5 mg tablet 5 mg PO SUTUTHSA@1600 05/05/23 05/05/23 History Past Med/Surg History Medical History Lower extremity edema Paroxysmal A-fib Occurred during stress test several years ago Hx of gout Osteoarthritis Lactose intolerance History of skin cancer s/p removal Factor 5 Leiden mutation, heterozygous On chronic coumadin HTN (hypertension) CKD (chronic kidney disease), stage III GFR baseline in 40s Irritable bowel syndrome (IBS) DVT (deep venous thrombosis) 2013 Pulmonary embolism 2013 Surgical History Status post left knee replacement (~12/2019) History of orthopedic surgery LEFT HEEL BONE SPUR SURGERY History of repair of rotator cuff RT History of colonoscopy History of appendectomy History of tooth extraction Family History Father Family history of diabetes mellitus Other Diabetes No family history of adverse response to anesthesia Social History Smoking Status: Former smoker Second Hand Exposure: No; Do You Dip or Chew Tobacco: No; Hx Alcohol Use: No Hx Substance Use: No Preferred Language: Amharic Communication Ability: Effective Deputy Fire Chief Required: No Beliefs That Will Affect Care: None Current Living Situation: Family Current Living Situation Comment: WITH DAUGHTER current occupational status: retired Feels Safe at Home: Yes Assistive Devices: Walker Review of Systems Review of Systems: All systems reviewed & are unremarkable except as noted in HPI & below Physical Exam Physical Exam: Constitutional: WD/WN, obese F, dyspneic with convo, vitals as above, NAD, sitting up in bed, pleasant, conversing easily Head: Normocephalic, Atraumatic Eyes: conjunctivae normal, anicteric sclerae ENMT: external ear and nose normal, oropharynx normal Neck: trachea midline, no thyromegaly normal visual inspection Respiratory: normal respiratory effort, lungs clear to auscultation, no wheeze, rales, rhonchi. Normal insp/exp effort, no accessory muscle use Cardiovascular: IRR/IRR, no murmur, b/l +1 edema with venous stasis changes chronic Vessels: no JVD or carotid bruit Chest: normal inspection of chest Abdomen: normal bowel sounds, soft, nontender, no hepatosplenomegaly Musculoskeletal: no cyanosis or clubbing, AROM x 4 Skin: no rashes, warm and dry normal turgor Neurologic: no face palsy, no dysarthria CN's II-XI intact bilaterally and moves all extremities Psychiatric: A+Ox3, euthymic affect : deferred Results & Data Results & Data Vital Signs (Past 12 Hours) Vital Signs Temp Pulse Resp BP Pulse Ox O2 Del Method 05/05/23 16:02 115 H 32 H 93 Room Air 05/05/23 15:26 36.7 C 132 H 28 H 159/85 H 93 Room Air Laboratory Results I have independently reviewed and interpreted patient's admitting labs including CBC, CMP, PTT, PT/INR, mag, bnp, and troponin. Diagnostic Findings Chest X-Ray 05/05/23 15:42 XR chest 1V portable HISTORY: Chest pain, nonspecific COMPARISON: Chest 11/18/2019. FINDINGS: No pneumothorax. No pleural effusions. The heart remains mildly enlarged. Small left basilar linear densities favor subsegmental atelectasis or scarring. Otherwise, lungs are clear. No evidence for pulmonary edema. No acute fractures identified. IMPRESSION: Mild cardiomegaly. Otherwise, no acute process within the chest. ACT 112: Negative or not required by law. Electronically signed by: Fox Ramos M.D. 05/05/2023 4:11 PM Chest CTA 05/05/23 15:44 CHEST CTA for PULMONARY ARTERIES CT DOSE: 958.64 mGy.cm HISTORY: Atypical chest pain. Shortness of breath. TECHNIQUE: Multiaxial CT images of the chest were performed following the intravenous administration of contrast to evaluate the pulmonary arteries. 3D/Maximal intensity projection images were also obtained. Sagittal and coronal reformations were also reviewed. A dose lowering technique was utilized adhering to the principles of ALARA. COMPARISON STUDY: Chest CTA 12/07/2016. FINDINGS: Normal caliber thoracic aorta with no evidence for a dissection. The heart is mildly enlarged. There are mitral annulus calcifications noted. The main pulmonary artery is dilated up to 3.8 cm consistent with pulmonary arterial hypertension. No filling defects within the pulmonary arteries to suggest a pulmonary embolus. No pleural or pericardial effusions. There is a small hiatus hernia. Otherwise, normal caliber esophagus. A few mildly enlarged mediastinal lymph nodes. A dominant precarinal lymph node on image 156 measures 24 x 17 mm. Limited views the upper abdomen demonstrate normal liver, spleen, and adrenal glands. No acute fractures. No pneumothorax. The central airways are patent. A few small bibasilar linear densities favor subsegmental atelectasis or scarring. Mosaic attenuation within the lungs suggest mild air trapping. There are few scattered subcentimeter nodular densities within the lungs which are new compared to the prior study. Some of these demonstrate a tree-in-bud nodular pattern. The majority of these nodules demonstrate a groundglass halo. Dominant nodules within the base of the left lower lobe on images 84 and 81 measure up to 6 mm. Therefore, this favors a mild inflammatory/infectious process. IMPRESSION: 1. No evidence for a pulmonary embolus. 2. Pulmonary arterial hypertension. 3. There are few scattered subcentimeter nodular densities within the lungs which are new compared to the prior study. Some of these demonstrate a tree-in-bud nodular pattern. Therefore, this favors a mild inflammatory/infectious process. 4. Mild mediastinal lymphadenopathy which has progressed. This could be reactive. However, [address] follow-up recommended to ensure stability/resolution of the additional lymph nodes and scattered nodules. 5. Mild air trapping. ACT 112: Negative or not required by law. Electronically signed by: Fox Ramos M.D. 05/05/2023 4:37 PM Medications Administered Medication List Discontinued Medications Sodium Chloride (Nss) 500 mls @ 999 mls/hr IV .Q31M STA Stop: 05/05/23 16:12 Last Admin: 05/05/23 15:42 Dose: 999 mls/hr Documented By: SANDY Ioversol (Optiray 320 125ml) 116 ml IV ONCE ONE Stop: 05/05/23 16:14 Last Admin: 05/05/23 16:14 Dose: 116 ml Documented By: NAVI ECG Additional Comments: I have independently reviewed and interpreted patient's admitting EKG which revealed: Atrial fibrillation with RVR, rate 132, left anterior fascicular block, QTc 527 MS COVID-19 Results Results COVID-19 Adm Lab Results: RBC 4.24 M/uL (4.20-5.40) 05/05/23 WBC 9.34 K/ul (4.8-10.8) 05/05/23 Hgb 12.6 g/dl (12.0-16.0) 05/05/23 Hct 40.2 % (37.0-47.0) 05/05/23 Plt Count 263 K/uL (130-400) 05/05/23 Neutrophils (%) (Auto) 83.3 % 05/05/23 Lymphocytes (%) (Auto) 7.1 % 05/05/23 Monocytes # (Auto) 0.69 K/uL (0.11-0.59) H 05/05/23 Eosinophils # (Auto) 0.14 K/uL (0.00-0.50) 05/05/23 Immature Granulocyte % (Auto) 0.3 % 05/05/23 Neutrophils # (Auto) 7.78 K/uL (1.40-6.50) H 05/05/23 Lymphocytes # (Auto) 0.66 K/uL (1.20-3.40) L 05/05/23 Monocytes # (Auto) 0.69 K/uL (0.11-0.59) H 05/05/23 Eosinophils # (Auto) 0.14 K/uL (0.00-0.50) 05/05/23 Basophils # (Auto) 0.04 K/uL (0.00-0.20) 05/05/23 Immature Granulocyte # (Auto) 0.03 K/uL (0.01-0.20) 4 Na 140 mmol/L (136-145) 05/05/23 K 3.6 mmol/L (3.5-5.1) 05/05/23 Cl 107 mmol/L (98-107) 05/05/23 CO2 24 mmol/L (21-32) 05/05/23 Anion Gap 9 (3-11) 05/05/23 BUN 13 mg/dl (6-23) 05/05/23 Creatinine 1.09 mg/dl (0.6-1.2) 05/05/23 BUN/Creatinine Ratio 11.9 (10-20) 05/05/23 Glucose Level 150 mg/dl (70-99(Fasting)) H 05/05/23 Ca 9.5 mg/dl (8.6-10.3) 05/05/23 Total Bilirubin 1.3 mg/dl (0.2-1.0) H 05/05/23 AST/SGOT 29 U/L (13-39) 05/05/23 ALT/SGPT 22 U/L (7-52) 05/05/23 Alkaline Phosphatase 88 U/L (34-104) 05/05/23 Total Protein 8.3 gm/dl (6.0-8.3) 05/05/23 Albumin 4.3 gm/dl (3.4-5.0) 05/05/23 Globulin 4.0 gm/dl (2.5-4.0) 05/05/23 Albumin/Globulin Ratio 1.1 (0.9-2) 05/05/23 Procalcitonin < 0.05 ng/ml (0-0.5) 05/05/23 D-Dimer 740 ug/L FEU (0-500) H* 05/05/23 PTT 27 Seconds (21-31) 05/05/23 INR 1.1 (0.9-1.1) 05/05/23 Adenovirus (PCR) Not Detected (NotDetected) 05/05/23 B. parapertussis DNA (PCR) Not Detected (NotDetected) 04/10 10/30 B. pertussis DNA (PCR) Not Detected (NotDetected) 05/05/23 C. pneumoniae DNA (PCR) Not Detected (NotDetected) 4 Coronavirus Type OC43 (PCR) Not Detected (NotDetected) Coronavirus Type HKU1 (PCR) Not Detected (NotDetected) Coronavirus Type 229E (PCR) Not Detected (NotDetected) COVID-19 PCR Not Detected (NotDetected) 05/05/23 Coronavirus Type NL63 (PCR) Not Detected (NotDetected) Human Metapneumovirus (PCR) Not Detected (NotDetected) Influenza Virus Type A (PCR) Not Detected (NotDetected) Influenza Virus Type B (PCR) Not Detected (NotDetected) M. pneumoniae (PCR) Not Detected (NotDetected) 05/05/23 Parainfluenza Type 1 (PCR) Not Detected (NotDetected) 04/10 10/30 Parainfluenza Type 2 (PCR) Not Detected (NotDetected) 04/10 10/30 Parainfluenza Type 3 (PCR) Not Detected (NotDetected) 04/10 10/30 Parainfluenza Type 4 (PCR) Not Detected (NotDetected) 04/10 10/30 RSV (PCR) Not Detected (NotDetected) 05/05/23 Enterovirus/Rhinovirus (PCR) Not Detected (NotDetected) Chest X-Ray 05/05/23 Code Status & VTE Plan Code Status FULL CODE Supervising Physician Co-Signing Physician Notes I have seen and examined the patient and have discussed the case with the provider above. I have reviewed the advanced practitioner's documentation, and I agree with, and take responsibility for that plan of care. 72 yo morbidly obese female with CHATA noncompliant with CPAP and known h/o pulmonary HTN and h/o PE presents today with shortness of breath, cough, runny nose, fever (100.2F at urgent care earlier today), and chills since this morning. As noted above she has been noncompliant with all of her medications. Although respiratory viral panel is negative, a repeat check should be considered as she is very early in her symptom course. She is in rapid atrial fibrillation with a heart rate into the 140s, improved with Lopressor 5mg IV in the ER and restarting her home metoprolol. On exam she is not ill appearing. She has clear lungs to auscultation. Cardiac exam reveals irregularly irreg rhythm with a tachy rate. No murmurs were heard. There is no peripheral edema noted. Abdomen is soft NTND. She is mentating clearly. Daughter is present at bedside and assists with the history. I also spoke with another MICHELL by phone who is a medic and lives in [place]. She was just seeing him for the past month and flew back on of this week. Labs, imaging and EKG reviewed. Trop mildly elevated with no rise with trend. Cont BB for atrial fibrillation with RVR. Given noncompliance with warfarin her INR is subtherapeutic. Agree with heparin bridge, and restarting warfarin now. No PE on CTA. Likely viral illness given clinical picture in addition to noncompliance with medications for several days causing symptoms. Monitor progress after restarting and consider repeat swab for viral illness in 24-48 hours. DO Gerry
[2023-05-05] MEDS ORDERED: POTASSIUM CHLORIDE CRTAB 20 MEQ TABCR PO STA (17:09)
[2023-05-05] MEDS ORDERED: METOPROLOL SUCC 50MG EXT REL TAB PO STA (17:36)
[2023-05-05] MEDS ORDERED: HEPARIN 25000 UNIT/500 ML D5W IV ONE (17:45)
[2023-05-05] MEDS: HEPARIN SODIUM/DEXTROSE 25,000 UNITS/500 ML BAG IV SCH (17:59)
[2023-05-05 18:23] LABS: Troponin I High Sensitivity 25.8 pg/ml (0-14)
[2023-05-05 18:30] LABS: ANTI-Xa, UFH(UnfractionatedHep < 0.10 IU/ml (0.3-0.7); Magnesium 1.9 mg/dl (1.7-2.4)
[2023-05-05] MEDS ORDERED: MAGNESIUM SULFATE / D5W 1 GM/100 ML BAG IV ONE (18:31)
[2023-05-05 18:32] LABS: Thyroid Stimulating Hormone 2.234 uIu/ml (0.300-4.500)
[2023-05-05 19:11] LABS: Adenovirus PCR Not Detected (NotDetected); Bordetella parapertussis PCR Not Detected (NotDetected); Bordetella pertussis PCR Not Detected (NotDetected); Chlamydia pneumoniae PCR Not Detected (NotDetected); Coronavirus 229E PCR Not Detected (NotDetected); Coronavirus CoV-2 (COVID19)PCR Not Detected (NotDetected); Coronavirus HKU1 PCR Not Detected (NotDetected); Coronavirus NL63 PCR Not Detected (NotDetected); Coronavirus OC43PCR Not Detected (NotDetected); Human Metapneumovirus PCR Not Detected (NotDetected); Influenza A PCR Not Detected (NotDetected); Influenza B PCR Not Detected (NotDetected); Mycoplasma pneumoniae PCR Not Detected (NotDetected); Parainfluenza Virus 1 PCR Not Detected (NotDetected); Parainfluenza Virus 2 PCR Not Detected (NotDetected); Parainfluenza Virus 3 PCR Not Detected (NotDetected); Parainfluenza Virus 4 PCR Not Detected (NotDetected); Respiratory Syncytial VirusPCR Not Detected (NotDetected); Rhinovirus/Enterovirus PCR Not Detected (NotDetected)
[2023-05-05] MEDS ORDERED: WARFARIN SOD 5 MG TAB PO STA (19:52)
[2023-05-05] MEDS ORDERED: dilTIAZem HCl 5 MG/ML 5 ML VIAL IV STA (20:11)
--- OUTSIDE RECORDS SUMMARY | 2023-05-05 20:11 | External Medical Summary | Summary of Care ---
Author Name Unknown Organization [facility] Address [address] [place] [address] Phone [phone] Care Team Providers Care Assistant Production Editor Name Role Phone Kacie Duenas RELL Primary Care Provider [phone] Reason for Visit * Reason Comments Acute Pt here for complain ts of shortness of breath (been going on forever)/pain btwn shoulder blades (started this morning). Pt states that she does have afib. Encounter Details Date Type Department Care Team (Latest Contact Info) Description 05/05/2023 12:45 PM EST Convenient Care Visit [facility] [address] [place] [address] Flaca Lorenzana PA-C [address] [place] [address] Atrial fibrillation, unspecified type (HCC)*; Shoulder blade pain Allergies Active Allergy Reactions Criticality Noted Date Comments Lactose Diarrhea 07/26/2010 Abdominal gas, bloating; GI lactose intolerance Latex Rash 12/06/2016 Localized contact rash only; no respiratory symptoms Other Allergy (See Comments) 12/24/2018 Rash with band aids documented as of this encounter (statuses as of 05/05/2023) Medications Medication Sig Dispensed Refills Start Date End Date Status PROBIOTIC DAILY PO CAPS Take by mouth. 30 Cap 0 11/13/2012 Active B-12 1000 MCG PO TBCRIndications:Com pound heterozygous MTHFR mutation C677T/[id number] 1 TABLET DAILY 100 Tab 3 12/03/2012 [...] MG Oral TabletIndications:C ompound heterozygous MTHFR mutation C677T/V7310F Take 1 Tablet by mouth in the morning. 90 Tablet 3 03/14/2023 Active Warfarin Sodium 5 MG Oral TabletIndications:O ther pulmonary embolism without acute cor pulmonale, unspecified chronicity (HCC) Take 1/2 tablet on Sundays and one tablet daily all other days or as adjusted by coagulation pharmacist. 90 Tablet 1 03/14/2023 Active Latanoprost 0.005 % Ophthalmic Solution (Xalatan) INSTILL 1 DROP INTO EACH EYE ONCE A DAY AT NIGHTTIME 0 04/22/2023 Active Terbinafine HCl 250 MG Oral Tablet (Lamisil) Take 1 tablet every day by oral route for 84 days. 0 Active documented as of this encounter (statuses as of 05/05/2023) Active Problems Problem Noted Date Diagnosed Date [...] as of this encounter (statuses as of 05/05/2023) Resolved Problems Problem Noted Date Diagnosed Date [...] sm, unspecified whether acute cor pulmonale present 06/17/201901/2020 Encounter for examination fo r normal comparison and control in clinical research program 10/08/2017 11/10/2019 Overview: DO NOT DELETE [facility] DETECT Study: Project # [id number], Pharmacy Director: Buzz Mayes, PhD. SUMMARY: Goal: Establish test [...] contact study staff at ; after hours Pharmacy Director via the [facility] hospital cell support operator . Please contact study team before resolving/deleting from patients problem list. Study phone number: [phone]. Diagnosis changed due to Research Module. Go to Snapshot for study details. Encounter for examination fo r normal comparison and control in clinical research program 10/08/2017 12/08/2021 Overview: DO NOT DELETE [facility] DETECT Study: Project # [id number], Pharmacy Director: Kervin Gutierrez, MS, MPH. SUMMARY: Goal: Establish [...] contact study staff at ; after hours Pharmacy Director via the [facility] hospital cell support operator . - Please contact study team before resolving/deleting from patients problem list. Study phone number: [phone]. Diagnosis changed due to Research Module. Go [...] 11/14/2012 09/18/2015 Anticoagulation management encounter 11/14/2012 09/18/2015 [facility] current use of ant icoagulant therapy 11/14/2012 [...] as of this encounter (statuses as of 05/05/2023) Immunizations Name Administration Dates Next Due COVID-19 mRNA, LNP-s, No Pre serve, 2-Dose Series ([employer]) 07/07/2020,06/16/2020 Covid-19, Mrna, Lnp-s, Pf, B ivalent, [...] Sign Reading Time Taken Comments Blood Pressure 146/98 05/05/2023 1:39 PM EST Pulse 69 05/05/2023 1:39 PM EST Temperature 38 C (100.4 F) 05/05/2023 1:39 PM EST Respiratory Rate 16 05/05/2023 1:39 PM EST Oxygen Saturation 96% 05/05/2023 1:39 PM EST Inhaled Oxygen Concentration - - Weight 149 kg (328 lb 6.4 oz) 05/05/2023 1:39 PM EST Height 170.2 cm (5' 7") 05/05/2023 1:39 PM EST Body Mass Index 51.43 05/05/2023 1:39 PM EST documented in this encounter Progress Notes * Flaca Lorenzana PA-C - 05/05/2023 1:44 PM EST CONVENIENT CARE NOTE HPI: Autumn Onofre is a 72 year old female who presents with chief complaint of pain behind shoulder blades x today. Patient describes the pain as sharp sensation which does not radiate. Pain started acutely this morning. Patient notes that she felt it when she woke up. Increased BLANCO. Has chronic SOB. Patient rates the pain a 4/10. States pain seems worse with deep breathing. Pain improves with minimizing exercise. No change in pain with leaning forward, or lying supine. Patient denies diaphoresis, nausea, vomiting. Denies any hemoptysis, loss of taste/smell, dizziness. Notes chronic sob. Notes history of venous thromboembolism-2018. She is now on warfarin. INR done recently and it was 1.8. Patient notes "I think I was told I have a dormant clot in my lung but I am not sure if I misunderstood them or not". Past medical history significant for afib. Has had cardiac stress test. "That was ok except for the afib". Patient is a non smoker. Patient does not have a history of asthma. Patient complains of sinus congestion and fever today. Patient does not have a history of GERD. Family hx significant for CVA, BRCA, Prostate CA Patient was accompanied by Self. 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 Manzano ARTHROPLASTY KNEE TOTAL Right 08/27/2020 COLONOSCOPY, DIAGNOSTIC (RECTUM) 04/20/2008 wnl- repeat 7-10 yrs COLORECTAL CANCER SCREEN;W/FLE 08/05/2001 wnl 60 cms DENTAL SURGERY PROCEDURE NEC Dental Surgery Procedure INCISION OF HEEL BONE Left 04/24/2017 OSTEOTOMY CALCANEUS performed by Yoni Delgado Jr., MD at [facility] INFORMATION 08/19/2013 08/19/2013 excision of mass right calf; dx sucutaneous tissue, right calft posterior superior, excision, fat necrosis with fibrosis with fibrosis and lymphohistiocytic inflammatory reaction - Delmy Mckoy OR - Dr. Vasu Mcghee INFORMATION Right 2014 rotator cuff surgery LOWER LEG/ANKLE SUBQ TUMOR REMOVE,3CMORMORE 08/19/2013 EXCISION LOWER LEG/ANKLE SUBQ TUMOR, 3CM OR MORE performed by Vasu Mcghee MD at [facility] MAMMOGRAM - BILATERAL 06/14/2005 Birad code 2/benign findings MAMMOGRAM DIAGNOSTIC UNILATERAL 06/04/2013 left calcification noted, biopsy could not localize, repeat 6 months MAMMOGRAM SCREENING-BILATERAL 12/23/2007 birad 2, benign, yearly reccm. REMOVAL OF APPENDIX 1971 Appendectomy REPAIR RUPTURED ACHILLES TENDON Left 04/24/2017 REPAIR ACHILLES TENDON performed by Yoni Delgado Jr., MD at [facility] Review of patient's allergies indicates: Allergen Reactions Lactose Diarrhea Abdominal gas, bloating; GI lactose intolerance Latex Rash Localized contact rash only; no respiratory symptoms Other Allergy (See Comments) Rash with band aids Current Outpatient Medications Medication Sig Dispense Refill PROBIOTIC DAILY PO CAPS Take by mouth. 30 Cap 0 B-12 1000 MCG PO TBCR 1 TABLET [...] as needed for Wheezing. 18 g 0 Metoprolol Succinate ER 50 MG Oral Tablet Extended Release 24 Hour (Toprol XL) Take 1 Tablet by mouth in the morning and 1 Tablet before bedtime. 180 Tablet 3 Furosemide 40 MG Oral Tablet (Lasix) Take one tablet daily plus an extra pill 2- 3 days per week 120Tablet 3 Sertraline HCl 50 MG Oral Tablet (Zoloft) Take 1 Tablet by mouth in the morning. 90 Tablet 2 Folic Acid 1 MG Oral Tablet Take 1 Tablet by mouth in the morning. 90 Tablet 3 Warfarin Sodium 5 MG Oral Tablet Take 1/2 tablet on Sundays and one tablet daily all other days or as adjusted by coagulation pharmacist. 90 Tablet 1 Latanoprost 0.005 % Ophthalmic Solution (Xalatan) INSTILL 1 DROP INTO EACH EYE ONCE A DAY AT NIGHTTIME Terbinafine HCl 250 MG Oral Tablet (Lamisil) Take 1 tablet every day by oral route for 84 days. No current facility-administered medications for this visit. Nursing Notes: Yvonne Dempsey LPN 05/05/23 1342 Sign at exiting of workspace Patient spelled last name and verbalized birthdate to verify identity. Chief Complaint Patient presents with Acute Pt here for complaints of shortness of breath (been going on forever)/pain btwn shoulder blades (started this morning). Pt states that she does have afib. EXAM: BP 146/98 (BP Site: Left Arm, BP Position: Sitting, BP Cuff Size: Large) | Pulse 69 | Temp 38 C (100.4 F) (Tympanic) | Resp 16 | Ht 1.702 m (5' 7") | Wt (!) 149 kg (328 lb 6.4 oz) | SpO2 96% | BMI 51.43 kg/m | BSA 2.65 m GENERAL: alert, healthy, audible wheezing upon sitting, mild distress, well nourished and well developed NECK: supple, no adenopathy, +rhinorrhea HEART: irregularly irregular no murmurs and no gallops LUNGS: clear to auscultation bilaterally, no wheezing, rales or rhonchi ABDOMEN: abdomen soft, non-tender, normal bowel sounds, and no masses or organomegaly NEURO: alert & oriented x 3 with fluent speech, no focal motor/sensory deficits, gait normal, reflexes normal and symmetric No spinal tenderness. No pain with palpating between scapula. ASSESSMENT/PLAN Atrial fibrillation, unspecified type (HCC) (Primary) - EKG; Future; Expected date: 05/05/2023 - EKG Shoulder blade pain - EKG; Future; Expected date: 05/05/2023 - EKG DDX includes but is not limited to CT, ischemia, GERD, effusion, PTX, pancreatitis, gastritis, costochondritis, pleuritis, etc. Ekg today revealed afib with RVR at rate in 140-160s. Signs of ischemia and concerned for risk factors and coagulopathy history. Cannot rule out aorta abnormality. Spoke about advanced workup and patient agreeable to elevation of higher level of care. Will have her daughter drive to ED. Spoke to [employer] and agreeable for ED evaluation. ED triage nurse contacted and patient presented for continuity of care. Care instructions given. Additional instructions per patient instructions attached. Patient agrees with the plan and demonstrates verbal understanding. Patient stable at the time of discharge. I spent a total of 44 minutes on the date of service in preparation, delivery, and documentation ofthe care provided to Autumn Onofre excluding any time spent in the performance of separately billed services. Flaca Lorenzana PA-C [facility] [address] [facility] [place] [address] documented in this encounter Nursing Notes * Yvonne Dempsye LPN - 05/05/2023 1:37 PM EST Patient spelled last name and verbalized birthdate to verify identity. Chief Complaint Patient presents with Acute Pt here for complaints of shortness of breath (been going on forever)/pain btwn shoulder blades (started this morning). Pt states that she does have afib. documented in this encounter Plan of Treatment Upcoming Encounters Date Type Department Care Team (Late st Contact Info) Description 06/13/2023 8:30 AM EST Anticoagulation Pharmacy, [facility] [address] [place] [address] Pharmacist1, [facility] [address] [facility] [place] [address] 11/01/2023 9:00 AM EDT Office Visit Family Practice [facility] [address] [place] [address] Kacie Duenas PA-C [address] [facility] [place] [address] 11/22/2023 10:45 AM EDT Office Visit Dermatology [facility] [address] [place] [address] Rosa Horn MD [address] [place] [address] 11/23/2023 10:15 AM EDT Imaging Radiology [address], [place] [address] [facility] [place] [address] 03/11/2024 9:00 AM EST Nurse Only Ancillary [facility] [address] [place] [address] Im, Nurse Annual Wellness [facility] [address] [place] [address] Scheduled Orders Name Type Priority Associated Diagnoses Orde r Schedule EKG EKG Routine Atrial fibrillation, unspecified type (HCC) Shoulder blade pain Expected: 05/05/2023, Expires: 06/05/2024 Health Maintenance Due Date Last Done Comments Hepatitis C Screening 1968 Fecal Occult Blood Test 08/21/2002 08/21/2001 Sigmoidoscopy 08/05/2006 08/05/2001, 07/25/2001 Colonoscopy 04/20/2018 04/20/2008 COVID-19 Vaccine ( season) 2022 10/30/2021, 07/07/2020, 06/16/2020 GFR 04/06/2023 10/05/2022, 09/2022, 12/26/2021, Additional history exists Albumin/Creatinine Ratio 10/06/2023 023, 10/18/2021, 10/07/2021, Additional history exists CKD HGB USE SMARTSET 43825 10/06/202310/05, 12/26/2021, 10/07/2021, Additional history exists CKD PHOS USE SMARTSET 92054 10/06/202309/08, 03/02/2021, 01/11/2018 Mammogram 11/22/2023 11/21/2022, 11/07, [...] this encounter Medical Devices Implanted Type Area Equipment Manager Device Identifier Shelf Expiration Date Model / Serial / Lot Implant System, Biocomposite Achilles Speedbridge With Jumpstart Implanted:Qty: 1 on 04/24/2017 by Yoni Delgado MD at [facility] Left: Ankle [employer] 09/06/2018 [id number] / / [id number] documented as of this encounter Visit Diagnoses Diagnosis Atrial fibrillation, unspecified type (HCC)- Primary Shoulder blade pain Disorder of bone and cartilage, unspecified documented in this encounter Care Teams Assistant Production Editor Relationship Specialty Start Date End Date HenriqueJuly RELL Ramirez [address] [place] [address] PCP - General Physician [employer] 01/26/22 documented as of this encounter
[2023-05-05] MEDS ORDERED: POLYETHYLENE (MIRALAX) 17 GM PACK PO PRN (20:12)
[2023-05-05] MEDS ORDERED: MAGNESIUM HYDROXIDE SUSP 30 ML UDC PO PRN (20:12)
[2023-05-05] MEDS ORDERED: ONDANSETRON INJ 2 MG/ML 2 ML VIAL IV PRN (20:12)
[2023-05-05] MEDS ORDERED: ALUMINUM/MAGNESIUM SUSP 30 ML UDC PO PRN (20:12)
[2023-05-05] MEDS ORDERED: ACETAMINOPHEN 325 MG TAB PO PRN (20:12)
[2023-05-05] MEDS ORDERED: METOPROLOL SUCC 50MG EXT REL TAB PO SCH (21:00)
[2023-05-05] MEDS: LATANOPROST 0.005% OP SOLN 2.5 ML BTL OPB SCH (21:49)
[2023-05-06] MEDS: Heparin IV Adult Wt-Based Standard *NO* INITIAL Bolus Protocol IV SCH ×2 (00:31→00:32)
[2023-05-06 01:51] LABS: ANTI-Xa, UFH(UnfractionatedHep < 0.10 IU/ml (0.3-0.7)
[2023-05-06] MEDS ORDERED: HEPARIN SOD (PORCINE) 1000 UNIT/ML IV ONE (02:15)
[2023-05-06] MEDS ORDERED: METOPROLOL SUCC 25MG EXT REL TAB PO STA (05:23)
[2023-05-06] MEDS ORDERED: METOPROLOL SUCC 50MG EXT REL TAB PO STA ×2 (05:38→19:36)
[2023-05-06 05:59] LABS: Basophils # (auto) 0.03 K/uL (0.00-0.20); Basophils % (auto) 0.5 %; Eosinophils # (auto) 0.18 K/uL (0.00-0.50); Eosinophils % (auto) 2.8 %; Hematocrit (blood only) 35.5 % (37.0-47.0); Hemoglobin 11.3 g/dl (12.0-16.0); Immature Granulocytes # (auto) 0.02 K/uL (0.01-0.20); Immature Granulocytes % (auto) 0.3 %; Lymphocytes # (auto) 1.12 K/uL (1.20-3.40); Lymphocytes % (auto) 17.6 %; Mean Corpuscular Hemoglobin 30.3 pg (25.0-34.0); Mean Corpuscular Hgb Conc 31.8 g/dL (32.0-36.0); Mean Corpuscular Volume 95.2 fL (80.0-100.0); Mean Platelet Volume 11.8 fL (9.4-12.4); Monocytes # (auto) 0.52 K/uL (0.11-0.59); Monocytes % (auto) 8.2 %; Neutrophils % (auto) 70.6 %; Platelet Count 220 K/uL (130-400); RDW Coefficient of Variation 13.8 % (11.5-14.5); Red Blood Count 3.73 M/uL (4.20-5.40); White Blood Count 6.37 K/ul (4.8-10.8)
[2023-05-06 06:10] LABS: Albumin Globulin Ratio 1.1 (0.9-2); Albumin Level 3.8 gm/dl (3.4-5.0); BUN Creatinine Ratio 14.3 (10-20); Bilirubin,Total 1.3 mg/dl (0.2-1.0); Creatinine Clr Calc Pharmacy 55.8 ml/min; Est GFR (Non-African American) 52.6 ml/min; Globulin 3.6 gm/dl (2.5-4.0); Potassium 3.7 mmol/L (3.5-5.1); Total Protein 7.4 gm/dl (6.0-8.3)
[2023-05-06 06:21] LABS: INR 1.1 (0.9-1.1); Prothrombin Time 12.3 Seconds (9.0-12.0)
[2023-05-06 07:33] LABS: Estimated Average Glucose 123 mg/dl; Hemoglobin A1C 5.9 % (4.5-5.6)
[2023-05-06] MEDS: CHOLECALCIFEROL 25 MCG (1000 UNITS) TAB PO SCH (08:09)
[2023-05-06] MEDS: CYANOCOBALAMIN (B-12) 500 MCG TABLET PO SCH (08:11)
[2023-05-06] MEDS: FOLIC ACID 1 MG TAB PO SCH (08:14)
[2023-05-06] MEDS: SERTRALINE HCL 50 MG TABLET PO SCH (08:15)
[2023-05-06] MEDS: FUROSEMIDE 40 MG TAB PO SCH (08:15)
[2023-05-06] MEDS: HEPARIN SODIUM/DEXTROSE 25,000 UNITS/500 ML BAG IV SCH ×3 (08:23→21:39)
[2023-05-06] MEDS ORDERED: POTASSIUM CHLORIDE CRTAB 20 MEQ TABCR PO ONE (08:32)
--- NOTE | 2023-05-06 09:11 | Cardiology Consultation ---
Date of Consultation May 06, 2023 Assessment & Plan (1) Atrial fibrillation with RVR: * Patient with history of paroxysmal atrial fibrillation, presents with atrial fibrillation, rapid ventricular response, duration unknown * She has missed several days of medications, it sounds like she described 4 da ys of his medications to some providers, she describes 2 days of missed peripheral medications to me. Her INR was 1.1 on admission. * Continue heparin infusion * Coumadin reinitiated. * Continue outpatient dose of metoprolol succinate 50 mg twice daily, furosemide 40 mg p.o. daily. * Does not examine as being acutely volume overloaded * Proceed with diltiazem infusion for further rate control * Given subtherapeutic INR and high risk airway features, favor rate control anticoagulation. * If she remains in atrial fibrillation, considerations can be made for direct- current cardioversion after she has been on uninterrupted therapeutic anticoagulation for 3 to 4 weeks History of Present Illness Attending Physician: Dany Dumont MD History of Present Illness Autumn Alex is a 72 year old female seen in cardiology consultation per the request of Nora Kirkland PA-C for the evaluation of atrial fibrillation with rapid ventricular rate. Patient presented to the emergency department with having awakened yesterday with pain between her shoulder blades that would wax and wane and was worse with deep inspiration. She described a chronic degree of exertional shortness of breath that was relatively unchanged. She recently been in [place] for a month and a half returning several days ago. She notes recent subjective complaint of malaise, fever, rhinorrhea, and fatigue. She reports having missed 4 days of medications leading up to her presentation to the emergency room. Patient states that the discomfort between her shoulder blades with deep inspiration prompted her to come to the emergency room has resolved completely. She is comfortable sitting in the bedside chair. She is currently in ICU room 107 as a telemetry overflow patient. Telemetry reveals atrial fibrillation with ventricular rates in the range of 90 to 105 bpm at rest. Most recent blood pressure is 152/98. She has been afebrile overnight. Outpatient Problem List: 1.Paroxysmal atrial fibrillation, [id number] score of 3 (age, female, HTN), on coumadin 2.Hypertension a.Hypertensive BP response on DSE 2018 3.Chronic bilateral lower extremity edema 4.Moderate pulmonary HTN 5.Moderate MR and TR 6.Heterozygous MTHFR mutation with history of pulmonary embolism, aprox 2006- 008 7.Severe obstructive sleep apnea Allergies Allergy/AdvReac Type Severity Reaction Status Date / Time adhesive Allergy Mild RASH Verified 05/05/23 15:41 latex Allergy Mild RASH Verified 05/05/23 15:41 lactose AdvReac Intermediate GI SYMPTOMS Verified 05/05/23 15:41 Home Medications Medication Instructions Recorded Confirmed Type cholecalciferol (vitamin D3) 25 25 mcg PO QAM 07/28/20 05/05/23 History mcg (1,000 unit) tablet (Vitamin D3) cyanocobalamin (vitamin B-12) 500 500 mcg PO DAILY 05/05/23 05/05/23 History mcg tablet (Vitamin B-12) folic acid 1 mg tablet 1 mg PO DAILY 05/05/23 05/05/23 History furosemide 40 mg tablet 40 mg PO DAILY 05/05/23 05/05/23 History latanoprost 0.005 % eye drops 1 drp OPB HS 05/05/23 05/05/23 History metoprolol succinate 50 mg 50 mg PO BID 05/05/23 05/05/23 History tablet,extended release 24 hr sertraline 50 mg tablet 50 mg PO DAILY 05/05/23 05/05/23 History warfarin 5 mg tablet 2.5 mg PO MOWEFR@1600 05/05/23 05/05/23 History warfarin 5 mg tablet 5 mg PO SUTUTHSA@1600 05/05/23 05/05/23 History Patient History Medical History Lower extremity edema Paroxysmal A-fib Occurred during stress test several years ago Hx of gout Osteoarthritis Lactose intolerance History of skin cancer s/p removal Factor 5 Leiden mutation, heterozygous On chronic coumadin HTN (hypertension) CKD (chronic kidney disease), stage III GFR baseline in 40s Irritable bowel syndrome (IBS) DVT (deep venous thrombosis) 2013 Pulmonary embolism 2013 Surgical History Status post left knee replacement (~12/2019) History of orthopedic surgery LEFT HEEL BONE SPUR SURGERY History of repair of rotator cuff RT History of colonoscopy History of appendectomy History of tooth extraction Family History Father Family history of diabetes mellitus Other Diabetes No family history of adverse response to anesthesia Social History Smoking Status: Never smoker Second Hand Exposure: No; Do You Dip or Chew Tobacco: No; Hx Alcohol Use: No Hx Substance Use: No Preferred Language: Romansh Communication Ability: Effective Street Flusher Driver Required: No Beliefs That Will Affect Care: None Current Living Situation: Family Current Living Situation Comment: with daughter current occupational status: retired Other Information That Helps Us Care for You: No Feels Safe at Home: Yes Safety Concerns: Feels Safe At This Time Assistive Devices: Cane, Denture - Lower and Glasses Review of Systems Review of Systems: All systems reviewed & are unremarkable except as noted in HPI & below Physical Exam Constitutional: WD/WN, vitals as above + obese Eyes: PERRL, conjunctivae normal, anicteric sclerae Respiratory: normal respiratory effort, lungs clear to auscultation Cardiovascular: Rate/Rhythm: + irregularly irregular Heart Sounds: no murmur Vessels: no JVD Extremities: + edema (1-2+ left lower extremity edema (chronic) 1+ right lower extremity edema) Gastrointestinal (Abdomen): normal bowel sounds, soft, nontender, no hepatosplenomegaly Neurologic: PERRL, EOMI, accommodation nl, no face palsy, no dysarthria Results & Data Vital Signs (Past 12 Hours) Vital Signs Temp Pulse Resp BP BP Pulse Ox O2 Del Method 05/06/23 05:30 75 26 H 119/97 91 Room Air 05/06/23 04:29 153/103 H 05/06/23 04:29 93 H 21 93 05/06/23 04:00 151/113 H 05/06/23 04:00 93 H 24 91 05/06/23 00:15 36.6 C 152/88 H 05/06/23 00:04 144/108 H 05/06/23 00:04 106 H 28 H 91 05/06/23 00:00 95 H 05/05/23 23:00 87 26 H 93 05/05/23 23:00 Room Air 05/05/23 22:50 86 24 94 05/05/23 22:40 84 28 H 93 05/05/23 22:30 86 27 H 96 05/05/23 22:20 81 28 H 94 05/05/23 22:10 89 20 95 05/05/23 22:00 86 21 156/91 H 95 05/05/23 22:00 89 21 95 05/05/23 21:50 113 H 19 94 05/05/23 21:48 159/126 H 05/05/23 21:48 108 H 37 H 95 05/05/23 21:40 112 H 14 05/05/23 21:30 112 H 21 05/05/23 21:20 117 H 32 H 05/05/23 21:10 105 H 17 Laboratory Results Cardiac Enzymes 05/05/23 05/05/23 05/06/23 Range/Units 15:52 17:45 00:46 AST 29 (13-39) U/L Troponin I High Sens 25.7 H 25.8 H 28.6 H (0-14) pg/ml B-Natriuretic Peptide 235 H (0-100) pg/ml 05/06/23 Range/Units 04:32 AST 31 (13-39) U/L Troponin I High Sens 21.6 H (0-14) pg/ml B-Natriuretic Peptide (0-100) pg/ml Coagulation 05/05/23 05/06/23 Range/Units 15:52 04:32 PT 12.4 H 12.3 H (9.0-12.0) Seconds APTT 27 (21-31) Seconds B-Natriuretic Peptide 235 H (0-100) pg/ml CBC 05/05/23 05/06/23 Range/Units 15:52 04:32 WBC 9.34 6.37 (4.8-10.8) K/ul RBC 4.24 3.73 L (4.20-5.40) M/uL Hgb 12.6 11.3 L (12.0-16.0) g/dl Hct 40.2 35.5 L (37.0-47.0) % Plt Count 263 220 (130-400) K/uL Neut # (Auto) 7.78 H 4.50 (1.40-6.50) K/uL Lymph # (Auto) 0.66 L 1.12 L (1.20-3.40) K/uL [place] # (Auto) 0.69 H 0.52 (0.11-0.59) K/uL Eos # (Auto) 0.14 0.18 (0.00-0.50) K/uL Baso # (Auto) 0.04 0.03 (0.00-0.20) K/uL Comprehensive Metabolic Panel 05/05/23 05/06/23 Range/Units 15:52 04:32 Sodium 140 139 (136-145) mmol/L Potassium 3.6 3.7 (3.5-5.1) mmol/L Chloride 107 108 H (98-107) mmol/L Carbon Dioxide 24 23 (21-32) mmol/L BUN 13 15 (6-23) mg/dl Creatinine 1.09 1.05 (0.6-1.2) mg/dl Glucose 150 H 118 H (70-99(Fasting)) mg/dl Calcium 9.5 9.0 (8.6-10.3) mg/dl AST 29 31 (13-39) U/L ALT 22 25 (7-52) U/L Alkaline Phosphatase 88 82 (34-104) U/L Total Protein 8.3 7.4 (6.0-8.3) gm/dl Albumin 4.3 3.8 (3.4-5.0) gm/dl Diagnostic Findings EKG performed 05/05/2023 1535 and interpret independently: Atrial fibrillation with rapid ventricular response, 132 bpm, left anterior fascicular block, left ventricular hypertrophy pattern by voltage criteria, IVCD, ST changes in the lateral leads I and aVL suggestive of possible lateral ischemia. Compared to the previous performed in July,, atrial fibrillation with rapid ventricular spots has replaced sinus rhythm at 60 bpm. The lateral repolarization changes are new. EKG performed 05/06/2023 at 5:44 AM, atrial fibrillation 89 bpm, IVCD versus incomplete left bundle branch block, with associated repolarization abnor malities. Summary of CTA chest performed 05/05/2023: 1. No evidence for a pulmonary embolus. 2. Pulmonary arterial hypertension. With noted diameter of the main pulmonary artery at 3.8 cm 3. There are few scattered subcentimeter nodular densities within the lungs which are new compared to the prior study. Some of these demonstrate a tree-in-bud nodular pattern. Therefore, this favors a mild inflammatory/infectious process. 4. Mild mediastinal lymphadenopathy which has progressed. This could be reactive. However, [address] follow-up recommended to ensure stability/resolution of the additional lymph nodes and scattered nodules. 5. Mild air trapping. Echocardiogram performed today and interpreted independently: The study was technically limited due to patient characteristics and poor acoustic windows. Left ventricular wall motion was grossly normal on technically limited evaluation, LVEF 55% The pulm artery systolic pressure is estimated be 45 mmHg (mildly elevated).
[2023-05-06] MEDS ORDERED: PLASMA-LYTE A 500 ML IV ONE (09:30)
--- NOTE | 2023-05-06 09:58 | Electrocardiogram Report ---
Test Reason : Blood Pressure : / mmHG Vent. Rate : 132 BPM Atrial Rate : 000 BPM P-R Int : 000 ms QRS Dur : 124 ms QT Int : 356 ms P-R-T Axes : 000 -56 116 degrees QTc Int : 527 ms Atrial fibrillation with rapid ventricular response Left anterior fascicular block Minimal voltage criteria for LVH, may be normal variant Abnormal ECG When compared with ECG of 03-AUG-2020 12:22, Significant changes have occurred Confirmed by Grabiel Valencia ([id number]) on 05/06/2023 9:58:19 AM Referred By: Provider Outside Confirmed By:Grabiel Valencia
--- NOTE | 2023-05-06 10:05 | Electrocardiogram Report ---
Test Reason : Blood Pressure : / mmHG Vent. Rate : 089 BPM Atrial Rate : 040 BPM P-R Int : 000 ms QRS Dur : 152 ms QT Int : 430 ms P-R-T Axes : 000 063 -77 degrees QTc Int : 523 ms Poor data quality, interpretation may be adversely affected Atrial fibrillation Left bundle branch block Abnormal ECG When compared with ECG of 05-MAY-2023 15:35, (unconfirmed) Left anterior fascicular block is no longer Present Left bundle branch block is now Present T wave inversion now evident in Inferior leads T wave inversion no longer evident in Lateral leads Confirmed by Grabiel Valencia ([id number]) on 05/06/2023 10:05:05 AM Referred By: Provider Outside Confirmed By:Grabiel Valencia
[2023-05-06 10:06] LABS: ANTI-Xa, UFH(UnfractionatedHep 0.29 IU/ml (0.3-0.7)
[2023-05-06] MEDS ORDERED: dilTIAZem HCl 5 MG/ML 5 ML VIAL IV STA (12:00)
--- NOTE | 2023-05-06 13:05 | Hospitalist Progress Note ---
Date of Service May 06, 2023 Assessment & Plan (1) Atrial fibrillation with RVR: (2) Back pain: (3) Subtherapeutic anticoagulation: (4) Viral illness: (5) Noncompliance with medications: (6) CKD (chronic kidney disease), stage III: (7) Hx pulmonary embolism: (8) Heterozygous for MTHFR gene mutation: (9) Morbid obesity with BMI of 45.0-49.9, adult: Plan Patient is a 72 yr female who has a significant past medical history of PAF anticoagulated on warfarin, HTN, history of PE, heterozygote MTHFR mutation, factor V Leiden deficiency, methylenetetrahydrofolate reductase deficiency, severe CHATA, Pulmonary HTN, CKD stage III, gouty arthropathy and depression who presents to ED secondary to pain between shoulder blades and feeling sick. Atrial fibrillation with RVR Subtherapeutic INR on presentation Missed taking home medications--admits to being forgetful --CXR:Mild cardiomegaly. Otherwise, no acute process within the chest. --Normal TSH --ECHO: Technically limited study due to poor acoustic windows. Left ventricle wall motion was grossly normal on limited evaluation. EF 55%. Pulmonary artery pressure 45 mmHg. Continue metoprolol 50 mg twice a day Restarted Coumadin Monitor INR: 1.1 Continue IV heparin for now Appreciate cardiology input Monitor and replace electrolytes as needed Acute bronchitis Mediastinal lymphadenopathy Likely viral etiology --CTA:No evidence for a pulmonary embolus. Pulmonary arterial hypertension. There are few scattered subcentimeter nodular densities within the lungs which are new compared to the prior study. Some of these demonstrate a tree-in-bud nodular pattern. Therefore, this favors a mild inflammatory/infectious process. Mild mediastinal lymphadenopathy which has progressed. This could be reactive. However, [address] follow-up recommended to ensure stability/resolution of the additional lymph nodes and scattered nodules. Mild air trapping. -- Normal procalcitonin --Negative BioFire Saturating well on room air Conservative management Advised repeat CT imaging as outpatient in 6 months Prediabetes HbA1c 5.9 Lifestyle changes Mild troponin elevation likely Type II GA secondary to A-fib RVR Improving H/O PE/DVT MTHFR mutation continue warfarin--adjust dose as needed Continue IV Heparin until INR in therapeutic range Severe CHATA CPAP at HS CKD-3 baseline cr 1.1 chronic, stable avoid nephrotoxic agents Monitor renal function Morbid obesity BMI 49.3 Encourage diet/lifestyle modifications DVT Px: IV Heparin, Coumadin Code Status FULL CODE Admission and Anticipated Discharge Date Admission Date: May 05, 2023 Subjective Patient is seen and examined at bedside Admits to having mild cough Pain between shoulder blades improved Heart rate is controlled Denies any chest pain, dyspnea Eager to get discharged Saturating well on room air Review of Systems Review of Systems: All systems reviewed & are unremarkable except as noted in Subjective Physical Exam Physical Exam: Physical Exam: Vitals signs as noted above General Appearance:Obese, no apparent distress Head: normocephalic, Atraumatic Eyes: normal inspection, EOMI Neck: supple, Trachea midline Respiratory/Chest: Decreased breath sounds, CTA, No accessory muscle use Cardiovascular: Irregularly irregular, No murmur Abdomen/GI:Soft, Non tender, Bowel sounds present Extremities/Musculoskeletal:normal inspection, 2+ B/L LE edema Neurologic/Psych:AAOX3, grossly no focal neurological deficits Skin: normal color, warm Results & Data Results & Data Vital Signs (Past 12 Hours) Vital Signs Temp Pulse Pulse Resp BP BP Pulse Ox 05/06/23 11:28 36.6 C 92 H 18 152/98 H 93 05/06/23 09:26 85 05/06/23 08:20 139/80 05/06/23 08:20 95 H 24 91 05/06/23 08:19 173/117 H 05/06/23 08:19 96 H 16 91 05/06/23 07:00 93 H 27 H 91 05/06/23 05:30 75 26 H 119/97 91 05/06/23 04:29 153/103 H 05/06/23 04:29 93 H 21 93 05/06/23 04:00 151/113 H 05/06/23 04:00 93 H 24 91 O2 Del Method 05/06/23 11:28 Room Air 05/06/23 09:26 05/06/23 08:20 05/06/23 08:20 Room Air 05/06/23 08:19 05/06/23 08:19 Room Air 05/06/23 07:00 05/06/23 05:30 Room Air 05/06/23 04:29 05/06/23 04:29 05/06/23 04:00 05/06/23 04:00 Laboratory Results Short CBC 05/05/23 05/06/23 Range/Units 15:52 04:32 WBC 9.34 6.37 (4.8-10.8) K/ul Hgb 12.6 11.3 L (12.0-16.0) g/dl Hct 40.2 35.5 L (37.0-47.0) % Plt Count 263 220 (130-400) K/uL BMP 05/05/23 05/06/23 15:52 04:32 Sodium 140 139 Potassium 3.6 3.7 Chloride 107 108 H Carbon Dioxide 24 23 BUN 13 15 Creatinine 1.09 1.05 Glucose 150 H 118 H Calcium 9.5 9.0 Liver Function 05/05/23 05/06/23 Range/Units 15:52 04:32 Total Bilirubin 1.3 H 1.3 H (0.2-1.0) mg/dl AST 29 31 (13-39) U/L ALT 22 25 (7-52) U/L Alkaline Phosphatase 88 82 (34-104) U/L Albumin 4.3 3.8 (3.4-5.0) gm/dl (2) Back pain Back pain laterality: midline Back pain location: thoracic back pain Chronicity: unspecified Qualified Code(s): M54.6 - Pain in thoracic spine
[2023-05-06] MEDS ORDERED: dilTIAZem HCl 5 MG/ML 5 ML VIAL IV ONE (14:26)
[2023-05-06] MEDS: WARFARIN SOD 7.5 MG TAB PO SCH (15:28)
[2023-05-06] MEDS ORDERED: WARFARIN SOD 5 MG TAB PO SCH (16:00)
[2023-05-06 17:10] LABS: ANTI-Xa, UFH(UnfractionatedHep 0.93 IU/ml (0.3-0.7)
[2023-05-06] MEDS ORDERED: ACETAMINOPHEN 325 MG TAB PO STA (19:36)
[2023-05-06] MEDS ORDERED: NSS + 20MEQ KCL 20 MEQ/1,000 ML BAG IV ONE (20:00)
[2023-05-06] MEDS: LATANOPROST 0.005% OP SOLN 2.5 ML BTL OPB SCH (20:20)
[2023-05-06] MEDS ORDERED: METOPROLOL SUCC 25MG EXT REL TAB PO SCH (21:00)
[2023-05-06] MEDS ORDERED: METOPROLOL SUCC 50MG EXT REL TAB PO SCH ×2 (21:00)
[2023-05-07] MEDS ORDERED: METOPROLOL SUCC 25MG EXT REL TAB PO STA ×2 (00:48→06:02)
[2023-05-07 01:24] LABS: Appearance Urine Clear (Clear); Bilirubin Urine Negative (Negative); Blood Urine Trace-intact (Negative); Color Urine Yellow; Glucose Urine UA Negative (Negative); Ketones Urine Negative (Negative); Leukocyte Esterase Urine Negative (Negative); Nitrite Urine Negative (Negative); Protein Urine 1+ (Negative); Urobilinogen Urine Negative (Negative)
[2023-05-07 01:36] LABS: Bacteria Urine 1+ (Negative); RBC Urine 0-4 /hpf (0-4); WBC Urine 0-5 /hpf (0-5)
[2023-05-07 01:39] LABS: ANTI-Xa, UFH(UnfractionatedHep 0.86 IU/ml (0.3-0.7)
[2023-05-07 06:40] LABS: Basophils # (auto) 0.03 K/uL (0.00-0.20); Basophils % (auto) 0.4 %; Eosinophils # (auto) 0.23 K/uL (0.00-0.50); Eosinophils % (auto) 3.1 %; Hematocrit (blood only) 35.7 % (37.0-47.0); Hemoglobin 11.2 g/dl (12.0-16.0); Immature Granulocytes # (auto) 0.03 K/uL (0.01-0.20); Immature Granulocytes % (auto) 0.4 %; Lymphocytes # (auto) 0.71 K/uL (1.20-3.40); Lymphocytes % (auto) 9.6 %; Mean Corpuscular Hemoglobin 29.9 pg (25.0-34.0); Mean Corpuscular Hgb Conc 31.4 g/dL (32.0-36.0); Mean Corpuscular Volume 95.5 fL (80.0-100.0); Mean Platelet Volume 11.4 fL (9.4-12.4); Monocytes # (auto) 0.59 K/uL (0.11-0.59); Monocytes % (auto) 7.9 %; Neutrophils # (auto) 5.84 K/uL (1.40-6.50); Neutrophils % (auto) 78.6 %; Platelet Count 216 K/uL (130-400); RDW Coefficient of Variation 13.4 % (11.5-14.5); RDW Standard Deviation 47.3 fL (36.4-46.3); Red Blood Count 3.74 M/uL (4.20-5.40); White Blood Count 7.43 K/ul (4.8-10.8)
[2023-05-07 07:01] LABS: Albumin Globulin Ratio 1.1 (0.9-2); Albumin Level 3.9 gm/dl (3.4-5.0); Calcium 9.2 mg/dl (8.6-10.3); Creatinine Clr Calc Pharmacy 76.5 ml/min; Est GFR (African American) 64.7 ml/min; Est GFR (Non-African American) 55.8 ml/min; Globulin 3.4 gm/dl (2.5-4.0); Magnesium 1.8 mg/dl (1.7-2.4); Total Protein 7.3 gm/dl (6.0-8.3)
[2023-05-07 07:40] LABS: INR 1.3 (0.9-1.1); Prothrombin Time 14.3 Seconds (9.0-12.0)
[2023-05-07] MEDS: HEPARIN SODIUM/DEXTROSE 25,000 UNITS/500 ML BAG IV SCH ×2 (08:12→15:18)
[2023-05-07 08:34] LABS: ANTI-Xa, UFH(UnfractionatedHep 0.63 IU/ml (0.3-0.7)
--- NOTE | 2023-05-07 08:37 | Cardiology Progress Note ---
Date of Service May 07, 2023 Assessment & Plan (1) Atrial fibrillation with RVR: Plan Assessment: 72 year old female presents with Atrial fibrillation with RVR in the setting of several missed days of medications. Plan: A-fib with RVR -Known history of P. A-fib. exacerbation s/t several days of missed medications. -INR today 1.3, continue with heparin gtt and titrating warfarin. -Continue OP Toprol xl 50mg Twice daily and furosemide 40mg PO daily. -Patient continues on diltiazem gtt for rate control, will discuss with Dr. Metz consideration for transition to PO as rate is controlled. -Electrolytes remain within target. -Cr. 1.0 -patient does not demonstrate hypervolemia on physical exam. -Patient may be a candidate for AKIRA and cardioversion, but given her recent subtherapeutic INR, and high risk airway due to body habitus, we will continue t o work on rate control at this time. May reconsider for DCCV in 3-4 weeks of therapeutic uninterrupted warfarin therapy Case has been discussed with Dr. Metz. Further recommendations regarding plan of care as per his assessment. I spent a total of 30 minutes on the date of service in preparation, delivery, documentation of the care provided to the patient excluding any time spent in the performance of separately billed services. CRISTHIAN Nelson [facility] Admission and Anticipated Discharge Date Admission Date: May 05, 2023 Supervising Physician Co-Signing Physician Notes Attending attestation: I have reviewed the advanced practitioner's documentation, and agree with, and take responsibility for the plan of care. Subjective: Patient comfortable sitting in bed. Atrial fibrillation noted with rates in the 90s at rest but does climb to the 120s with walking to the restroom. Overnight last night she converted from atrial fibrillation to sinus rhythm at 2044 without conversion pause while on a diltiazem infusion. Then at 21: 20 she had a 5 beat run of nonsustained ventricular tachycardia while sleeping. At 12:34 AM she reverted from sinus rhythm back to atrial fibrillation Exam: Cardiovascular regular rhythm, no murmurs, chronic left greater than right lower extremity edema Data: Echocardiogram performed this hospital stay revealed LVEF of 55%, pulmonary systolic pressure estimated 45 mmHg (mildly elevated). INR value 05/07/2023 1.3 Impression/ Plan: History of paroxysmal atrial fibrillation, with recurrence Subtherapeutic INR 5 beat run of nonsustained ventricular tachycardia in the setting of preserved ejection fraction, untreated sleep apnea * Did not tolerate positive pressure ventilation as an outpatient in the past * Diltiazem infusion has been discontinued * Increase metoprolol tartrate from outpatient dose of 50 mg twice daily to 100 mg twice daily * Heparin bridge to Coumadin, goal INR 23 * Continue outpatient dosing of furosemide 40 mg p.o. daily I spent a total of 20 minutes coordinating, documenting, and providing care for this patient excluding time spent in the performance of separately billed services or time spent by another provider. Ang Metz DO Subjective 05/07/23: Patient seen and examined in follow up. She is sitting up on the side of her bed today and offers no complaints. She denies chest pain, pressure, palpitations. she notes that her legs are looking much better in comparison to the time of admission. Review of telemetry overnight shows Atrial fibrillation with conversion to NSR at 8:47pm, followed by a 6 beat run of VT at 9:20pm, and return to Atrial fibrillation at 1234am. She denies any symptoms. Documentation, labs and diagnostics reviewed. Review of Systems Review of Systems: All systems reviewed & are unremarkable except as noted in HPI & below Physical Exam Constitutional: + obese; no acute distress Neck: normal visual inspection and trachea midline Respiratory: normal respiratory effort, lungs clear to auscultation Cardiovascular: Rate/Rhythm: + irregularly irregular Heart Sounds: normal S1 and normal S2 Vessels: dorsalis pedis pulses present; no JVD Extremities: + edema (Trace to +1 BLE ) Skin: no rashes, warm and dry Psychiatric: A+Ox3, euthymic affect Results & Data Vital Signs (Past 12 Hours) Vital Signs Temp Pulse Pulse Resp BP Pulse Ox O2 Del Method 05/07/23 07:49 88 05/07/23 07:07 36.6 C 82 18 149/89 H 93 Room Air 05/07/23 04:00 36.6 C 94 H 22 161/83 H 91 Room Air 05/07/23 00:19 36.9 C 82 21 188/75 H 94 Room Air 05/06/23 23:20 85 Laboratory Results Cardiac Enzymes 05/07/23 Range/Units 06:19 AST 38 (13-39) U/L Coagulation 05/07/23 Range/Units 06:19 PT 14.3 H (9.0-12.0) Seconds CBC 05/07/23 Range/Units 06:19 WBC 7.43 (4.8-10.8) K/ul RBC 3.74 L (4.20-5.40) M/uL Hgb 11.2 L (12.0-16.0) g/dl Hct 35.7 L (37.0-47.0) % Plt Count 216 (130-400) K/uL Neut # (Auto) 5.84 (1.40-6.50) K/uL Lymph # (Auto) 0.71 L (1.20-3.40) K/uL [place] # (Auto) 0.59 (0.11-0.59) K/uL Eos # (Auto) 0.23 (0.00-0.50) K/uL Baso # (Auto) 0.03 (0.00-0.20) K/uL Comprehensive Metabolic Panel 05/07/23 Range/Units 06:19 Sodium 137 (136-145) mmol/L Potassium 4.0 (3.5-5.1) mmol/L Chloride 106 (98-107) mmol/L Carbon Dioxide 22 (21-32) mmol/L BUN 15 (6-23) mg/dl Creatinine 1.00 (0.6-1.2) mg/dl Glucose 128 H (70-99(Fasting)) mg/dl Calcium 9.2 (8.6-10.3) mg/dl AST 38 (13-39) U/L ALT 37 (7-52) U/L Alkaline Phosphatase 80 (34-104) U/L Total Protein 7.3 (6.0-8.3) gm/dl Albumin 3.9 (3.4-5.0) gm/dl Intake and Output 05/06/23 05/07/23 05/07/23 22:59 06:59 14:59 Intake Total 614.4 / 1457.866 326.2 / 1457.866 Balance 614.4 / 1457.866 326.2 / 1457.866 Intake: IV 414.4 / 842.866 151.2 / 842.866 Heparin Sodium/Dextrose 25,000 414.4 / 842.866 151.2 / 842.866 units In 500 ml @ 1,600 UNITS/ HR 32 mls/hr IV .[id number] MARK Rx #:[id number] Oral 200 / 615 175 / 615 Other: # Unmeasured Voids 1 3 Weight 149.4 kg Weight Measurement Method Built in [facility] Diagnostic Findings EKG 05/05/23 (obtained from [employer] A-fib with RVR left axis deviation IVCD Rate 135 bpm Echocardiogram 05/06/23 LVEF 55% with left ventricular wall motion grossly normal, limited evaluation
[2023-05-07] MEDS ORDERED: METOPROLOL SUCC 25MG EXT REL TAB PO SCH ×2 (09:00→21:00)
[2023-05-07] MEDS: CYANOCOBALAMIN (B-12) 500 MCG TABLET PO SCH (09:22)
[2023-05-07] MEDS: FOLIC ACID 1 MG TAB PO SCH (09:22)
[2023-05-07] MEDS: SERTRALINE HCL 50 MG TABLET PO SCH (09:22)
[2023-05-07] MEDS: CHOLECALCIFEROL 25 MCG (1000 UNITS) TAB PO SCH (09:23)
[2023-05-07] MEDS: DOXYCYCLINE HYCLATE 100 MG CAP PO SCH ×2 (12:54→22:12)
--- NOTE | 2023-05-07 15:14 | Hospitalist Progress Note ---
Date of Service May 07, 2023 Assessment & Plan (1) Atrial fibrillation with RVR: (2) Back pain: (3) Subtherapeutic anticoagulation: (4) Viral illness: (5) Noncompliance with medications: (6) CKD (chronic kidney disease), stage III: (7) Hx pulmonary embolism: (8) Heterozygous for MTHFR gene mutation: (9) Morbid obesity with BMI of 45.0-49.9, adult: Plan Patient is a 72 yr female who has a significant past medical history of PAF anticoagulated on warfarin, HTN, history of PE, heterozygote MTHFR mutation, factor V Leiden deficiency, methylenetetrahydrofolate reductase deficiency, severe CHATA, Pulmonary HTN, CKD stage III, gouty arthropathy and depression who presents to ED secondary to pain between shoulder blades and feeling sick. Atrial fibrillation with RVR Subtherapeutic INR on presentation Missed taking home medications--admits to being forgetful --CXR:Mild cardiomegaly. Otherwise, no acute process within the chest. --Normal TSH --ECHO: Technically limited study due to poor acoustic windows. Left ventricle wall motion was grossly normal on limited evaluation. EF 55%. Pulmonary artery pressure 45 mmHg. Continue metoprolol 50 mg twice a day Restarted Coumadin--plan to give 7.5 mg today Monitor INR: 1.3 Continue IV heparin Appreciate cardiology input Monitor and replace electrolytes as needed Needs follow-up with cardiology, currently in clinic upon discharge Acute bronchitis Mediastinal lymphadenopathy Likely viral etiology --CTA:No evidence for a pulmonary embolus. Pulmonary arterial hypertension. There are few scattered subcentimeter nodular densities within the lungs which are new compared to the prior study. Some of these demonstrate a tree-in-bud nodular pattern. Therefore, this favors a mild inflammatory/infectious process. Mild mediastinal lymphadenopathy which has progressed. This could be reactive. However, [address] follow-up recommended to ensure stability/resolution of the additional lymph nodes and scattered nodules. Mild air trapping. -- Normal procalcitonin --Negative BioFire Saturating well on room air Conservative management Advised repeat CT imaging as outpatient in 6 months Started on doxycycline Prediabetes HbA1c 5.9 Lifestyle changes Mild troponin elevation likely Type II PR secondary to A-fib RVR Improving H/O PE/DVT MTHFR mutation continue warfarin--adjust dose as needed Continue IV Heparin until INR in therapeutic range Severe CHATA CPAP at HS CKD-3 baseline cr 1.1 chronic, stable avoid nephrotoxic agents Monitor renal function Morbid obesity BMI 49.3 Encourage diet/lifestyle modifications DVT Px: IV Heparin, Coumadin Code Status FULL CODE Admission and Anticipated Discharge Date Admission Date: May 05, 2023 Subjective Patient is seen and examined at bedside Reports known expectorant cough Also reported transient nausea and dry heaving this morning Currently nausea resolved Pain between the shoulder blades resolved Denies any chest pain, dyspnea Review of Systems Review of Systems: All systems reviewed & are unremarkable except as noted in Subjective Physical Exam Physical Exam: Physical Exam: Vitals signs as noted above General Appearance:Obese, no apparent distress Head: normocephalic, Atraumatic Eyes: normal inspection, EOMI Neck: supple, Trachea midline Respiratory/Chest: Decreased breath sounds, CTA, No accessory muscle use Cardiovascular: Irregularly irregular, No murmur Abdomen/GI:Soft, Non tender, Bowel sounds present Extremities/Musculoskeletal:normal inspection, 2+ B/L LE edema Neurologic/Psych:AAOX3, grossly no focal neurological deficits Skin: normal color, warm Results & Data Results & Data Vital Signs (Past 12 Hours) Vital Signs Temp Pulse Pulse Resp BP Pulse Ox O2 Del Method 05/07/23 12:00 36.5 C 87 16 131/78 94 Room Air 05/07/23 07:49 88 05/07/23 07:07 36.6 C 82 18 149/89 H 93 Room Air 05/07/23 04:00 36.6 C 94 H 22 161/83 H 91 Room Air Laboratory Results Short CBC 05/07/23 Range/Units 06:19 WBC 7.43 (4.8-10.8) K/ul Hgb 11.2 L (12.0-16.0) g/dl Hct 35.7 L (37.0-47.0) % Plt Count 216 (130-400) K/uL BMP 05/07/23 06:19 Sodium 137 Potassium 4.0 Chloride 106 Carbon Dioxide 22 BUN 15 Creatinine 1.00 Glucose 128 H Calcium 9.2 Liver Function 05/07/23 Range/Units 06:19 Total Bilirubin 1.0 (0.2-1.0) mg/dl AST 38 (13-39) U/L ALT 37 (7-52) U/L Alkaline Phosphatase 80 (34-104) U/L Albumin 3.9 (3.4-5.0) gm/dl Urine 05/07/23 Range/Units 01:00 Urine Color Yellow Urine Appearance Clear (Clear) Urine pH 6.0 (4.5-7.5) Ur Specific [place] 1.020 (1.000-1.030) Urine Protein 1+ H (Negative) Urine Glucose (UA) Negative (Negative) (2) Back pain Back pain laterality: midline Back pain location: thoracic back pain Chronicity: unspecified Qualified Code(s): M54.6 - Pain in thoracic spine
[2023-05-07] MEDS: WARFARIN SOD 7.5 MG TAB PO SCH (15:19)
[2023-05-07] MEDS ORDERED: WARFARIN SOD 2.5 MG TAB PO SCH (16:00)
[2023-05-07] MEDS: METOPROLOL SUCC 50MG EXT REL TAB PO SCH (22:12)
[2023-05-07] MEDS: LATANOPROST 0.005% OP SOLN 2.5 ML BTL OPB SCH (22:13)
[2023-05-08] MEDS: HEPARIN SODIUM/DEXTROSE 25,000 UNITS/500 ML BAG IV SCH ×2 (06:15→22:22)
[2023-05-08 07:35] LABS: BUN Creatinine Ratio 16.8 (10-20); Calcium 9.5 mg/dl (8.6-10.3); Creatinine Clr Calc Pharmacy 71.7 ml/min; Est GFR (African American) 59.6 ml/min; Est GFR (Non-African American) 51.5 ml/min; Magnesium 1.8 mg/dl (1.7-2.4); Potassium 4.2 mmol/L (3.5-5.1)
[2023-05-08 08:25] LABS: ANTI-Xa, UFH(UnfractionatedHep 0.56 IU/ml (0.3-0.7); INR 1.6 (0.9-1.1); Prothrombin Time 16.7 Seconds (9.0-12.0)
[2023-05-08] MEDS: DOXYCYCLINE HYCLATE 100 MG CAP PO SCH ×2 (08:46→19:35)
[2023-05-08] MEDS: FOLIC ACID 1 MG TAB PO SCH (08:46)
[2023-05-08] MEDS: CHOLECALCIFEROL 25 MCG (1000 UNITS) TAB PO SCH (08:46)
[2023-05-08] MEDS: CYANOCOBALAMIN (B-12) 500 MCG TABLET PO SCH (08:46)
[2023-05-08] MEDS: SERTRALINE HCL 50 MG TABLET PO SCH (08:47)
[2023-05-08] MEDS: METOPROLOL SUCC 50MG EXT REL TAB PO SCH ×2 (08:47→19:35)
--- NOTE | 2023-05-08 08:50 | Cardiology Progress Note ---
Date of Service May 08, 2023 Assessment & Plan (1) Atrial fibrillation with RVR: Plan Assessment: 72 year old female presents with Atrial fibrillation with RVR in the setting of several missed days of medications. Plan: A-fib with RVR: -Coverted overnight -Known history of P. A-fib. exacerbation s/t several days of missed medications. -INR today 1.6 , continue with heparin gtt and titrating warfarin. -Continue increased dose of Toprol xl 100mg BID and furosemide 40mg PO daily. -Electrolytes remain within target. -Cr. 1.07 -patient does not demonstrate hypervolemia on physical exam. -She is doing well from a cardiac standpoint and if remains unchanged and able to be therapeutic on warfarin therapy will likely be ready for discharge at that time. Case has been discussed with Dr. Metz. Further recommendations regarding plan of care as per his assessment. I spent a total of 30 minutes on the date of service in preparation, delivery, documentation of the care provided to the patient excluding any time spent in the performance of separately billed services. CRISTHIAN Nelson [facility] Card[facility] Admission and Anticipated Discharge Date Admission Date: May 05, 2023 Supervising Physician Co-Signing Physician Notes Attending attestation: I have reviewed the advanced practitioner's documentation, and agree with, and take responsibility for the plan of care. Subjective: Patient comfortable sitting in bed. Review of telemetry reveals patient converted from atrial fibrillation to sinus rhythm the evening of 05/07/2023 at 1959. There was an 8 beat run of nonsustained ventricular tachycardia 22: 202. Exam: Cardiovascular regular rhythm, no murmurs, chronic left greater than right lower extremity edema Data: Echocardiogram performed this hospital stay revealed LVEF of 55%, pulmonary systolic pressure estimated 45 mmHg (mildly elevated). INR value 05/07/2023 1.3 Impression/ Plan: History of paroxysmal atrial fibrillation, with recurrence Subtherapeutic INR Short runs of nonsustained ventricular tachycardia in the setting of preserved ejection fraction, untreated sleep apnea * Did not tolerate positive pressure ventilation as an outpatient in the past * Metoprolol succinate titrated from prior to hospital treatment with 50 mg twice daily to 100 mg twice daily * Heparin bridge to Coumadin, INR 1.6 today goal INR 23 * Continue outpatient dosing of furosemide 40 mg p.o. daily I spent a total of 20 minutes coordinating, documenting, and providing care for this patient excluding time spent in the performance of separately billed services or time spent by another provider. Ang Metz DO Subjective 05/08/23: Patient seen and examined in follow up. She is resting comfortably in bed and offers no complaints. Denies chest pain, pressure, palpitations or dyspnea. Review of telemetry overnight shows a conversion to NSR at 1959 last night. She continues in sinus rhythm this morning. Notation of 7 beat run of VT overnight again, likely in response to untreated CHATA. Labs stable. Reviewed notes, labs, vitals, and diagnostics. Review of Systems Review of Systems: All systems reviewed & are unremarkable except as noted in HPI & below Physical Exam Constitutional: well developed, well nourished and + obese; no acute distress Neck: normal visual inspection and trachea midline Respiratory: normal respiratory effort, lungs clear to auscultation Cardiovascular: Rate/Rhythm: regular rate and regular rhythm Heart Sounds: normal S1 and normal S2 Vessels: dorsalis pedis pulses present; no JVD Extremities: + edema (Trace to +1 BLE right chronically bigger than left ) Skin: no rashes, warm and dry Psychiatric: A+Ox3, euthymic affect Results & Data Vital Signs (Past 12 Hours) Vital Signs Temp Pulse Pulse Resp BP Pulse Ox O2 Del Method 05/08/23 07:23 36.9 C 72 18 161/92 H 92 Room Air 05/08/23 02:53 37.1 C 82 18 167/69 H 92 Room Air 05/07/23 22:59 36.8 C 83 18 186/85 H 94 Room Air 05/07/23 21:56 78 Laboratory Results Coagulation 05/08/23 Range/Units 06:54 PT 16.7 H (9.0-12.0) Seconds Comprehensive Metabolic Panel 05/08/23 Range/Units 06:54 Sodium 137 (136-145) mmol/L Potassium 4.2 (3.5-5.1) mmol/L Chloride 106 (98-107) mmol/L Carbon Dioxide 23 (21-32) mmol/L BUN 18 (6-23) mg/dl Creatinine 1.07 (0.6-1.2) mg/dl Glucose 118 H (70-99(Fasting)) mg/dl Calcium 9.5 (8.6-10.3) mg/dl Intake and Output 05/07/23 05/08/23 05/08/23 22:59 06:59 14:59 Intake Total 300 / 3027.2 778.4 / 3027.2 35.733 / 35.733 Balance 300 / 3027.2 778.4 / 3027.2 35.733 / 35.733 Intake: IV 478.4 / 1827.2 35.733 / 35.733 Heparin Sodium/Dextrose 25,000 478.4 / 827.2 35.733 / 35.733 units In 500 ml @ 1,600 UNITS/ HR 32 mls/hr IV .[id number] MARK Rx #:[id number] Oral 300 / 1200 300 / 1200 Other: # Unmeasured Voids 5 2 Weight 150.2 kg Weight Measurement Method Built in [facility] Diagnostic Findings Coagulation 05/08/23 Range/Units 06:54 PT 16.7 H (9.0-12.0) Seconds INR 1.6 Comprehensive Metabolic Panel 05/08/23 Range/Units 06:54 Sodium 137 (136-145) mmol/L Potassium 4.2 (3.5-5.1) mmol/L Chloride 106 (98-107) mmol/L Carbon Dioxide 23 (21-32) mmol/L BUN 18 (6-23) mg/dl Creatinine 1.07 (0.6-1.2) mg/dl Glucose 118 H (70-99(Fasting)) mg/dl Calcium 9.5 (8.6-10.3) mg/dl Intake and Output 05/08/23 05/08/23 05/08/23 06:59 14:59 22:59 Intake Total 778.4 / 3027.2 719.066 / 719.066 Balance 778.4 / 3027.2 719.066 / 719.066 Intake: IV 478.4 / 1827.2 89.066 / 89.066 Heparin Sodium/Dextrose 25,000 478.4 / 827.2 89.066 / 89.066 units In 500 ml @ 1,600 UNITS/ HR 32 mls/hr IV .[id number] MARK Rx #:[id number] Oral 300 / 1200 630 / 630 Other: # Unmeasured Voids 2 Weight 150.2 kg Weight Measurement Method [facility]
--- NOTE | 2023-05-08 16:23 | Hospitalist Progress Note ---
Date of Service May 08, 2023 Assessment & Plan (1) Atrial fibrillation with RVR: (2) Back pain: (3) Subtherapeutic anticoagulation: (4) Viral illness: (5) Noncompliance with medications: (6) CKD (chronic kidney disease), stage III: (7) Hx pulmonary embolism: (8) Heterozygous for MTHFR gene mutation: (9) Morbid obesity with BMI of 45.0-49.9, adult: Plan Patient is a 72 yr female who has a significant past medical history of PAF anticoagulated on warfarin, HTN, history of PE, heterozygote MTHFR mutation, factor V Leiden deficiency, methylenetetrahydrofolate reductase deficiency, severe CHATA, Pulmonary HTN, CKD stage III, gouty arthropathy and depression who presents to ED secondary to pain between shoulder blades and feeling sick. Atrial fibrillation with RVR Subtherapeutic INR on presentation Missed taking home medications--admits to being forgetful --CXR:Mild cardiomegaly. Otherwise, no acute process within the chest. --Normal TSH --ECHO: Technically limited study due to poor acoustic windows. Left ventricle wall motion was grossly normal on limited evaluation. EF 55%. Pulmonary artery pressure 45 mmHg. Continue metoprolol 50 mg twice a day Restarted Coumadin--plan to give 7.5 mg today Monitor INR: 1.3>>1.6 Continue IV heparin until INR is therapeutic Appreciate cardiology input Monitor and replace electrolytes as needed Needs follow-up with cardiology, currently in clinic upon discharge Likely discharge once INR is therapeutic Spontaneously converted to sinus Acute bronchitis Mediastinal lymphadenopathy Likely viral etiology --CTA:No evidence for a pulmonary embolus. Pulmonary arterial hypertension. There are few scattered subcentimeter nodular densities within the lungs which are new compared to the prior study. Some of these demonstrate a tree-in-bud nodular pattern. Therefore, this favors a mild inflammatory/infectious process. Mild mediastinal lymphadenopathy which has progressed. This could be reactive. However, [address] follow-up recommended to ensure stability/resolution of the additional lymph nodes and scattered nodules. Mild air trapping. -- Normal procalcitonin --Negative BioFire Saturating well on room air Conservative management Advised repeat CT imaging as outpatient in 6 months Continue doxycycline Clinically improved Prediabetes HbA1c 5.9 Lifestyle changes Mild troponin elevation likely Type II PA secondary to A-fib RVR Monitor H/O PE/DVT MTHFR mutation continue warfarin--adjust dose as needed Continue IV Heparin until INR in therapeutic range Severe CHATA CPAP at HS CKD-3 baseline cr 1.1 chronic, stable avoid nephrotoxic agents Monitor renal function Morbid obesity BMI 49.3 Encourage diet/lifestyle modifications DVT Px: IV Heparin, Coumadin Code Status FULL CODE Admission and Anticipated Discharge Date Admission Date: May 05, 2023 Subjective Patient is seen and examined at bedside States feeling tired Drowsy this morning which she attributes to poor sleep overnight Cough much improved On IV heparin Offers no other complaints Denies any chest pain, dyspnea Review of Systems Review of Systems: All systems reviewed & are unremarkable except as noted in Subjective Physical Exam Physical Exam: Physical Exam: Vitals signs as noted above General Appearance:Obese, no apparent distress Head: normocephalic, Atraumatic Eyes: normal inspection, EOMI Neck: supple, Trachea midline Respiratory/Chest: Decreased breath sounds, CTA, No accessory muscle use Cardiovascular: Irregularly irregular, No murmur Abdomen/GI:Soft, Non tender, Bowel sounds present Extremities/Musculoskeletal:normal inspection, 2+ B/L LE edema Neurologic/Psych:AAOX3, grossly no focal neurological deficits Skin: normal color, warm Results & Data Results & Data Vital Signs (Past 12 Hours) Vital Signs Temp Pulse Pulse Resp BP Pulse Ox O2 Del Method 05/08/23 15:16 36.6 C 61 18 166/94 H 95 Room Air 05/08/23 15:10 63 05/08/23 11:45 36.5 C 66 16 145/80 H 94 Room Air 05/08/23 07:40 67 05/08/23 07:23 36.9 C 72 18 161/92 H 92 Room Air Laboratory Results [facility] 05/08/23 06:54 Sodium 137 Potassium 4.2 Chloride 106 Carbon Dioxide 23 BUN 18 Creatinine 1.07 Glucose 118 H Calcium 9.5 (2) Back pain Back pain laterality: midline Back pain location: thoracic back pain Chronicity: unspecified Qualified Code(s): M54.6 - Pain in thoracic spine
[2023-05-08] MEDS: WARFARIN SOD 7.5 MG TAB PO SCH (16:34)
[2023-05-08] MEDS: LATANOPROST 0.005% OP SOLN 2.5 ML BTL OPB SCH (19:37)
[2023-05-09 06:29] LABS: BUN Creatinine Ratio 17.9 (10-20); Calcium 9.6 mg/dl (8.6-10.3); Creatinine Clr Calc Pharmacy 69.1 ml/min; Est GFR (African American) 56.4 ml/min; Est GFR (Non-African American) 48.7 ml/min; Magnesium 1.9 mg/dl (1.7-2.4); Potassium 4.1 mmol/L (3.5-5.1)
[2023-05-09 06:51] LABS: ANTI-Xa, UFH(UnfractionatedHep 0.43 IU/ml (0.3-0.7); INR 1.9 (0.9-1.1)
--- NOTE | 2023-05-09 08:48 | Cardiology Progress Note ---
Date of Service May 09, 2023 Assessment & Plan (1) Atrial fibrillation with RVR: Plan Assessment: 72 year old female presents with Atrial fibrillation with RVR in the setting of several missed days of medications. Plan: A-fib with RVR: -Converted overnight on 05/07/23 -Known history of P. A-fib. exacerbation s/t several days of missed medications. -INR today 1.9 , continue with heparin gtt and titrating warfarin. -Continue increased dose of Toprol xl 100mg BID and furosemide 40mg PO daily. -Electrolytes remain within target. -Cr. 1.12 -patient does not demonstrate hypervolemia on physical exam. -She is doing well from a cardiac standpoint and if remains unchanged and able to be therapeutic on warfarin therapy will likely be ready for discharge at that time. Spoke with hospitalist team this morning and stress the need for a PT evaluation and the need for INR to be within goal range 2-3 prior to consideration for discharge due to the paroxysmal nature of her A-fib. Case has been discussed with Dr. Metz. Further recommendations regarding plan of care as per his assessment. I spent a total of 30 minutes on the date of service in preparation, delivery, documentation of the care provided to the patient excluding any time spent in the performance of separately billed services. CRISTHIAN Nelson [facility] Cardiology [facility] Admission and Anticipated Discharge Date Admission Date: May 05, 2023 Supervising Physician Co-Signing Physician Notes Attending attestation: I have reviewed the advanced practitioner's documentation, and agree with, and take responsibility for the plan of care. Subjective: Patient comfortable sitting in bed. Remains in sinus rhythm overnight and thus far today. Exam: Cardiovascular regular rhythm, no murmurs, chronic left greater than right lower extremity edema Data: Echocardiogram performed this hospital stay revealed LVEF of 55%, pulmonary systolic pressure estimated 45 mmHg (mildly elevated). INR value 05/07/2023 1.3 Impression/ Plan: History of paroxysmal atrial fibrillation, with recurrence Subtherapeutic INR Short runs of nonsustained ventricular tachycardia in the setting of preserved ejection fraction, untreated sleep apnea * Did not tolerate positive pressure ventilation as an outpatient in the past * Metoprolol succinate titrated from prior to hospital treatment with 50 mg twice daily to 100 mg twice daily * Heparin bridge to Coumadin. INR increased to 1.9 as of 05/09/2023. Goal INR 23 * Continue outpatient dosing of furosemide 40 mg p.o. daily * Blood pressure has trended toward being above goal despite increase in metoprolol dose and ongoing chronic furosemide therapy. Agree with addition of losartan as already started by the hospital service * Advance activity * Possible discharge when INR is 2 or greater, and blood pressure is improved. I spent a total of 20 minutes coordinating, documenting, and providing care for this patient excluding time spent in the performance of separately billed services or time spent by another provider. Ang Metz DO Subjective 05/09/23: patient seen and examined in follow up. She is feeling well today. Offers no cardiac questions or concerns. patient denies any chest pain pressure, palpitations, shortness of breath, PND, pre-syncope, sycnope or new edema. she is sitting up on the side of bed today, and anticipates having a physical therapy evaluation. Review of telemetry shows SR with 1st degree AV block with occasional PAC. No recurrence of A-fib and no acute events overnight. INR 1.9 today. Notes, labs, vitals and diagnostics reviewed. Review of Systems Review of Systems: All systems reviewed & are unremarkable except as noted in HPI & below Physical Exam Constitutional: well developed, well nourished and + obese; no acute distress Neck: normal visual inspection and trachea midline Respiratory: normal respiratory effort, lungs clear to auscultation Cardiovascular: Rate/Rhythm: regular rate, regular rhythm and + irregularly irregular Heart Sounds: normal S1 and normal S2 Vessels: dorsalis pedis pulses present; no JVD Extremities: + edema (Trace to +1 BLE right chronically bigger than left ) Skin: no rashes, warm and dry Psychiatric: A+Ox3, euthymic affect Results & Data Vital Signs (Past 12 Hours) Vital Signs Temp Pulse Pulse Resp BP Pulse Ox O2 Del Method 05/09/23 07:02 36.5 C 63 18 188/83 H 94 Room Air 05/09/23 03:00 36.2 C L 63 16 153/74 H 93 Room Air 05/08/23 23:58 71 05/08/23 22:25 36.7 C 71 18 161/73 H 92 Room Air Laboratory Results Coagulation 05/09/23 Range/Units 05:59 PT 20.0 H (9.0-12.0) Seconds Comprehensive Metabolic Panel 01/31/24 Range/Units 05:59 Sodium 136 (136-145) mmol/L Potassium 4.1 (3.5-5.1) mmol/L Chloride 106 (98-107) mmol/L Carbon Dioxide 23 (21-32) mmol/L BUN 20 (6-23) mg/dl Creatinine 1.12 (0.6-1.2) mg/dl Glucose 107 H (70-99(Fasting)) mg/dl Calcium 9.6 (8.6-10.3) mg/dl Intake and Output 05/09/23 05/09/23 05/09/23 06:59 14:59 22:59 Intake Total 375.200 / 1745.200 688.533 / 688.533 Output Total 350 / 850 300 / 300 Balance 25.200 / 895.200 388.533 / 388.533 Intake: IV 275.200 / 775.200 208.533 / 208.533 Heparin Sodium/Dextrose 25,000 275.200 / 775.200 208.533 / 208.533 units In 500 ml @ 1,600 UNITS/ HR 32 mls/hr IV .[id number] [facility] Rx #:[id number] Oral 100 / 970 480 / 480 Output: Urine 350 / 850 300 / 300 Other: # Unmeasured Voids 1 Weight 152.1 kg Weight Measurement Method Built in [facility]
[2023-05-09] MEDS: DOXYCYCLINE HYCLATE 100 MG CAP PO SCH ×2 (09:51→21:06)
[2023-05-09] MEDS: CYANOCOBALAMIN (B-12) 500 MCG TABLET PO SCH (09:51)
[2023-05-09] MEDS: CHOLECALCIFEROL 25 MCG (1000 UNITS) TAB PO SCH (09:51)
[2023-05-09] MEDS: METOPROLOL SUCC 50MG EXT REL TAB PO SCH ×2 (09:52→21:06)
[2023-05-09] MEDS: FOLIC ACID 1 MG TAB PO SCH (09:52)
[2023-05-09] MEDS: SERTRALINE HCL 50 MG TABLET PO SCH (09:53)
[2023-05-09] MEDS: LOSARTAN POTASSIUM 25 MG TAB PO SCH (11:05)
[2023-05-09] MEDS: HEPARIN SODIUM/DEXTROSE 25,000 UNITS/500 ML BAG IV SCH (13:29)
--- NOTE | 2023-05-09 15:47 | Hospitalist Progress Note ---
Date of Service May 09, 2023 Assessment & Plan (1) Atrial fibrillation with RVR: (2) Back pain: (3) Subtherapeutic anticoagulation: (4) Viral illness: (5) Noncompliance with medications: (6) CKD (chronic kidney disease), stage III: (7) Hx pulmonary embolism: (8) Heterozygous for MTHFR gene mutation: (9) Morbid obesity with BMI of 45.0-49.9, adult: Plan Patient is a 72 yr female who has a significant past medical history of PAF anticoagulated on warfarin, HTN, history of PE, heterozygote MTHFR mutation, factor V Leiden deficiency, methylenetetrahydrofolate reductase deficiency, severe CHATA, Pulmonary HTN, CKD stage III, gouty arthropathy and depression who presents to ED secondary to pain between shoulder blades and feeling sick. Atrial fibrillation with RVR Subtherapeutic INR on presentation Missed taking home medications--admits to being forgetful --CXR:Mild cardiomegaly. Otherwise, no acute process within the chest. --Normal TSH --ECHO: Technically limited study due to poor acoustic windows. Left ventricle wall motion was grossly normal on limited evaluation. EF 55%. Pulmonary artery pressure 45 mmHg. Continue metoprolol increased to 100 mg twice a day Restarted Coumadin--plan to give 7.5 mg today Monitor INR: 1.3>>1.6>1.9 Continue IV heparin until INR is therapeutic Appreciate cardiology input Monitor and replace electrolytes as needed Needs follow-up with cardiology, currently in clinic upon discharge Spontaneously converted to sinus Needs follow-up with Coumadin clinic on discharge Acute bronchitis Mediastinal lymphadenopathy Likely viral etiology --CTA:No evidence for a pulmonary embolus. Pulmonary arterial hypertension. There are few scattered subcentimeter nodular densities within the lungs which are new compared to the prior study. Some of these demonstrate a tree-in-bud nodular pattern. Therefore, this favors a mild inflammatory/infectious process. Mild mediastinal lymphadenopathy which has progressed. This could be reactive. However, [address] follow-up recommended to ensure stability/resolution of the additional lymph nodes and scattered nodules. Mild air trapping. -- Normal procalcitonin --Negative BioFire Saturating well on room air Conservative management Advised repeat CT imaging as outpatient in 6 months Continue doxycycline Clinically improved Prediabetes HbA1c 5.9 Lifestyle changes Mild troponin elevation likely Type II OK secondary to A-fib RVR Monitor H/O PE/DVT MTHFR mutation continue warfarin--adjust dose as needed Continue IV Heparin until INR in therapeutic range Hypertension Metoprolol increased to 100 mg twice a day Added losartan 25 mg daily Monitor BP Severe CHATA CPAP at HS CKD-3 baseline cr 1.1 chronic, stable avoid nephrotoxic agents Monitor renal function Morbid obesity BMI 49.3 Encourage diet/lifestyle modifications DVT Px: IV Heparin, Coumadin Code Status FULL CODE Disposition PT OT prior to discharge Admission and Anticipated Discharge Date Admission Date: May 05, 2023 Subjective Patient is seen and examined at bedside Blood pressure elevated this morning Anxious to get discharged Cough continues to improve No other complaints Denies any chest pain, dyspnea, nausea, vomiting, abdominal pain Discussed with cardiology today Review of Systems Review of Systems: All systems reviewed & are unremarkable except as noted in Subjective Physical Exam Physical Exam: Physical Exam: Vitals signs as noted above General Appearance:Obese, no apparent distress Head: normocephalic, Atraumatic Eyes: normal inspection, EOMI Neck: supple, Trachea midline Respiratory/Chest: Decreased breath sounds, CTA, No accessory muscle use Cardiovascular: S1-S2, No murmur Abdomen/GI:Soft, Non tender, Bowel sounds present Extremities/Musculoskeletal:normal inspection, 2+ B/L LE edema Neurologic/Psych:AAOX3, grossly no focal neurological deficits Skin: normal color, warm Results & Data Results & Data Vital Signs (Past 12 Hours) Vital Signs Temp Pulse Pulse Resp BP Pulse Ox O2 Del Method 05/09/23 10:25 36.4 C L 65 19 165/83 H 90 Room Air 05/09/23 10:17 Room Air 05/09/23 07:57 78 05/09/23 07:02 36.5 C 63 18 188/83 H 94 Room Air Laboratory Results [facility] 05/09/23 05:59 Sodium 136 Potassium 4.1 Chloride 106 Carbon Dioxide 23 BUN 20 Creatinine 1.12 Glucose 107 H Calcium 9.6 (2) Back pain Back pain laterality: midline Back pain location: thoracic back pain Chronicity: unspecified Qualified Code(s): M54.6 - Pain in thoracic spine
[2023-05-09] MEDS: WARFARIN SOD 7.5 MG TAB PO SCH (15:54)
[2023-05-09] MEDS: LATANOPROST 0.005% OP SOLN 2.5 ML BTL OPB SCH (21:06)
[2023-05-10] MEDS: HEPARIN SODIUM/DEXTROSE 25,000 UNITS/500 ML BAG IV SCH (04:31)
[2023-05-10 06:50] LABS: Hematocrit (blood only) 34.3 % (37.0-47.0); Hemoglobin 10.7 g/dl (12.0-16.0); Mean Corpuscular Hgb Conc 31.2 g/dL (32.0-36.0); Mean Corpuscular Volume 96.1 fL (80.0-100.0); Mean Platelet Volume 11.5 fL (9.4-12.4); Nucleated RBC # (auto) 0.02 K/uL (0.00-0.12); Nucleated RBC % (auto) 0.4 %; Platelet Count 234 K/uL (130-400); RDW Coefficient of Variation 13.7 % (11.5-14.5); RDW Standard Deviation 48.2 fL (36.4-46.3); Red Blood Count 3.57 M/uL (4.20-5.40); White Blood Count 5.22 K/ul (4.8-10.8)
[2023-05-10 07:22] LABS: BUN Creatinine Ratio 18.7 (10-20); Calcium 9.6 mg/dl (8.6-10.3); Creatinine Clr Calc Pharmacy 72.2 ml/min; Est GFR (African American) 59.6 ml/min; Est GFR (Non-African American) 51.5 ml/min; Potassium 4.1 mmol/L (3.5-5.1)
[2023-05-10 07:39] LABS: ANTI-Xa, UFH(UnfractionatedHep 0.37 IU/ml (0.3-0.7); INR 2.5 (0.9-1.1); Prothrombin Time 26.3 Seconds (9.0-12.0)
[2023-05-10] MEDS: LOSARTAN POTASSIUM 25 MG TAB PO SCH (08:34)
[2023-05-10] MEDS: FOLIC ACID 1 MG TAB PO SCH (08:34)
[2023-05-10] MEDS: CHOLECALCIFEROL 25 MCG (1000 UNITS) TAB PO SCH (08:34)
[2023-05-10] MEDS: DOXYCYCLINE HYCLATE 100 MG CAP PO SCH (08:34)
[2023-05-10] MEDS: CYANOCOBALAMIN (B-12) 500 MCG TABLET PO SCH (08:34)
[2023-05-10] MEDS: METOPROLOL SUCC 50MG EXT REL TAB PO SCH (08:34)
[2023-05-10] MEDS: SERTRALINE HCL 50 MG TABLET PO SCH (08:34)
[2023-05-10] MEDS: FUROSEMIDE 40 MG TAB PO SCH (09:45)
--- NOTE | 2023-05-10 09:54 | Cardiology Progress Note ---
Date of Service May 10, 2023 Assessment & Plan (1) Atrial fibrillation with RVR: Plan Assessment: 72 year old female presents with Atrial fibrillation with RVR in the setting of several missed days of medications. Plan: A-fib with RVR: -Converted overnight on 05/07/23, remains SR per review of telemetry. -Known history of P. A-fib. exacerbation s/t several days of missed medications. -INR today 2.5, heparin gtt has been discontinued and Warfarin dose now therapeutic -Continue increased dose of Toprol xl 100mg BID and furosemide 40mg PO daily. In agreement with addition of Losartan 25mg PO QD -Electrolytes remain within target. -Renal function stable. -patient does not demonstrate hypervolemia on physical exam. -She is doing well from a cardiac standpoint and is now therapeutic on warfarin therapy. will likely be ready for discharge at that time. Spoke with hospitalist team (Dr. Dumont) this morning and patient is ok from a cardiac standpoint for discharge. -Recommend OP Cardiology follow up in 3-4 weeks. Case has been discussed with Dr. Metz. Further recommendations regarding plan of care as per his assessment. I spent a total of 30 minutes on the date of service in preparation, delivery, documentation of the care provided to the patient excluding any time spent in the performance of separately billed services. CRISTHIAN Nelson [facility] Cardiology [facility] Admission and Anticipated Discharge Date Admission Date: May 05, 2023 Supervising Physician Co-Signing Physician Notes Attending attestation: I have reviewed the advanced practitioner's documentation, and agree with, and take responsibility for the plan of care. Subjective: Patient comfortable sitting in bed. Remains in sinus rhythm overnight and thus far today. Exam: Cardiovascular regular rhythm, no murmurs, chronic left greater than right lower extremity edema Data: CBC 05/10/23 Range/Units 06:10 WBC 5.22 (4.8-10.8) K/ul RBC 3.57 L (4.20-5.40) M/uL Hgb 10.7 L (12.0-16.0) g/dl Hct 34.3 L (37.0-47.0) % Plt Count 234 (130-400) K/uL Comprehensive Metabolic Panel 05/10/23 Range/Units 06:10 Sodium 139 (136-145) mmol/L Potassium 4.1 (3.5-5.1) mmol/L Chloride 108 H (98-107) mmol/L Carbon Dioxide 24 (21-32) mmol/L BUN 20 (6-23) mg/dl Creatinine 1.07 (0.6-1.2) mg/dl Glucose 98 (70-99(Fasting)) mg/dl Calcium 9.6 (8.6-10.3) mg/dl Impression/ Plan: History of paroxysmal atrial fibrillation, with recurrence Short runs of nonsustained ventricular tachycardia in the setting of preserved ejection fraction, untreated sleep apnea HTN * INR is now at goal. * Pt remains in SR. * BP improved on increased dose of metoprolol and losartan. * DC on metoprolol succinate 100 mg BID, losartan 25 mg daily, coumadin. I spent a total of 20 minutes coordinating, documenting, and providing care for this patient excluding time spent in the performance of separately billed services or time spent by another provider. Ang Metz DO Subjective 05/10/23: patient seen and examined in follow up. She is feeling well today. Offers no cardiac questions or concerns. patient denies any chest pain pressure, palpitations, shortness of breath, PND, pre-syncope, syncope or new edema. she is sitting up on the side of bed today, and anticipates having a physical therapy evaluation. Review of telemetry shows SR with 1st degree AV block with occasional PAC. No recurrence of A-fib and no acute events overnight. INR 2.5 today. Notes, labs, vitals and diagnostics reviewed. Review of Systems Review of Systems: All systems reviewed & are unremarkable except as noted in HPI & below Physical Exam Constitutional: well developed, well nourished and + obese; no acute distress Neck: normal visual inspection and trachea midline Respiratory: normal respiratory effort, lungs clear to auscultation Cardiovascular: Rate/Rhythm: regular rate, regular rhythm and + irregularly irregular Heart Sounds: normal S1 and normal S2 Vessels: dorsalis pedis pulses present; no JVD Extremities: + edema (Trace to +1 BLE right chronically bigger than left ) Skin: no rashes, warm and dry Psychiatric: A+Ox3, euthymic affect Results & Data Vital Signs (Past 12 Hours) Vital Signs Temp Pulse Pulse Resp BP Pulse Ox O2 Del Method 05/10/23 08:00 56 L 05/10/23 07:22 36.3 C L 63 20 147/87 H 92 Room Air 05/10/23 03:53 36.5 C 56 L 21 144/73 H 92 Room Air 05/10/23 00:00 70 05/09/23 22:26 36.7 C 68 18 145/71 H 95 Room Air O2 Flow Rate 05/10/23 08:00 05/10/23 07:22 92 05/10/23 03:53 05/10/23 00:00 05/09/23 22:26
--- NOTE | 2023-05-10 11:32 | Hospitalist Progress Note ---
Date of Service May 10, 2023 Assessment & Plan (1) Atrial fibrillation with RVR: (2) Back pain: (3) Subtherapeutic anticoagulation: (4) Viral illness: (5) Noncompliance with medications: (6) CKD (chronic kidney disease), stage III: (7) Hx pulmonary embolism: (8) Heterozygous for MTHFR gene mutation: (9) Morbid obesity with BMI of 45.0-49.9, adult: Plan Patient is a 72 yr female who has a significant past medical history of PAF anticoagulated on warfarin, HTN, history of PE, heterozygote MTHFR mutation, factor V Leiden deficiency, methylenetetrahydrofolate reductase deficiency, severe CHATA, Pulmonary HTN, CKD stage III, gouty arthropathy and depression who presents to ED secondary to pain between shoulder blades and feeling sick. Atrial fibrillation with RVR Subtherapeutic INR on presentation Missed taking home medications--admits to being forgetful --CXR:Mild cardiomegaly. Otherwise, no acute process within the chest. --Normal TSH --ECHO: Technically limited study due to poor acoustic windows. Left ventricle wall motion was grossly normal on limited evaluation. EF 55%. Pulmonary artery pressure 45 mmHg. Continue metoprolol increased to 100 mg twice a day Monitor INR: 1.3>>1.6>1.9>2.5 Discontinue IV heparin Appreciate cardiology input Monitor and replace electrolytes as needed Needs follow-up with cardiology upon discharge Spontaneously converted to sinus Adjust Coumadin dose as needed Needs follow-up with Coumadin clinic on discharge Acute bronchitis Mediastinal lymphadenopathy Likely viral etiology --CTA:No evidence for a pulmonary embolus. Pulmonary arterial hypertension. T here are few scattered subcentimeter nodular densities within the lungs which are new compared to the prior study. Some of these demonstrate a tree-in-bud nodular pattern. Therefore, this favors a mild inflammatory/infectious process. Mild mediastinal lymphadenopathy which has progressed. This could be reactive. However, [address] follow-up recommended to ensure stability/resolution of the additional lymph nodes and scattered nodules. Mild air trapping. -- Normal procalcitonin --Negative BioFire Saturating well on room air Conservative management Advised repeat CT imaging as outpatient in 6 months Continue doxycycline Clinically improved Prediabetes HbA1c 5.9 Lifestyle changes Mild troponin elevation likely Type II SD secondary to A-fib RVR Monitor H/O PE/DVT MTHFR mutation Continue Coumadin Monitor INR 2.5 today Hypertension Metoprolol increased to 100 mg twice a day Added losartan 25 mg daily Monitor BP Severe CHATA CPAP at HS CKD-3 baseline cr 1.1 chronic, stable avoid nephrotoxic agents Monitor renal function Morbid obesity BMI 49.3 Encourage diet/lifestyle modifications DVT Px: Coumadin Code Status FULL CODE Disposition Home Admission and Anticipated Discharge Date Admission Date: May 05, 2023 Subjective Patient is seen and examined at bedside States feeling well today Discussed with cardiology today INR is therapeutic Blood pressure better today Denies any chest pain, dyspnea, nausea, vomiting, abdominal pain Plan to be discharged home Offers no other complaints Review of Systems Review of Systems: All systems reviewed & are unremarkable except as noted in Subjective Physical Exam Physical Exam: Physical Exam: Vitals signs as noted above General Appearance:Obese, no apparent distress Head: normocephalic, Atraumatic Eyes: normal inspection, EOMI Neck: supple, Trachea midline Respiratory/Chest: Decreased breath sounds, CTA, No accessory muscle use Cardiovascular: S1-S2, No murmur Abdomen/GI:Soft, Non tender, Bowel sounds present Extremities/Musculoskeletal:normal inspection, 2+ B/L LE edema Neurologic/Psych:AAOX3, grossly no focal neurological deficits Skin: normal color, warm Results & Data Results & Data Vital Signs (Past 12 Hours) Vital Signs Temp Pulse Pulse Resp BP Pulse Ox O2 Del Method 05/10/23 08:00 56 L 05/10/23 07:22 36.3 C L 63 20 147/87 H 92 Room Air 05/10/23 03:53 36.5 C 56 L 21 144/73 H 92 Room Air 05/10/23 00:00 70 O2 Flow Rate 05/10/23 08:00 05/10/23 07:22 92 05/10/23 03:53 05/10/23 00:00 Laboratory Results Short CBC 05/10/23 Range/Units 06:10 WBC 5.22 (4.8-10.8) K/ul Hgb 10.7 L (12.0-16.0) g/dl Hct 34.3 L (37.0-47.0) % Plt Count 234 (130-400) K/uL BMP 05/10/23 06:10 Sodium 139 Potassium 4.1 Chloride 108 H Carbon Dioxide 24 BUN 20 Creatinine 1.07 Glucose 98 Calcium 9.6 (2) Back pain Back pain laterality: midline Back pain location: thoracic back pain Chronicity: unspecified Qualified Code(s): M54.6 - Pain in thoracic spine
--- NOTE | 2023-05-10 11:51 | Discharge Summary ---
Date of Service May 10, 2023 Admission HPI Per Admitting Provider This is a 72-year-old female who has a significant past medical history of PAF anticoagulated on warfarin, HTN, history of PE, heterozygote MTHFR mutation, factor V Leiden deficiency, methylenetetrahydrofolate reductase deficiency, severe CHATA, Pulmonary HTN, CKD stage III, gouty arthropathy and depression who presents to ED secondary to pain between shoulder blades and sick started this morning. She states she recently was in [place] for 1.5 months and just returned on Sunday, 4 days ago. This morning she woke up with pain between her shoulder blades and describes this as sharp. It would wax and wane in intensity but remained constant. It was made worse with deep breathing. Pain was not made worse with movement, lying or siting. She also complained of shortness with exertion, but this is chronic for her and she does not feel it is unchanged. She currently denies shortness of breath at rest, hemoptysis. She does complain of fever, rhinorrhea, cough, chills and significant fatigue. She has chronic lower ext swelling which she feels is at baseline. She denies any loss of taste/smell, lightheadedness, dizziness, hemoptysis, nausea, vomiting or abdominal pain. She has experienced diarrhea. She denies any known sick contacts, but recently traveled. Her appetite has been decreased today. She also states she has not taken her meds since she returned from [place] on Sunday. Her last medications would have been on Sunday prior to leaving. She was seen and evaluated in urgent care [facility] and referred to ED for work up of heart attack. At [facility] her records were reviewed and she did have a temp of 100.4. Her outpatient epic records were reviewed. She does follow with [facility] cardiology. In May 2022 she underwent Zio patch monitoring which revealed multiple episodes of SVT. Who metoprolol was then increased. She also has known diastolic CHF. Her last echocardiogram was in June 2022 which is to be nuclear stress test. This revealed a preserved EF. It was negative for inducible ischemia. Admission Exam Per Admitting Provider Constitutional: WD/WN, obese F, dyspneic with convo, vitals as above, NAD, sitting up in bed, pleasant, conversing easily Head: Normocephalic, Atraumatic Eyes: conjunctivae normal, anicteric sclerae ENMT: external ear and nose normal, oropharynx normal Neck: trachea midline, no thyromegaly normal visual inspection Respiratory: normal respiratory effort, lungs clear to auscultation, no wheeze, rales, rhonchi. Normal insp/exp effort, no accessory muscle use Cardiovascular: IRR/IRR, no murmur, b/l +1 edema with venous stasis changes chronic Vessels: no JVD or carotid bruit Chest: normal inspection of chest Abdomen: normal bowel sounds, soft, nontender, no hepatosplenomegaly Musculoskeletal: no cyanosis or clubbing, AROM x 4 Skin: no rashes, warm and dry normal turgor Neurologic: no face palsy, no dysarthria CN's II-XI intact bilaterally and moves all extremities Psychiatric: A+Ox3, euthymic affect : deferred Principal Diagnosis Atrial fibrillation with RVR Subtherapeutic INR Acute bronchitis Mediastinal lymphadenopathy Discharge Data Allergies Allergy/AdvReac Type Severity Reaction Status Date / Time adhesive Allergy Mild RASH Verified 05/05/23 15:41 latex Allergy Mild RASH Verified 05/05/23 15:41 lactose AdvReac Intermediate GI SYMPTOMS Verified 05/05/23 15:41 Consultations 05/05/23 17:02 ED Decision to Admit Stat 05/05/23 20:12 Consult Cardiology Routine Procedures Performed Laboratory Results WBC 5.22 K/ul (4.8-10.8) 05/10/23 06:10 RBC 3.57 M/uL (4.20-5.40) L 05/10/23 06:10 Hgb 10.7 g/dl (12.0-16.0) L 05/10/23 06:10 POC Hgb 13.9 g/dl (12.0-16.0) 05/05/23 16:00 Hct 34.3 % (37.0-47.0) L 05/10/23 06:10 POC Hct 41 % (37-47) 05/05/23 16:00 MCV 96.1 fL (80.0-100.0) 05/10/23 06:10 MCH 30.0 pg (25.0-34.0) 05/10/23 06:10 MCHC 31.2 g/dL (32.0-36.0) L 05/10/23 06:10 RDW Std Deviation 48.2 fL (36.4-46.3) H 05/10/23 06:10 RDW Coeff of Fabián 13.7 % (11.5-14.5) 05/10/23 06:10 Plt Count 234 K/uL (130-400) 05/10/23 06:10 MPV 11.5 fL (9.4-12.4) 05/10/23 06:10 Immature Gran % (Auto) 0.4 % 05/07/23 06:19 Neut % (Auto) 78.6 % 05/07/23 06:19 Lymph % (Auto) 9.6 % 05/07/23 06:19 [place] % (Auto) 7.9 % 05/07/23 06:19 Eos % (Auto) 3.1 % 05/07/23 06:19 Baso % (Auto) 0.4 % 05/07/23 06:19 Neut # (Auto) 5.84 K/uL (1.40-6.50) 05/07/23 06:19 Lymph # (Auto) 0.71 K/uL (1.20-3.40) L 05/07/23 06:19 [place] # (Auto) 0.59 K/uL (0.11-0.59) 05/07/23 06:19 Eos # (Auto) 0.23 K/uL (0.00-0.50) 05/07/23 06:19 Baso # (Auto) 0.03 K/uL (0.00-0.20) 05/07/23 06:19 Immature Gran # (Auto) 0.03 K/uL (0.01-0.20) 05/07/23 06:19 Absolute Nucleated RBC 0.02 K/uL (0.00-0.12) 05/10/23 06:10 Nucleated RBC % (auto) 0.4 % 05/10/23 06:10 PT 26.3 Seconds (9.0-12.0) H 05/10/23 06:10 INR 2.5 (0.9-1.1) H 05/10/23 06:10 APTT 27 Seconds (21-31) 05/05/23 15:52 PTT Ratio 1.0 05/05/23 15:52 D-Dimer 740 ug/L FEU (0-500) H* 05/05/23 15:52 Heparin Anti-Xa, Unfract 0.37 IU/ml (0.3-0.7) 05/10/23 06:10 POC Sodium 142 mmol/L (135-144) 05/05/23 16:00 Sodium 139 mmol/L (136-145) 05/10/23 06:10 POC Potassium 3.6 mmol/L (3.3-5.0) 05/05/23 16:00 Potassium 4.1 mmol/L (3.5-5.1) 05/10/23 06:10 POC Chloride 106 mmol/L (101-112) 05/05/23 16:00 Chloride 108 mmol/L (98-107) H 05/10/23 06:10 Carbon Dioxide 24 mmol/L (21-32) 05/10/23 06:10 POC Total CO2 23 mmol/L (24-31) L 05/05/23 16:00 Anion Gap 7 (3-11) 05/10/23 06:10 POC Anion Gap 18.0 mmol/L (16-25) 05/05/23 16:00 POC BUN 12 mg/dl (7-18) 05/05/23 16:00 BUN 20 mg/dl (6-23) 05/10/23 06:10 Creatinine 1.07 mg/dl (0.6-1.2) 05/10/23 06:10 POC Creatinine 1.2 mg/dl (0.6-1.3) 05/05/23 16:00 Est Cr Clr Drug Dosing 72.2 ml/min 05/10/23 06:10 Est GFR ( Amer) 59.6 ml/min 05/10/23 06:10 Est GFR (Non-Af Amer) 51.5 ml/min 05/10/23 06:10 BUN/Creatinine Ratio 18.7 (10-20) 05/10/23 06:10 Glucose 98 mg/dl (70-99(Fasting)) 05/10/23 06:10 POC Glucose 126 mg/dl (70-99) H 05/06/23 11:21 POC Glucose (other) 152 mg/dl (70-99) H 05/05/23 16:00 Estimat Average Glucose 123 mg/dl 05/06/23 04:32 Hemoglobin A1c 5.9 % (4.5-5.6) H 05/06/23 04:32 Lactate 1.1 mmol/L (0.4-2.0) 05/06/23 19:51 Calcium 9.6 mg/dl (8.6-10.3) 05/10/23 06:10 POC Ioniz Calcium [place] 1.19 mmol/l (1.12-1.32) 05/05/23 16:00 Magnesium 2.0 mg/dl (1.7-2.4) 05/10/23 06:10 Total Bilirubin 1.0 mg/dl (0.2-1.0) 05/07/23 06:19 AST 38 U/L (13-39) 05/07/23 06:19 ALT 37 U/L (7-52) 05/07/23 06:19 Alkaline Phosphatase 80 U/L (34-104) 05/07/23 06:19 Troponin I High Sens 21.6 pg/ml (0-14) H 05/06/23 04:32 B-Natriuretic Peptide 235 pg/ml (0-100) H 05/05/23 15:52 Total Protein 7.3 gm/dl (6.0-8.3) 05/07/23 06:19 Albumin 3.9 gm/dl (3.4-5.0) 05/07/23 06:19 Globulin 3.4 gm/dl (2.5-4.0) 05/07/23 06:19 Albumin/Globulin Ratio 1.1 (0.9-2) 05/07/23 06:19 Lipase 39 U/L (11-82) 05/05/23 15:52 Procalcitonin < 0.05 ng/ml (0-0.5) 05/06/23 22:51 TSH 2.234 uIu/ml (0.300-4.500) 05/05/23 17:45 Urine Color Yellow 05/07/23 01:00 Urine Appearance Clear (Clear) 05/07/23 01:00 Urine pH 6.0 (4.5-7.5) 05/07/23 01:00 Ur Specific [place] 1.020 (1.000-1.030) 05/07/23 01:00 Urine Protein 1+ (Negative) H 05/07/23 01:00 Urine Glucose (UA) Negative (Negative) 05/07/23 01:00 Urine Ketones Negative (Negative) 05/07/23 01:00 Urine Blood Trace-intact (Negative) H 05/07/23 01:00 Urine Nitrite Negative (Negative) 05/07/23 01:00 Urine Bilirubin Negative (Negative) 05/07/23 01:00 Urine Urobilinogen Negative (Negative) 05/07/23 01:00 Ur Leukocyte Esterase Negative (Negative) 05/07/23 01:00 Urine RBC 0-4 /hpf (0-4) 05/07/23 01:00 Urine WBC 0-5 /hpf (0-5) 05/07/23 01:00 Ur Epithelial Cells 5-10 /lpf (0-5) H 05/07/23 01:00 Urine Bacteria 1+ (Negative) H 05/07/23 01:00 Nasal Screen MRSA (PCR) Negative (Negative) 05/06/23 11:41 Adenovirus (PCR) Not Detected (NotDetected) 05/05/23 18:09 B. pertussis DNA (PCR) Not Detected (NotDetected) 05/05/23 18:09 B.parapertussis DNA PCR Not Detected (NotDetected) 05/05/23 18:09 C. pneumoniae DNA (PCR) Not Detected (NotDetected) 05/05/23 18:09 Coronavirus OC43 (PCR) Not Detected (NotDetected) 05/05/23 18:09 Coronavirus HKU1 (PCR) Not Detected (NotDetected) 05/05/23 18:09 Coronavirus 229E (PCR) Not Detected (NotDetected) 05/05/23 18:09 SARS-CoV-2 (PCR) Not Detected (NotDetected) 05/05/23 18:09 Coronavirus NL63 (PCR) Not Detected (NotDetected) 05/05/23 18:09 Human Metapneumovir PCR Not Detected (NotDetected) 05/05/23 18:09 Influenza Type A (PCR) Not Detected (NotDetected) 05/05/23 18:09 Influenza Type B (PCR) Not Detected (NotDetected) 05/05/23 18:09 M. pneumoniae (PCR) Not Detected (NotDetected) 05/05/23 18:09 Parainfluenza 1 (PCR) Not Detected (NotDetected) 05/05/23 18:09 Parainfluenza 2 (PCR) Not Detected (NotDetected) 05/05/23 18:09 Parainfluenza 3 (PCR) Not Detected (NotDetected) 05/05/23 18:09 Parainfluenza 4 (PCR) Not Detected (NotDetected) 05/05/23 18:09 RSV (PCR) Not Detected (NotDetected) 05/05/23 18:09 Entero/Rhino (PCR) Not Detected (NotDetected) 05/05/23 18:09 Impressions Chest X-Ray 05/05/23 15:42 XR chest 1V portable HISTORY: Chest pain, nonspecific COMPARISON: Chest 11/18/2019. FINDINGS: No pneumothorax. No pleural effusions. The heart remains mildly enlarged. Small left basilar linear densities favor subsegmental atelectasis or scarring. Otherwise, lungs are clear. No evidence for pulmonary edema. No acute fractures identified. IMPRESSION: Mild cardiomegaly. Otherwise, no acute process within the chest. ACT 112: Negative or not required by law. Electronically signed by: Fox Ramos M.D. 05/05/2023 4:11 PM Chest CTA 05/05/23 15:44 CHEST CTA for PULMONARY ARTERIES CT DOSE: 958.64 mGy.cm HISTORY: Atypical chest pain. Shortness of breath. TECHNIQUE: Multiaxial CT images of the chest were performed following the intravenous administration of contrast to evaluate the pulmonary arteries. 3D/Maximal intensity projection images were also obtained. Sagittal and coronal reformations were also reviewed. A dose lowering technique was utilized adhering to the principles of ALARA. COMPARISON STUDY: Chest CTA 12/07/2016. FINDINGS: Normal caliber thoracic aorta with no evidence for a dissection. The heart is mildly enlarged. There are mitral annulus calcifications noted. The main pulmonary artery is dilated up to 3.8 cm consistent with pulmonary arterial hypertension. No filling defects within the pulmonary arteries to suggest a pulmonary embolus. No pleural or pericardial effusions. There is a small hiatus hernia. Otherwise, normal caliber esophagus. A few mildly enlarged mediastinal lymph nodes. A dominant precarinal lymph node on image 156 measures 24 x 17 mm. Limited views the upper abdomen demonstrate normal liver, spleen, and adrenal glands. No acute fractures. No pneumothorax. The central airways are patent. A few small bibasilar linear densities favor subsegmental atelectasis or scarring. Mosaic attenuation within the lungs suggest mild air trapping. There are few scattered subcentimeter nodular densities within the lungs which are new compared to the prior study. Some of these demonstrate a tree-in-bud nodular pattern. The majority of these nodules demonstrate a groundglass halo. Dominant nodules within the base of the left lower lobe on images 84 and 81 measure up to 6 mm. Therefore, this favors a mild inflammatory/infectious process. IMPRESSION: 1. No evidence for a pulmonary embolus. 2. Pulmonary arterial hypertension. 3. There are few scattered subcentimeter nodular densities within the lungs which are new compared to the prior study. Some of these demonstrate a tr ee-in-bud nodular pattern. Therefore, this favors a mild inflammatory/infectious process. 4. Mild mediastinal lymphadenopathy which has progressed. This could be reactive. However, [address] follow-up recommended to ensure stability/resolution of the additional lymph nodes and scattered nodules. 5. Mild air trapping. ACT 112: Negative or not required by law. Electronically signed by: Fox Ramos M.D. 05/05/2023 4:37 PM Ordered Studies 05/05/23 15:44 CT angio chest PE protocol Stat Hospital Course (1) Atrial fibrillation with RVR: (2) Back pain: (3) Subtherapeutic anticoagulation: (4) Viral illness: (5) Noncompliance with medications: (6) CKD (chronic kidney disease), stage III: (7) Hx pulmonary embolism: (8) Heterozygous for MTHFR gene mutation: (9) Morbid obesity with BMI of 45.0-49.9, adult: Plan Patient is a 72 yr female who has a significant past medical history of PAF anticoagulated on warfarin, HTN, history of PE, heterozygote MTHFR mutation, factor V Leiden deficiency, methylenetetrahydrofolate reductase deficiency, severe CHATA, Pulmonary HTN, CKD stage III, gouty arthropathy and depression who presents to ED secondary to pain between shoulder blades and feeling sick. Atrial fibrillation with RVR Subtherapeutic INR on presentation Missed taking home medications--admits to being forgetful --CXR:Mild cardiomegaly. Otherwise, no acute process within the chest. --Normal TSH --ECHO: Technically limited study due to poor acoustic windows. Left ventricle wall motion was grossly normal on limited evaluation. EF 55%. Pulmonary artery pressure 45 mmHg. Continue metoprolol increased to 100 mg twice a day Monitor INR: 1.3>>1.6>1.9>2.5 Discontinue IV heparin Appreciate cardiology input Monitor and replace electrolytes as needed Needs follow-up with cardiology upon discharge Spontaneously converted to sinus Adjust Coumadin dose as needed Needs follow-up with Coumadin clinic on discharge Acute bronchitis Mediastinal lymphadenopathy Likely viral etiology --CTA:No evidence for a pulmonary embolus. Pulmonary arterial hypertension. There are few scattered subcentimeter nodular densities within the lungs which are new compared to the prior study. Some of these demonstrate a tree-in-bud nodular pattern. Therefore, this favors a mild inflammatory/infectious process. Mild mediastinal lymphadenopathy which has progressed. This could be reactive. However, [address] follow-up recommended to ensure stability/resolution of the additional lymph nodes and scattered nodules. Mild air trapping. -- Normal procalcitonin --Negative BioFire Saturating well on room air Conservative management Advised repeat CT imaging as outpatient in 6 months Continue doxycycline Clinically improved Prediabetes HbA1c 5.9 Lifestyle changes Mild troponin elevation likely Type II [place] secondary to A-fib RVR Monitor H/O PE/DVT MTHFR mutation Continue Coumadin Monitor INR 2.5 today Hypertension Metoprolol increased to 100 mg twice a day Added losartan 25 mg daily Monitor BP Severe CHATA CPAP at HS CKD-3 baseline cr 1.1 chronic, stable avoid nephrotoxic agents Monitor renal function Morbid obesity BMI 49.3 Encourage diet/lifestyle modifications DVT Px: Coumadin Code Status FULL CODE Disposition Home Total Time Total Time Spent Total Time Spent (In Minutes): 55 minutes Discharge Plan Discharge Items Patient Disposition: Home - Self-Care Reason For Visit: AFIB RVR Discharge Diagnosis: Atrial fibrillation with RVR Subtherapeutic INR Acute bronchitis Mediastinal lymphadenopathy Activity: Per Instructions section Exercise/Sports: Gradually increase as tolerated Non-emergency contact: Primary Care Provider and Photographic Artist Call non-emergency contact if: you have any medication questions, your symptoms worsen, your pain is concerning for you and you have a fever Follow-up/Referrals: Beverly Combs, [Primary Care Provider] - ( ) Diet: Heart Healthy Addtl Attending Provider Instructions: Follow-up with your primary care physician in 1 week Follow-up with your mercury cracking tester in 3-4 weeks Follow-up with Coumadin clinic for monitoring of PT/INR and adjusting Coumadin dose as needed. --- Your final blood cultures are pending at the time of discharge. Follow-up with your physician for results. --Complete antibiotic course doxycycline as prescribed. --You are incidentally noted to have enlarged lymph nodes on chest CT. You may need repeat CT chest in 6 months to ensure resolution. Discuss with your primary care physician for further recommendations. Seek immediate medical attention if your symptoms reoccur or worsen Please take all medications as instructed on discharge list below. Please call if you have any questions or problems. You can reach a [facility] hospitalist on duty at [facility] 24 hours a day by calling [phone] Pending Studies at Discharge: Yes (Blood Cultures ) Stand-Alone Forms: My [facility], Smoking Cessation Medications and DC Order Prescriptions: New doxycycline hyclate 100 mg Capsule 100 mg PO BID Qty: 7 0RF losartan 25 mg Tablet 25 mg PO QAM Qty: 30 0RF metoprolol succinate 100 mg tablet extended release 24 hr 100 mg PO BID Qty: 60 0RF Continued cholecalciferol (vitamin D3) [Vitamin D3] 25 mcg (1,000 unit) Tablet 25 mcg PO QAM latanoprost 0.005 % drops 1 drp OPB HS sertraline 50 mg tablet 50 mg PO DAILY warfarin 5 mg tablet 2.5 mg PO MOWEFR@1600 folic acid 1 mg tablet 1 mg PO DAILY warfarin 5 mg tablet 5 mg PO SUTUTHSA@1600 Rx Instructions: As directed from coumadin clinic furosemide 40 mg tablet 40 mg PO DAILY cyanocobalamin (vitamin B-12) [Vitamin B-12] 500 mcg Tablet 500 mcg PO DAILY Discontinued metoprolol succinate 50 mg tablet extended release 24 hr 50 mg PO BID Discharge Orders: Discharge Order (Routine); Ordered 05/10/23 Ordered By: Dany Dumont Admission Data Admit Date/Time: 05/05/23 17:08 Attending Provider: Dany Dumont Admit Provider: Roma Garrett Primary Care Provider: Beverly Combs Other Providers: Roma Garrett; Ang Metz
[2023-05-10] MEDS ORDERED: WARFARIN SOD 4 MG TAB PO SCH (16:00)
[2023-05-11] MEDS ORDERED: CHOLECALCIFEROL 25 MCG (1000 UNITS) TAB PO SCH (09:00)
== END 2023-05-10 13:33 | disposition home or self-care (01) | DRG 281 ==
LOC: ED 15:22 → EDINP 17:08 → SUATTDRO 17:08 → 1E 22:52 → 2S 05-06 17:36